=== PATIENT | male | born 1965 | race Caucasian/White ===

== ENCOUNTER 2021-06-07 11:54 | Outpatient (REF) | payer OTHER, SELFPAY ==
[2021-06-07 12:17] LABS: MANUAL DIFF FLAG NO
[2021-06-07 13:22] LABS: Basophils Percent Auto 0.4 % (0-2); Eosinophils Percent Auto 0.3 % (0-4); Hematocrit 38.3 % (42.0-52.0); Hemoglobin 12.3 g/dl (14.0-18.0); Imm Gran Abs Auto 0.03 X10*3/uL (0.00-0.03); Imm Gran Pct Auto 0.4 % (0.0-0.4); Lymphocytes Percent Auto 13.6 % (20-40); Mean Corpuscular HGB Conc 32.1 g/dl (31.0-36.0); Mean Corpuscular Hemoglobin 26.6 pg (27.0-33.0); Mean Corpuscular Volume 82.9 fL (80.0-98.0); Mean Platelet Volume 10.5 fL (9.4-12.4); Monocytes Absolute Auto 0.6 X10*3/uL (0.1-1.2); Monocytes Percent Auto 8.2 % (2-11); Neutrophils Absolute Auto 5.8 x10*3/uL (2.0-8.3); Neutrophils Percent Auto 77.1 % (45-73); Platelet Count 364 X10*3/uL (160-400); Red Blood Count 4.62 X10*6/uL (4.60-5.80); Red Cell Distribution Width 15.2 % (11.0-16.0); White Blood Count 7.6 X10*3/uL (4.8-10.8)
[2021-06-07 13:50] LABS: Alanine Aminotransferase 19 U/L (0-40); Albumin Level 3.9 g/dL (3.5-5.0); Alkaline Phosphatase 133 U/L (39-117); Anion Gap 14 (12-20); Aspartate Amino Transferase 23 U/L (5-37); Bilirubin Total 0.6 mg/dL (0.0-1.0); Blood Urea Nitrogen 13 mg/dL (9-16); C Reactive Protein 9.76 mg/dL (< or = 0.50); Calcium 10.3 mg/dL (8.4-10.2); Carbon Dioxide 29 mmol/L (22-29); Chloride 95 mmol/L (96-108); Estimated Glomerular Filt Rate > 60; Glucose Random 103 mg/dL (60-115); Potassium 4.4 mmol/L (3.3-5.1); Sodium 134 mmol/L (135-145); Total Protein 7.2 g/dL (6.5-8.0)
[2021-06-07 14:09] LABS: Estimated Average Glucose 111 mg/dL; Hemoglobin A1c % 5.5 %
[2021-06-07 14:13] LABS: Thyroid Stimulating Hormone 1.65 uIU/mL (0.32-4.0)
[2021-06-07 14:40] LABS: Erythrocyte Sedimentation Rate 70 MM/HR (0-15)
== END 2021-06-07 11:55 | disposition home or self-care (01) ==
LOC: HO.LAB 11:54
PROVIDERS: PCP Registered Nurse; Visit Provider Physician Assistant
DX: K59.09 Other constipation (principal); R63.4 Abnormal weight loss; R19.7 Diarrhea, unspecified; K52.9 Noninfective gastroenteritis and colitis, unspecified
CPT/HCPCS: 36415; 80053; 83036; 84443; 85025; 85652; 86140

== ENCOUNTER → 2021-06-08 08:10 | Outpatient (BNVA) | payer OTHER, SELFPAY | PROVIDERS: PCP Registered Nurse; Visit Provider Physician Assistant | DX: Z13.89 Encounter for screening for other disorder (principal) ==

== ENCOUNTER 2021-06-08 09:39 | Emergency (ER) | payer OTHER, SELFPAY ==
--- NOTE | ~2021-06-08 | CT_ITS ---
EXAMINATION: CT CHEST WITH and without CONTRAST CLINICAL INFORMATION: Large mass seen on chest radiograph COMPARISON: Chest radiograph earlier today TECHNIQUE: Multidetector volumetric CT imaging of the chest was obtained both before as well as after the administration of 65 mL of Omnipaque 300 intravenous contrast without immediate adverse reactions. Axial MIP volume rendering provided. Sagittal and coronal reformatted images were obtained. This CT examination was performed using dose optimization techniques as appropriate, variously including the following: *Automated exposure control *Adjustment of mA and/or kV according to patient size (this includes techniques or standardized protocols for targeted exams where dose is matched to indication/reason for exam; i.e. extremities or head) *Use of iterative reconstruction technique DLP: 405 mGy-cm FINDINGS: LUNGS AND MEDIASTINUM: There is a large lobular mass present in the right upper lobe which invades the mediastinum displacing the trachea slightly to the left. The feeding gallstones the superior vena cava which is quite narrowed but still remains patent. The luminal diameter is as small as 3 x 5 mm.. The mass also extends around the right main pulmonary artery. Because of its shape and configuration, overall size is a bit difficult to measure but is approximately 14 x 5 x 11.9 x 9.0 cm. This would be easily amenable to either CT or ultrasound-guided biopsy. There are areas of high attenuation within the mass which show no enhancement and are not aneurysms or pseudoaneurysms. Heart size normal. Mild coronary calcifications are seen. PLEURA: There is no pleural effusion. No pleural mass or thickening although the above-mentioned mass extends to the pleural surface.. AXILLA: No lymphadenopathy. UPPER ABDOMEN: There is an ovoid mass anterior to the upper pole of the right kidney which measures about 40 Hounsfield units and shows no significant enhancement. This may be related to the adrenal gland but could be a fluid-filled gastric diverticulum. This should be monitored on future studies. No evidence of liver metastases. A benign Bosniak class I cyst is noted at the upper pole of the left kidney. OSSEOUS STRUCTURES: Unremarkable. CT/CT chest wo con IMPRESSION: Large right upper lobe mass invading the mediastinum causing severe narrowing of the SVC. The mass is amenable to image guided percutaneous biopsy. Fleischner guidelines were followed.
--- NOTE | ~2021-06-08 | XR_ITS ---
EXAMINATION: XR CHEST CLINICAL INFORMATION: Irregular heartbeat COMPARISON: None TECHNIQUE: 2 views of the chest were obtained. FINDINGS: Radiopaque lobulated mass extending from the right suprahilar region into the right upper lobe measuring approximately 15 cm in greatest dimension. Correlation prior imaging if available. No pneumothorax. Trachea is midline. Cardiomediastinal silhouette is not enlarged. No large pleural effusion. Osseous structures are intact. Soft tissues are unremarkable. XR/XR chest 2V IMPRESSION: Radiopaque lobulated mass extending from the right suprahilar region into the right upper lobe measuring approximately 15 cm in greatest dimension. Correlation prior imaging if available. Consider further evaluation with cross-sectional imaging.
--- NOTE | 2021-06-08 09:41 | ECG_ITS ---
Test Reason : irregular heart rate Blood Pressure : / mmHG Vent. Rate : 125 BPM Atrial Rate : 125 BPM P-R Int : 126 ms QRS Dur : 076 ms QT Int : 290 ms P-R-T Axes : 081 094 075 degrees QTc Int : 418 ms Artifact in tracing Sinus tachycardia Biatrial enlargement Rightward axis Abnormal ECG No previous ECGs available Referred By: Sofi Gandhi Electronically Signed By:YARED YA
[2021-06-08 09:58] VITALS: BP 111/67; PULSE 118; RESP 20; TEMP 37; O2SAT 100; BMI 18.2
[2021-06-08 10:10] LABS: MANUAL DIFF FLAG NO
[2021-06-08 10:12] LABS: Basophils Percent Auto 0.2 % (0-2); Eosinophils Percent Auto 0.4 % (0-4); Hematocrit 40.4 % (42.0-52.0); Hemoglobin 12.8 g/dl (14.0-18.0); Imm Gran Abs Auto 0.04 X10*3/uL (0.00-0.03); Imm Gran Pct Auto 0.5 % (0.0-0.4); Lymphocytes Percent Auto 11.8 % (20-40); Mean Corpuscular HGB Conc 31.7 g/dl (31.0-36.0); Mean Corpuscular Hemoglobin 25.9 pg (27.0-33.0); Mean Corpuscular Volume 81.6 fL (80.0-98.0); Mean Platelet Volume 9.9 fL (9.4-12.4); Monocytes Absolute Auto 0.7 X10*3/uL (0.1-1.2); Monocytes Percent Auto 8.7 % (2-11); Neutrophils Absolute Auto 6.5 x10*3/uL (2.0-8.3); Neutrophils Percent Auto 78.4 % (45-73); Platelet Count 381 X10*3/uL (160-400); Red Blood Count 4.95 X10*6/uL (4.60-5.80); Red Cell Distribution Width 15.2 % (11.0-16.0); White Blood Count 8.3 X10*3/uL (4.8-10.8)
[2021-06-08 10:31] LABS: Troponin-I High Sensitivity < 3.5 ng/L (<3.5-35.0)
[2021-06-08 10:35] LABS: Alanine Aminotransferase 19 U/L (0-40); Alkaline Phosphatase 141 U/L (39-117); Anion Gap 14 (12-20); Aspartate Amino Transferase 23 U/L (5-37); Bilirubin Total 0.6 mg/dL (0.0-1.0); Blood Urea Nitrogen 14 mg/dL (9-16); Calcium 10.4 mg/dL (8.4-10.2); Carbon Dioxide 29 mmol/L (22-29); Chloride 96 mmol/L (96-108); Creatinine Clr Calc Pharmacy 88.6; Estimated Glomerular Filt Rate > 60; Glucose Random 103 mg/dL (60-115); Magnesium 1.9 mg/dL (1.6-2.6); Potassium 4.3 mmol/L (3.3-5.1); Sodium 135 mmol/L (135-145); Total Protein 7.5 g/dL (6.5-8.0)
--- NOTE | 2021-06-08 12:56 | ED_ITS ---
HPI - General Adult General Chief complaint: General Medical Stated complaint: dizzyness irr heart beat Time Seen by Provider: 06/08/21 09:41 Source: patient Mode of arrival: ambulatory Limitations: no limitations History of Present Illness HPI narrative: Patient is a 55 year old male presenting to the emergency department today with a rapid heart rate, cough, and intermittent dizziness. Patient states that he was upstairs, being evaluated to have a colonoscopy due to some unintentional weight loss over the last few months, when they noticed he was tachycardic and recommend he come to the ER to be evaluated. Patient states that he was a long time smoker and just quit a few weeks ago. Patient states that he has a chronic cough but over the last few weeks has been intermittently dizzy. Patient denies any abdominal pain, nausea, vomiting, fever, chills, blurry vision, double vision, loss of vision, chest pain, difficulty breathing, shortness of breath, back pain, night sweats, pain with urination, increased urinary frequency, increased urinary urgency, blood in his urine or stool, syncope or a near syncopal episode, recent trauma or falls, bowel incontinence, bladder incontinence, bowel retention, bladder retention, or any other complaints at this time. Patient states that he has a young son who is special needs and that he is a . Onset (ago): week(s) Relieving factors: none Exacerbating factors: none Associated symptoms: cough Treatments prior to arrival: none Related Data Home Medications Medication Instructions Recorded Confirmed No Known Home Meds 06/08/21 06/08/21 Allergies Allergy/AdvReac Type Severity Reaction Status Date / Time iodine Allergy Severe Anaphylaxis Verified 06/08/21 08:45 shellfish derived Allergy Mild Unknown Verified 06/08/21 08:45 Review of Systems Constitutional: Constitutional: Reports no additional constitutional com plaints, Denies chills, Denies fever(s) and Reports night sweats Eyes: Eyes: Reports no additional eye complaints, Denies blurry vision, Denies change in vision, Denies diplopia, Denies eye discharge, Denies loss of vision and Denies eye pain ENT: Reports dizziness (intermittent) Cardiovascular: Cardiovascular: Reports no additional cardiovascular complaints, Denies chest pain, Reports rapid heart rate, Denies lightheadedness, Denies Loss of Consciousness and Denies dyspnea Respiratory: Respiratory: Reports no additional respiratory complaints, Reports cough and Denies dyspnea Gastrointestinal: Gastrointestinal: Reports no additional gastrointestinal complaints, Denies abdominal pain, Denies melena, Denies hematochezia, Denies change in bowel habits and Denies change in stool character Genitourinary: Genitourinary: Reports no additional male genitourinary complaints, Denies hematuria, Denies oliguria, Denies difficulty urinating, Denies dysuria, Denies urinary frequency, Denies urinary hesitancy, Denies urinary incontinence and Denies urinary urgency Musculoskeletal: Musculoskeletal: Reports no additional musculoskeletal complaints, Denies numbness and Denies tingling Neurologic: Reports dizziness (intermittent), Denies loss of vision, Denies numbness and Denies tingling Psychiatric: Psychiatric: Reports no additional psychiatric complaints Endocrine: Endocrine: Reports no additional endocrine complaints Hematologic/Lymphatic: Hematologic/Lymphatic: Reports no additional hematologic/lymphatic complaints Allergic/Immunologic: Allergic/Immunologic: Reports no additional aller gic/immunologic complaints PMFSH Past Medical History Attestation statement: The following information was validated with the patient. Source: old records reviewed Family History Family History Mother Diverticulitis Maternal Uncle Diverticulitis Maternal Grandmother Diverticulitis Social History Social History Household Members: Children Household Members Other:: - 10 y/o autistic son Alcohol intake: never Patient Tobacco Use Status: Former Tobacco user Quit Date: 06/11/21 Use of substances other than those prescribed or required for medical reasons: No Substance Use Type: Marijuana Advance Directives: No Advance Directives Information Provided: Yes Current occupational status: employed Current occupation: Fulltime Physical Exam ED Vital Signs: Vital Signs - 24 hr 06/08/21 09:58 06/08/21 13:32 06/08/21 14:00 Temperature 98.6 F 99.0 F 98.6 F Pulse Rate 118 H 125 H 120 H Respiratory Rate 20 18 18 Blood Pressure 111/67 127/89 126/85 Pulse Oximetry 100 98 96 06/08/21 16:45 Temperature 98.6 F Pulse Rate 119 H Respiratory Rate 16 Blood Pressure 133/88 Pulse Oximetry 96 BMI result Body Mass Index 18.2 Const General: cooperative, no acute distress, alert and awake Nutritional Appearance: well nourished Orientation/consciousness: patient oriented x3 Limitations: no limitations HENMT Head: Yes normal to inspection and Yes atraumatic Ears: hearing grossly normal bilaterally and external ears normal General nose exam: Normal external nose present, no nasal discharge noted and no epistaxis Face and sinus: Yes normal facial exam, No abrasion and No laceration Mouth: Normal oral and palatal mucosa present, no drooling and no muffled voice Eyes General: appearance normal, both eyes and all related structures Periorbital: periorbital findings normal Eyelids: Yes eyelids normal Conjunctivae: conjunctivae normal Pupils: Equal, round and reactive pupils present EOM: EOMs intact bilaterally Neck Neck: Yes normal visual inspection, Yes full ROM and Yes no lymphadenopathy Chest Chest palpation & inspection: normal inspection of the chest Resp Effort & Inspection: normal respiratory effort and able to speak in complete sentences Auscultation: clear to auscultation bilaterally Cardio Rate: tachycardic Rhythm: regular rhythm GI Inspection: Yes normal to inspection Neuro General: patient oriented x3 and moves all extremities Cranial nerves: Yes Equal, round and reactive pupils present Cognition (Neuro): normal cognition Motor exam (neuro): 5/5 motor strength present throughout Sensory Exam: Normal double simultaneous stimulation for sensation Coordination: [id number] test normal Extrem General: Yes normal to inspection, Yes full ROM and Yes capillary refill normal Psych Appearance: grossly normal Mental Status: mental status grossly normal Affect: normal affect Attitude: cooperative Thought process: Normal thought process present Thought content: Normal thought content present Insight: Good insight present (Psych) Course Reevaluation(s) Reevaluation #1: Spoke to [facility] who stated that they are not accepting any patients that aren't a STEMI, Stroke, Trauma, or Pediatric. Time: 16:00 Reevaluation #2: Spoke to Dr. Merino who recommended the patient be admitted and that Dr. Schultz of thoracic is consulted. Time: 16:05 Reevaluation #3: Spoke to Dr. Schultz's [place] Tony, who stated that he would speak to Dr. Schultz to review the case. Time: 16:10 Medical Decision Making MDM Narrative Medical decision making narrative: Patient is a 55 year old male presenting to the emergency department today with a rapid heart weight, cough, and unintentional weight loss. Patient's physical exam was unremarkable. Patient's blood work was unremarkable. Patient's urine showed no acute process. Patient's EKG was unremarkable. Patient's chest x-ray showed a 15cm chest mass. Patient's chest CT showed a large right upper chest mass that is invading into the mediastinum. I spoke to [facility] who declined to accept the patient secondary to being full. I spoke to Dr. Merino who recommended the patient be admitted for further evaluation. I spoke to Dr. Schultz's PA who states that they recommend the patient be transferred somewhere else with pallative radiation capabilities. I explained my physical exam findings as well as all test results to the patient. I answered all questions asked by the patient. Patient stated that he would rather go home tonight and get ahold of Dr. Merino to discuss outpatient options as he needs to be with his special needs son this evening. I stressed the importance of the patient taking his medication as prescribed. I stressed the importance of the patient following up with his primary care provider and oncologist. I stressed the importance of the patient returning to the emergency department immediately if his symptoms were to worsen or if he were to develop any dizziness, shortness of breath, difficulty breathing, chest pain, blurry vision, loss of vision, nausea, vomiting, abdominal pain, fever, chills, back pain, or any other complaints. Patient verbalized agreement and understanding with this treatment plan and discharge. Differential Diagnosis Differential Diagnosis: lung cancer, chest mass Medical Records Medical records reviewed: Yes I reviewed the patient's medical records. Lab Data Lab results reviewed: Yes I reviewed the patient's lab results. Result diagrams: 06/08/21 10:06 06/08/21 10:06 Labs: Lab Results 06/08/21 06/08/21 06/08/21 Range/Units 10:06 10:06 10:06 WBC 8.3 (4.8-10.8) X10*3/uL RBC 4.95 (4.60-5.80) X10*6/uL Hgb 12.8 L (14.0-18.0) g/dl Hct 40.4 L (42.0-52.0) % MCV 81.6 (80.0-98.0) fL MCH 25.9 L (27.0-33.0) pg MCHC 31.7 (31.0-36.0) g/dl RDW 15.2 (11.0-16.0) % Plt Count 381 (160-400) X10*3/uL MPV 9.9 (9.4-12.4) fL Immature Gran % (Auto) 0.5 H (0.0-0.4) % Neut % (Auto) 78.4 H (45-73) % Lymph % (Auto) 11.8 L (20-40) % [place] % (Auto) 8.7 (2-11) % Eos % (Auto) 0.4 (0-4) % Baso % (Auto) 0.2 (0-2) % Lymph # (Auto) 1.0 L (1.2-4.9) X10*3/uL [place] # (Auto) 0.7 (0.1-1.2) X10*3/uL Eos # (Auto) 0.0 (0.0-0.4) X10*3/uL Baso # (Auto) 0.0 (0.0-0.2) X10*3/uL Abs Immat Gran (auto) 0.04 H (0.00-0.03) X10*3/uL Absolute Neuts (auto) 6.5 (2.0-8.3) x10*3/uL Absolute Nucleated RBC 0.000 (0.0-0.012) X10*3/uL Nucleated RBC % (auto) 0.0 (0.0-0.2) /100WBC Sodium 135 (135-145) mmol/L Potassium 4.3 (3.3-5.1) mmol/L Chloride 96 (96-108) mmol/L Carbon Dioxide 29 (22-29) mmol/L Anion Gap 14 (12-20) BUN 14 (9-16) mg/dL Creatinine 0.72 (0.5-1.4) mg/dL Estim Creat Clear Calc 88.6 Estimated GFR > 60 Random Glucose 103 (60-115) mg/dL Calcium 10.4 H (8.4-10.2) mg/dL Magnesium 1.9 (1.6-2.6) mg/dL Total Bilirubin 0.6 (0.0-1.0) mg/dL AST 23 (5-37) U/L ALT 19 (0-40) U/L Alkaline Phosphatase 141 H (39-117) U/L Lactate Dehydrogenase 369 H (118-273) U/L Troponin I High Sens < 3.5 (<3.5-35.0) ng/L Total Protein 7.5 (6.5-8.0) g/dL Albumin 4.0 (3.5-5.0) g/dL Carcinoembryonic Ag 7.80 ng/mL Imaging Data Chest x-ray: Attestation: I personally reviewed and interpreted this imaging study as follows: Radiologist's impression: EXAMINATION: XR CHEST CLINICAL INFORMATION: Irregular heartbeat COMPARISON: None TECHNIQUE: 2 views of the chest were obtained. FINDINGS: Radiopaque lobulated mass extending from the right suprahilar region into the right upper lobe measuring approximately 15 cm in greatest dimension. Correlation prior imaging if available. No pneumothorax. Trachea is midline. Cardiomediastinal silhouette is not enlarged. No large pleural effusion. Osseous structures are intact. Soft tissues are unremarkable. XR/XR chest 2V IMPRESSION: Radiopaque lobulated mass extending from the right suprahilar region into the right upper lobe measuring approximately 15 cm in greatest dimension. Correlation prior imaging if available. Consider further evaluation with cross-sectional imaging. Dictated By: Daphney Quiñones MD Signed By: Electronically signed by Daphney Quiñones MD 06/08/[address] scan - chest: Attestation: I personally reviewed and interpreted this imaging study as follows: Radiologist's impression: EXAMINATION: CT CHEST WITH and without CONTRAST CLINICAL INFORMATION: Large mass seen on chest radiograph? COMPARISON: Chest radiograph earlier today? TECHNIQUE: Multidetector volumetric CT imaging of the chest was obtained both before as well as after the administration of 65 mL of Omnipaque 300 intravenous contrast without immediate adverse reactions. Axial MIP volume rendering provided. Sagittal and coronal reformatted images were obtained. This CT examination was performed using dose optimization techniques as appropriate, variously including the following: *Automated exposure control *Adjustment of mA and/or kV according to patient size (this includes techniques or standardized protocols for targeted exams where dose is matched to indication/reason for exam; i.e. extremities or head) *Use of iterative reconstruction technique DLP: 405 mGy-cm FINDINGS: LUNGS AND MEDIASTINUM: There is a large lobular mass present in the right upper lobe which invades the mediastinum displacing the trachea slightly to the left. The feeding gallstones the superior vena cava which is quite narrowed but still remains patent. The luminal diameter is as small as 3 x 5 mm.. The mass also extends around the right main pulmonary artery. Because of its shape and configuration, overall size is a bit difficult to measure but is approximately 14 x 5 x 11.9 x 9.0 cm. This would be easily amenable to either CT or ultrasound-guided biopsy. There are areas of high attenuation within the mass which show no enhancement and are not aneurysms or pseudoaneurysms. Heart size normal. Mild coronary calcifications are seen. PLEURA: There is no pleural effusion. No pleural mass or thickening although the above-mentioned mass extends to the pleural surface..? AXILLA: No lymphadenopathy.? UPPER ABDOMEN: There is an ovoid mass anterior to the upper pole of the right kidney which measures about 40 Hounsfield units and shows no significant enhancement. This may be related to the adrenal gland but could be a fluid-filled gastric diverticulum. This should be monitored on future studies. No evidence of liver metastases. A benign Bosniak class I cyst is noted at the upper pole of the left kidney. OSSEOUS STRUCTURES: Unremarkable.? CT/CT chest wo con IMPRESSION: Large right upper lobe mass invading the mediastinum causing severe narrowing of the SVC. The mass is amenable to image guided percutaneous biopsy.? ? Fleischner guidelines were followed. Dictated By: Delbert Swift MD Signed By: Electronically signed by Delbert Swift MD 06/08/21 2343 ECG Data Attestation: I personally reviewed and interpreted this ECG as follows: Prior ECG tracings: not available for review Interpretation: Vent. Rate: 125 BPM ? ? Atrial Rate: 125 BPM P-R Int: 126 ms? QRS Dur: 076 ms QT Int: 290 ms ? ? ? P-R-T Axes: 081 094 075 degrees QTc Int: 418 ms ? Sinus tachycardia with occasional Premature ventricular complexes Biatrial enlargement Rightward axis Pulmonary disease pattern Abnormal ECG No previous ECGs available DD/ [id number] Discharge Plan Discharge Clinical Impression: Chest mass Patient Disposition: Home, Self-Care Additional Instructions: Follow up with your primary care provider and an oncologist. Return to the emergency department immediately if your symptoms worsen or if you develop any dizziness, shortness of breath, difficulty breathing, chest pain, blurry vision, loss of vision, nausea, vomiting, abdominal pain, fever, chills, back pain, or any other complaints. Prescriptions: No Action No Known Home Meds 0RF Referrals: Ann James, RANDA, MEDICAL INTERPRETER, [employer]DBO[employer] PANEL [employer]INTER-[employer] [Primary Care Provider] - Maikol Merino MD [Physician] - (Call tomorrow morning for follow up with the oncologist. ) Stand Alone Forms: Work/School Release Print Language: [place] Citizen
[2021-06-08 13:32] VITALS: BP 127/89; PULSE 125; RESP 18; TEMP 37.2; O2SAT 98
--- NOTE | 2021-06-08 13:34 | PC.NURSE ---
Pt axox3, tachycardic. LS CTA> reports clear phlem. plans of being discharged home to take care of son.
[2021-06-08 14:00] VITALS: BP 126/85; PULSE 120; RESP 18; TEMP 37; O2SAT 96
[2021-06-08] MEDS: methylPREDNISolone Sod Succ 125 MG/2 ML VIAL IVPUSH (14:16)
[2021-06-08] MEDS: LORazepam 0.5 MG TABLET 0.25 MG PO (14:17)
--- NOTE | 2021-06-08 14:18 | PC.NURSE ---
iv inserted, pt medicated per order
[2021-06-08] MEDS: LORazepam 2 MG/ML VIAL 0.25 MG IVPUSH (14:26)
[2021-06-08] MEDS: ondansetron HCL 4 MG/2 ML VIAL IVPUSH (14:26)
--- NOTE | 2021-06-08 14:32 | PC.NURSE ---
pt began to vomit, provider notified, pt medicated with iv zofran as well as iv ativan, pt now to ct scan
[2021-06-08] MEDS: iohexoL 350 MG/ML 75 ML INFUS..BTL 65 ML IV (14:48)
[2021-06-08 16:25] LABS: Lactate Dehydrogenase 369 U/L (118-273)
[2021-06-08 16:45] VITALS: BP 133/88; PULSE 119; RESP 16; TEMP 37; O2SAT 96
[2021-06-08 17:53] VITALS: BP 131/80; PULSE 124; RESP 18; O2SAT 96
== END 2021-06-08 18:14 | disposition home or self-care (01) ==
PROVIDERS: Internal Medicine Medical Oncology; Physician Assistant Medical; Emergency Provider Internal Medicine; PCP Registered Nurse
DX: R91.8 Other nonspecific abnormal finding of lung field (principal); R42 Dizziness and giddiness; R94.31 Abnormal electrocardiogram [ECG] [EKG]; R63.4 Abnormal weight loss; Z68.1 Body mass index [BMI] 19.9 or less, adult; Z87.891 Personal history of nicotine dependence
CPT/HCPCS: 36415; 71046; 71250; 71260; 80053; 82378; 83615; 83735; 84484; 85025; 93005; 96374; 96375; 99284; J2060; J2405; J2930; Q9967

== ENCOUNTER 2021-06-09 11:25 | Day surgery (SDC) | payer OTHER, SELFPAY ==
[2021-06-09] VITALS (7 sets, daily range): BP systolic 111–121; BP diastolic 73–84; PULSE 100–118; RESP 18–20; O2SAT 96–98; BMI 18.0
--- NOTE | ~2021-06-09 | CT_ITS ---
PROCEDURE: CT GUIDED BIOPSY, LUNG CLINICAL INFORMATION: Huge mass right lung. COMPARISON: None TECHNIQUE: Following explaining CT-guided right lung mass biopsy procedure, benefits and risks, a written consent was obtained from the patient. Patient was placed supine on CT table and preliminary CT imaging was obtained through the upper chest. An optimal site was selected along the right anterior chest wall and marked. The marked site was cleaned and draped in usual sterile manner. 1% lidocaine was injected at puncture site. Through a small skin incision a 20-gauge guide needle was advanced from the anterior chest wall into the right anterior pleural-based mass and a 4 pass core biopsy was performed coaxially. Postprocedure the guide needle was removed and complete hemostasis was achieved. Patient tolerated procedure extremely well. Sterile Band-Aid applied postprocedure. Conscious sedation was administered during the exam and patient monitored by the IR nurse and the radiologist. This CT examination was performed using dose optimization techniques as appropriate, variously including the following: *Automated exposure control *Adjustment of mA and/or kV according to patient size (this includes techniques or standardized protocols for targeted exams where dose is matched to indication/reason for exam; i.e. extremities or head) *Use of iterative reconstruction technique DLP: 190 mGy-cm FINDINGS: On preliminary CT imaging there is a large anterior mediastinal mass extending along the right anterior upper pleural surface. Approximately 4 pass core biopsies were obtained with a 20-gauge needle. Preliminary results from pathology revealed adequate tissue sample. Definite results are pending. CT/CT biopsy lung RT IMPRESSION: Successful CT fluoroscopy-guided biopsy of right pleural chest wall mass.
[2021-06-09] MEDS: Lidocaine HCl 1 % MPF 5 ML VIAL SUBCUT (14:19)
== END 2021-06-09 16:05 | disposition home or self-care (01) ==
PROVIDERS: Radiology Diagnostic Radiology; Visit Provider Internal Medicine Medical Oncology
DX: R91.8 Other nonspecific abnormal finding of lung field (principal); Z87.891 Personal history of nicotine dependence; Z91.041 Radiographic dye allergy status
CPT/HCPCS: 32408; 81210; 81235; 88305; 88333; 88341; 88342; 88360; 88374; 88377; 99152; J2250; J3010

== ENCOUNTER 2021-07-11 14:26 | Emergency (ER) | payer OTHER, SELFPAY ==
--- NOTE | ~2021-07-11 | XR_ITS ---
EXAMINATION: XR CHEST CLINICAL INFORMATION: Syncope. Recent diagnosis lung cancer. COMPARISON: Chest radiographs 06/08/2021, CT chest 06/08/2021, CT-guided biopsy lung 06/09/2021. TECHNIQUE: Portable upright AP view of the chest was obtained. FINDINGS: There is right mediastinal and right perihilar and upper lobe mass similar to recent imaging. There is no pneumothorax, vascular congestion, or effusion. Heart size normal. No interval airspace consolidation. Costophrenic sulci are clear. No acute bony abnormality. XR/XR chest 1V IMPRESSION: -Right mediastinal and right lung mass similar to recent imaging. -No pneumothorax, interval infiltrate, or effusion.
--- NOTE | ~2021-07-11 | CT_ITS ---
EXAMINATION: CT ANGIOGRAM OF THE CHEST WITH AND WITHOUT CONTRAST (CT PULMONARY ANGIOGRAM FOR PE) CLINICAL INFORMATION: Reason for Exam elevated ddimer, near syncope COMPARISON: CT chest 06/08/2021, CT biopsy 06/09/2021 TECHNIQUE: Prior to contrast administration, noncontrast localization images were obtained. Subsequently, multidetector volumetric imaging was performed from the thoracic inlet to below the diaphragms following the administration of 65 mL Omnipaque 350 intravenous contrast. No contrast reaction reported Sagittal, coronal, and MIP oblique sagittal reformatted images were obtained on the CT workstation, uploaded to PACS, and reviewed. This CT examination was performed using dose optimization techniques as appropriate, variously including the following: *Automated exposure control *Adjustment of mA and/or kV according to patient size (this includes techniques or standardized protocols for targeted exams where dose is matched to indication/reason for exam; i.e. extremities or head) *Use of iterative reconstruction technique Total exam dose-length product 212 mGy-cm FINDINGS: QUALITY OF STUDY/CONTRAST BOLUS: Satisfactory. PULMONARY ARTERIES: No central or segmental pulmonary emboli. The right pulmonary artery is encased by the large lung/mediastinal mass previously biopsied and well characterized. THORACIC AORTA: No aneurysm or dissection. LUNG: Again seen is a large lobular right upper lobe mass invading the mediastinum with unchanged appearances when compared to the prior study of 06/08/2021. This has been biopsied (06/09/2021) and was shown to represent poorly differentiated carcinoma. PLEURA: No pleural effusion or pneumothorax. MEDIASTINUM: Normal heart size. No pericardial effusion. As stated above, the right upper lobe lung mass invades the mediastinum encasing the trachea and mainstem bronchi as well as the right pulmonary artery, aorta and SVC. The SVC narrows to 2- 3 mm in size, unchanged from prior. No evidence of septal bowing or right heart strain. CHEST WALL/AXILLA: No axillary or internal mammary lymphadenopathy. OSSEOUS STRUCTURES: No acute or suspicious osseous abnormality. UPPER ABDOMEN: Previously seen left adrenal mass now measures 3.0 x 2.0 cm in maximal transverse dimension whereas previously this measured 2.4 x 1.4 cm. Findings consistent with adrenal metastatic disease, increasing in size. No reflux of contrast into the hepatic veins to suggest elevated right heart pressures. CT/CT angio chest PE protocol IMPRESSION: 1. No evidence of pulmonary emboli. 2. No significant interval change in the large right upper lobe carcinoma invading the mediastinum, encasing the right pulmonary artery and severely narrowing the SVC. 3. Left adrenal mass has increased in size, presumably metastatic disease. VTE: negative
--- NOTE | 2021-07-11 14:22 | ECG_ITS ---
Test Reason : CHEST PAIN Blood Pressure : / mmHG Vent. Rate : 145 BPM Atrial Rate : 000 BPM P-R Int : 000 ms QRS Dur : 068 ms QT Int : 276 ms P-R-T Axes : 000 087 077 degrees QTc Int : 428 ms Supraventricular tachycardia ,short R-P Nonspecific ST abnormality Abnormal ECG When compared with ECG of 08-JUN-2021 09:51, Nonspecific T wave abnormality now evident in Inferior leads Supraventricular tachycardia has replaced Normal sinus rhythm Referred By: Aaron Barrera Electronically Signed By:MIR STAFFORD MD
[2021-07-11 14:29] VITALS: BP 83/60; PULSE 142; RESP 20; TEMP 36.6; O2SAT 99; BMI 17.2
[2021-07-11] MEDS: 0.9 % Sodium Chloride 1,000 ML 999 ML IVCONT ×2 (14:40→15:51)
[2021-07-11] MEDS: Hydrocortisone Sod Succ/PF 100 MG VIAL IVPUSH (14:41)
[2021-07-11] MEDS: diphenhydrAMINE HCL 50 MG/ML VIAL 25 MG IVPUSH (14:41)
[2021-07-11] MEDS: ondansetron HCL 4 MG/2 ML VIAL IVPUSH (14:41)
[2021-07-11] MEDS: Famotidine/PF 20 MG/2 ML VIAL IVPUSH (14:43)
--- NOTE | 2021-07-11 14:51 | ED_ITS ---
HPI - Allergic Reaction General Chief complaint: General Medical Stated complaint: Cardiac Issues Time Seen by Provider: 07/11/21 14:33 Source: patient Mode of arrival: other (code blue from oncology - wheelchair) Limitations: no limitations History of Present Illness HPI narrative: 55 yo male with hx of lung adenocarcinoma with bony mets undergoing radiation 5 days a week at [facility] as well as chemotherapy here was receiving infusion today 3rd dose of Taxol today no prior reactions and prior to the Taxol had received his first dose of Zometa - he noted he started to feel sweaty, dizzy, nauseated and like he might pass out a few minutes into the taxol. He denies CP/SOB and felt fine prior to his visit today. No prior reactions in the past. Was a code blue did not lose pulses, brought to ED from oncology MD complaint: allergic reaction (hypotension, vomiting, weakness) Onset (ago): minute(s) (just prior to arrival ) Exposure: medication (zometa and taxol) Symptoms: difficulty breathing, dizziness, nausea and vomiting Severity: severe Treatment prior to arrival: none Previous Allergic Reaction History: none Related Data Home Medications Medication Instructions Recorded Confirmed lorazepam 0.5 mg tablet (Ativan) 0.5 mg PO TID PRN 06/09/21 06/09/21 Previous Rx's Medication Instructions Recorded ondansetron 8 mg disintegrating 8 mg PO Q8H #50 tab 06/20/21 tablet Allergies Allergy/AdvReac Type Severity Reaction Status Date / Time iodine Allergy Severe Anaphylaxis Verified 06/09/21 09:47 shellfish derived Allergy Severe Anaphylaxis Verified 06/09/21 11:28 Review of Systems Review of Systems: Constitutional : No Fever, No Chills ENT/Mouth : no oral swelling, No Hoarseness, No Swallowing Difficulty Eyes: No Eye Pain, No Swelling, No Redness Cardiovascular : No Chest Pain, No SOB Respiratory : No Cough, No Sputum, No Wheezing, No Smoke Exposure, pos Dyspnea Gastrointestinal : pos Nausea, pos Vomiting, No Diarrhea, No abdominal Pain Genitourinary : No Dysuria, No Urinary Frequency, No Hematuria Musculoskeletal : No joint pain, No Myalgias, No Joint Swelling Skin : No Skin Lesions, positive rash Neuro : pos Weakness, No Numbness, No Headache, pos dizziness Psych : No Anxiety/Panic, No Depression Heme/Lymph: No Bruising, No Lymphadenopathy Endocrine : No Polyuria, No Polydipsia All other systems reviewed and are negative [facility] Past Medical History Attestation statement: The following information was validated with the patient. Medical History Adenocarcinoma of lung Bone metastases Mass of right lung Family History Family History (Updated 06/09/21 @ 09:45 by Nicolette Molina CMA) Mother Diverticulitis Breast cancer Maternal Uncle Diverticulitis Prostate cancer Maternal Grandmother Diverticulitis Social History Social History Household Members: Children Household Members Other:: - 10 y/o autistic son Housing: House Are you a primary wild animal caretaker to a significant other at home: No Do you presently have visiting nurse or other home services: No Alcohol intake: current Alcohol intake frequency: holidays/special occasions only Patient Tobacco Use Status: Former Tobacco user Quit Date: 06/11/21 Smoked in Last 30 Days: No Second Hand Smoke Exposure: Yes Use of substances other than those prescribed or required for medical reasons: Yes Substance Use Type: Marijuana Substance Use Frequency: Daily Substance Use Frequency Other:: pt uses marijuana edibles at home to sleep Advance Directives: Yes Advance Directives Information Provided: No Advance Directives on File: Yes Advance Directives Date on File: 06/09/21 service: No Current occupational status: employed Current occupation: Fulltime Current occupational exposures/hazards: No Physical Exam ED Vital Signs: Vital Signs - 24 hr 07/11/21 14:29 07/11/21 14:56 07/11/21 15:44 Temperature 98 F Pulse Rate 142 H 120 H 127 H Respiratory Rate 20 16 22 H Blood Pressure 83/60 L 97/61 100/70 Pulse Oximetry 99 97 100 BMI result Body Mass Index 17.2 Appearance: Alert. Oriented X3. Moderate acute distress. Initial code blue - presentation eyes rolled back pale, diaphoretic, not responding, making gurgling noises for approx 1 min when I was present Eyes: Pupils equal, round and reactive to light. ENT: Pharynx dry but no swelling noted Neck: Normal inspection. Neck supple. CVS: tachyardic heart rate and rhythm. Pulses normal. Respiratory: No respiratory distress. Breath sounds diminished R side Abdomen: Soft and nontender. Skin: Skin warm and dry. pale skin color. Normal skin turgor. Extremities: No lower extremity edema. No calf ttp Neuro: Oriented X 3. No motor deficit. No sensory deficit. Course Course Course Narrative: signed out to Dr. Barrera pending repeat evaluation - repeat troponin and ddimer pending, IVF infusing, he does feel a lot better at this time MDM - Allergic Reaction MDM Narrative Medical decision making narrative: 55 yo male with hx of lung adenocarcinoma with bony mets undergoing radiation 5 days a week at [facility] presents with nausea vomiting dizziness and near syncope following infusion - suspect possible reaction to medication. He was given steroid bolus, benadryl, IVF x 2L, pepcid and is improving on arrival to the ED. Will need observation in the ED. No oral swelling. NO GIB symptoms. NO CP/SOB to suggest PE. He did not have a seizure no shaking he is not postictal. Will observe in ED. Lab Data Result diagrams: 07/11/21 14:42 07/11/21 14:42 Labs: Lab Results 07/11/21 07/11/21 07/11/21 Range/Units 14:42 14:42 14:42 WBC 5.5 (4.8-10.8) X10*3/uL RBC 3.76 L (4.60-5.80) X10*6/uL Hgb 10.0 L (14.0-18.0) g/dl Hct 31.8 L (42.0-52.0) % MCV 84.6 (80.0-98.0) fL MCH 26.6 L (27.0-33.0) pg MCHC 31.4 (31.0-36.0) g/dl RDW 15.8 (11.0-16.0) % Plt Count 131 L D (160-400) X10*3/uL MPV 9.5 (9.4-12.4) fL Immature Gran % (Auto) 0.5 H (0.0-0.4) % Neut % (Auto) 90.4 H (45-73) % Lymph % (Auto) 7.1 L (20-40) % Tyler % (Auto) 0.9 L (2-11) % Eos % (Auto) 0.7 (0-4) % Baso % (Auto) 0.4 (0-2) % Lymph # (Auto) 0.4 L (1.2-4.9) X10*3/uL Tyler # (Auto) 0.1 (0.1-1.2) X10*3/uL Eos # (Auto) 0.0 (0.0-0.4) X10*3/uL Baso # (Auto) 0.0 (0.0-0.2) X10*3/uL Abs Immat Gran (auto) 0.03 (0.00-0.03) X10*3/uL Absolute Neuts (auto) 5.0 (2.0-8.3) x10*3/uL Absolute Nucleated RBC 0.000 (0.0-0.012) X10*3/uL Nucleated RBC % (auto) 0.0 (0.0-0.2) /100WBC Smear Tech's Comments VERIFIED PT (9.9-13.0) SEC INR (0.9-1.1) Sodium 134 L (135-145) mmol/L Potassium 4.2 (3.3-5.1) mmol/L Chloride 100 (96-108) mmol/L Carbon Dioxide 23 (22-29) mmol/L Anion Gap 15 (12-20) BUN 18 H (9-16) mg/dL Creatinine 0.81 (0.5-1.4) mg/dL Estim Creat Clear Calc 74.5 Estimated GFR > 60 Random Glucose 156 H D (60-115) mg/dL Calcium 9.0 D (8.4-10.2) mg/dL Magnesium 2.0 (1.6-2.6) mg/dL Total Bilirubin 0.6 (0.0-1.0) mg/dL Direct Bilirubin 0.2 (0.0-0.5) mg/dL AST 25 D (5-37) U/L ALT 18 (0-40) U/L Alkaline Phosphatase 103 (39-117) U/L Troponin I High Sens (<3.5-35.0) ng/L Total Protein 5.9 L (6.5-8.0) g/dL Albumin 3.1 L (3.5-5.0) g/dL COVID-19 (AMIRAH) Negative (Negative) COVID-19 Clin Com See Note 07/11/21 07/11/21 Range/Units 14:42 15:10 WBC (4.8-10.8) X10*3/uL RBC (4.60-5.80) X10*6/uL Hgb (14.0-18.0) g/dl Hct (42.0-52.0) % MCV (80.0-98.0) fL MCH (27.0-33.0) pg MCHC (31.0-36.0) g/dl RDW (11.0-16.0) % Plt Count (160-400) X10*3/uL MPV (9.4-12.4) fL Immature Gran % (Auto) (0.0-0.4) % Neut % (Auto) (45-73) % Lymph % (Auto) (20-40) % Tyler % (Auto) (2-11) % Eos % (Auto) (0-4) % Baso % (Auto) (0-2) % Lymph # (Auto) (1.2-4.9) X10*3/uL Tyler # (Auto) (0.1-1.2) X10*3/uL Eos # (Auto) (0.0-0.4) X10*3/uL Baso # (Auto) (0.0-0.2) X10*3/uL Abs Immat Gran (auto) (0.00-0.03) X10*3/uL Absolute Neuts (auto) (2.0-8.3) x10*3/uL Absolute Nucleated RBC (0.0-0.012) X10*3/uL Nucleated RBC % (auto) (0.0-0.2) /100WBC Smear Tech's Comments PT 14.9 H (9.9-13.0) SEC INR 1.3 H (0.9-1.1) Sodium (135-145) mmol/L Potassium (3.3-5.1) mmol/L Chloride (96-108) mmol/L Carbon Dioxide (22-29) mmol/L Anion Gap (12-20) BUN (9-16) mg/dL Creatinine (0.5-1.4) mg/dL Estim Creat Clear Calc Estimated GFR Random Glucose (60-115) mg/dL Calcium (8.4-10.2) mg/dL Magnesium (1.6-2.6) mg/dL Total Bilirubin (0.0-1.0) mg/dL Direct Bilirubin (0.0-0.5) mg/dL AST (5-37) U/L ALT (0-40) U/L Alkaline Phosphatase (39-117) U/L Troponin I High Sens < 3.5 (<3.5-35.0) ng/L Total Protein (6.5-8.0) g/dL Albumin (3.5-5.0) g/dL COVID-19 (AMIRAH) (Negative) COVID-19 Clin Com ECG Data Attestation: I personally reviewed and interpreted this ECG as follows: ECG interpretation date: 07/11/21 ECG interpretation time: 14:22 Interpretation: Rate: 145 Rhythm: sinus tachycardia Allons: normal Normal P waves. Normal VANNESSA. Normal QRS complex. ST T wave : nonspecific inf changes qTC: normal prior studies: changed from prior The study has been interpreted contemporaneously by me. . Critical Care Time Critical Care Time Critical Care Time: Yes Total Critical Care Time: 45 Attestation: 2L of IVF, allergy medications, review of records, repeat assessments, response to code blue. I attest to this time spent taking care of the patient Discharge Plan Discharge Clinical Impression: Near syncope Patient Disposition: Still a Patient Prescriptions: No Action lorazepam [Ativan] 0.5 mg Tablet 0.5 mg PO TID PRN (Reason: Anxiety) 0RF ondansetron 8 mg Tablet,Disintegrating 8 mg PO Q8H Qty: 50 4RF
--- NOTE | 2021-07-11 14:53 | PC.NURSE ---
Pt from Oncology after having ?reaction to new medication given. Pt arrives pale/diaphoretic and vomiting. Second IV established 18g to left ac, fluids given in addition to meds reflected in EMAR. Sinus tach on tele rate 150s initially however has trended down to 120s at this time. Hypotensive SBP 80-90s. Color has improved. Pt reports SOB at this time but baseline for pt, on 5lpm via nc, sat 98%. Reports dizziness.
[2021-07-11 14:56] VITALS: BP 97/61; PULSE 120; RESP 16; O2SAT 97
[2021-07-11 15:02] LABS: Basophils Percent Auto 0.4 % (0-2); Eosinophils Percent Auto 0.7 % (0-4); Hematocrit 31.8 % (42.0-52.0); Imm Gran Abs Auto 0.03 X10*3/uL (0.00-0.03); Imm Gran Pct Auto 0.5 % (0.0-0.4); Lymphocytes Absolute Auto 0.4 X10*3/uL (1.2-4.9); Lymphocytes Percent Auto 7.1 % (20-40); MANUAL DIFF FLAG SCAN; Mean Corpuscular HGB Conc 31.4 g/dl (31.0-36.0); Mean Corpuscular Hemoglobin 26.6 pg (27.0-33.0); Mean Corpuscular Volume 84.6 fL (80.0-98.0); Mean Platelet Volume 9.5 fL (9.4-12.4); Monocytes Absolute Auto 0.1 X10*3/uL (0.1-1.2); Monocytes Percent Auto 0.9 % (2-11); Neutrophils Percent Auto 90.4 % (45-73); Platelet Count 131 X10*3/uL (160-400); Red Blood Count 3.76 X10*6/uL (4.60-5.80); Red Cell Distribution Width 15.8 % (11.0-16.0); SCAN SMEAR FLAG 1; White Blood Count 5.5 X10*3/uL (4.8-10.8)
[2021-07-11 15:06] LABS: COVID-19 Test Negative (Negative); IDNOW Serial# 9DB6401D
[2021-07-11 15:11] LABS: Alanine Aminotransferase 18 U/L (0-40); Albumin Level 3.1 g/dL (3.5-5.0); Alkaline Phosphatase 103 U/L (39-117); Anion Gap 15 (12-20); Aspartate Amino Transferase 25 U/L (5-37); Bilirubin Direct 0.2 mg/dL (0.0-0.5); Bilirubin Total 0.6 mg/dL (0.0-1.0); Blood Urea Nitrogen 18 mg/dL (9-16); Carbon Dioxide 23 mmol/L (22-29); Chloride 100 mmol/L (96-108); Creatinine Clr Calc Pharmacy 74.5; Estimated Glomerular Filt Rate > 60; Glucose Random 156 mg/dL (60-115); Potassium 4.2 mmol/L (3.3-5.1); Sodium 134 mmol/L (135-145); Total Protein 5.9 g/dL (6.5-8.0)
[2021-07-11 15:20] LABS: Troponin-I High Sensitivity < 3.5 ng/L (<3.5-35.0)
[2021-07-11 15:26] LABS: INTERNATIONAL NORM RATIO 1.3 (0.9-1.1); Prothrombin Time 14.9 SEC (9.9-13.0)
[2021-07-11 15:35] LABS: SLIDE REVIEW VERIFIED
[2021-07-11 15:44] VITALS: BP 100/70; PULSE 127; RESP 22; O2SAT 100
--- NOTE | 2021-07-11 15:47 | PC.NURSE ---
pt a&ox3, pt remains sinus tach on monitor, hypotensive @ 100/70, 1005 O2 on 5L. pt reports that he is feeling much better. 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 2nd bag flds started. no new orders at this time.
[2021-07-11 16:58] LABS: D Dimer High Sensitivity 1245 NG/ML
--- NOTE | 2021-07-11 17:21 | PC.NURSE ---
pt to CT. hx rxn to CT contrast per pt, provider notified by business services tech.
[2021-07-11] MEDS: iohexoL 350 MG/ML 100 ML INFUS..BTL IV (17:31)
[2021-07-11 17:46] LABS: Troponin-I High Sensitivity 32.6 ng/L (<3.5-35.0)
[2021-07-11 18:00] VITALS: BP 113/72; PULSE 127; RESP 16; O2SAT 100
--- NOTE | 2021-07-26 10:44 | MHC.HEMONCSW ---
FAXED DISABILITY CLAIM TO [facility].
== END 2021-07-11 19:48 | disposition still patient (30) ==
PROVIDERS: Emergency Medicine; Emergency Provider Emergency Medicine
DX: R55 Syncope and collapse (principal); R11.2 Nausea with vomiting, unspecified; R53.1 Weakness; T45.1X5A Adverse effect of antineoplastic and immunosuppressive drugs, initial encounter; Y92.238 Other place in hospital as the place of occurrence of the external cause; C34.91 Malignant neoplasm of unspecified part of right bronchus or lung; R00.0 Tachycardia, unspecified; Z20.822 Contact with and (suspected) exposure to COVID-19; Z87.891 Personal history of nicotine dependence; Z92.21 Personal history of antineoplastic chemotherapy; Z92.3 Personal history of irradiation
CPT/HCPCS: 36415; 71045; 71275; 80048; 80076; 83735; 84484; 85025; 85379; 85610; 87635; 93005; 96361; 96374; 96375; 99283; 99291; J1200; J2405; Q9967

== ENCOUNTER 2021-09-06 11:05 | Outpatient (REF) | payer OTHER, SELFPAY ==
--- NOTE | ~2021-09-06 | MR_ITS ---
MR BRAIN WITHOUT AND WITH CONTRAST CLINICAL INFORMATION: Severe headaches. Metastatic adenocarcinoma of the lung. COMPARISON: None available. TECHNIQUE: Multiplanar, multisequence MRI of the brain was obtained before and after the intravenous administration of 5 mL of Gadavist. FINDINGS: There is a small 3 mm faintly enhancing lesion within the right peritrigonal white matter on image 16 of series 10 that could reflect a small metastatic focus. No additional enhancing lesions intracranially. There is no significant parenchymal edema and there is no significant mass effect intracranially. There is no hydrocephalus, extra-axial surface collection, or herniation. The major flow voids at the skull base are preserved. Mild scattered chronic microangiopathy. There is no acute infarct on diffusion-weighted imaging. There is no intracranial hemorrhage on the gradient recalled echo acquisition. The midline structures are normal. The cerebellar tonsils are normally positioned. The cerebellum and brainstem are normal. There is abnormal bone marrow replacement within the basisphenoid of the clivus contiguous with enhancing mass filling the right sphenoid sinus measuring up to 3 cm x 2.6 cm. No contiguity with the pituitary gland is appreciated. This could reflect a metastatic lesion or sphenoid sinus mass growing into the clivus. MR/MR head/brain wo/w con IMPRESSION: - There is a small 3 mm faintly enhancing lesion within the right peritrigonal white matter on image 16 of series 10 that could reflect a small metastatic focus. No additional enhancing lesions intracranially. There is no significant parenchymal edema and there is no significant mass effect intracranially. - There is abnormal bone marrow replacement within the basisphenoid of the clivus contiguous with enhancing mass filling the right sphenoid sinus measuring up to 3 cm x 2.6 cm. No contiguity with the pituitary gland is appreciated. This could reflect a metastatic lesion or sphenoid sinus mass growing into the clivus with an invasive macroadenoma felt to be less likely given the lack of definite pituitary gland attachment. A PET/CT could be obtained for further assessment.
== END 2021-09-06 11:06 | disposition home or self-care (01) ==
LOC: HO.MRI 11:05
PROVIDERS: Visit Provider Internal Medicine Medical Oncology
DX: R51.9 Headache, unspecified (principal); C78.00 Secondary malignant neoplasm of unspecified lung
CPT/HCPCS: 70553; A9585

== ENCOUNTER → 2021-09-12 14:54 | Outpatient (REF) | payer OTHER, SELFPAY ==
--- NOTE | 2021-09-12 15:02 | CA_ITS ---
Transthoracic Echocardiogram Patient (Last, First, Middle): Orlando Correa, Gender: Male Date of : 1965 Age: 55 Procedure Date: 09/12/2021 Procedure Type: Transthoracic Echocardiogram Location: OP Height: 170.18 cm Weight: 48.99 kg BSA: 1.56 m2 Heart Rate: 125 bpm BP: 92 / 63 mmHg Life Skills Educator: LEIDA Referring MD: Maikol Merino MD Strategic Buyer: Shawn Palomo MD Symptoms: Tachycardia, check for effusion, lung cancer Study Quality: Adequate ECG Rhythm: Sinus tachycardia Conclusions: - 1. Mildly reduced LV systolic function with LVEF of 45-50% with grade 1 diastolic dysfunction 2. Normal cardiac valvular Doppler 3. Low right atrial pressures 4. No gross pericardial effusion Findings Left Ventricle Normal left ventricular cavity size. There is normal left ventricular wall thickness. The left ventricular systolic function is mildly decreased. The visually estimated ejection fraction is between 45-50%. Spectral Doppler is indicative of an impaired relaxation filling pattern. E/E prime ratio is <8, consistent with normal filling pressures. Evidence suggests grade I (mild) diastolic dysfunction. Peak GLS is -12.1% which is reduced. Right Ventricle Normal right ventricular cavity size. There is low normal right ventricular systolic function. Atria Both atria are normal in size. There is no evidence of interatrial shunt. Aortic Valve Normal aortic valve structure and function. There is no aortic valve stenosis. There is no aortic valve regurgitation. Mitral Valve Normal mitral valve structure and function. There is trace mitral valve regurgitation. There is no mitral valve stenosis. Pulmonic Valve The pulmonic valve was not well visualized. Tricuspid Valve Tricuspid regurgitation envelope is inadequate for calculation of right ventricular systolic pressure. Low right atrial pressure. Great Vessels All visible segments of the aorta are normal in size. The pulmonary artery was not well visualized. Venous The inferior vena cava is collapsed, consistent with reduced intravascular volume. Pericardium/Pleural There is no evidence of pericardial effusion. Prior Study Comparison No prior study available for comparison. Measurements 2D Linear Measurements IVSd: 0.67 0.6-0.9/0.6-1.0 cm LVIDd: 4.18 3.9-5.3/4.2-5.9 cm LVIDd Index: 2.68 2.4-3.2/2.2-3.1 cm/m2 LVIDs: 3.24 2.0-3.6 cm LVPWd: 0.76 0.7-1.1 cm LA Diam: 2.50 2.7-3.8/3.0-4.0 cm LAIDs Index: 1.60 1.5-2.3 cm/m2 LV Mass: 106.98 67-162/88-224 g LV Mass Index: 68.58 43-95/49-115 g/m2 LVOT Diam: 2.10 3.0+(-)1.3 cm 2D Systolic Function EF 4C: 50.20 >55% EF 2C: 36.00 >55% Mitral Valve MV Pk E: 0.91 MV PK A: 1.19 MV Decel Time: 66.00 E/A: 0.80 E'Lateral: 12.10 E/E' Lat: 7.50 PHT: 19.00 MVA PHT: 11.58 Decel Harlan: 13.81 Aortic Valve AoV Pk Merlin: 1.09 AoV Mn Merlin: 0.75 AoV VTI: 0.16 AoV Pk Grad: 5.00 Aov Mn Grad: 3.00 HINA Cont.VTI: 3.06 LVOT LVOT Pk Merlin: 1.02 LVOT Mn Merlin: 0.67 LVOT VTI: 0.14 LVOT Pk Grad: 4.00 LVOT Mn Grad: 2.00 LVOT Diam: 2.10 LVOT Area: 3.46 Diastolic Function MV Pk E: 0.91 MV Pk A: 1.19 E/A: 0.80 E' Laterial: 12.10 E/E' Lat: 7.50 Right Ventricle TAPSE (mm): 14.60 TVS' Merlin: 8.95 Great Vessels Aorta Sinus of Valsalva: 2.90 2.0-3.5 cm Ao Asc: 2.70 2.1-3.4 cm Pulmonary Valve PV Pk Merlin: 1.18 Peak PV Grad: 6.00 Updated in Other Vendor System with Status of Final Shawn Palomo MD electronically signed on 09/13/2021 11:57:46 AM with status of Final
== END ==
LOC: HO.CARD 14:54
PROVIDERS: Visit Provider Internal Medicine Medical Oncology
DX: R00.0 Tachycardia, unspecified (principal)
CPT/HCPCS: 93306; 93356

== ENCOUNTER 2021-09-14 10:01 | Outpatient (REF) | payer OTHER, SELFPAY ==
--- NOTE | ~2021-09-14 | CT_ITS ---
EXAMINATION: CT CHEST WITH CONTRAST CLINICAL INFORMATION: Lung cancer. COMPARISON: None TECHNIQUE: Multidetector volumetric CT imaging of the chest was obtained after the administration of 50 mL of Omnipaque 350 intravenous contrast without immediate adverse reactions. Axial MIP volume rendering provided. Sagittal and coronal reformatted images were obtained. This CT examination was performed using dose optimization techniques as appropriate, variously including the following: *Automated exposure control *Adjustment of mA and/or kV according to patient size (this includes techniques or standardized protocols for targeted exams where dose is matched to indication/reason for exam; i.e. extremities or head) *Use of iterative reconstruction technique DLP: 206 mGy-cm. FINDINGS: RADIOLOGIC TECHNICIAN: Well-inflated lungs with slightly elevated right hemidiaphragm. LUNGS: Again visualized is a lobulated right upper lobe mass measuring 8.21 x 3.81 cm, much smaller compared to previous study previously measuring 9.2 x 5.4 cm. The mass directly invades into the right anterior and middle mediastinum and again is much smaller than the previous exam. There is mild right apical parenchymal scarring and apical bullous changes with pleural thickening. Previously visualized for minimal right upper lobe pulmonary nodule is not visualized at this time. A 1 cm nodule seen in the right upper lobe posteriorly appears stable on axial image 156/3. There are several additional small pulmonary nodules seen in the right upper lobe suprahilar region on axial image 211/8 in the range of 3 mm. These were not previously seen, as there was significant compression of the right upper lobe, mediastinal-based mass. There is a 6 mm nodule in the anterior lingula on axial image 363/8 which appears stable. No additional nodules seen. MEDIASTINUM: The thyroid lobes are symmetric and normal. The central trachea and the bronchi are widely patent. Large right anterior middle mediastinal mass seen previously has significantly improved along the right paramediastinal. Nevertheless, the mass within the middle mediastinum extending to the left paramidline region is noted but improved. Previously compromised right pulmonary artery and SVC shows no change. The thoracic aorta is of normal caliber. There is mild coronary artery calcification. No pericardial effusion seen. PLEURA: There is no pleural effusion. No pleural mass or thickening. AXILLA: No lymphadenopathy. UPPER ABDOMEN: Visualized liver, spleen and pancreas appears unremarkable. Heterogeneous left adrenal mass measuring 3.2 x 2.4 cm is stable. Similarly, the right adrenal mass measuring 1.8 x 1.2 cm is stable. There is a left renal upper pole cyst which is stable. OSSEOUS STRUCTURES: No lytic or sclerotic process seen. CT/CT chest w con IMPRESSION: Significant improvement in right upper lobe anterior pleural-based mass. The right mediastinal component, especially paramediastinum, has improved. The right upper lobe apical pleural nodule has resolved. There is diffuse 3 mm pulmonary nodules in the right upper lobe in the parahilar region which are normal or evident. These could be new or better visualized due to reduction the right paramediastinal component of mediastinal tumor. Lingular nodule is stable. No new nodules seen in the lower lobes. Moderate compression of the SVC and mild compression of right pulmonary artery is unchanged. Left adrenal tumor is stable. There is a small right adrenal metastatic lesion, better visualized on the present exam. Fleischner guidelines were followed.
[2021-09-14] MEDS: iohexoL 350 MG/ML 100 ML INFUS..BTL IV (10:48)
== END 2021-09-14 10:02 | disposition home or self-care (01) ==
LOC: HO.CT 10:01
PROVIDERS: Visit Provider Internal Medicine Medical Oncology
DX: C79.51 Secondary malignant neoplasm of bone (principal)
CPT/HCPCS: 71260; Q9967

== ENCOUNTER 2021-09-23 13:01 | Inpatient (IN) | payer OTHER, SELFPAY ==
--- NOTE | ~2021-09-23 | CT_ITS ---
EXAMINATION: CT ANGIOGRAM HEAD AND NECK CLINICAL INFORMATION: Right eye blurry vision. Right facial tingling COMPARISON: MRI brain dated 09/06/2021. CT chest dated 07/11/2021 TECHNIQUE: Unenhanced CT examination of the brain was performed. Test bolus sequences followed by intravenous administration 70 mL of Omnipaque 350 intravenous contrast. Helical imaging was performed in the axial plane from the mediastinum to the skull vertex. Delayed postcontrast imaging of the head was also performed. The data was processed at the medical technologist chemistry's workstation for generation of MIP sequences. Three-dimensional volume rendered reformatted images were also generated at an offline 3-D workstation. This CT examination was performed using dose optimization techniques as appropriate, variously including the following: *Automated exposure control *Adjustment of mA and/or kV according to patient size (this includes techniques or standardized protocols for targeted exams where dose is matched to indication/reason for exam; i.e. extremities or head) *Use of iterative reconstruction technique The degree of stenosis determined by NASCET criteria. DLP: 2220 mGy-cm FINDINGS: SOFT TISSUES AND LUNG APICES: Intravenous and large mass in the right upper lobe anteriorly invading the right chest wall which has decreased in size from the prior examination. Bulky confluent mediastinal lymphadenopathy appears similar. Severe emphysema. CTA NECK: The aortic arch has a classic configuration and the major arch vessel origins are non-stenotic. The vertebral arteries are co-dominant and both vertebral origins are widely patent. Both common carotid arteries are normal in course and caliber. Both internal carotid arteries demonstrate minimal atherosclerotic plaque without significant stenosis. CTA HEAD: The infiltrative mass in the right mesial sphenoid appears to have soft tissue component extending into the bilateral carotid canals resulting in a degree of extrinsic compression upon the right petroclival/lateral segment with mild to moderate narrowing. Remaining bilateral internal carotid arteries widely patent. There is normal opacification of the major intracranial vessels. No acute proximal large vessel occlusion, focal flow-limiting stenosis, or saccular intracranial aneurysm is identified. No abnormal parenchymal enhancement or regional oligemia is visualized. HEAD (noncontrast and delayed): Subcentimeter enhancing lesion redemonstrated within the right subependymal periventricular white matter No intracranial edema, hemorrhage, or midline shift is evident. The ventricles and sulci are stable in size and configuration. No extra-axial collections are appreciated. Dural sinuses are patent. Again seen is a infiltrative lytic process in the right base the sphenoid, with soft tissue filling expanding the right sphenoid chamber. Remaining be secondary involvement of the right trigeminal ganglion is well, as the infiltrative process in the basisphenoid likely closely approximates the trigeminal ganglion. Also the traversing right oculomotor nerve could be impacted as well. No additional suspicious osseous abnormalities are identified within the head or neck. CT/CT angio head neck IMPRESSION: * No large vessel occlusion within the intracranial or extracranial arterial vasculature. * There is mild extrinsic narrowing/compression of the right petroclival/lateral segment of the internal carotid artery related to mass effect by the soft tissue component of the neoplastic process within the basisphenoid of the clivus, as seen on the prior MRI brain. Again seen is a soft tissue component within the sphenoid chamber. * This same neoplastic process may also involve the right trigeminal ganglion and/or traversing right oculomotor nerve, both of which course through this region, and could be resulting in the patient's symptomatology.. * No hemodynamically significant stenosis within the extracranial arterial vasculature. * Stable size of the subcentimeter enhancing lesion within the right subependymal periventricular white matter. No new intracranial metastases are evident. * Decreased size of the large mass in the anterior right upper lobe invading the chest wall. * Similar-appearing bulky confluent mediastinal lymphadenopathy.
[2021-09-23 13:34] VITALS: BP 168/94; PULSE 128; RESP 20; TEMP 37.2; O2SAT 99; BMI 16.9
--- NOTE | 2021-09-23 19:05 | PC.NURSE ---
pt reports increased frequency of migraines since starting most recent round of chemo ~ 9 w ago, blurred vision, r-sided facial numbness. provider in room w pt.
--- NOTE | 2021-09-23 19:30 | ECG_ITS ---
Test Reason : DIZZINESS Blood Pressure : / mmHG Vent. Rate : 119 BPM Atrial Rate : 119 BPM P-R Int : 138 ms QRS Dur : 082 ms QT Int : 334 ms P-R-T Axes : 077 082 074 degrees QTc Int : 469 ms Sinus tachycardia Biatrial enlargement Abnormal ECG When compared with ECG of 11-JUL-2021 14:22, Nonspecific T wave abnormality no longer evident in Inferior leads Nonspecific T wave abnormality no longer evident in Lateral leads Referred By: Sharon Xiao Electronically Signed By:YARED YA
[2021-09-23 20:01] LABS: Hematocrit 24.4 % (42.0-52.0); Imm Gran Abs Auto 0.04 X10*3/uL (0.00-0.03); Imm Gran Pct Auto 0.6 % (0.0-0.4); Lymphocytes Absolute Auto 0.2 X10*3/uL (1.2-4.9); Lymphocytes Percent Auto 3.2 % (20-40); Mean Corpuscular HGB Conc 36.9 g/dl (31.0-36.0); Mean Corpuscular Hemoglobin 31.9 pg (27.0-33.0); Mean Corpuscular Volume 86.5 fL (80.0-98.0); Mean Platelet Volume 9.4 fL (9.4-12.4); Monocytes Absolute Auto 1.1 X10*3/uL (0.1-1.2); Monocytes Percent Auto 15.7 % (2-11); Neutrophils Absolute Auto 5.5 x10*3/uL (2.0-8.3); Neutrophils Percent Auto 80.5 % (45-73); Platelet Count 236 X10*3/uL (160-400); Red Blood Count 2.82 X10*6/uL (4.60-5.80); Red Cell Distribution Width 19.4 % (11.0-16.0); White Blood Count 6.8 X10*3/uL (4.8-10.8)
[2021-09-23 20:02] LABS: MANUAL DIFF FLAG NO
[2021-09-23 20:14] LABS: INTERNATIONAL NORM RATIO 1.3 (0.9-1.1); Prothrombin Time 14.6 SEC (10.0-13.1)
--- NOTE | 2021-09-23 20:27 | ED.GENADULT ---
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 Admits to acute on chronic migraines/headaches times weeks. Denies nausea, vomiting, chest pain, shortness of breath, abdominal pain, pedal edema Onset (ago): hour(s) Related Data Home Medications Medication Instructions Recorded Confirmed lorazepam 0.5 mg tablet (Ativan) 0.5 mg PO TID PRN Anxiety 06/09/21 09/12/21 Previous Rx's Medication Instructions Recorded ondansetron 8 mg disintegrating 8 mg PO Q8H #50 tabs 06/20/21 tablet dexamethasone 4 mg tablet 4 mg PO BID #50 tabs 07/18/21 (Decadron) folic acid 1 mg tablet 1 mg PO DAILY #90 tabs 07/18/21 oxycodone 5 mg tablet 5 mg PO Q6H PRN Breakthrough Pain, 09/04/21 Moderate #50 tabs Allergies Allergy/AdvReac Type Severity Reaction Status Date / Time iodine Allergy Severe Anaphylaxis Verified 07/31/21 15:51 shellfish derived Allergy Severe Anaphylaxis Verified 07/31/21 15:51 Review of Systems Review of Systems: Constitutional: No Fever, No Chills, No Fatigue, No Malaise ENT/Mouth: No Ear Pain, No Nasal Congestion, No sore throat, No Rhinorrhea, No Swallowing Difficulty Eyes: No Eye Pain, No Swelling, No Redness, +Vision Changes Cardiovascular: No Chest Pain, No SOB, No Edema, No Palpitations Respiratory: No Cough, No Sputum, No Dyspnea Gastrointestinal: No Nausea, No Vomiting, No Diarrhea, No Constipation, No Abdominal pain Genitourinary: No Dysuria, No Flank Pain, No Urinary Flow Changes Musculoskeletal: No joint pain, No Myalgias, No Joint Swelling Skin: No Skin Lesions, No rash Neuro: No Weakness, + Numbness, + Paresthesias, No Loss of Consciousness, No Dizziness, + Headache Yes all other systems are reviewed and are negative Constitutional: Constitutional: Reports as per [facility] Past Medical History Attestation statement: The following information was validated with the patient. Medical History (Updated 09/23/21 @ 20:55 by ROOSEVELT Aguilar) Adenocarcinoma of lung Bone metastases Mass of right lung Family History Family History Mother Diverticulitis Breast cancer Maternal Uncle Diverticulitis Prostate cancer Maternal Grandmother Diverticulitis Social History Social History (Updated 09/12/21 @ 15:44 by TIN Shaver) Household Members: Children Household Members Other:: - 10 y/o autistic son Housing: House Are you a primary daycare teacher to a significant other at home: No Do you presently have visiting nurse or other home services: No Alcohol intake: never Patient Tobacco Use Status: Former Tobacco user Quit Date: 06/11/21 Second Hand Smoke Exposure: Yes Use of substances other than those prescribed or required for medical reasons: No Substance Use Type: Marijuana Advance Directives: No Advance Directives Information Provided: No Advance Directives Date on File: 06/09/21 service: No Current occupational status: employed Current occupation: Fulltime Current occupational exposures/hazards: No Physical Exam ED Vital Signs: Vital Signs - 24 hr 09/23/21 13:34 09/23/21 20:34 09/23/21 22:23 Temperature 98.9 F 98.1 F 98.8 F Pulse Rate 128 H 120 H 117 H Respiratory Rate 20 16 20 Blood Pressure 168/94 H 149/94 H 141/91 H Pulse Oximetry 99 98 99 Oxygen Delivery Method Room Air Room Air Room Air BMI result Body Mass Index 16.9 Const General: cooperative and no acute distress Orientation/consciousness: patient oriented x3 Limitations: no limitations HENMT Head: Yes normal to inspection and Yes atraumatic Ears: hearing grossly normal bilaterally General nose exam: Normal external nose present Face and sinus: Yes normal facial exam Mouth: Normal oral and palatal mucosa present Throat: Yes posterior oropharynx normal, Yes tonsils normal and Yes uvula midline Eyes General: appearance normal, both eyes and all related structures Pupils: Equal, round and reactive pupils present EOM: EOMs intact bilaterally Direct Ophthalmoscopy: no photophobia Neck Neck: Yes normal visual inspection, Yes no meningeal signs and Yes supple Resp Effort & Inspection: normal respiratory effort and no respiratory distress Auscultation: clear to auscultation bilaterally, no rales and no wheezes Cardio Rate: regular rate Heart sounds: S1 normal heart sound present and S2 normal heart sound present GI Inspection: Yes normal to inspection Palpation (GI): Soft to palpation, nontender, no guarding and not rigid General: Yes no CVA tenderness Back/Spine/Pelvis Back: no CVA tenderness Skin Rashes: no rashes Wounds: no wounds Neuro Other: + decreased sensation to right side of face General: patient oriented x3, tone normal, moves all extremities, no meningeal signs, no focal motor deficits and CN's II-XI intact bilaterally Cranial nerves: Yes CN's II-XII intact bilaterally, Yes Equal, round and reactive pupils present and Yes Bilaterally intact EOM present Gait exam (Neuro): Normal gait present Motor exam (neuro): 5/5 motor strength present throughout, Pronator motor function not present and no tremor noted Coordination: [id number] test normal Romberg Test: Negative Extrem General: Yes normal to inspection, Yes no pedal edema and Yes no calf tenderness Course Course Course Narrative: -spoke with Oncology Dr. Nevarez recommended brain MRI today or tomorrow due to risk of intracranial hemorrhage or herniation. -2039--no leukocytosis. Chronic anemia. Notably hyponatremic to 119 >> serum osmolalities/urine studies added. Will give 50 cc/hour of IVF and plan to admit for further management. -Magnesium mildly low to 1.5 > IV repletion ordered. -case discussed with hospitalist Dr. 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 On exam tachycardic chronically from SVC syndrome, NAD, no focal neuro deficits, right-sided face subjectively feels different to light touch. Concern for enhancing brain Mets/edema vs ?possible ICH vs CVA. Lower suspicion for herniation at this time. Rule out metabolic abnormalities. Low suspicion for PE or sepsis with chronic tachycardia Plan: EKG, labs, UA,consult oncology Medical Records Medical records reviewed: Yes I reviewed the patient's medical records. Lab Data Lab results reviewed: Yes I reviewed the patient's lab results. Result diagrams: 09/23/21 19:51 09/23/21 19:51 Labs: Lab Results 09/23/21 09/23/21 09/23/21 Range/Units 19:51 19:51 19:51 WBC 6.8 (4.8-10.8) X10*3/uL RBC 2.82 L D (4.60-5.80) X10*6/uL Hgb 9.0 L (14.0-18.0) g/dl Hct 24.4 L D (42.0-52.0) % MCV 86.5 (80.0-98.0) fL MCH 31.9 (27.0-33.0) pg MCHC 36.9 H (31.0-36.0) g/dl RDW 19.4 H (11.0-16.0) % Plt Count 236 D (160-400) X10*3/uL MPV 9.4 (9.4-12.4) fL Immature Gran % (Auto) 0.6 H (0.0-0.4) % Neut % (Auto) 80.5 H (45-73) % Lymph % (Auto) 3.2 L (20-40) % [place] % (Auto) 15.7 H (2-11) % Eos % (Auto) 0.0 (0-4) % Baso % (Auto) 0.0 (0-2) % Lymph # (Auto) 0.2 L (1.2-4.9) X10*3/uL [place] # (Auto) 1.1 (0.1-1.2) X10*3/uL Eos # (Auto) 0.0 (0.0-0.4) X10*3/uL Baso # (Auto) 0.0 (0.0-0.2) X10*3/uL Abs Immat Gran (auto) 0.04 H (0.00-0.03) X10*3/uL Absolute Neuts (auto) 5.5 (2.0-8.3) x10*3/uL Absolute Nucleated RBC 0.000 (0.0-0.012) X10*3/uL Nucleated RBC % (auto) 0.0 (0.0-0.2) /100WBC PT 14.6 H (10.0-13.1) SEC INR 1.3 H (0.9-1.1) Sodium 119 L* (135-145) mmol/L Potassium 3.4 (3.3-5.1) mmol/L Chloride 80 L (96-108) mmol/L Carbon Dioxide 25 (22-29) mmol/L Anion Gap 17 (12-20) BUN 6 L (9-16) mg/dL Creatinine 0.55 (0.5-1.4) mg/dL Estim Creat Clear Calc 107.6 Estimated GFR > 60 Random Glucose 107 (60-115) mg/dL Osmolality (281-305) mosm/kg Calcium 8.9 D (8.4-10.2) mg/dL Magnesium 1.5 L (1.6-2.6) mg/dL Total Bilirubin 1.4 H (0.0-1.0) mg/dL Direct Bilirubin 0.5 (0.0-0.5) mg/dL AST 14 (5-37) U/L ALT 11 (0-40) U/L Alkaline Phosphatase 139 H (39-117) U/L Total Protein 6.5 (6.5-8.0) g/dL Albumin 3.8 (3.5-5.0) g/dL 09/23/21 Range/Units 19:51 WBC (4.8-10.8) X10*3/uL RBC (4.60-5.80) X10*6/uL Hgb (14.0-18.0) g/dl Hct (42.0-52.0) % MCV (80.0-98.0) fL MCH (27.0-33.0) pg MCHC (31.0-36.0) g/dl RDW (11.0-16.0) % Plt Count (160-400) X10*3/uL MPV (9.4-12.4) fL Immature Gran % (Auto) (0.0-0.4) % Neut % (Auto) (45-73) % Lymph % (Auto) (20-40) % [place] % (Auto) (2-11) % Eos % (Auto) (0-4) % Baso % (Auto) (0-2) % Lymph # (Auto) (1.2-4.9) X10*3/uL Randolph # (Auto) (0.1-1.2) X10*3/uL Eos # (Auto) (0.0-0.4) X10*3/uL Baso # (Auto) (0.0-0.2) X10*3/uL Abs Immat Gran (auto) (0.00-0.03) X10*3/uL Absolute Neuts (auto) (2.0-8.3) x10*3/uL Absolute Nucleated RBC (0.0-0.012) X10*3/uL Nucleated RBC % (auto) (0.0-0.2) /100WBC PT (10.0-13.1) SEC INR (0.9-1.1) Sodium (135-145) mmol/L Potassium (3.3-5.1) mmol/L Chloride (96-108) mmol/L Carbon Dioxide (22-29) mmol/L Anion Gap (12-20) BUN (9-16) mg/dL Creatinine (0.5-1.4) mg/dL Estim Creat Clear Calc Estimated GFR Random Glucose (60-115) mg/dL Osmolality 246 L (281-305) mosm/kg Calcium (8.4-10.2) mg/dL Magnesium (1.6-2.6) mg/dL Total Bilirubin (0.0-1.0) mg/dL Direct Bilirubin (0.0-0.5) mg/dL AST (5-37) U/L ALT (0-40) U/L Alkaline Phosphatase (39-117) U/L Total Protein (6.5-8.0) g/dL Albumin (3.5-5.0) g/dL Critical Care Time Critical Care Time Critical Care Time: Yes Total Critical Care Time: 40 Attestation: I have personally provided critical care time exclusive of time spent on separately billable procedures. Time includes review of lab data, radiology results, discussion with consultants, and monitoring for potential decompensation. Intervention performed as documented. Discharge Plan Discharge Clinical Impression: Acute hyponatremia, Brain metastasis, Facial tingling Patient Disposition: Admitted As Inpatient
[2021-09-23 20:33] LABS: Alanine Aminotransferase 11 U/L (0-40); Albumin Level 3.8 g/dL (3.5-5.0); Alkaline Phosphatase 139 U/L (39-117); Anion Gap 17 (12-20); Aspartate Amino Transferase 14 U/L (5-37); Bilirubin Direct 0.5 mg/dL (0.0-0.5); Bilirubin Total 1.4 mg/dL (0.0-1.0); Blood Urea Nitrogen 6 mg/dL (9-16); Calcium 8.9 mg/dL (8.4-10.2); Carbon Dioxide 25 mmol/L (22-29); Chloride 80 mmol/L (96-108); Creatinine Clr Calc Pharmacy 107.6; Estimated Glomerular Filt Rate > 60; Glucose Random 107 mg/dL (60-115); Magnesium 1.5 mg/dL (1.6-2.6); Potassium 3.4 mmol/L (3.3-5.1); Sodium 119 mmol/L (135-145); Total Protein 6.5 g/dL (6.5-8.0)
[2021-09-23 20:34] VITALS: BP 149/94; PULSE 120; RESP 16; TEMP 36.7; O2SAT 98
[2021-09-23] MEDS: Magnesium Sulfate/H2O 2 GM/50 ML PIGGYBACK IV (20:58)
[2021-09-23] MEDS: dexAMETHasone sod phosphate 10 MG/ML VIAL IVPUSH (20:58)
[2021-09-23 21:17] LABS: Osmolality, Serum 246 mosm/kg (281-305)
[2021-09-23] MEDS: iohexoL 350 MG/ML 100 ML INFUS..BTL IV (21:58)
[2021-09-23 22:23] VITALS: BP 141/91; PULSE 117; RESP 20; TEMP 37.1; O2SAT 99
[2021-09-23] MEDS: 0.9 % Sodium Chloride 1,000 ML 75 ML IVCONT (22:41)
[2021-09-23 22:44] LABS: Appearance Urine CLEAR; Color Urine STRAW; Glucose Urine UA NEG (NEG); Leukocyte Esterase Urine NEG (NEG); Nitrite Urine NEG (NEG); PH 7.5 (5.0-8.0); Specific Gravity - Urine <= 1.005 (1.005-1.025); UACC Culture Trigger NO; Urine Blood TRACE (NEG); Urine Ketones NEG (NEG); Urine Protein NEG (NEG-TRACE)
[2021-09-23] MEDS: Urea 15 GM POWDER PO (22:55)
[2021-09-23 22:56] LABS: COVID-19 Test Negative (Negative)
[2021-09-23 22:56] LABS: Potassium Urine Random 12.5 mmol/L
--- NOTE | 2021-09-23 22:56 | PC.NURSE ---
medicated per provider order, NaCl running @ 75ml/hr.
[2021-09-23 23:01] LABS: Creatinine Urine 9.41 mg/dL
[2021-09-23 23:03] LABS: RBC Urine 0-2 /HPF (0); Squamous Epithelial Cell Urine TRACE /LPF; WBC Urine 0 /HPF (0-4)
[2021-09-23 23:11] LABS: Osmolality Urine 186 mosm/kg (373-1093)
--- NOTE | 2021-09-23 23:20 | PM.IMHP ---
History of Present Illness Date of Service: 09/23/21 Chief Complaint: diplopia, fcial weakness This is a 55-year-old male with past medical history of adenocarcinoma of the lung with Mets to multiple places including the brain, who presents to the hospital with complaints of diplopia and left facial weakness. Patient reports that his symptoms started in the a.m., he was recently told that he has brain meds and therefore he was concerned and decided to come to the hospital. Patient reports continues diplopia and weakness in his left face, reports no slurred speech, no difficulty finding words, no weakness numbness or tingling in his upper and lower extremities. Reports no previous similar episode. Reports a headache that is all over his head from the [address] way to the occipital region, reports no nausea vomiting, no dizziness, no abdominal pain, no constipation or diarrhea. no lower extremity edema and no urinary symptoms. On arrival to the ED patient found to have a heart rate in the 120s other otherwise hemodynamically stable Labs are significant for WBC count of 4.0, hemoglobin of 9.7, hematocrit of 26.3 sodium of 119 chloride of 80, osmolality of 246, magnesium of 1.5, UA negative, urine osmolality of 186, urine sodium 48, urine potassium of 12.5, and random chloride of 54 CTA of the head and neck showed mild distress sick neuro in/compression of the right petroclival/lateral segment of the internal carotid early related to mass effect by the soft tissue component of the neoplastic process within thebasisphenoid of the clivus this same use blastic process may also involve the right trigeminal ganglion and or transversing right oculomotor nerve both of which course through this region which could be resulting in the patient's symptomatology Patient started on IV steroids and case was discussed with Hematology and Nephrology and patient will be admitted for further management Review of Systems Review of Systems: Yes all other systems are reviewed and are negative [facility] Medical History Adenocarcinoma of lung Bone metastases Mass of right lung Family History Mother Diverticulitis Breast cancer Maternal Uncle Diverticulitis Prostate cancer Maternal Grandmother Diverticulitis Social History Household Members: Children Household Members Other:: - 10 y/o autistic son Housing: House Are you a primary family day care provider to a significant other at home: No Do you presently have visiting nurse or other home services: No Alcohol intake: never Patient Tobacco Use Status: Former Tobacco user Quit Date: 06/11/21 Second Hand Smoke Exposure: Yes Use of substances other than those prescribed or required for medical reasons: No Substance Use Type: Marijuana Advance Directives: No Advance Directives Information Provided: No Advance Directives Date on File: 06/09/21 service: No Current occupational status: employed Current occupation: Fulltime Current occupational exposures/hazards: No Meds Allergies Allergy/AdvReac Type Severity Reaction Status Date / Time iodine Allergy Severe Anaphylaxis Verified 07/31/21 15:51 shellfish derived Allergy Severe Anaphylaxis Verified 07/31/21 15:51 Active Medications: Current Medications Sodium Chloride (Ns) 1,000 mls @ 75 mls/hr IVCONT .[id number] [facility] Last Admin: 09/23/21 22:41 Dose: 75 mls/hr Pharmacy Consult (Consult Rx Perform Med Rec) 1 each MISCELLANE ONCE PRN PRN Reason: Consult order Urea (Urea 15 Gm Powder) 15 gm PO BID [facility] Last Admin: 09/23/21 22:55 Dose: 15 gm Home Medications Medication Instructions Recorded Confirmed Last Taken Type lorazepam 0.5 mg tablet (Ativan) 0.5 mg PO TID PRN Anxiety 06/09/21 09/24/21 Unknown History Physical Exam Vital Signs and Narrative: Vital Signs: Last Vital Signs Temp 98.8 F 09/23/21 22:23 Pulse 117 H 09/23/21 22:23 Resp 20 09/23/21 22:23 BP 141/91 H 09/23/21 22:23 Pulse Ox 99 09/23/21 22:23 O2 Del Method 09/23/21 22:23 BMI result Body Mass Index 16.9 Const: General: cooperative and no acute distress Orientation/consciousness: patient oriented x3 Eyes: General: appearance normal, both eyes and all related structures Resp: Effort & Inspection: normal respiratory effort Auscultation: clear to auscultation bilaterally Cardio: Rate: regular rate Rhythm: regular rhythm GI: Palpation (GI): Soft to palpation Auscultation: normal bowel sounds Skin: General skin exam: no rashes or lesions noted Neuro: Other: reports diplopia strength is 5/5 in all extremities sensation is intact General: patient oriented x3 Cognition (Neuro): normal cognition Extrem: General: Yes normal to inspection and Yes no pedal edema Results Labs CBC and Chem 7: 09/24/21 05:00 09/24/21 05:00 Labs: Laboratory Results - last 24 hr 09/23/21 09/23/21 09/23/21 19:51 19:51 19:51 MCV 86.5 MCH 31.9 MCHC 36.9 H RDW 19.4 H Plt Count 236 D MPV 9.4 Immature Gran % (Auto) 0.6 H Neut % (Auto) 80.5 H Lymph % (Auto) 3.2 L [place] % (Auto) 15.7 H Eos % (Auto) 0.0 Baso % (Auto) 0.0 Lymph # (Auto) 0.2 L [place] # (Auto) 1.1 Eos # (Auto) 0.0 Baso # (Auto) 0.0 Abs Immat Gran (auto) 0.04 H Absolute Neuts (auto) 5.5 Absolute Nucleated RBC 0.000 Nucleated RBC % (auto) 0.0 PT 14.6 H INR 1.3 H Anion Gap 17 Estim Creat Clear Calc 107.6 Estimated GFR > 60 Random Glucose 107 Osmolality Calcium 8.9 D Magnesium 1.5 L Total Bilirubin 1.4 H Direct Bilirubin 0.5 AST 14 ALT 11 Alkaline Phosphatase 139 H Total Protein 6.5 Albumin 3.8 Urine Color Urine Appearance Urine pH Ur Specific [place] Urine Protein Urine Glucose (UA) Urine Ketones Urine Blood Urine Nitrite Ur Leukocyte Esterase Urine RBC Urine WBC Ur Squamous Epith Cells Urine Bacteria Urine Osmolality Ur Random Sodium Ur Random Potassium Ur Random Chloride Urine Creatinine COVID-19 (AMIRAH) COVID-19 Clin Com 09/23/21 09/23/21 09/23/21 19:51 22:27 22:27 MCV MCH MCHC RDW Plt Count MPV Immature Gran % (Auto) Neut % (Auto) Lymph % (Auto) [place] % (Auto) Eos % (Auto) Baso % (Auto) Lymph # (Auto) [place] # (Auto) Eos # (Auto) Baso # (Auto) Abs Immat Gran (auto) Absolute Neuts (auto) Absolute Nucleated RBC Nucleated RBC % (auto) PT INR Anion Gap Estim Creat Clear Calc Estimated GFR Random Glucose Osmolality 246 L Calcium Magnesium Total Bilirubin Direct Bilirubin AST ALT Alkaline Phosphatase Total Protein Albumin Urine Color Urine Appearance Urine pH Ur Specific [place] Urine Protein Urine Glucose (UA) Urine Ketones Urine Blood Urine Nitrite Ur Leukocyte Esterase Urine RBC Urine WBC Ur Squamous Epith Cells Urine Bacteria Urine Osmolality Ur Random Sodium Ur Random Potassium Ur Random Chloride Urine Creatinine 9.41 COVID-19 (AMIRAH) Negative COVID-19 Clin Com See Note 09/23/21 09/23/21 09/23/21 22:28 22:28 22:28 MCV MCH MCHC RDW Plt Count MPV Immature Gran % (Auto) Neut % (Auto) Lymph % (Auto) [place] % (Auto) Eos % (Auto) Baso % (Auto) Lymph # (Auto) [place] # (Auto) Eos # (Auto) Baso # (Auto) Abs Immat Gran (auto) Absolute Neuts (auto) Absolute Nucleated RBC Nucleated RBC % (auto) PT INR Anion Gap Estim Creat Clear Calc Estimated GFR Random Glucose Osmolality Calcium Magnesium Total Bilirubin Direct Bilirubin AST ALT Alkaline Phosphatase Total Protein Albumin Urine Color STRAW Urine Appearance CLEAR Urine pH 7.5 Ur Specific [place]cock <= 1.005 Urine Protein NEG Urine Glucose (UA) NEG Urine Ketones NEG Urine Blood TRACE Urine Nitrite NEG Ur Leukocyte Esterase NEG Urine RBC 0-2 Urine WBC 0 Ur Squamous Epith Cells TRACE Urine Bacteria NONE Urine Osmolality 186 L Ur Random Sodium 48.0 Ur Random Potassium 12.5 Ur Random Chloride 54.0 Urine Creatinine COVID-19 (AMIRAH) COVID-19 Clin Com Imaging Radiologist's Impressions: Impressions Head/Neck CTA 09/23/21 22:03 IMPRESSION: * No large vessel occlusion within the intracranial or extracranial arterial vasculature. * There is mild extrinsic narrowing/compression of the right petroclival/lateral segment of the internal carotid artery related to mass effect by the soft tissue component of the neoplastic process within the basisphenoid of the clivus, as seen on the prior MRI brain. Again seen is a soft tissue component within the sphenoid chamber. * This same neoplastic process may also involve the right trigeminal ganglion and/or traversing right oculomotor nerve, both of which course through this region, and could be resulting in the patient's symptomatology.. * No hemodynamically significant stenosis within the extracranial arterial vasculature. * Stable size of the subcentimeter enhancing lesion within the right subependymal periventricular white matter. No new intracranial metastases are evident. * Decreased size of the large mass in the anterior right upper lobe invading the chest wall. * Similar-appearing bulky confluent mediastinal lymphadenopathy. Assessment and Plan (1) Acute hyponatremia: Status: Acute (2) Diplopia: Status: Acute (3) Brain metastasis: Status: Acute Plan 55-year-old male with past medical history of lung adenocarcinoma with Mets to the brain presents to the hospital with complaints of diplopia found to have acute hyponatremia # diplopia/facial tingling/weakness - likely secondary to brain Mets affecting trigeminal nerve and oculomotor nerve as seen on CTA of the head - patient given dexamethasone, will continue - hematology consult a, neurology is also consulted - monitor for worsening symptoms # acute hyponatremia - likely secondary to brain metastasis - last sodium from 09/04 was 134, presented with sodium of 119 - has low serum osmolality of 245, and urine osmolality of 185 - nephrology was consulted, recommended NS of 75 cc an hour, 15 g of urea b.i.d. - BMP q.6 hours # brain metastasis - lung primary - recently found to have metastasis to the brain on MRI done on 09/04 - Hematology-Oncology aware, they have been consulted DVT prophylaxis: Heparin subQ Given patient's acute hyponatremia patient will require a minimum 2 night hospital stay for further management and evaluation Quality Stroke Does the patient have a stroke diagnosis?: No VTE Prior VTE?: No VTE Risk Level:: Medical - moderate - high VTE Device Contraindication: Treatment Not Indicated VTE Drug Contraindication: N/A - Med Ordered
[2021-09-24] VITALS (7 sets, daily range): BP systolic 99–139; BP diastolic 70–85; PULSE 113–129; RESP 14–21; TEMP 36.4–37; O2SAT 98–100
[2021-09-24] MEDS: dexAMETHasone sod phosphate 4 MG/ML VIAL 8 MG IVPUSH ×4 (00:33→23:20)
[2021-09-24] MEDS: Heparin Sodium,Porcine 5,000 UNIT/ML VIAL 5000 UNIT SUBCUT ×3 (00:35→23:20)
--- NOTE | 2021-09-24 00:54 | PC.NURSE ---
med rec complete.
[2021-09-24 03:33] LABS: Anion Gap 19 (12-20); Blood Urea Nitrogen 16 mg/dL (9-16); Calcium 9.4 mg/dL (8.4-10.2); Carbon Dioxide 25 mmol/L (22-29); Chloride 84 mmol/L (96-108); Creatinine Clr Calc Pharmacy 105.7; Estimated Glomerular Filt Rate > 60; Glucose Random 128 mg/dL (60-115); Potassium 3.4 mmol/L (3.3-5.1); Sodium 125 mmol/L (135-145)
--- NOTE | 2021-09-24 03:55 | PC.NURSE ---
This RN contacting disc jockey per Sofi Stephens request with repeat sodium results. Per disc jockey, to hold NS infusion @ this time as pt is rapidly correcting. Primary RN Wallace aware.
--- NOTE | 2021-09-24 04:14 | PC.NURSE ---
Employee Relations Consultant requested that labs be redrawn at 0250 and for charge nurse to call with results. Results were relayed to internet marketing executive and they requested that NS infusion be paused at this time because sodium shift was too rapid.
[2021-09-24 05:11] LABS: Hematocrit 26.3 % (42.0-52.0); Hemoglobin 9.7 g/dl (14.0-18.0); Imm Gran Abs Auto 0.02 X10*3/uL (0.00-0.03); Imm Gran Pct Auto 0.5 % (0.0-0.4); Lymphocytes Absolute Auto 0.1 X10*3/uL (1.2-4.9); Lymphocytes Percent Auto 1.8 % (20-40); MANUAL DIFF FLAG SCAN; Mean Corpuscular HGB Conc 36.9 g/dl (31.0-36.0); Mean Corpuscular Hemoglobin 31.9 pg (27.0-33.0); Mean Corpuscular Volume 86.5 fL (80.0-98.0); Mean Platelet Volume 9.1 fL (9.4-12.4); Monocytes Absolute Auto 0.1 X10*3/uL (0.1-1.2); Monocytes Percent Auto 2.5 % (2-11); Neutrophils Absolute Auto 3.8 x10*3/uL (2.0-8.3); Neutrophils Percent Auto 95.2 % (45-73); Platelet Count 282 X10*3/uL (160-400); Red Blood Count 3.04 X10*6/uL (4.60-5.80); Red Cell Distribution Width 19.9 % (11.0-16.0); SCAN SMEAR FLAG 1
[2021-09-24 05:35] LABS: SLIDE REVIEW VERIFIED
[2021-09-24 05:38] LABS: Anion Gap 18 (12-20); Blood Urea Nitrogen 14 mg/dL (9-16); Calcium 9.3 mg/dL (8.4-10.2); Carbon Dioxide 26 mmol/L (22-29); Chloride 86 mmol/L (96-108); Creatinine Clr Calc Pharmacy 105.7; Estimated Glomerular Filt Rate > 60; Glucose Random 129 mg/dL (60-115); Potassium 3.6 mmol/L (3.3-5.1); Sodium 126 mmol/L (135-145)
--- NOTE | 2021-09-24 07:14 | PHA.MEDREC ---
Pharmacy Consult ? Medication Reconciliation Pharmacy has completed the medication reconciliation.
--- NOTE | 2021-09-24 07:17 | PM.EVENT ---
Event Note Date of Service: 09/24/21 Event Note: Patient's sodium corrected from 119-126. Spoke to Nephrology, recommended to stop NS fluids, obtain stat BMP, if continues to increase start D5 water
[2021-09-24 08:43] LABS: Anion Gap 18 (12-20); Blood Urea Nitrogen 13 mg/dL (9-16); Calcium 9.6 mg/dL (8.4-10.2); Carbon Dioxide 28 mmol/L (22-29); Chloride 85 mmol/L (96-108); Estimated Glomerular Filt Rate > 60; Glucose Random 126 mg/dL (60-115); Magnesium 2.2 mg/dL (1.6-2.6); Potassium 4.3 mmol/L (3.3-5.1); Sodium 127 mmol/L (135-145)
--- NOTE | 2021-09-24 09:15 | MHC.CM.PN ---
PT REPORTS HE LIVES WITH HIS 12 YEAR OLD, HIGH FUNCTIONING AUTISTIC SON WHO HAS ADHD HE REPORTS A FAMILY MEMBER IS CARING FOR HIS SON WHILE HE IS INPATIENT PT REPORTS HE HAS NO SERVICES AT HOME AND NO DME AND HAS BEEN FEELING WELL UNTIL TWO WEEKS AGO PT REPORTS HE IS ACTIVE WITH DR BET[place]OURT [place] [facility] [facility] [place] WAS GOING [place] [place] HE REPORTS HE JUST COMPLETED ONE ROUND OF RADIATION BUT RECENTLY LEARNED HE WILL HAVE TO RETURN FOR ANOTHER PT REPORTS HE IS COVID-19 VACCINATED HE HAS A HCP ON FILE PCP: MILLER TANG CURRENT DC PLAN IS HOME WITH RESUMPTION OF OUTPATIENT TREATMENT PT WILL ARRANGE TRANSPORT WITH FAMILY
[2021-09-24] MEDS: polyethylene glycoL 3350 17 GM POWD.PACK PO (10:09)
[2021-09-24] MEDS: Folic Acid 1 MG TABLET PO (10:10)
--- NOTE | 2021-09-24 10:16 | PM.NEUROCN ---
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 He also complained of tingly sensation right side of face. There was no difficulty speaking or loss of vision. There was no speech or swallowing difficulty. Review of Systems Review of Systems: No recent cold or flu-like illness PMFSH Past Medical History Medical History Adenocarcinoma of lung Bone metastases Mass of right lung Family History Family History Mother Diverticulitis Breast cancer Maternal Uncle Diverticulitis Prostate cancer Maternal Grandmother Diverticulitis Social History Social History Household Members: Children Household Members Other:: - 10 y/o autistic son Housing: House Are you a primary child care center administrator to a significant other at home: No Do you presently have visiting nurse or other home services: No Alcohol intake: never Patient Tobacco Use Status: Former Tobacco user Quit Date: 06/11/21 Second Hand Smoke Exposure: Yes Use of substances other than those prescribed or required for medical reasons: No Substance Use Type: Marijuana Advance Directives: No Advance Directives Information Provided: No Advance Directives Date on File: 06/09/21 service: No Current occupational status: employed Current occupation: Fulltime Current occupational exposures/hazards: No Meds Allergies Allergy/AdvReac Type Severity Reaction Status Date / Time iodine Allergy Severe Anaphylaxis Verified 07/31/21 15:51 shellfish derived Allergy Severe Anaphylaxis Verified 07/31/21 15:51 Active Medications: Current Medications Acetaminophen (Acetaminophen 325 Mg Tablet) 650 mg PO Q6H PRN PRN Reason: Pain, Mild (Pain Scale 1-3) Dexamethasone Sodium Phosphate (Dexamethasone Sod Phosphate 4 Mg/Ml Vial) 8 mg IVPUSH Q6H [facility] Last Admin: 09/24/21 06:18 Dose: 8 mg Folic Acid (Folic Acid 1 Mg Tablet) 1 mg PO DAILY [facility] Last Admin: 09/24/21 10:10 Dose: 1 mg Heparin Sodium (Porcine) (Heparin Sodium,Porcine 5,000 Unit/Ml Vial) 5,000 unit SUBCUT Q12H [facility] Last Admin: 09/24/21 00:35 Dose: 5,000 unit Dextrose (D5w) 1,000 mls @ 50 mls/hr IVCONT .Q20H [facility] Stop: 09/24/21 20:14 Lorazepam (Lorazepam 0.5 Mg Tablet) 0.5 mg PO TID PRN PRN Reason: Anxiety Morphine Sulfate (Morphine Sulfate 4 Mg/Ml Cartridge) 4 mg IVPUSH Q4H PRN; Protocol PRN Reason: severe pain Ondansetron HCl (Ondansetron Hcl 4 Mg/2 Ml Vial) 4 mg IVPUSH Q8H PRN PRN Reason: Nausea and Vomiting Oxycodone HCl (Oxycodone Hcl Immed Release 5 Mg Tablet) 5 mg PO Q6H PRN PRN Reason: Breakthrough Pain, Moderate Pharmacy Consult (Consult Rx Perform Med Rec) 1 each MISCELLANE ONCE PRN PRN Reason: Consult order Polyethylene Glycol (Polyethylene Glycol 3350 17 Gm Powd.Pack) 17 gm PO DAILY [facility] Last Admin: 09/24/21 10:09 Dose: 17 gm Sodium Chloride (0.9 % Sodium Chloride Flush 3 Ml Syringe) 3 ml IVFLUSH QSHIFT [facility] Last Admin: 09/24/21 10:10 Dose: Not Given Urea (Urea 15 Gm Powder) 15 gm PO BID [facility] Last Admin: 09/23/21 22:55 Dose: 15 gm Home Medications Medication Instructions Recorded Confirmed Last Taken Type lorazepam 0.5 mg tablet (Ativan) 0.5 mg PO TID PRN Anxiety 06/09/21 09/24/21 Unknown History dexamethasone 4 mg tablet See Rx Instructions .Route .COMPLEX 09/24/21 09/24/21 Unknown History (Decadron) Physical Exam Vital Signs: Vital Signs: Last Vital Signs Temp 98.6 F 09/24/21 04:00 Pulse 120 H 09/24/21 08:17 Resp 21 H 09/24/21 08:17 BP 122/85 09/24/21 08:17 Pulse Ox 98 09/24/21 08:17 O2 Del Method 09/24/21 08:17 BMI result Body Mass Index 16.9 Neuro: Other: Alert and awake with normal spontaneity of speech fluency comprehension and affect. Pupils were about 3 mm round reactive to light. Extraocular muscle examination revealed that he could not move his right eye laterally from midline. There was no ptosis. He was keeping his right eye closed stating that with both eyes open he was uncomfortable with double vision. Upon request he was able to open both eyes completely with no obvious weakness. Facial sensations were okay though he felt tingly on right side of face. Shoulder shrugging was normal. Visual mueller were full. There was no pronator drift. [id number] testing was normal. Deep tendon reflexes were trace with equivocal plantars. Results Labs CBC & Chem 7: 09/24/21 05:00 09/24/21 08:07 Labs: Short CBC 09/23/21 09/24/21 Range/Units 19:51 05:00 WBC 6.8 4.0 L (4.8-10.8) X10*3/uL Hgb 9.0 L 9.7 L (14.0-18.0) g/dl Hct 24.4 L D 26.3 L (42.0-52.0) % Plt Count 236 D 282 (160-400) X10*3/uL BMP 09/23/21 09/24/21 09/24/21 19:51 02:57 05:00 Sodium 119 L* 125 L 126 L Potassium 3.4 3.4 3.6 Chloride 80 L 84 L 86 L Carbon Dioxide 25 25 26 BUN 6 L 16 D 14 Creatinine 0.55 0.56 0.56 Calcium 8.9 D 9.4 9.3 09/24/21 08:07 Sodium 127 L Potassium 4.3 Chloride 85 L Carbon Dioxide 28 BUN 13 Creatinine 0.65 Calcium 9.6 Liver Function 09/23/21 Range/Units 19:51 Total Bilirubin 1.4 H (0.0-1.0) mg/dL Direct Bilirubin 0.5 (0.0-0.5) mg/dL AST 14 (5-37) U/L ALT 11 (0-40) U/L Alkaline Phosphatase 139 H (39-117) U/L Albumin 3.8 (3.5-5.0) g/dL Urine 09/23/21 Range/Units 22:28 Urine Color STRAW Urine Appearance CLEAR Urine pH 7.5 (5.0-8.0) Ur Specific [place] <= 1.005 (1.005-1.025) Urine Protein NEG (NEG-TRACE) MG/DL Urine Glucose (UA) NEG (NEG) MG/DL Recent MRI of brain revealed a small metastatic lesion and sphenoid I would area lesion. CTA of brain revealed right sphenoid sinus area lesion. Assessment and Plan (1) Diplopia: Status: Acute 55 years old man with metastatic lung adenocarcinoma presented with double vision that is caused by right 6 cranial nerve palsy. There is also some element of right trigeminal dysfunction. Pertaining to these 2 nerves, there is sphenoid sinus area lesion causing the problem. Appropriate oncological intervention including chemotherapy and radiation are recommended. He should be given an eye patch to cover 1 eye, alternating each eye every day Procedures Date of Service Date of Service: 09/24/21
--- NOTE | 2021-09-24 10:19 | PM.HEMONCCN ---
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 He came to the ER yesterday because of symptomatic hyponatremia with sodium bseing 119. He felt dizzy with right facial numbness. He has tumor in the right sphenoid sinus. He has been admitted for IV steroids and fluids. Review of Systems - Constitutional Reports malaise, Reports weakness - Eyes Reports change in vision - ENT Reports system reviewed and no additional complaints, except as documented - Cardiovascular Reports fast heart rate - Respiratory Reports cough - Gastrointestinal Reports feeling full early - Genitourinary Genitourinary: Reports decreased urination - Neurologic Reports loss of vision, Reports numbness, Reports paresthesias [facility] Medical History: Medical History (Last Reviewed 09/24/21 @ 07:00 by Migdalia Horan MD) Adenocarcinoma of lung Bone metastases Mass of right lung Family History: Family History (Last Reviewed 09/24/21 @ 07:00 by Migdalia Horan MD) Mother Diverticulitis Breast cancer Maternal Uncle Diverticulitis Prostate cancer Maternal Grandmother Diverticulitis Social History: Social History (Last Reviewed 09/24/21 @ 07:00 by Migdalia Horan MD) Living Situation History: Household Members: Children Household Members Other:: - 10 y/o autistic son Housing: House Are you a primary ambulatory care to a significant other at home: No Do you presently have visiting nurse or other home services: No Tobacco History: Patient Tobacco Use Status: Former Tobacco user Smoke Quit Date: 06/11/21 Second Hand Smoke Exposure: Yes Substance Use History: Use of substances other than those prescribed or required for medical reasons: No Substance Use Type: Marijuana Advance Directives: Advance Directives: No Advance Directives Information Provided: No Advance Directives Date on File: 06/09/21 Occupation Assessmet: service: No Current occupational status: employed Current occupation: Fulltime Current occupational exposures/hazards: No Home Medications and Allergies Current Medications: Current Medications Acetaminophen (Acetaminophen 325 Mg Tablet) 650 mg PO Q6H PRN PRN Reason: Pain, Mild (Pain Scale 1-3) Dexamethasone Sodium Phosphate (Dexamethasone Sod Phosphate 4 Mg/Ml Vial) 8 mg IVPUSH Q6H [facility] Last Admin: 09/24/21 06:18 Dose: 8 mg Folic Acid (Folic Acid 1 Mg Tablet) 1 mg PO DAILY [facility] Last Admin: 09/24/21 10:10 Dose: 1 mg Heparin Sodium (Porcine) (Heparin Sodium,Porcine 5,000 Unit/Ml Vial) 5,000 unit SUBCUT Q12H [facility] Last Admin: 09/24/21 00:35 Dose: 5,000 unit Dextrose (D5w) 1,000 mls @ 50 mls/hr IVCONT .Q20H [facility] Stop: 09/24/21 20:14 Lorazepam (Lorazepam 0.5 Mg Tablet) 0.5 mg PO TID PRN PRN Reason: Anxiety Morphine Sulfate (Morphine Sulfate 4 Mg/Ml Cartridge) 4 mg IVPUSH Q4H PRN; Protocol PRN Reason: severe pain Ondansetron HCl (Ondansetron Hcl 4 Mg/2 Ml Vial) 4 mg IVPUSH Q8H PRN PRN Reason: Nausea and Vomiting Oxycodone HCl (Oxycodone Hcl Immed Release 5 Mg Tablet) 5 mg PO Q6H PRN PRN Reason: Breakthrough Pain, Moderate Pharmacy Consult (Consult Rx Perform Med Rec) 1 each MISCELLANE ONCE PRN PRN Reason: Consult order Polyethylene Glycol (Polyethylene Glycol 3350 17 Gm Powd.Pack) 17 gm PO DAILY [facility] Last Admin: 09/24/21 10:09 Dose: 17 gm Sodium Chloride (0.9 % Sodium Chloride Flush 3 Ml Syringe) 3 ml IVFLUSH QSHIFT [facility] Last Admin: 09/24/21 10:10 Dose: Not Given Urea (Urea 15 Gm Powder) 15 gm PO BID [facility] Last Admin: 09/23/21 22:55 Dose: 15 gm Home Medications Medication Instructions Recorded Confirmed Type lorazepam 0.5 mg tablet (Ativan) 0.5 mg PO TID PRN Anxiety 06/09/21 09/24/21 History dexamethasone 4 mg tablet See Rx Instructions .Route .COMPLEX 09/24/21 09/24/21 History (Decadron) Allergies Allergy/AdvReac Type Severity Reaction Status Date / Time iodine Allergy Severe Anaphylaxis Verified 07/31/21 15:51 shellfish derived Allergy Severe Anaphylaxis Verified 07/31/21 15:51 Physical Exam Vital signs: Vital Signs Temp 98.6 F 09/24/21 04:00 Pulse 123 H 09/24/21 10:14 Resp 14 09/24/21 10:14 BP 104/78 09/24/21 10:14 Pulse Ox 99 09/24/21 10:14 O2 Del Method 09/24/21 10:14 Intake & Output 09/23/21 09/24/21 09/24/21 18:59 06:59 18:59 Intake Total 585 / 585 Output Total 400 / 400 Balance 185 / 185 Urine Output (Average ml/kg/hr) 0.68 Intake: Intake, Oral Amount 120 / 120 Intake, IV Amount 465 / 465 Magnesium Sulfate/H2O 2 gm In 50 / 50 50 ml @ 25 mls/hr IV ONCE ONE Rx#:[id number] 0.9 % Sodium Chloride 1,000 ml 415 / 415 @ 75 mls/hr IVCONT .[id number] Rx#:[id number] Output: Output, Urine Amount 400 / 400 Other: Urine Urinal Urine Color Yellow Weight 48.988 kg Weight 48.988 kg - Constitutional Present: no acute distress - Routine HEENT Exam Head: Present: atraumatic - Routine Neck Exam Present: supple, full ROM - Routine Cardiovascular Exam Cardiovascular: Present: RRR - Routine Extremities Exam Present: nontender - Routine Neurological Exam Present: alert, oriented X3 right sixth nerve palsy Hem/Onc Consult Result - Labs CBC & Chem 7: 09/24/21 05:00 09/24/21 08:07 Labs: Short CBC 09/23/21 09/24/21 Range/Units 19:51 05:00 WBC 6.8 4.0 L (4.8-10.8) X10*3/uL Hgb 9.0 L 9.7 L (14.0-18.0) g/dl Hct 24.4 L D 26.3 L (42.0-52.0) % Plt Count 236 D 282 (160-400) X10*3/uL BMP 09/23/21 09/24/21 09/24/21 19:51 02:57 05:00 Sodium 119 L* 125 L 126 L Potassium 3.4 3.4 3.6 Chloride 80 L 84 L 86 L Carbon Dioxide 25 25 26 BUN 6 L 16 D 14 Creatinine 0.55 0.56 0.56 Calcium 8.9 D 9.4 9.3 09/24/21 08:07 Sodium 127 L Potassium 4.3 Chloride 85 L Carbon Dioxide 28 BUN 13 Creatinine 0.65 Calcium 9.6 Liver Function 09/23/21 Range/Units 19:51 Total Bilirubin 1.4 H (0.0-1.0) mg/dL Direct Bilirubin 0.5 (0.0-0.5) mg/dL AST 14 (5-37) U/L ALT 11 (0-40) U/L Alkaline Phosphatase 139 H (39-117) U/L Albumin 3.8 (3.5-5.0) g/dL Urine 09/23/21 Range/Units 22:28 Urine Color STRAW Urine Appearance CLEAR Urine pH 7.5 (5.0-8.0) Ur Specific [place] <= 1.005 (1.005-1.025) Urine Protein NEG (NEG-TRACE) MG/DL Urine Glucose (UA) NEG (NEG) MG/DL Assessment and Plan Patient Active problem list reviewed?: Yes (1) Acute hyponatremia Start date: 09/24/21 Status: Acute Assessment and plan: It may be paraneoplastic siadh. Reommend slowly repleting sodium as Dr. Martin is doing, check osmolalities. (2) Adenocarcinoma of lung Start date: 09/24/21 Status: Chronic Assessment and plan: He should continue with the current regimen. The systemic response has been good. - Time Spent With Patient Time Spent with Patient (in minutes): 20
[2021-09-24] MEDS: Dextrose 5 % 1,000 ML 50 ML IVCONT ×2 (11:43→21:22)
[2021-09-24 12:10] LABS: Sodium 127 mmol/L (135-145)
--- NOTE | 2021-09-24 12:35 | HO.PM.IMPN ---
Subjective Subjective Date of Service: 09/24/21 Interval History: c/o binocular diplopia + R-sided facial numbness migraine resolved Review of Systems Review of Systems: Yes all other systems are reviewed and are negative Physical Exam Vital Signs: Vital Signs: Last Vital Signs Temp 98.6 F 09/24/21 04:00 Pulse 123 H 09/24/21 10:14 Resp 14 09/24/21 10:14 BP 104/78 09/24/21 10:14 Pulse Ox 99 09/24/21 10:14 O2 Del Method 09/24/21 10:14 BMI result Body Mass Index 16.9 Gen: in no acute distress HEENT: sclera anicteric, moist mucus membranes Neck: supple Lungs: clear to auscultation bilaterally Heart: regular rate and rhythm, no murmurs Abd: soft, non-tender, non-distended Ext: no edema Skin: warm/well-perfused Neuro: alert and oriented x3, R CN palsy, R face decreased sensation Psych: appropriate affect Objective Data Active Medications Acetaminophen (Acetaminophen 325 Mg Tablet) 650 mg PO Q6H PRN PRN Reason: Pain, Mild (Pain Scale 1-3) Dexamethasone Sodium Phosphate (Dexamethasone Sod Phosphate 4 Mg/Ml Vial) 8 mg IVPUSH Q6H [facility] Last Admin: 09/24/21 11:30 Dose: 8 mg Documented By: ARNIE Folic Acid (Folic Acid 1 Mg Tablet) 1 mg PO DAILY [facility] Last Admin: 09/24/21 10:10 Dose: 1 mg Documented By: ARNIE Heparin Sodium (Porcine) (Heparin Sodium,Porcine 5,000 Unit/Ml Vial) 5,000 unit SUBCUT Q12H [facility] Last Admin: 09/24/21 11:31 Dose: 5,000 unit Documented By: ARNIE Dextrose (D5w) 500 mls @ 50 mls/hr IVCONT .Q10H [facility] Last Admin: 09/24/21 11:43 Dose: 50 mls/hr Documented By: ARNIE Lorazepam (Lorazepam 0.5 Mg Tablet) 0.5 mg PO TID PRN PRN Reason: Anxiety Morphine Sulfate (Morphine Sulfate 4 Mg/Ml Cartridge) 4 mg IVPUSH Q4H PRN; Protocol PRN Reason: severe pain Ondansetron HCl (Ondansetron Hcl 4 Mg/2 Ml Vial) 4 mg IVPUSH Q8H PRN PRN Reason: Nausea and Vomiting Oxycodone HCl (Oxycodone Hcl Immed Release 5 Mg Tablet) 5 mg PO Q6H PRN PRN Reason: Breakthrough Pain, Moderate Pharmacy Consult (Consult Rx Perform Med Rec) 1 each MISCELLANE ONCE PRN PRN Reason: Consult order Polyethylene Glycol (Polyethylene Glycol 3350 17 Gm Powd.Pack) 17 gm PO DAILY [facility] Last Admin: 09/24/21 10:09 Dose: 17 gm Documented By: ARNIE Sodium Chloride (0.9 % Sodium Chloride Flush 3 Ml Syringe) 3 ml IVFLUSH QSHIFT [facility] Last Admin: 09/24/21 11:43 Dose: Not Given Documented By: ARNIE Non-Admin Reason: Med Not Available Urea (Urea 15 Gm Powder) 15 gm PO BID [facility] Last Admin: 09/24/21 10:25 Dose: Not Given Documented By: ARNIE Non-Admin Reason: Patient Refused Labs CBC & Chem 7: 09/24/21 05:00 09/24/21 11:51 Labs: Laboratory Results - last 24 hr 09/23/21 09/23/21 09/23/21 19:51 19:51 19:51 MCV 86.5 MCH 31.9 MCHC 36.9 H RDW 19.4 H Plt Count 236 D MPV 9.4 Immature Gran % (Auto) 0.6 H Neut % (Auto) 80.5 H Lymph % (Auto) 3.2 L [place] % (Auto) 15.7 H Eos % (Auto) 0.0 Baso % (Auto) 0.0 Lymph # (Auto) 0.2 L [place] # (Auto) 1.1 Eos # (Auto) 0.0 Baso # (Auto) 0.0 Abs Immat Gran (auto) 0.04 H Absolute Neuts (auto) 5.5 Absolute Nucleated RBC 0.000 Nucleated RBC % (auto) 0.0 Smear Tech's Comments PT 14.6 H INR 1.3 H Anion Gap 17 Estim Creat Clear Calc 107.6 Estimated GFR > 60 Random Glucose 107 Osmolality Calcium 8.9 D Magnesium 1.5 L Total Bilirubin 1.4 H Direct Bilirubin 0.5 AST 14 ALT 11 Alkaline Phosphatase 139 H Total Protein 6.5 Albumin 3.8 Urine Color Urine Appearance Urine pH Ur Specific [place] Urine Protein Urine Glucose (UA) Urine Ketones Urine Blood Urine Nitrite Ur Leukocyte Esterase Urine RBC Urine WBC Ur Squamous Epith Cells Urine Bacteria Urine Osmolality Ur Random Sodium Ur Random Potassium Ur Random Chloride Urine Creatinine COVID-19 (AMIRAH) COVID-19 Inbox 09/23/21 09/23/21 09/23/21 19:51 22:27 22:27 MCV MCH MCHC RDW Plt Count MPV Immature Gran % (Auto) Neut % (Auto) Lymph % (Auto) [place] % (Auto) Eos % (Auto) Baso % (Auto) Lymph # (Auto) [place] # (Auto) Eos # (Auto) Baso # (Auto) Abs Immat Gran (auto) Absolute Neuts (auto) Absolute Nucleated RBC Nucleated RBC % (auto) Smear Tech's Comments PT INR Anion Gap Estim Creat Clear Calc Estimated GFR Random Glucose Osmolality 246 L Calcium Magnesium Total Bilirubin Direct Bilirubin AST ALT Alkaline Phosphatase Total Protein Albumin Urine Color Urine Appearance Urine pH Ur Specific [place] Urine Protein Urine Glucose (UA) Urine Ketones Urine Blood Urine Nitrite Ur Leukocyte Esterase Urine RBC Urine WBC Ur Squamous Epith Cells Urine Bacteria Urine Osmolality Ur Random Sodium Ur Random Potassium Ur Random Chloride Urine Creatinine 9.41 COVID-19 (AMIRAH) Negative COVID-19 Inbox See Note 09/23/21 09/23/21 09/23/21 22:28 22:28 22:28 MCV MCH MCHC RDW Plt Count MPV Immature Gran % (Auto) Neut % (Auto) Lymph % (Auto) [place] % (Auto) Eos % (Auto) Baso % (Auto) Lymph # (Auto) [place] # (Auto) Eos # (Auto) Baso # (Auto) Abs Immat Gran (auto) Absolute Neuts (auto) Absolute Nucleated RBC Nucleated RBC % (auto) Smear Tech's Comments PT INR Anion Gap Estim Creat Clear Calc Estimated GFR Random Glucose Osmolality Calcium Magnesium Total Bilirubin Direct Bilirubin AST ALT Alkaline Phosphatase Total Protein Albumin Urine Color STRAW Urine Appearance CLEAR Urine pH 7.5 Ur Specific [place] <= 1.005 Urine Protein NEG Urine Glucose (UA) NEG Urine Ketones NEG Urine Blood TRACE Urine Nitrite NEG Ur Leukocyte Esterase NEG Urine RBC 0-2 Urine WBC 0 Ur Squamous Epith Cells TRACE Urine Bacteria NONE Urine Osmolality 186 L Ur Random Sodium 48.0 Ur Random Potassium 12.5 Ur Random Chloride 54.0 Urine Creatinine COVID-19 (AMIRAH) COVID-19 Inbox 09/24/21 09/24/21 09/24/21 02:57 05:00 05:00 MCV 86.5 MCH 31.9 MCHC 36.9 H RDW 19.9 H Plt Count 282 MPV 9.1 L Immature Gran % (Auto) 0.5 H Neut % (Auto) 95.2 H Lymph % (Auto) 1.8 L [place] % (Auto) 2.5 Eos % (Auto) 0.0 Baso % (Auto) 0.0 Lymph # (Auto) 0.1 L [place] # (Auto) 0.1 Eos # (Auto) 0.0 Baso # (Auto) 0.0 Abs Immat Gran (auto) 0.02 Absolute Neuts (auto) 3.8 Absolute Nucleated RBC 0.000 Nucleated RBC % (auto) 0.0 Smear Tech's Comments VERIFIED PT INR Anion Gap 19 18 Estim Creat Clear Calc 105.7 105.7 Estimated GFR > 60 > 60 Random Glucose 128 H 129 H Osmolality Calcium 9.4 9.3 Magnesium Total Bilirubin Direct Bilirubin AST ALT Alkaline Phosphatase Total Protein Albumin Urine Color Urine Appearance Urine pH Ur Specific [place] Urine Protein Urine Glucose (UA) Urine Ketones Urine Blood Urine Nitrite Ur Leukocyte Esterase Urine RBC Urine WBC Ur Squamous Epith Cells Urine Bacteria Urine Osmolality Ur Random Sodium Ur Random Potassium Ur Random Chloride Urine Creatinine COVID-19 (AMIRAH) COVID-19 Clin Com 09/24/21 08:07 MCV MCH MCHC RDW Plt Count MPV Immature Gran % (Auto) Neut % (Auto) Lymph % (Auto) [place] % (Auto) Eos % (Auto) Baso % (Auto) Lymph # (Auto) [place] # (Auto) Eos # (Auto) Baso # (Auto) Abs Immat Gran (auto) Absolute Neuts (auto) Absolute Nucleated RBC Nucleated RBC % (auto) Smear Tech's Comments PT INR Anion Gap 18 Estim Creat Clear Calc 91.0 Estimated GFR > 60 Random Glucose 126 H Osmolality Calcium 9.6 Magnesium 2.2 Total Bilirubin Direct Bilirubin AST ALT Alkaline Phosphatase Total Protein Albumin Urine Color Urine Appearance Urine pH Ur Specific [place] Urine Protein Urine Glucose (UA) Urine Ketones Urine Blood Urine Nitrite Ur Leukocyte Esterase Urine RBC Urine WBC Ur Squamous Epith Cells Urine Bacteria Urine Osmolality Ur Random Sodium Ur Random Potassium Ur Random Chloride Urine Creatinine COVID-19 (AMIRAH) COVID-19 Clin Com Assessment and Plan (1) Adenocarcinoma of lung: Status: Chronic Plan 55yo M with 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 presenting with binocular dipolpia + R-sided facial numbness, admitted with hypoNa # hypoNa - Na corrected 119->126 over 9 hr, so D5W was started to slow correction; Na currently 127 x2; monitor Na q6h; Nephrology consult pending # 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
--- NOTE | 2021-09-24 12:50 | P.PNNP_ITS ---
Subjective Subjective Date of Service: 09/25/21 Interval history: c/o binocular diplopia + R-sided facial numbness Physical Exam Vital Signs: Vital Signs: Last Vital Signs Temp 98.6 F 09/24/21 04:00 Pulse 123 H 09/24/21 10:14 Resp 14 09/24/21 10:14 BP 104/78 09/24/21 10:14 Pulse Ox 99 09/24/21 10:14 O2 Del Method 09/24/21 10:14 BMI result Body Mass Index 16.9 Objective Data Labs CBC & Chem 7: 09/24/21 05:00 09/25/21 05:09 Labs: Laboratory Results - last 24 hr 09/23/21 09/23/21 09/23/21 19:51 19:51 19:51 WBC 6.8 RBC 2.82 L D Hgb 9.0 L Hct 24.4 L D MCV 86.5 MCH 31.9 MCHC 36.9 H RDW 19.4 H Plt Count 236 D MPV 9.4 Immature Gran % (Auto) 0.6 H Neut % (Auto) 80.5 H Lymph % (Auto) 3.2 L [place] % (Auto) 15.7 H Eos % (Auto) 0.0 Baso % (Auto) 0.0 Lymph # (Auto) 0.2 L [place] # (Auto) 1.1 Eos # (Auto) 0.0 Baso # (Auto) 0.0 Abs Immat Gran (auto) 0.04 H Absolute Neuts (auto) 5.5 Absolute Nucleated RBC 0.000 Nucleated RBC % (auto) 0.0 Smear Tech's Comments PT 14.6 H INR 1.3 H Sodium 119 L* Potassium 3.4 Chloride 80 L Carbon Dioxide 25 Anion Gap 17 BUN 6 L Creatinine 0.55 Estim Creat Clear Calc 107.6 Estimated GFR > 60 Random Glucose 107 Osmolality Calcium 8.9 D Magnesium 1.5 L Total Bilirubin 1.4 H Direct Bilirubin 0.5 AST 14 ALT 11 Alkaline Phosphatase 139 H Total Protein 6.5 Albumin 3.8 Urine Color Urine Appearance Urine pH Ur Specific [place] Urine Protein Urine Glucose (UA) Urine Ketones Urine Blood Urine Nitrite Ur Leukocyte Esterase Urine RBC Urine WBC Ur Squamous Epith Cells Urine Bacteria Urine Osmolality Ur Random Sodium Ur Random Potassium Ur Random Chloride Urine Creatinine COVID-19 (AMIRAH) COVID-19 Clin Com 09/23/21 09/23/21 09/23/21 19:51 22:27 22:27 WBC RBC Hgb Hct MCV MCH MCHC RDW Plt Count MPV Immature Gran % (Auto) Neut % (Auto) Lymph % (Auto) [place] % (Auto) Eos % (Auto) Baso % (Auto) Lymph # (Auto) [place] # (Auto) Eos # (Auto) Baso # (Auto) Abs Immat Gran (auto) Absolute Neuts (auto) Absolute Nucleated RBC Nucleated RBC % (auto) Smear Tech's Comments PT INR Sodium Potassium Chloride Carbon Dioxide Anion Gap BUN Creatinine Estim Creat Clear Calc Estimated GFR Random Glucose Osmolality 246 L Calcium Magnesium Total Bilirubin Direct Bilirubin AST ALT Alkaline Phosphatase Total Protein Albumin Urine Color Urine Appearance Urine pH Ur Specific [place] Urine Protein Urine Glucose (UA) Urine Ketones Urine Blood Urine Nitrite Ur Leukocyte Esterase Urine RBC Urine WBC Ur Squamous Epith Cells Urine Bacteria Urine Osmolality Ur Random Sodium Ur Random Potassium Ur Random Chloride Urine Creatinine 9.41 COVID-19 (AMIRAH) Negative COVID-19 Clin Com See Note 09/23/21 09/23/21 09/23/21 22:28 22:28 22:28 WBC RBC Hgb Hct MCV MCH MCHC RDW Plt Count MPV Immature Gran % (Auto) Neut % (Auto) Lymph % (Auto) [place] % (Auto) Eos % (Auto) Baso % (Auto) Lymph # (Auto) [place] # (Auto) Eos # (Auto) Baso # (Auto) Abs Immat Gran (auto) Absolute Neuts (auto) Absolute Nucleated RBC Nucleated RBC % (auto) Smear Tech's Comments PT INR Sodium Potassium Chloride Carbon Dioxide Anion Gap BUN Creatinine Estim Creat Clear Calc Estimated GFR Random Glucose Osmolality Calcium Magnesium Total Bilirubin Direct Bilirubin AST ALT Alkaline Phosphatase Total Protein Albumin Urine Color STRAW Urine Appearance CLEAR Urine pH 7.5 Ur Specific [place] <= 1.005 Urine Protein NEG Urine Glucose (UA) NEG Urine Ketones NEG Urine Blood TRACE Urine Nitrite NEG Ur Leukocyte Esterase NEG Urine RBC 0-2 Urine WBC 0 Ur Squamous Epith Cells TRACE Urine Bacteria NONE Urine Osmolality 186 L Ur Random Sodium 48.0 Ur Random Potassium 12.5 Ur Random Chloride 54.0 Urine Creatinine COVID-19 (AMIRAH) COVID-19 Clin Com 09/24/21 09/24/21 09/24/21 02:57 05:00 05:00 WBC 4.0 L RBC 3.04 L Hgb 9.7 L Hct 26.3 L MCV 86.5 MCH 31.9 MCHC 36.9 H RDW 19.9 H Plt Count 282 MPV 9.1 L Immature Gran % (Auto) 0.5 H Neut % (Auto) 95.2 H Lymph % (Auto) 1.8 L [place] % (Auto) 2.5 Eos % (Auto) 0.0 Baso % (Auto) 0.0 Lymph # (Auto) 0.1 L [place] # (Auto) 0.1 Eos # (Auto) 0.0 Baso # (Auto) 0.0 Abs Immat Gran (auto) 0.02 Absolute Neuts (auto) 3.8 Absolute Nucleated RBC 0.000 Nucleated RBC % (auto) 0.0 Smear Tech's Comments VERIFIED PT INR Sodium 125 L 126 L Potassium 3.4 3.6 Chloride 84 L 86 L Carbon Dioxide 25 26 Anion Gap 19 18 BUN 16 D 14 Creatinine 0.56 0.56 Estim Creat Clear Calc 105.7 105.7 Estimated GFR > 60 > 60 Random Glucose 128 H 129 H Osmolality Calcium 9.4 9.3 Magnesium Total Bilirubin Direct Bilirubin AST ALT Alkaline Phosphatase Total Protein Albumin Urine Color Urine Appearance Urine pH Ur Specific [place] Urine Protein Urine Glucose (UA) Urine Ketones Urine Blood Urine Nitrite Ur Leukocyte Esterase Urine RBC Urine WBC Ur Squamous Epith Cells Urine Bacteria Urine Osmolality Ur Random Sodium Ur Random Potassium Ur Random Chloride Urine Creatinine COVID-19 (AMIRAH) COVID-19 Clin Com 09/24/21 09/24/21 08:07 11:51 WBC RBC Hgb Hct MCV MCH MCHC RDW Plt Count MPV Immature Gran % (Auto) Neut % (Auto) Lymph % (Auto) [place] % (Auto) Eos % (Auto) Baso % (Auto) Lymph # (Auto) [place] # (Auto) Eos # (Auto) Baso # (Auto) Abs Immat Gran (auto) Absolute Neuts (auto) Absolute Nucleated RBC Nucleated RBC % (auto) Smear Tech's Comments PT INR Sodium 127 L 127 L Potassium 4.3 Chloride 85 L Carbon Dioxide 28 Anion Gap 18 BUN 13 Creatinine 0.65 Estim Creat Clear Calc 91.0 Estimated GFR > 60 Random Glucose 126 H Osmolality Calcium 9.6 Magnesium 2.2 Total Bilirubin Direct Bilirubin AST ALT Alkaline Phosphatase Total Protein Albumin Urine Color Urine Appearance Urine pH Ur Specific [place] Urine Protein Urine Glucose (UA) Urine Ketones Urine Blood Urine Nitrite Ur Leukocyte Esterase Urine RBC Urine WBC Ur Squamous Epith Cells Urine Bacteria Urine Osmolality Ur Random Sodium Ur Random Potassium Ur Random Chloride Urine Creatinine COVID-19 (AMIRAH) COVID-19 Clin Com Procedures Date of Service Date of Service: 09/24/21 Assessment & Plan Assessment and plan (1) Acute hyponatremia: Status: Acute Plan Severe hyponatremia Now with rapid correction DC NS DC Urea Start D5W at 100 cc/hr Check pNa q 2 hrs If PNa> 127, would recommend a dose of DDAVP Consult dictated Time Spent With Patient Time: Total time spent is greater than 50% in coordination of care (as documented) at patient's floor/unit and/or counseling patient: Progress Note: Quality Stroke Does the patient have a stroke diagnosis?: No
--- NOTE | 2021-09-24 16:14 | PC.NURSE ---
no distress. states he has no change to vision, not worse or improved. denies dizziness and is able to ambulate unassisted to BR. awaits room on floor.
[2021-09-24 19:32] LABS: Sodium 128 mmol/L (135-145)
[2021-09-24] MEDS: Urea 15 GM POWDER PO (21:15)
[2021-09-25 00:38] LABS: Sodium 128 mmol/L (135-145)
[2021-09-25 03:45] VITALS: BP 121/79; PULSE 99; RESP 18; TEMP 36.5; O2SAT 98
[2021-09-25] MEDS: dexAMETHasone sod phosphate 4 MG/ML VIAL 8 MG IVPUSH ×3 (06:00→19:20)
[2021-09-25 06:11] LABS: Anion Gap 18 (12-20); Blood Urea Nitrogen 26 mg/dL (9-16); Calcium 9.1 mg/dL (8.4-10.2); Carbon Dioxide 29 mmol/L (22-29); Chloride 87 mmol/L (96-108); Creatinine Clr Calc Pharmacy 92.4; Estimated Glomerular Filt Rate > 60; Glucose Random 129 mg/dL (60-115); Potassium 4.3 mmol/L (3.3-5.1); Sodium 130 mmol/L (135-145)
[2021-09-25 06:51] VITALS: BP 122/68; PULSE 119; RESP 18; TEMP 36.3; O2SAT 99
[2021-09-25] MEDS: Folic Acid 1 MG TABLET PO (07:37)
[2021-09-25] MEDS: Urea 15 GM POWDER PO ×2 (07:37→20:40)
[2021-09-25] MEDS: polyethylene glycoL 3350 17 GM POWD.PACK PO (07:37)
--- NOTE | 2021-09-25 11:04 | PM.PNNEP ---
Subjective Subjective Date of Service: 09/26/21 Interval history: Events notd Feels better Physical Exam Vital Signs: Vital Signs: Last Vital Signs Temp 97.3 F 09/25/21 06:51 Pulse 119 H 09/25/21 06:51 Resp 18 09/25/21 06:51 BP 122/68 09/25/21 06:51 Pulse Ox 99 09/25/21 06:51 O2 Del Method 09/25/21 06:51 BMI result Body Mass Index 16.9 Const: General: cooperative Neck: Neck: Yes full ROM and Yes supple Resp: Effort & Inspection: normal respiratory effort Auscultation: clear to auscultation bilaterally Cardio: Jugular venous distension: no JVD Palpation: no palpable S3 and no thrill GI: Inspection: Yes normal to inspection Palpation (GI): Soft to palpation Auscultation: normal bowel sounds Skin: General skin exam: no rashes or lesions noted Extrem: Right upper extremity: no edema Objective Data Labs CBC & Chem 7: 09/26/21 05:25 09/26/21 05:25 Labs: Laboratory Results - last 24 hr 09/24/21 09/24/21 09/25/21 11:51 19:14 00:13 Sodium 127 L 128 L 128 L Potassium Chloride Carbon Dioxide Anion Gap BUN Creatinine Estim Creat Clear Calc Estimated GFR Random Glucose Calcium 09/25/21 05:09 Sodium 130 L Potassium 4.3 Chloride 87 L Carbon Dioxide 29 Anion Gap 18 BUN 26 H D Creatinine 0.64 Estim Creat Clear Calc 92.4 Estimated GFR > 60 Random Glucose 129 H Calcium 9.1 Procedures Date of Service Date of Service: 09/25/21 Assessment & Plan Assessment and plan (1) Acute hyponatremia: Status: Acute Plan Hyponatremia With dilute urine suggestive of polydipsia Cannot r/o Non osmotic ADH release from lung CA Rate of correction acceptable CAD DC D5W Restrtict PO water intake Goal P NA > 133 in 12- 24 hrs No need for UREA Time Spent With Patient Time: Total time spent is greater than 50% in coordination of care (as documented) at patient's floor/unit and/or counseling patient: Progress Note: Quality Stroke Does the patient have a stroke diagnosis?: No
[2021-09-25 11:10] VITALS: BP 110/81; PULSE 110; RESP 16; TEMP 36.3; O2SAT 99
--- NOTE | 2021-09-25 12:15 | CONS_ITS ---
DATE OF SERVICE: 09/24/2021 REASON FOR CONSULTATION: I was called to see this patient to assist in the management of patient's hyponatremia. HISTORY OF PRESENT ILLNESS: To summarize, Orlando is a 55-year-old man with a history of adenocarcinoma of the lung with mets including brain, history of mild hypernatremia in the past, comes in because of diplopia or facial weakness. At the time of admission, he was found to have severe hyponatremia at 119. Urine osmolality is very low. He was given IV normal saline bolus and in the last 12 hours serum creatinine, sodium was increased to 127. This consultation requested for management of hyponatremia. 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 FAMILY HISTORY: Not done on this admission. SOCIAL HISTORY: He is with an autistic son. No history of any alcohol abuse. He uses marijuana. ALLERGIES: HE IS ALLERGIC TO IODINE AND SHELLFISH. HOME MEDICATION: Lorazepam. REVIEW OF SYSTEMS: Positive for polydipsia. No headache, nausea, vomiting. No abdominal pain, diarrhea, or constipation. No fever, no rash. PHYSICAL EXAMINATION: GENERAL: Patient is a 55-year-old male, cachectic. He is comfortable, not in distress. NECK: Supple. No JVD. HEENT: Mucosa is dry. LUNGS: Air entry equal. No rales. Scattered rhonchi. HEART: S1, S2 heard. No gallop. ABDOMEN: Soft, nontender. EXTREMITIES: No edema. VITAL SIGNS: Blood pressure 104/78, pulse 123, afebrile. LABORATORY DATA: Sodium 127, potassium 4.3, BUN 13, creatinine 0.65. Serum osmolality was 246. Urine studies as of yesterday, specific gravity less than 1.005, urine osmolality 186. X-ray of the chest done on 09/14 showed left adrenal tumor, which was stable, right upper lobe mass. IMPRESSION: A 55-year-old man with adenocarcinoma of lung with metastasis, presents with severe hyponatremia. He was noted to have severe hyponatremia with a low urine osmolality and specific gravity . Differential diagnosis would include psychogenic polydipsia. Nonosmotic ADH release could be playing a role as well. My recommendation is to gradually cut the serum sodium rate of 0.5-1 mmol/L per hour and not exceed more than 8-10 mmol in 24 hours. At present, serum sodium has increased from 119 up to 127 over the span of 12 hours. Therefore, I will discontinue supplementation. IV normal saline. I would hydrate him with D5W to slow the rate of correction of hyponatremia. Repeat sodium levels again and if the sodium is more than 127, I would recommend to administer dose of DDAVP. Serum sodium needs to be checked every 2 to 4 hours to avoid rapid correction. Thank you for allowing me to participate in the medical management of this patient. Duc Antonio MD BPA/MODL / [id number]
[2021-09-25] MEDS: Heparin Sodium,Porcine 5,000 UNIT/ML VIAL 5000 UNIT SUBCUT (12:38)
--- NOTE | 2021-09-25 13:41 | PM.HEMONCPN ---
Medical Summary - Medical Summary Date of Service: 09/25/21 Chief complaint: Diplopia Medical Summary: DIAGNOSIS: 1. SVC SYNDROME. 2. LARGE LUNG MASS. Pathology: Poorly differentiated adenocarcinoma. Compatible with a lung primary. CURRENT THERAPY: Combined modality therapy with radiation plus carbo Taxol weekly. He had a reaction to Taxol when is of the 3rd treatment. He was given 1 dose of carboplatin. Then switched over to carbo and Alimta. Interval History Interval history: Patient reports persistent diplopia and right-sided facial numbness and weakness. He denies difficulty swallowing. He is not able to drive. His son now is being taken care of by his niece. He has some discomfort on the right side of his he phase but no severe headache. No nausea or emesis. Review of Systems - Neurologic Reports loss of vision, Reports numbness, Reports paresthesias, Reports weakness PMFSH Medical History: Medical History (Last Reviewed 09/24/21 @ 21:08 by Christiane Delcid RN) Adenocarcinoma of lung Bone metastases Mass of right lung Family History: Family History (Last Reviewed 09/24/21 @ 07:00 by Migdalia Horan MD) Mother Diverticulitis Breast cancer Maternal Uncle Diverticulitis Prostate cancer Maternal Grandmother Diverticulitis Social History: Social History (Last Reviewed 09/24/21 @ 07:00 by Migdalia Horan MD) Living Situation History: Household Members: Children Household Members Other:: - 10 y/o autistic son Housing: House Are you a primary childcare attendant to a significant other at home: No Do you presently have visiting nurse or other home services: No Tobacco History: Patient Tobacco Use Status: Former Tobacco user Smoke Quit Date: 06/11/21 Second Hand Smoke Exposure: Yes Substance Use History: Substance Use Type: Marijuana Advance Directives: Advance Directives Date on File: 06/09/21 Occupation Assessmet: service: No Current occupational status: employed Current occupation: Fulltime Current occupational exposures/hazards: No Home Medications and Allergies Current Medications: Current Medications Acetaminophen (Acetaminophen 325 Mg Tablet) 650 mg PO Q6H PRN PRN Reason: Pain, Mild (Pain Scale 1-3) Dexamethasone Sodium Phosphate (Dexamethasone Sod Phosphate 4 Mg/Ml Vial) 8 mg IVPUSH Q6H [facility] Last Admin: 09/25/21 12:38 Dose: 8 mg Folic Acid (Folic Acid 1 Mg Tablet) 1 mg PO DAILY [facility] Last Admin: 09/25/21 07:37 Dose: 1 mg Heparin Sodium (Porcine) (Heparin Sodium,Porcine 5,000 Unit/Ml Vial) 5,000 unit SUBCUT Q12H [facility] Last Admin: 09/25/21 12:38 Dose: 5,000 unit Lorazepam (Lorazepam 0.5 Mg Tablet) 0.5 mg PO TID PRN PRN Reason: Anxiety Morphine Sulfate (Morphine Sulfate 4 Mg/Ml Cartridge) 4 mg IVPUSH Q4H PRN; Protocol PRN Reason: severe pain Ondansetron HCl (Ondansetron Hcl 4 Mg/2 Ml Vial) 4 mg IVPUSH Q8H PRN PRN Reason: Nausea and Vomiting Oxycodone HCl (Oxycodone Hcl Immed Release 5 Mg Tablet) 5 mg PO Q6H PRN PRN Reason: Breakthrough Pain, Moderate Pharmacy Consult (Consult Rx Perform Med Rec) 1 each MISCELLANE ONCE PRN PRN Reason: Consult order Polyethylene Glycol (Polyethylene Glycol 3350 17 Gm Powd.Pack) 17 gm PO DAILY [facility] Last Admin: 09/25/21 07:37 Dose: 17 gm Sodium Chloride (0.9 % Sodium Chloride Flush 3 Ml Syringe) 3 ml IVFLUSH QSHIFT [facility] Last Admin: 09/25/21 07:39 Dose: Not Given Urea (Urea 15 Gm Powder) 15 gm PO BID [facility] Last Admin: 09/25/21 07:37 Dose: 15 gm Home Medications Medication Instructions Recorded Confirmed Type lorazepam 0.5 mg tablet (Ativan) 0.5 mg PO TID PRN Anxiety 06/09/21 09/24/21 History dexamethasone 4 mg tablet See Rx Instructions .Route .COMPLEX 09/24/21 09/24/21 History (Decadron) Allergies Allergy/AdvReac Type Severity Reaction Status Date / Time iodine Allergy Severe Anaphylaxis Verified 07/31/21 15:51 shellfish derived Allergy Severe Anaphylaxis Verified 07/31/21 15:51 Exam Vital signs: Vital Signs Temp 97.3 F 09/25/21 11:10 Pulse 110 H 09/25/21 11:10 Resp 16 09/25/21 11:10 BP 110/81 09/25/21 11:10 Pulse Ox 99 09/25/21 11:10 O2 Del Method 09/25/21 11:10 Intake & Output 09/24/21 09/25/21 09/25/21 18:59 06:59 18:59 Intake Total 220 / 702.5 482.5 / 702.5 500 / 500 Balance 220 / 702.5 482.5 / 702.5 500 / 500 Intake: Intake, Oral Amount 220 / 220 Intake, IV Amount 482.5 / 482.5 500 / 500 0.9 % Sodium Chloride 1,000 ml 0 / 0 @ 75 mls/hr IVCONT .[id number] [facility] Rx#:[id number] Dextrose 5 % 1,000 ml @ 50 mls/ 482.5 / 482.5 500 / 500 hr IVCONT .Q10H [facility] Rx#: [id number] Other: Number of Unmeasured Voids 1 Urine Bathroom Last Bowel Movement 09/24/21 Weight 48.988 kg BMI result Body Mass Index 16.9 - Constitutional Present: no acute distress - Routine HEENT Exam Head: Present: atraumatic - Routine Cardiovascular Exam Cardiovascular: Present: RRR - Routine Extremities Exam Present: nontender - Routine Neurological Exam Present: alert, oriented X3 Data - Labs CBC & Chem 7: 09/24/21 05:00 09/25/21 05:09 Labs: 09/23/21 19:30 ECG 12 lead EKG Stat EKG Documentation DIRECTED 09/23/21 19:37 dexAMETHasone sod phosphate [Decadron] 10 mg IVPUSH ONCE ONE 09/23/21 19:51 Basic Metabolic Panel Stat Complete Blood Count Auto Diff Stat Liver Panel Stat Magnesium Stat Osmolality, Serum Stat Prothrombin Time INR Stat 09/23/21 20:41 Magnesium Sulfate/H2O 2 gm in 50 ml IV ONCE 09/23/21 20:45 0.9 % Sodium Chloride [Ns] 1,000 ml IVCONT 75 mls/hr 09/23/21 20:52 CT angio head neck Stat 09/23/21 20:57 Add Laboratory Test Stat 09/23/21 21:57 iohexoL 350 MG/ML [Omnipaque 350 MG/ML] 100 ml IV ONCE ONE 09/23/21 22:27 COVID-19 ID NOW (Marie) Stat Creatinine Urine Stat 09/23/21 22:28 Electrolytes Urine Stat Osmolality Urine Stat 09/24/21 02:57 BMP [Basic Metabolic Panel] Q6HR 09/24/21 05:00 Basic Metabolic Panel DAILY@0600 Complete Blood Count Auto Diff DAILY@0600 SLIDE REVIEW Routine 09/24/21 08:07 BMP [Basic Metabolic Panel] Stat Magnesium Stat 09/24/21 08:13 Add Laboratory Test Routine 09/24/21 10:15 Dextrose 5 % [D5w] 1,000 ml IVCONT 50 mls/hr 09/24/21 11:45 Dextrose 5 % [D5w] 1,000 ml IVCONT 50 mls/hr 09/24/21 11:51 Sodium Q6H 09/24/21 19:14 Sodium Q6H 09/25/21 00:13 Sodium Q6H 09/25/21 05:09 Basic Metabolic Panel Routine Laboratory Last Values WBC 4.0 X10*3/uL (4.8-10.8) L 09/24/21 05:00 RBC 3.04 X10*6/uL (4.60-5.80) L 09/24/21 05:00 Hgb 9.7 g/dl (14.0-18.0) L 09/24/21 05:00 Hct 26.3 % (42.0-52.0) L 09/24/21 05:00 MCV 86.5 fL (80.0-98.0) 09/24/21 05:00 MCH 31.9 pg (27.0-33.0) 09/24/21 05:00 MCHC 36.9 g/dl (31.0-36.0) H 09/24/21 05:00 RDW 19.9 % (11.0-16.0) H 09/24/21 05:00 Plt Count 282 X10*3/uL (160-400) 09/24/21 05:00 MPV 9.1 fL (9.4-12.4) L 09/24/21 05:00 Immature Gran % (Auto) 0.5 % (0.0-0.4) H 09/24/21 05:00 Neut % (Auto) 95.2 % (45-73) H 09/24/21 05:00 Lymph % (Auto) 1.8 % (20-40) L 09/24/21 05:00 [place] % (Auto) 2.5 % (2-11) 09/24/21 05:00 Eos % (Auto) 0.0 % (0-4) 09/24/21 05:00 Baso % (Auto) 0.0 % (0-2) 09/24/21 05:00 Lymph # (Auto) 0.1 X10*3/uL (1.2-4.9) L 09/24/21 05:00 [place] # (Auto) 0.1 X10*3/uL (0.1-1.2) 09/24/21 05:00 Eos # (Auto) 0.0 X10*3/uL (0.0-0.4) 09/24/21 05:00 Baso # (Auto) 0.0 X10*3/uL (0.0-0.2) 09/24/21 05:00 Abs Immat Gran (auto) 0.02 X10*3/uL (0.00-0.03) 09/24/21 05:00 Absolute Neuts (auto) 3.8 x10*3/uL (2.0-8.3) 09/24/21 05:00 Absolute Nucleated RBC 0.000 X10*3/uL (0.0-0.012) 09/24/21 05:00 Nucleated RBC % (auto) 0.0 /100WBC (0.0-0.2) 09/24/21 05:00 Smear Tech's Comments VERIFIED 09/24/21 05:00 PT 14.6 SEC (10.0-13.1) H 09/23/21 19:51 INR 1.3 (0.9-1.1) H 09/23/21 19:51 Sodium 130 mmol/L (135-145) L 09/25/21 05:09 Potassium 4.3 mmol/L (3.3-5.1) 09/25/21 05:09 Chloride 87 mmol/L (96-108) L 09/25/21 05:09 Carbon Dioxide 29 mmol/L (22-29) 09/25/21 05:09 Anion Gap 18 (12-20) 09/25/21 05:09 BUN 26 mg/dL (9-16) H D 09/25/21 05:09 Creatinine 0.64 mg/dL (0.5-1.4) 09/25/21 05:09 Estim Creat Clear Calc 92.4 08/15/22 05:09 Estimated GFR > 60 09/25/21 05:09 Random Glucose 129 mg/dL (60-115) H 09/25/21 05:09 Osmolality 246 mosm/kg (281-305) L 09/23/21 19:51 Calcium 9.1 mg/dL (8.4-10.2) 09/25/21 05:09 Magnesium 2.2 mg/dL (1.6-2.6) 09/24/21 08:07 Total Bilirubin 1.4 mg/dL (0.0-1.0) H 09/23/21 19:51 Direct Bilirubin 0.5 mg/dL (0.0-0.5) 09/23/21 19:51 AST 14 U/L (5-37) 09/23/21 19:51 ALT 11 U/L (0-40) 09/23/21 19:51 Alkaline Phosphatase 139 U/L (39-117) H 09/23/21 19:51 Total Protein 6.5 g/dL (6.5-8.0) 09/23/21 19:51 Albumin 3.8 g/dL (3.5-5.0) 09/23/21 19:51 Urine Color STRAW 09/23/21 22:28 Urine Appearance CLEAR 09/23/21 22:28 Urine pH 7.5 (5.0-8.0) 09/23/21 22:28 Ur Specific [place] <= 1.005 (1.005-1.025) 09/23/21 22:28 Urine Protein NEG MG/DL (NEG-TRACE) 09/23/21 22:28 Urine Glucose (UA) NEG MG/DL (NEG) 09/23/21 22:28 Urine Ketones NEG MG/DL (NEG) 09/23/21 22:28 Urine Blood TRACE (NEG) 09/23/21 22:28 Urine Nitrite NEG (NEG) 09/23/21 22:28 Ur Leukocyte Esterase NEG (NEG) 09/23/21 22:28 Urine RBC 0-2 /HPF (0) 09/23/21 22:28 Urine WBC 0 /HPF (0-4) 09/23/21 22:28 Ur Squamous Epith Cells TRACE /LPF 09/23/21 22:28 Urine Bacteria NONE /LPF 09/23/21 22:28 Urine Osmolality 186 mosm/kg (373-1093) L 09/23/21 22: Ur Random Sodium 48.0 mmol/L 09/23/21 22: Ur Random Potassium 12.5 mmol/L 09/23/21 22: Ur Random Chloride 54.0 mmol/L 09/23/21 22: Urine Creatinine 9.41 mg/dL 09/23/21: COVID-19 (AMIRAH) Negative (Negative) 09/23/21 COVID-19 Clin Com See Note 09/23/21: - Imaging Radiologist's impression: ITS Impressions Head/Neck CTA 09/23/21 22:03 IMPRESSION: * No large vessel occlusion within the intracranial or extracranial arterial vasculature. * There is mild extrinsic narrowing/compression of the right petroclival/lateral segment of the internal carotid artery related to mass effect by the soft tissue component of the neoplastic process within the basisphenoid of the clivus, as seen on the prior MRI brain. Again seen is a soft tissue component within the sphenoid chamber. * This same neoplastic process may also involve the right trigeminal ganglion and/or traversing right oculomotor nerve, both of which course through this region, and could be resulting in the patient's symptomatology.. * No hemodynamically significant stenosis within the extracranial arterial vasculature. * Stable size of the subcentimeter enhancing lesion within the right subependymal periventricular white matter. No new intracranial metastases are evident. * Decreased size of the large mass in the anterior right upper lobe invading the chest wall. * Similar-appearing bulky confluent mediastinal lymphadenopathy. Assessment and Plan Patient Active problem list reviewed?: Yes (1) Brain metastasis Status: Acute Assessment and plan: This is a pleasant 55-year-old male with metastatic lung adenocarcinoma diagnosed in May 2021. Biopsy of right pleural mass revealed Pathology-poorly differentiated carcinoma. EGFR, alk, BRAF, ROS1 and PD L1 negative. He had brain MRI done on 09/06/2021 which revealed enhancing mass filling the right sphenoid sinus measuring 3 cm x 2.6 cm and a small 3 mm enhancing lesion in the right peritrigonal white matter. Probable metastasis for both these lesions. I spoke to Dr. Bowie his radiation oncologist at [facility] and had an seen urgently for brain radiation therapy. He was seen and was offered radiation therapy to brain lesions. However, patient has a special needs son at home and he wanted to start radiation therapy when his son started school end of September. He now presents with symptoms of diplopia and right facial neurological symptoms. CTA head reveals infiltrative mass in the right sphenoid with soft tissue component extending into bilateral carotid canals causing extrinsic compression upon right petroclival/lateral segment with moderate narrowing. Infiltrative lytic process in the right base of sphenoid with soft tissue filling expanding right sphenoid chamber. Dr. Bowie was again contacted today. He agreed that patient needs to be transferred to [facility] so he can be started on radiation therapy as soon as possible. I have recommended starting IV dexamethasone at this time. Thank you. - Time Spent With Patient Time Spent with Patient (in minutes): 10
--- NOTE | 2021-09-25 14:10 | HO.PM.IMPN ---
Subjective Subjective Date of Service: 09/25/21 Interval History: no acute issues overnight. Still with double vision Review of Systems denies chest pain Denies shortness of breath Denies nausea vomiting diarrhea Denies fever chills Physical Exam Vital Signs: Vital Signs: Last Vital Signs Temp 97.3 F 09/25/21 11:10 Pulse 110 H 09/25/21 11:10 Resp 16 09/25/21 11:10 BP 110/81 09/25/21 11:10 Pulse Ox 99 09/25/21 11:10 O2 Del Method 09/25/21 11:10 BMI result Body Mass Index 16.9 Const: Other: no acute issues Resp: Other: clear to auscultation bilaterally no rales rhonchi or wheezes Cardio: Other: no S4; positive S1-S2; no S3 murmurs or gallops Extrem: Other: no edema bilaterally Objective Data Active Medications Acetaminophen (Acetaminophen 325 Mg Tablet) 650 mg PO Q6H PRN PRN Reason: Pain, Mild (Pain Scale 1-3) Dexamethasone Sodium Phosphate (Dexamethasone Sod Phosphate 4 Mg/Ml Vial) 8 mg IVPUSH Q6H [facility] Last Admin: 09/25/21 12:38 Dose: 8 mg Documented By: ELA Folic Acid (Folic Acid 1 Mg Tablet) 1 mg PO DAILY [facility] Last Admin: 09/25/21 07:37 Dose: 1 mg Documented By: ELA Heparin Sodium (Porcine) (Heparin Sodium,Porcine 5,000 Unit/Ml Vial) 5,000 unit SUBCUT Q12H [facility] Last Admin: 09/25/21 12:38 Dose: 5,000 unit Documented By: ELA Lorazepam (Lorazepam 0.5 Mg Tablet) 0.5 mg PO TID PRN PRN Reason: Anxiety Morphine Sulfate (Morphine Sulfate 4 Mg/Ml Cartridge) 4 mg IVPUSH Q4H PRN; Protocol PRN Reason: severe pain Ondansetron HCl (Ondansetron Hcl 4 Mg/2 Ml Vial) 4 mg IVPUSH Q8H PRN PRN Reason: Nausea and Vomiting Oxycodone HCl (Oxycodone Hcl Immed Release 5 Mg Tablet) 5 mg PO Q6H PRN PRN Reason: Breakthrough Pain, Moderate Pharmacy Consult (Consult Rx Perform Med Rec) 1 each MISCELLANE ONCE PRN PRN Reason: Consult order Polyethylene Glycol (Polyethylene Glycol 3350 17 Gm Powd.Pack) 17 gm PO DAILY [facility] Last Admin: 09/25/21 07:37 Dose: 17 gm Documented By: ELA Sodium Chloride (0.9 % Sodium Chloride Flush 3 Ml Syringe) 3 ml IVFLUSH QSHIFT [facility] Last Admin: 09/25/21 07:39 Dose: Not Given Documented By: ELA Non-Admin Reason: IV Running Urea (Urea 15 Gm Powder) 15 gm PO BID [facility] Last Admin: 09/25/21 07:37 Dose: 15 gm Documented By: ELA Labs CBC & Chem 7: 09/24/21 05:00 09/25/21 05:09 Labs: Laboratory Results - last 24 hr 09/25/21 05:09 Anion Gap 18 Estim Creat Clear Calc 92.4 Estimated GFR > 60 Random Glucose 129 H Calcium 9.1 Assessment and Plan (1) Acute hyponatremia: Status: Acute (2) Adenocarcinoma of lung: Status: Chronic Plan 55yo M with 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 presenting with binocular dipolpia + R-sided facial numbness, admitted with hypoNa 1.Hyponatremia - normalizing; will DC D5W as per Renal recommendations -follow renals/divalents 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 metastatic adenoCA of lung - dexamethasone 4 mg t.i.d. VTE ppx: UFH requires ongoing hospitalization for stabilization of sodium Quality Stroke Does the patient have a stroke diagnosis?: No VTE Prior VTE?: No VTE Risk Level:: Medical - moderate - high VTE Device Contraindication: Treatment Not Indicated VTE Drug Contraindication: N/A - Med Ordered
--- NOTE | 2021-09-25 14:26 | MHC.CM.PN ---
PLAN IS FOR DC SATURDAY CASE MANAGEMENT FOLLOWING FOR DC NEEDS.
[2021-09-25 15:29] VITALS: BMI 16.9
[2021-09-25 15:37] VITALS: BP 103/72; PULSE 129; RESP 16; TEMP 36.1; O2SAT 99
--- NOTE | 2021-09-25 15:49 | MHC.CLN ---
NUTRITION QUALIFIES MODERATELY MALNOURISHED IN THE CONTEXT OF CHRONIC ILLNESS. ADDING ENSURE BID (700 KCLS, 40 G PROTEIN) PER PATIENT PREFERENCE.
[2021-09-25] MEDS: 0.9 % Sodium Chloride Flush 3 ML SYRINGE IVFLUSH ×2 (19:20→20:42)
[2021-09-25 20:00] VITALS: BP 98/66; PULSE 129; RESP 16; TEMP 35.9; O2SAT 96
[2021-09-25] MEDS: Acetaminophen 325 MG TABLET 650 MG PO (23:38)
[2021-09-26] VITALS (7 sets, daily range): BP systolic 102–122; BP diastolic 59–82; PULSE 90–132; RESP 17–18; TEMP 36.1–36.6; O2SAT 97–99
[2021-09-26] MEDS: Heparin Sodium,Porcine 5,000 UNIT/ML VIAL 5000 UNIT SUBCUT ×2 (00:05→13:09)
[2021-09-26] MEDS: dexAMETHasone sod phosphate 4 MG/ML VIAL 8 MG IVPUSH ×4 (00:06→17:59)
[2021-09-26] MEDS: LORazepam 0.5 MG TABLET PO (01:14)
[2021-09-26 05:42] LABS: Basophils Percent Auto 0.1 % (0-2); Hematocrit 27.9 % (42.0-52.0); Hemoglobin 9.4 g/dl (14.0-18.0); Imm Gran Abs Auto 0.13 X10*3/uL (0.00-0.03); Lymphocytes Absolute Auto 0.1 X10*3/uL (1.2-4.9); Lymphocytes Percent Auto 0.9 % (20-40); MANUAL DIFF FLAG SCAN; Mean Corpuscular HGB Conc 33.7 g/dl (31.0-36.0); Mean Corpuscular Hemoglobin 30.7 pg (27.0-33.0); Mean Corpuscular Volume 91.2 fL (80.0-98.0); Mean Platelet Volume 9.1 fL (9.4-12.4); Monocytes Absolute Auto 0.7 X10*3/uL (0.1-1.2); Monocytes Percent Auto 5.6 % (2-11); Neutrophils Absolute Auto 11.5 x10*3/uL (2.0-8.3); Neutrophils Percent Auto 92.4 % (45-73); Platelet Count 430 X10*3/uL (160-400); Red Blood Count 3.06 X10*6/uL (4.60-5.80); Red Cell Distribution Width 20.2 % (11.0-16.0); SCAN SMEAR FLAG 1; White Blood Count 12.4 X10*3/uL (4.8-10.8)
[2021-09-26 05:44] LABS: SLIDE REVIEW VERIFIED
[2021-09-26 05:58] LABS: Alanine Aminotransferase 22 U/L (0-40); Albumin Level 3.7 g/dL (3.5-5.0); Alkaline Phosphatase 138 U/L (39-117); Anion Gap 15 (12-20); Aspartate Amino Transferase 18 U/L (5-37); Bilirubin Total 0.5 mg/dL (0.0-1.0); Blood Urea Nitrogen 30 mg/dL (9-16); Calcium 8.9 mg/dL (8.4-10.2); Carbon Dioxide 29 mmol/L (22-29); Chloride 91 mmol/L (96-108); Estimated Glomerular Filt Rate > 60; Glucose Fasting 128 mg/dL (60-99); Potassium 4.3 mmol/L (3.3-5.1); Sodium 131 mmol/L (135-145); Total Protein 6.4 g/dL (6.5-8.0)
--- NOTE | 2021-09-26 08:12 | P.CDIC_ITS ---
CDI Concurrent Query Documentation Clarification: PHYSICIAN'S DOCUMENTATION REQUEST Date of Query: 09/26/21812 Patient Name: Orlando Correa Admit Date: 09/23/21 Dear Doctor, A review of the medical record indicates additional documentation may be needed. Please review below and update the documentation accordingly. Clinical Indicators: Documentation in the medical record includes: Risk Factors/Clinical Indicators/Treatments Clinical nutrition notes 09/25 -Significant unplanned weight loss BMI 16.9 Bone mets. Moderate malnutrition, mild depletion of body fat and muscle mass in context of chronic illness. Ensure. ASPEN Criteria* Acute Illness Chronic Illness Clinical Characteristic Non-Severe (2 or more criteria present) Severe (2 or more criteria present) Non-Severe (2 or more criteria present) Severe (2 or more criteria present) Energy Intake <75% for >7 days <=50% for >=5 days <75% for >=1 month <=75% for >=1 month Weight Loss 1 week 1 ? 2% >2% N/A N/A 1 month 5% >5% 5% >5% 3 months 7.5 % >7.5% 7.5% >7.5% 6 months N/A N/A 10% >10% 1 year N/A N/A 20% >20% Body Fat Mild Moderate Mild Severe Muscle Mass Mild Moderate Mild Severe Fluid Accumulation Mild Moderate to Severe Mild Severe Reduced Processing Mgr Strength N/A Measurably Reduced N/A Measurably Reduced *[facility] Hospitalist, 2017 Based on the above, which of the following most accurately represents the patient's nutritional status? * Malnutrition (specify if mild, moderate, or severe) * Protein calorie malnutrition (specify if mild, moderate, or severe) * Cachexia without malnutrition * No nutritional deficiency * Other (please specify): * Unable to determine Use of terms such as suspected, likely, concern for, or probable (associated with a specific diagnosis that is being evaluated, monitored, or treated as if it exists) are acceptable and can be coded in the inpatient setting, when documented at the time of discharge. Thank you, Nataliia Baron [facility], CDIS Extension: [phone] Please use your independent medical judgment in providing your response. 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
[2021-09-26] MEDS: polyethylene glycoL 3350 17 GM POWD.PACK PO (08:37)
[2021-09-26] MEDS: Urea 15 GM POWDER PO ×2 (08:37→20:44)
[2021-09-26] MEDS: 0.9 % Sodium Chloride Flush 3 ML SYRINGE IVFLUSH ×3 (08:37→20:48)
[2021-09-26] MEDS: Folic Acid 1 MG TABLET PO (08:37)
--- NOTE | 2021-09-26 09:17 | PM.PNNEP ---
Subjective Subjective Date of Service: 09/28/21 Interval history: no acute issues overnight. Still with double vision Events noted Physical Exam Vital Signs: Vital Signs: Last Vital Signs Temp 97.6 F 09/26/21 07:19 Pulse 100 09/26/21 07:19 Resp 18 09/26/21 07:19 BP 106/69 09/26/21 07:19 Pulse Ox 99 09/26/21 07:19 O2 Del Method 09/26/21 07:19 BMI result Body Mass Index 16.9 Const: General: cooperative Neck: Neck: Yes full ROM and Yes supple Resp: Effort & Inspection: normal respiratory effort Auscultation: clear to auscultation bilaterally Cardio: Jugular venous distension: no JVD Palpation: no palpable S3 and no thrill GI: Inspection: Yes normal to inspection Palpation (GI): Soft to palpation Auscultation: normal bowel sounds Skin: General skin exam: no rashes or lesions noted Extrem: Right upper extremity: no edema Objective Data Labs CBC & Chem 7: 09/27/21 06:17 09/27/21 06:17 Labs: Laboratory Results - last 24 hr 09/26/21 09/26/21 05:25 05:25 WBC 12.4 H RBC 3.06 L Hgb 9.4 L Hct 27.9 L MCV 91.2 MCH 30.7 MCHC 33.7 RDW 20.2 H Plt Count 430 H D MPV 9.1 L Immature Gran % (Auto) 1.0 H Neut % (Auto) 92.4 H Lymph % (Auto) 0.9 L Becker % (Auto) 5.6 Eos % (Auto) 0.0 Baso % (Auto) 0.1 Lymph # (Auto) 0.1 L Becker # (Auto) 0.7 Eos # (Auto) 0.0 Baso # (Auto) 0.0 Abs Immat Gran (auto) 0.13 H Absolute Neuts (auto) 11.5 H Absolute Nucleated RBC 0.000 Nucleated RBC % (auto) 0.0 Smear Tech's Comments VERIFIED Sodium 131 L Potassium 4.3 Chloride 91 L Carbon Dioxide 29 Anion Gap 15 BUN 30 H Creatinine 0.65 Estim Creat Clear Calc 91.0 Estimated GFR > 60 Fasting Glucose 128 H Calcium 8.9 Total Bilirubin 0.5 AST 18 ALT 22 Alkaline Phosphatase 138 H Total Protein 6.4 L Albumin 3.7 Procedures Date of Service Date of Service: 09/26/21 Assessment & Plan Assessment and plan (1) Acute hyponatremia: Status: Acute Plan Hyponatremia dilute urine suggestive of polydipsia Cannot r/o Non osmotic ADH release from lung CA Rate of correction acceptable Restrtict PO water intake Goal P NA > 133 No need for UREA Concur with other management Time Spent With Patient Time: Total time spent is greater than 50% in coordination of care (as documented) at patient's floor/unit and/or counseling patient: Progress Note: Quality Stroke Does the patient have a stroke diagnosis?: No
--- NOTE | 2021-09-26 14:47 | HO.PM.IMPN ---
Subjective Subjective Date of Service: 09/26/21 Interval History: notes minimal improvement in facial paresthesias; no changes in diplopia Review of Systems denies chest pain Denies shortness of breath Denies nausea vomiting diarrhea Denies fever chills Physical Exam Vital Signs: Vital Signs: Last Vital Signs Temp 97.8 F 09/26/21 11:37 Pulse 100 09/26/21 11:37 Resp 18 09/26/21 11:37 BP 111/67 09/26/21 11:37 Pulse Ox 99 09/26/21 11:37 O2 Del Method 09/26/21 11:37 BMI result Body Mass Index 16.9 Const: Other: no acute issues Resp: Other: clear to auscultation bilaterally no rales rhonchi or wheezes Cardio: Other: no S4; positive S1-S2; no S3 murmurs or gallops Extrem: Other: no edema bilaterally Objective Data Active Medications Acetaminophen (Acetaminophen 325 Mg Tablet) 650 mg PO Q6H PRN PRN Reason: Pain, Mild (Pain Scale 1-3) Last Admin: 09/25/21 23:38 Dose: 650 mg Documented By: JORGE Dexamethasone Sodium Phosphate (Dexamethasone Sod Phosphate 4 Mg/Ml Vial) 8 mg IVPUSH Q6H [facility] Last Admin: 09/26/21 13:09 Dose: 8 mg Documented By: MANOJ Folic Acid (Folic Acid 1 Mg Tablet) 1 mg PO DAILY [facility] Last Admin: 09/26/21 08:37 Dose: 1 mg Documented By: MANOJ Heparin Sodium (Porcine) (Heparin Sodium,Porcine 5,000 Unit/Ml Vial) 5,000 unit SUBCUT Q12H [facility] Last Admin: 09/26/21 13:09 Dose: 5,000 unit Documented By: MANOJ Lorazepam (Lorazepam 0.5 Mg Tablet) 0.5 mg PO TID PRN PRN Reason: Anxiety Last Admin: 09/26/21 01:14 Dose: 0.5 mg Documented By: JORGE Morphine Sulfate (Morphine Sulfate 4 Mg/Ml Cartridge) 4 mg IVPUSH Q4H PRN; Protocol PRN Reason: severe pain Ondansetron HCl (Ondansetron Hcl 4 Mg/2 Ml Vial) 4 mg IVPUSH Q8H PRN PRN Reason: Nausea and Vomiting Oxycodone HCl (Oxycodone Hcl Immed Release 5 Mg Tablet) 5 mg PO Q6H PRN PRN Reason: Breakthrough Pain, Moderate Pharmacy Consult (Consult Rx Perform Med Rec) 1 each MISCELLANE ONCE PRN PRN Reason: Consult order Polyethylene Glycol (Polyethylene Glycol 3350 17 Gm Powd.Pack) 17 gm PO DAILY [facility] Last Admin: 09/26/21 08:37 Dose: 17 gm Documented By: MANOJ Sodium Chloride (0.9 % Sodium Chloride Flush 3 Ml Syringe) 3 ml IVFLUSH QSHIFT [facility] Last Admin: 09/26/21 08:37 Dose: 3 ml Documented By: MANOJ Urea (Urea 15 Gm Powder) 15 gm PO BID [facility] Last Admin: 09/26/21 08:37 Dose: 15 gm Documented By: MANOJ Labs CBC & Chem 7: 09/26/21 05:25 09/26/21 05:25 Labs: Laboratory Results - last 24 hr 09/26/21 09/26/21 05:25 05:25 MCV 91.2 MCH 30.7 MCHC 33.7 RDW 20.2 H Plt Count 430 H D MPV 9.1 L Immature Gran % (Auto) 1.0 H Neut % (Auto) 92.4 H Lymph % (Auto) 0.9 L [place] % (Auto) 5.6 Eos % (Auto) 0.0 Baso % (Auto) 0.1 Lymph # (Auto) 0.1 L [place] # (Auto) 0.7 Eos # (Auto) 0.0 Baso # (Auto) 0.0 Abs Immat Gran (auto) 0.13 H Absolute Neuts (auto) 11.5 H Absolute Nucleated RBC 0.000 Nucleated RBC % (auto) 0.0 Smear Tech's Comments VERIFIED Anion Gap 15 Estim Creat Clear Calc 91.0 Estimated GFR > 60 Fasting Glucose 128 H Calcium 8.9 Total Bilirubin 0.5 AST 18 ALT 22 Alkaline Phosphatase 138 H Total Protein 6.4 L Albumin 3.7 Assessment and Plan (1) Acute hyponatremia: Status: Acute (2) Adenocarcinoma of lung: Status: Chronic (3) Diplopia: Status: Acute Plan 55yo M with 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 attempting transfer pending bed availability - medically acceptable if bed available 3. Metastatic adenoCA of lung - dexamethasone 4 mg IV q6H VTE ppx: UFH requires ongoing hospitalization for stabilization of sodium and IV dexamethasone Quality Stroke Does the patient have a stroke diagnosis?: No VTE Prior VTE?: No VTE Risk Level:: Medical - moderate - high VTE Device Contraindication: Treatment Not Indicated VTE Drug Contraindication: N/A - Med Ordered
[2021-09-26] MEDS: Acetaminophen 325 MG TABLET 650 MG PO (17:59)
[2021-09-27] MEDS: LORazepam 0.5 MG TABLET PO
[2021-09-27] MEDS: Heparin Sodium,Porcine 5,000 UNIT/ML VIAL 5000 UNIT SUBCUT
[2021-09-27] MEDS: 0.9 % Sodium Chloride Flush 3 ML SYRINGE IVFLUSH (00:01)
[2021-09-27 04:00] VITALS: BP 136/79; PULSE 76; RESP 18; TEMP 36.7; O2SAT 97
[2021-09-27] MEDS: dexAMETHasone sod phosphate 4 MG/ML VIAL 8 MG IVPUSH ×3 (05:37→12:23)
[2021-09-27 07:04] LABS: Hemoglobin 9.2 g/dl (14.0-18.0); Mean Corpuscular HGB Conc 34.1 g/dl (31.0-36.0); Mean Corpuscular Hemoglobin 31.9 pg (27.0-33.0); Mean Corpuscular Volume 93.8 fL (80.0-98.0); Mean Platelet Volume 9.6 fL (9.4-12.4); Platelet Count 497 X10*3/uL (160-400); Red Blood Count 2.88 X10*6/uL (4.60-5.80); Red Cell Distribution Width 20.5 % (11.0-16.0); White Blood Count 13.5 X10*3/uL (4.8-10.8)
[2021-09-27 07:18] LABS: Alanine Aminotransferase 23 U/L (0-40); Albumin Level 3.6 g/dL (3.5-5.0); Alkaline Phosphatase 136 U/L (39-117); Anion Gap 14 (12-20); Aspartate Amino Transferase 16 U/L (5-37); Bilirubin Total 0.3 mg/dL (0.0-1.0); Blood Urea Nitrogen 28 mg/dL (9-16); Calcium 8.9 mg/dL (8.4-10.2); Carbon Dioxide 29 mmol/L (22-29); Chloride 94 mmol/L (96-108); Creatinine Clr Calc Pharmacy 95.4; Estimated Glomerular Filt Rate > 60; Glucose Fasting 109 mg/dL (60-99); Potassium 4.7 mmol/L (3.3-5.1); Sodium 132 mmol/L (135-145); Total Protein 6.3 g/dL (6.5-8.0)
[2021-09-27 07:45] VITALS: BP 140/92; PULSE 100; RESP 17; TEMP 37.6; O2SAT 97
[2021-09-27 08:00] LABS: Band Neutrophils Percent 2 % (3-5); Lymphocytes Absolute Manual 0.1 X10*3/uL (1.2-4.9); Lymphocytes Percent Manual 1 % (20-40); Metamyelocytes Absolute 0.1 X10*3/uL; Metamyelocytes Percent 1 %; Monocytes Absolute Manual 1.1 X10*3/uL (0.1-1.2); Monocytes Percent Manual 8 % (2-11); Myelocytes Absolute 0.1 X10*/uL; Myelocytes Percent 1 %; Neutrophils Percent Manual 87 % (45-73)
[2021-09-27 08:02] LABS: Platelet Estimate SLIGHTLY INCREASED (NORMAL); Platelet Morphology Comment NORMAL
[2021-09-27 08:03] LABS: Macrocytosis 1+ (5-14) /OIF; RBC Morphology NOTED
[2021-09-27] MEDS: polyethylene glycoL 3350 17 GM POWD.PACK PO (09:52)
[2021-09-27] MEDS: Folic Acid 1 MG TABLET PO (09:52)
--- NOTE | 2021-09-27 11:24 | PM.PNNEP ---
Subjective Subjective Date of Service: 09/28/21 Interval history: Events noted Physical Exam Vital Signs: Vital Signs: Last Vital Signs Temp 99.7 F 09/27/21 07:45 Pulse 100 09/27/21 07:45 Resp 17 09/27/21 07:45 BP 140/92 H 09/27/21 07:45 Pulse Ox 97 09/27/21 07:45 O2 Del Method 09/27/21 07:45 BMI result Body Mass Index 16.9 Const: General: cooperative Neck: Neck: Yes full ROM and Yes supple Resp: Effort & Inspection: normal respiratory effort Auscultation: clear to auscultation bilaterally Cardio: Jugular venous distension: no JVD Palpation: no palpable S3 and no thrill GI: Inspection: Yes normal to inspection Palpation (GI): Soft to palpation Auscultation: normal bowel sounds Skin: General skin exam: no rashes or lesions noted Extrem: Right upper extremity: no edema Objective Data Labs CBC & Chem 7: 09/27/21 06:17 09/27/21 06:17 Labs: Laboratory Results - last 24 hr 09/27/21 09/27/21 06:17 06:17 WBC 13.5 H RBC 2.88 L Hgb 9.2 L Hct 27.0 L MCV 93.8 MCH 31.9 MCHC 34.1 RDW 20.5 H Plt Count 497 H MPV 9.6 Immature Gran % (Auto) Cancelled Neut % (Auto) Cancelled Lymph % (Auto) Cancelled [place] % (Auto) Cancelled Eos % (Auto) Cancelled Baso % (Auto) Cancelled Lymph # (Auto) Cancelled [place] # (Auto) Cancelled Eos # (Auto) Cancelled Baso # (Auto) Cancelled Abs Immat Gran (auto) Cancelled Absolute Neuts (auto) Cancelled Absolute Nucleated RBC 0.000 Nucleated RBC % (auto) 0.0 Neutrophils % (Manual) 87 H Band Neutrophils % 2 L Lymphocytes % (Manual) 1 L Monocytes % (Manual) 8 Metamyelocytes % 1 Myelocytes % 1 Abs Neuts (Manual) 12.0 H Lymphocytes # (Manual) 0.1 L Monocytes # (Manual) 1.1 Metamyelocytes # 0.1 Myelocytes # 0.1 Platelet Estimate SLIGHTLY INCREASED Plt Morphology Comment NORMAL RBC Morphology NOTED Macrocytosis 1+ (5-14) Sodium 132 L Potassium 4.7 Chloride 94 L Carbon Dioxide 29 Anion Gap 14 BUN 28 H Creatinine 0.62 Estim Creat Clear Calc 95.4 Estimated GFR > 60 Fasting Glucose 109 H Calcium 8.9 Total Bilirubin 0.3 AST 16 ALT 23 Alkaline Phosphatase 136 H Total Protein 6.3 L Albumin 3.6 Procedures Date of Service Date of Service: 09/27/21 Assessment & Plan Assessment and plan (1) Acute hyponatremia: Status: Acute Plan Hyponatremia dilute urine suggestive of polydipsia Cannot r/o Non osmotic ADH release from lung CA Rate of correction acceptable Restrtict PO water intake Goal P NA > 133 No need for UREA Concur with other management Time Spent With Patient Time: Total time spent is greater than 50% in coordination of care (as documented) at patient's floor/unit and/or counseling patient: Progress Note: Quality Stroke Does the patient have a stroke diagnosis?: No
[2021-09-27 11:58] VITALS: BP 121/78; PULSE 100; RESP 18; TEMP 36.3; O2SAT 98
--- NOTE | 2021-09-27 12:02 | PM.DS ---
DS: Providers Provider Date of Service: 09/27/21 Date of admission: 09/23/21 23:17 Date of discharge: 09/27/21 Primary care physician: Ann James DNP Consults: 09/23/21 23:09 Consult to Hematology / Oncology Routine Consulting Provider: Antonio Nguyễn Reason for consultation: Mass effect Consult to Neurology Routine Consulting Provider: [facility] Reason for consultation: mass effect with blurry vision,facial weakness Has provider been notified: No DS: Diagnosis Discharge Diagnosis (1) Acute hyponatremia: Status: Acute (2) Diplopia: Status: Acute (3) Adenocarcinoma of lung: Status: Chronic DS: Summary Hospital Course Hospital Course: 55-year-old male with past medical history of adenocarcinoma of the lung with Mets to multiple places including the brain, who presents to the hospital with complaints of diplopia and left facial weakness.? Patient reports that his symptoms started in the a.m., he was recently told that he has brain meds and therefore he was concerned and decided to come to the hospital.? Patient reports continues diplopia and weakness in his left face, reports no slurred speech, no difficulty finding words, no weakness numbness or tingling in his upper and lower extremities.? Reports no previous similar episode.? Reports a headache that is all over his head from the [address] way to the occipital region, reports no nausea vomiting, no dizziness, no abdominal pain, no constipation or diarrhea.? no lower extremity edema and no urinary symptoms.? On arrival to the ED patient found to have a heart rate in the 120s other otherwise hemodynamically stable Labs are significant for WBC count of 4.0, hemoglobin of 9.7, hematocrit of 26.3 sodium of 119 chloride of 80, osmolality of 246, magnesium of 1.5, UA negative, urine osmolality of 186, urine sodium 48, urine potassium of 12.5, and random chloride of 54 Hospital Course Admitted to medical floor and started on IV Decadron. 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 Recommendation was for chemotherapy and XRT. attempts were made to transfer to [facility] where patient received previous XRT. Also noted he was severely hyponatremic on arrival. Seen by Renal; free water repletion begun with normalization over the next several days. On time of discharge his sodium is acceptable per Nephrology and he has follow-up with [facility]. He will be discharged home on a Decadron taper Time Spent with Patient Time attestation: Total time spent providing and/or coordinating discharge services: Discharge coordination time: Greater than 30 minutes Quality: Safe Use of Opioids Does Pt have an Active Cancer Diagnosis on the Problem List?: Yes Opioid Measure Date for [facility] Report: 08/28/21 Opioid Measure Time for [facility] Report: 12:08 Quality: Stroke Does the patient have a stroke diagnosis?: No Physical Exam Vital Signs: Vital Signs: Last Vital Signs Temp 97.3 F 09/27/21 11:58 Pulse 100 09/27/21 11:58 Resp 18 09/27/21 11:58 BP 121/78 09/27/21 11:58 Pulse Ox 98 09/27/21 11:58 O2 Del Method 09/27/21 11:58 BMI result Body Mass Index 16.9 Const: Other: no acute issues Resp: Other: clear to auscultation bilaterally no rales rhonchi or wheezes Cardio: Other: no S4; positive S1-S2; no S3 murmurs or gallops Extrem: Other: no edema bilaterally DS: Data Data Completed and Pending Labs on day of discharge: Laboratory Results - last 24 hr 09/27/21 09/27/21 06:17 06:17 WBC 13.5 H RBC 2.88 L Hgb 9.2 L Hct 27.0 L MCV 93.8 MCH 31.9 MCHC 34.1 RDW 20.5 H Plt Count 497 H MPV 9.6 Immature Gran % (Auto) Cancelled Neut % (Auto) Cancelled Lymph % (Auto) Cancelled [place] % (Auto) Cancelled Eos % (Auto) Cancelled Baso % (Auto) Cancelled Lymph # (Auto) Cancelled [place] # (Auto) Cancelled Eos # (Auto) Cancelled Baso # (Auto) Cancelled Abs Immat Gran (auto) Cancelled Absolute Neuts (auto) Cancelled Absolute Nucleated RBC 0.000 Nucleated RBC % (auto) 0.0 Neutrophils % (Manual) 87 H Band Neutrophils % 2 L Lymphocytes % (Manual) 1 L Monocytes % (Manual) 8 Metamyelocytes % 1 Myelocytes % 1 Abs Neuts (Manual) 12.0 H Lymphocytes # (Manual) 0.1 L Monocytes # (Manual) 1.1 Metamyelocytes # 0.1 Myelocytes # 0.1 Platelet Estimate SLIGHTLY INCREASED Plt Morphology Comment NORMAL RBC Morphology NOTED Macrocytosis 1+ (5-14) Sodium 132 L Potassium 4.7 Chloride 94 L Carbon Dioxide 29 Anion Gap 14 BUN 28 H Creatinine 0.62 Estim Creat Clear Calc 95.4 Estimated GFR > 60 Fasting Glucose 109 H Calcium 8.9 Total Bilirubin 0.3 AST 16 ALT 23 Alkaline Phosphatase 136 H Total Protein 6.3 L Albumin 3.6 Discharge Plan Discharge Patient Disposition: Home, Self-Care Discharge Diagnosis: metastatic adenocarcinoma of lung Referrals: Ann James, [facility], [facility] [Primary Care Provider] - 1 Week Discharge Medications: New dexamethasone [Decadron] 4 mg tablet See Rx Instructions .Route .COMPLEX Qty: 18 0RF Rx Instructions: 4 mg orally; 1 p.o. t.i.d. x3 days, 1 p.o. b.i.d. x3 days, 1 p.o. daily x3 days Continued lorazepam [Ativan] 0.5 mg Tablet 0.5 mg PO TID PRN (Reason: Anxiety) ondansetron 8 mg Tablet,Disintegrating 8 mg PO Q8H Qty: 50 4RF folic acid 1 mg Tablet 1 mg PO DAILY Qty: 90 3RF oxycodone 5 mg Tablet 5 mg PO Q6H PRN (Reason: Breakthrough Pain, Moderate) Qty: 50 0RF Rx Instructions: Partial Fill upon patient request. Discontinued dexamethasone [Decadron] 4 mg tablet See Rx Instructions .ROUTE .COMPLEX Rx Instructions: START THE DECADRON 4 mg PO BID THE DAY BEFORE CHEMOTHERAPY FOR 3 DAYS. Discharge Orders: Discharge Order (Routine); Ordered 09/27/21 Ordered By: Leander Pineda Diet: Advance to usual diet Activity on Discharge: As tolerated Stand Alone Forms: Patient Portal Discharge page Care Plan Goals: complete Decadron taper as ordered Health Concerns: [facility] radiation oncology will call you for an appointment to start XRT. Plan of Treatment: follow-up with PCP in 1-2 weeks; oncology as scheduled Assessment: see discharge summary
--- NOTE | 2021-09-27 12:13 | MHC.CM.PN ---
PATIENT IS DC HOME - SELF CARE HE WILL FOLLOW UP AT [facility] FOR RADIATION TREATMENT RN AWARE OF PLAN
== END 2021-09-27 15:56 | disposition home or self-care (01) | DRG 641 ==
LOC: HO.ED 20:44 → HO.EDOVER 23:44 → HO.S3 09-24 17:00
PROVIDERS: Family Medicine; Physician Assistant; Physician Assistant Medical; Admitting Provider Internal Medicine; Emergency Provider Emergency Medicine Emergency Medical Services; PCP Registered Nurse; Visit Provider Hospitalist
DX: E87.1 Hypo-osmolality and hyponatremia (principal); C34.91 Malignant neoplasm of unspecified part of right bronchus or lung; C78.39 Secondary malignant neoplasm of other respiratory organs; C79.51 Secondary malignant neoplasm of bone; C79.31 Secondary malignant neoplasm of brain; E46 Unspecified protein-calorie malnutrition; G62.9 Polyneuropathy, unspecified; Z20.822 Contact with and (suspected) exposure to COVID-19; Z87.891 Personal history of nicotine dependence; Z91.013 Allergy to seafood; Z79.899 Other long term (current) drug therapy
CPT/HCPCS: 36415; 70496; 70498; 80048; 80053; 80076; 81001; 82436; 83735; 83930; 83935; 84133; 84295; 84300; 85007; 85025; 85027; 85610; 87635; 93005; 99285; J1100; J3475; Q9967

== ENCOUNTER 2021-10-24 08:27 | Outpatient (REF) | payer OTHER, SELFPAY ==
--- NOTE | ~2021-10-24 | PE_ITS ---
EXAMINATION: Fluorine-18 FDG PET/CT Scan CLINICAL INDICATION: Subsequent treatment management. Adenocarcinoma of lung with bone marrow involvement. PROCEDURE: 58 minutes following the intravenous administration of 14.3 mCi of fluorine 18 FDG, images from the base of the skull to the mid thighs were obtained using a combined PET/CT scanner with CT scan based attenuation correction. No oral contrast was administered. No intravenous contrast was administered. Transverse, coronal, sagittal, and volume reconstruction projections were obtained. The patient's blood glucose as determined by a finger stick, was 98 mg/dl immediately prior to injection. Total CT exam dose-length product 223.29 mGy-cm * These CT images were obtained using dose optimization techniques as appropriate, variously including the following: Automated exposure control * Adjustment of mA and/or kV according to patient size (this includes techniques or standardized protocols for targeted exams where dose is matched to indication/reason for exam; i.e. extremities or head) * Use of iterative reconstruction technique COMPARISON: No previous PET/CT scan is available for comparison. CT scan of the chest dated 09/14/2021 is available for comparison. FINDINGS: NECK AND VISUALIZED HEAD: There is weak abnormal FDG activity in a large region involving the middle fossa predominantly to the right associated with erosions of the clivus clivus and adjacent right sphenoid bone and sinus. There is opacification of the right sphenoid sinus. This abnormality erodes the right anterior aspect of the clivus and adjacent sphenoid bone. This corresponds well to the infiltrative mass seen on the CT angiogram of the head and neck dated 09/23/2021 and the head MRI dated 09/06/2021. There is a region of mildly increased FDG activity in the anterior aspect of the right maxilla or the adjacent soft tissues with no corresponding CT abnormality. This shows SUVmax 4.1, slice 23/267. There is also mildly increased activity in the anterior aspect of the mandible with no corresponding CT abnormality. There are no additional foci of abnormal FDG activity in the neck or visualized head. There is no cervical lymphadenopathy. THORAX: An extensive FDG avid mediastinal mass is present. This is contiguous with an FDG avid anterior pleural-based right upper lobe mass and involves the right side of the mediastinum extensively, abutting the ascending aorta and surrounding the superior vena cava and extending into the right hilar and proximal right peribronchial regions along the bronchus intermedius and more medially in the subcarinal region, crossing the midline and abutting the anterior aspect of the left mainstem bronchus. This shows SUVmax 9.7, slice 74/267. It does not appear significantly changed in size compared with the 09/14/[address] scan. No additional foci of abnormal FDG activity other than this large mass are present in the chest. There is no pleural or pericardial fluid or pneumothorax. There is no axillary or supraclavicular lymphadenopathy. ABDOMEN AND PELVIS: An FDG avid left adrenal mass shows SUVmax 7.4 and measures 4.1 x 2.7 cm in largest transverse dimensions on the CT images. There is an FDG avid soft tissue density lesion in the lower pole of the left kidney showing SUVmax 7.4, slice 162/267. This is difficult to delineate from adjacent renal parenchyma on the CT images, but on the FDG PET images measures approximately 3.7 x 2.7 cm in largest transverse dimensions and approximately 3.7 cm cephalocaudad. A hypodense cyst in the upper pole of the left kidney is markedly FDG photopenic. No additional abnormalities are present in either kidney. A 2.2 x 1.3 cm right adrenal nodule is mildly FDG avid, showing SUVmax 4.1, slice 139/267. No additional foci of abnormal FDG activity are present in the abdomen or pelvis. There is mild FDG activity in the gastrointestinal tract diffusely without a suspicious focal component. There is diverticulosis without evidence of diverticulitis. The hollow viscera are otherwise unremarkable. The liver, gallbladder, spleen, and pancreas are unremarkable. There is no retroperitoneal, mesenteric, pelvic or inguinal lymphadenopathy. MUSCULOSKELETAL: Multiple FDG avid osseous lesions are present. The largest of these is in the right iliac bone showing SUVmax 6.6 and corresponding to an irregular mixed sclerotic and lytic lesion on the CT images and extending into the adjacent musculature laterally. There is an expansile lytic lesion in the lateral aspect of the left 10th rib showing SUVmax 6.1, slice 156/267. There is an additional predominantly lytic lesion in the left femoral head showing SUVmax 8.1, slice 228/267 and there is a subcentimeter lytic lesion in the anterior aspect of the L2 vertebral body an another FDG avid lytic lesion is present in the right transverse process of T9 and in another focus of abnormal FDG activity is present in the lateral aspect of the left seventh rib. There is weakly FDG avid lateral to the right acetabulum in the subcutaneous tissues, slice 211/267.. VASCULAR: Diffuse vascular calcifications including coronary are noted. As noted previously, the mediastinal mass surrounds the superior vena cava PET/PET CT fusion skull to thigh IMPRESSION: 1. A large right upper lobe mass extends into the mediastinum and adjacent structures as described above, and this is markedly FDG avid consistent with malignancy. 2. Multiple FDG avid predominantly lytic osseous metastasis are present as described above. 3. Bilateral FDG avid adrenal lesions are present, larger on the left, and these also likely represent metastases. 4. An erosive weakly FDG avid skull base lesion is noted corresponding to the lesion at this site visualized on the 09/06/2021 MRI of the head and the 09/23/2021 CT angiogram of the head. This is also likely malignant. This is significantly less FDG avid than the mediastinal mass and other osseous metastasis and may represent different histology. 5. Mildly increased activity in the region of the anterior aspect of the right maxilla is nonspecific. No corresponding CT abnormalities are present. Clinical correlation is recommended. 6. Mildly increased activity in the anterior midline mandible is nonspecific, but may be related to dental disease. 7. Vascular calcifications including coronary.
== END 2021-10-24 08:28 | disposition home or self-care (01) ==
LOC: HO.PET 08:27
PROVIDERS: Visit Provider Internal Medicine
DX: Z13.89 Encounter for screening for other disorder (principal)

== ENCOUNTER 2021-11-15 12:19 | Inpatient (IN) | payer OTHER, SELFPAY ==
--- NOTE | ~2021-11-15 | XR_ITS ---
EXAMINATION: XR ELBOW, RIGHT CLINICAL INFORMATION: Elbow redness COMPARISON: None TECHNIQUE: AP, lateral, and oblique views of the right elbow. FINDINGS: There is minimal density adjacent to the olecranon on the oblique image. This could be degenerative in nature. Small avulsion cannot be completely excluded Otherwise no acute finding XR/XR elbow RT min 3V IMPRESSION: Minimal bony density on the oblique imaging adjacent to the olecranon. If there has been history of trauma then a small avulsion cannot be excluded. Small sequela of bony erosion cannot be completely excluded. Correlation recommended clinically. If further evaluation is warranted recommend MR.
[2021-11-15 12:38] VITALS: BP 98/70; PULSE 128; RESP 16; TEMP 36.8; O2SAT 98; BMI 19.0
--- NOTE | 2021-11-15 12:46 | ECG_ITS ---
Test Reason : low sodium Blood Pressure : / mmHG Vent. Rate : 131 BPM Atrial Rate : 131 BPM P-R Int : 140 ms QRS Dur : 074 ms QT Int : 286 ms P-R-T Axes : 075 082 077 degrees QTc Int : 422 ms Sinus tachycardia Biatrial enlargement Abnormal ECG When compared with ECG of 23-SEP-2021 20:27, No significant change was found Referred By: Hayden Shafer Electronically Signed By:JUANCARLOS NORWOOD
--- NOTE | 2021-11-15 13:03 | ED_ITS ---
HPI - Extremity Problem General Chief complaint: Extremity Injury, Upper Stated complaint: low sodium Time Seen by Provider: 11/15/21 12:38 Source: patient Mode of arrival: ambulatory Limitations: no limitations History of Present Illness HPI Narrative: 54-year-old male with pmh of lung CA with mets to the brain presents to the ED for low sodium. Patient states he has been receiving immunotherapy for his cancer. Patient states today he started feeling tired and lethargic and while at his oncologist's office they did some labs and shows he was hyponatremic. Patient has been admitted before for hyponatremia with possibility of SIADH due to his cancer. Patient denies any seizure, tremors, or altered mental status. Patient also states right elbow slight erythema and pain after hitting it on the top 4 days ago Related Data Home Medications Medication Instructions Recorded Confirmed ondansetron 8 mg disintegrating 8 mg PO Q8H PRN NAUSEA 11/15/21 11/15/21 tablet Previous Rx's Medication Instructions Recorded folic acid 1 mg tablet 1 mg PO DAILY #90 tabs 07/18/21 oxycodone 5 mg tablet 5 mg PO Q6H PRN Breakthrough Pain, 09/04/21 Moderate #50 tabs lorazepam 0.5 mg tablet (Ativan) 0.5 mg PO TID PRN Anxiety #60 tabs 10/05/21 dexamethasone 0.75 mg tablet 0.75 mg PO BID #100 tabs 10/23/21 (Decadron) Allergies Allergy/AdvReac Type Severity Reaction Status Date / Time iodine Allergy Severe Anaphylaxis Verified 10/23/21 12:01 shellfish derived Allergy Severe Anaphylaxis Verified 10/23/21 12:01 Review of Systems Review of Systems: Tired. Yes all other systems are reviewed and are negative PMFSH Past Medical History Medical History (Updated 11/15/21 @ 17:07 by ROOSEVELT Santos) Adenocarcinoma of lung Bone metastases Cellulitis Hyponatremia Mass of right lung Surgical History (Updated 10/23/21 @ 15:26 by Maikol Merino MD) No pertinent past surgical history Family History Family History Mother Diverticulitis Breast cancer Maternal Uncle Diverticulitis Prostate cancer Maternal Grandmother Diverticulitis Social History Social History (Reviewed 10/23/21 @ 12:01 by ALYSSA Ruiz Household Members: Children Household Members Other:: - 10 y/o autistic son Housing: House Are you a primary health care consultant to a significant other at home: No Do you presently have visiting nurse or other home services: No Alcohol intake: never Patient Tobacco Use Status: Former Tobacco user Quit Date: 06/11/21 Second Hand Smoke Exposure: Yes Substance Use Type: Marijuana Advance Directives: Yes Advance Directives on File: Yes Advance Directives Date on File: 06/09/21 service: No Current occupational status: employed Current occupation: Fulltime Current occupational exposures/hazards: No Physical Exam Vital Signs: Vital Signs: Last Vital Signs Temp 100.3 F 11/15/21 16:37 Pulse 136 H 11/15/21 16:37 Resp 18 11/15/21 16:37 BP 123/81 11/15/21 16:37 Pulse Ox 98 11/15/21 16:37 O2 Del Method 11/15/21 16:37 BMI result Body Mass Index 19.0 Const: General: cooperative, healthy appearing, comfortable, no acute dis tress, well developed, alert, awake and Physically active Orientation/consciousness: patient oriented x3 HEENT: Head: Yes normal to inspection, Yes No palpable skull fracture present, Yes normocephalic, Yes atraumatic and No abrasion Eyes: General: appearance normal, both eyes and all related structures Neck: Neck: Yes normal visual inspection, Yes full ROM, Yes no lymphadenopathy, Yes no meningeal signs, Yes trachea midline, Yes supple, No anterior neck swelling and No tender Chest: Chest palpation & inspection: normal inspection of the chest and normal palpation of entire chest wall Resp: Effort & Inspection: normal respiratory effort and able to speak in complete sentences Auscultation: clear to auscultation bilaterally Cardio: Jugular venous distension: no JVD Heart sounds: S1 normal heart sound present and S2 normal heart sound present GI: Inspection: Yes normal to inspection and No abdominal wall ecchymosis Palpation (GI): Soft to palpation, not firm, nontender, no guarding and not rigid : General: No CVA tenderness and Yes no CVA tenderness Back/Spine/Pelvis: Back: no CVA tenderness, No CVA tenderness and No back tenderness Skin: General skin exam: no rashes or lesions noted, elasticity normal and erythema (right posterior elbow) Neuro: General: patient oriented x3, gait normal, tone normal, no meningeal signs and CN's II-XI intact bilaterally Cranial nerves: Yes CN's II-XII intact bilaterally Extrem: General: Yes normal to inspection and Yes full ROM Elbow/forearm/wrist images: 1. Erythematous, warm, and blanching. Negative for fluctuance. Patient has complete range of motion of elbow. Psych: Appearance: grossly normal, well kempt and not disheveled Course Course Course Narrative: Patient chemistry this morning was 119. Patient presently asymptomatic. For add serum and urine osmolality and urine electrolytes. Patient at baseline tachycardic. Patient states due to his cancer heart rate usually in the 120 and 130s. Once your upper laterally, sort of laterally and electrolytes are back will call industrial engineering director. Reevaluation(s) Reevaluation #1: Urine osmolality 118. Random sodium less than 20. Random potassium 7.9. Urine creatinine 20.8. urine osmolality 262. Urine chloride pending. Will call Nephrology Time: 13:08 Reevaluation #2: Hospitalist made aware of right elbow cellulitis. X-ray shows possible avulsion fracture. Patient to be admitted for further evaluation. Sodium improved to 127 but will be observed by hospitalist during admission. Time: 17:03 MDM - Extremity (Nontraumatic) MDM Narrative Medical decision making narrative: Hyponatremia CEllulittis Lab Data Result diagrams: 11/15/21 13:40 Labs: Lab Results 11/15/21 11/15/21 11/15/21 Range/Units 13:07 13:08 13:08 Sodium (135-145) mmol/L Potassium (3.3-5.1) mmol/L Chloride (96-108) mmol/L Carbon Dioxide (22-29) mmol/L Anion Gap (12-20) BUN (9-16) mg/dL Creatinine (0.5-1.4) mg/dL Estim Creat Clear Calc Estimated GFR Random Glucose (60-115) mg/dL Osmolality (281-305) mosm/kg Calcium (8.4-10.2) mg/dL Total Bilirubin (0.0-1.0) mg/dL AST (5-37) U/L ALT (0-40) U/L Alkaline Phosphatase (39-117) U/L Total Protein (6.5-8.0) g/dL Albumin (3.5-5.0) g/dL Urine Osmolality 118 L (373-1093) mosm/kg Ur Random Sodium < 20.0 mmol/L Ur Random Potassium 7.9 mmol/L Ur Random Chloride < 20.0 mmol/L Urine Creatinine 20.88 mg/dL 11/15/21 11/15/21 Range/Units 13:40 13:40 Sodium 127 L (135-145) mmol/L Potassium 4.0 (3.3-5.1) mmol/L Chloride 90 L (96-108) mmol/L Carbon Dioxide 26 (22-29) mmol/L Anion Gap 15 (12-20) BUN 13 (9-16) mg/dL Creatinine 0.68 (0.5-1.4) mg/dL Estim Creat Clear Calc 97.7 Estimated GFR > 60 Random Glucose 110 (60-115) mg/dL Osmolality 262 L (281-305) mosm/kg Calcium 8.2 L (8.4-10.2) mg/dL Total Bilirubin 1.1 H (0.0-1.0) mg/dL AST 18 (5-37) U/L ALT 13 (0-40) U/L Alkaline Phosphatase 117 (39-117) U/L Total Protein 6.2 L (6.5-8.0) g/dL Albumin 3.5 (3.5-5.0) g/dL Urine Osmolality (373-1093) mosm/kg Ur Random Sodium mmol/L Ur Random Potassium mmol/L Ur Random Chloride mmol/L Urine Creatinine mg/dL ECG Data Interpretation: Sinus tachycardia. Ventricular rate 131. Pr interval 140. QRS 74. QTC 422. Negative STEMI Discharge Plan Discharge Clinical Impression: Acute hyponatremia, Cellulitis Patient Disposition: Admitted As Inpatient
[2021-11-15 13:47] LABS: Osmolality Urine 118 mosm/kg (373-1093)
[2021-11-15 13:49] LABS: Creatinine Urine 20.88 mg/dL
[2021-11-15 13:57] LABS: Potassium Urine Random 7.9 mmol/L; Sodium Urine Random < 20.0 mmol/L
[2021-11-15 14:00] LABS: Osmolality, Serum 262 mosm/kg (281-305)
[2021-11-15 14:06] LABS: Alanine Aminotransferase 13 U/L (0-40); Albumin Level 3.5 g/dL (3.5-5.0); Alkaline Phosphatase 117 U/L (39-117); Anion Gap 15 (12-20); Aspartate Amino Transferase 18 U/L (5-37); Bilirubin Total 1.1 mg/dL (0.0-1.0); Blood Urea Nitrogen 13 mg/dL (9-16); Calcium 8.2 mg/dL (8.4-10.2); Carbon Dioxide 26 mmol/L (22-29); Chloride 90 mmol/L (96-108); Creatinine Clr Calc Pharmacy 97.7; Estimated Glomerular Filt Rate > 60; Glucose Random 110 mg/dL (60-115); Sodium 127 mmol/L (135-145); Total Protein 6.2 g/dL (6.5-8.0)
--- NOTE | 2021-11-15 16:00 | PM.EVENT ---
Event Note Date of Service: 11/15/21 Event Note: Patient has history of metastatic lung cancer was in oncology clinic for chemo this morning with generalized weakness and tiredness-found to have hyponatremia sodium of 119 and subsequently was given normal saline and sodium came to 127 Serum and urine osmolality both her low side-? Volume depletion Physical exam: Appearance: Alert.? Oriented X3.?? Eyes: right eye patch.? ENT: Pharynx normal.? Moist mucous membranes somewhat dry. cvs: rrr, [id number] , no murmur res: clear to auscultation ,no rhonchii or wheezing abd: no rebound or guarding ,nt, bs present. ext pulses present , no cyanosis, right elbow erythema/swelling pain neuro: axo3 , nonfocal. assessment and plan coordinated in APCs note. hyponatremia? component of hypovolemia given hydration. sodium in 127 range, will add d51/2ns -moniter sodium q4hr, neurochecks, sodium correction goal 6-8 meq/24hrs elbow bursitis/cellulitis: added iv antibiotics id edward Above management discussed the patient detail length he understand and in agreement with the plan.
[2021-11-15 16:01] LABS: Chloride Urine Random < 20.0 mmol/L
--- NOTE | 2021-11-15 16:06 | PM.IMHP ---
History of Present Illness Date of Service: 11/15/21 Attending physician on admission: Daphne Tellez Chief Complaint: weakness,fatigue 55 year old male with history of adenocarcinoma of the 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 He presented to oncology this am with weakness and fatigue and sodium found to be low at 119. He also endorsed nausea and vomiting this weekend but denies any since. Has been tolerating po. He was given 1L NS in oncology and advised to present to ED for fluids and nephrology consult. Repeat sodium was around baseline at 127. Chlorine improved from 84 to 90. Other lytes normal. Renal fx normal. Urine osmolality 118, serum osmolality 262. TSH and random cortisol normal. Noted to be tachycardic to 128, consistent with baseline. Also reports noticing redness right elbow this morning. no pain or purulent drainage. No fevers. Reports some tightness in the thighs but denies any extremity weakness. Review of Systems Review of Systems: General: +generalized weakness, +fatigue. No fevers, malaise, unintentional weight loss Cardiovascular: No chest pain, palpitations, or leg edema Respiratory: No shortness of breath, wheezing, cough GI: No abdominal pain, nausea, vomiting, diarrhea, constipation, melena, hematochezia Neuro: No headaches, weakness, paresthesias Skin: No rashes or lesions [facility] Medical History (Updated 11/15/21 @ 17:07 by ROOSEVELT Santos) Adenocarcinoma of lung Bone metastases Cellulitis Hyponatremia Mass of right lung Family History Mother Diverticulitis Breast cancer Maternal Uncle Diverticulitis Prostate cancer Maternal Grandmother Diverticulitis Surgical History (Updated 10/23/21 @ 15:26 by Maikol Merino MD) No pertinent past surgical history Social History Household Members: Children Household Members Other:: - 10 y/o autistic son Housing: House Are you a primary nurse care manager to a significant other at home: No Do you presently have visiting nurse or other home services: No Alcohol intake: never Patient Tobacco Use Status: Former Tobacco user Quit Date: 06/11/21 Second Hand Smoke Exposure: Yes Substance Use Type: Marijuana Advance Directives: Yes Advance Directives on File: Yes Advance Directives Date on File: 06/09/21 service: No Current occupational status: employed Current occupation: Fulltime Current occupational exposures/hazards: No Meds Allergies Allergy/AdvReac Type Severity Reaction Status Date / Time iodine Allergy Severe Anaphylaxis Verified 10/23/21 12:01 shellfish derived Allergy Severe Anaphylaxis Verified 10/23/21 12:01 Active Medications: Current Medications Acetaminophen (Acetaminophen 325 Mg Tablet) 650 mg PO Q6H PRN PRN Reason: Pain, Mild (Pain Scale 1-3) Docusate Sodium (Docusate Sodium 100 Mg Capsule) 100 mg PO BID PRN PRN Reason: Constipation Enoxaparin Sodium (Enoxaparin Sodium 40 Mg/0.4 Ml Syringe) 40 mg SUBCUT Q24H [facility] Dextrose/Sodium Chloride (D51/2ns) 1,000 mls @ 50 mls/hr IVCONT .Q20H [facility] Ondansetron HCl (Ondansetron Hcl 4 Mg/2 Ml Vial) 4 mg IVPUSH Q8H PRN PRN Reason: Nausea and Vomiting Sodium Chloride (0.9 % Sodium Chloride Flush 3 Ml Syringe) 3 ml IVFLUSH QSHIFT [facility] Home Medications Medication Instructions Recorded Confirmed Last Taken Type ondansetron 8 mg disintegrating 8 mg PO Q8H PRN NAUSEA 11/15/21 11/15/21 Unknown History tablet Physical Exam Vital Signs and Narrative: Vital Signs: Last Vital Signs Temp 98.3 F 11/15/21 12:38 Pulse 128 H 11/15/21 12:38 Resp 16 11/15/21 12:38 BP 98/70 11/15/21 12:38 Pulse Ox 98 11/15/21 12:38 BMI result Body Mass Index 19.0 Constitutional - Awake and Alert, No apparent distress Eyes - PERRLA, EOMI Mouth- lips and tongue dry appearing Cardiovascular - S1S2, RRR, No edema Respiratory - Normal lung expansion, Normal respiratory effort, No respiratory distress, CTA bilaterally Gastrointestinal - NT / ND; +BS; No rebound or guarding Extremities - no calf tenderness bilaterally, no swelling Skin - Warm/Dry. Erythema and warmth of the elbow without effusion. Small abrasion noted Neurological - Alert & oriented x3, no focal decicit Psychological - Appropriate affect Results Labs CBC and Chem 7: 10/06/22 13:15 Labs: Laboratory Results - last 24 hr 11/15/21 11/15/21 11/15/21 13:07 13:08 13:08 Anion Gap Estim Creat Clear Calc Estimated GFR Random Glucose Osmolality Calcium Total Bilirubin AST ALT Alkaline Phosphatase Total Protein Albumin Urine Osmolality 118 L Ur Random Sodium < 20.0 Ur Random Potassium 7.9 Ur Random Chloride < 20.0 Urine Creatinine 20.88 11/15/21 11/15/21 13:40 13:40 Anion Gap 15 Estim Creat Clear Calc 97.7 Estimated GFR > 60 Random Glucose 110 Osmolality 262 L Calcium 8.2 L Total Bilirubin 1.1 H AST 18 ALT 13 Alkaline Phosphatase 117 Total Protein 6.2 L Albumin 3.5 Urine Osmolality Ur Random Sodium Ur Random Potassium Ur Random Chloride Urine Creatinine Assessment and Plan (1) Hyponatremia: Status: Acute (2) Adenocarcinoma of lung: Status: Chronic (3) Cellulitis: Status: Acute Plan 55 year old male with history of 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 1- Severe Hyponatremia- likely component of SIADH plus hypovolemia from n/v over the weekend -Na improved from 119 to 127 following 1L NS -Sent for admission from oncology -Serum osmolality 262, urine osmolality 118, urine K 7.9, urine creat 20.88. TSH and random cortisol normal -Nephrology consult placed -D5 1/2NS ordered @50ml/hr -Repeat BMP @7pm then q4h 2-Adenocarcinoma right lung -Metastatic to bone and brain -Recently started on nivolumab. Completed radiation 10/13 -Follow outpt with oncology 3-Cellulitis right elbow -cefazolin q8h -Afebrile, no leukocytosis DVt prophylaxis- lovenox Full code Pt requires inpt stay at least 2 midnights due to recurrent hyponetremia requiring IV fluids and frequent monitoring of levels as well as further investigation into etiology. Quality Stroke Does the patient have a stroke diagnosis?: No VTE Prior VTE?: No VTE Risk Level:: Medical - moderate - high VTE Device Contraindication: Treatment Not Indicated VTE Drug Contraindication: N/A - Med Ordered
[2021-11-15 16:37] VITALS: BP 123/81; PULSE 136; RESP 18; TEMP 37.9; O2SAT 98
--- NOTE | 2021-11-15 16:37 | PHA.MEDREC ---
Pharmacy Consult ? Medication Reconciliation Pharmacy has completed the medication reconciliation. Patient states he has already weaned off dexamethasone and had a discussion with Dr Merino about that. Other than the folic acid, all his other meds are PRN Jc
[2021-11-15] MEDS: 0.9 % Sodium Chloride Flush 3 ML SYRINGE IVFLUSH (17:19)
[2021-11-15] MEDS: Acetaminophen 325 MG TABLET 650 MG PO (17:20)
[2021-11-15] MEDS: Dextrose 5 % and 0.45 % NaCl 1,000 ML 50 ML IVCONT (17:25)
[2021-11-15] MEDS: Enoxaparin Sodium 40 MG/0.4 ML SYRINGE SUBCUT (17:31)
[2021-11-15] MEDS: ceFAZolin Sodium/Dextrose,Iso 2 GM/50 ML PIGGYBACK IV (17:33)
[2021-11-15 19:51] LABS: Anion Gap 16 (12-20); Blood Urea Nitrogen 11 mg/dL (9-16); Carbon Dioxide 23 mmol/L (22-29); Chloride 91 mmol/L (96-108); Creatinine Clr Calc Pharmacy 100.6; Estimated Glomerular Filt Rate > 60; Glucose Random 119 mg/dL (60-115); Potassium 3.9 mmol/L (3.3-5.1); Sodium 126 mmol/L (135-145)
--- NOTE | 2021-11-15 20:41 | P.CONNP_ITS ---
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 Will cont to monitor Sna closely and may more aggressive IV hypotonic fluids and even possibly DDAVP if rate of icnr in SNa become too rapid. 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 and avail to assit hospitalist at any time PMFSH Past Medical History Medical History (Updated 11/15/21 @ 17:07 by ROOSEVELT Santos) Adenocarcinoma of lung Bone metastases Cellulitis Hyponatremia Mass of right lung Family History Family History Mother Diverticulitis Breast cancer Maternal Uncle Diverticulitis Prostate cancer Maternal Grandmother Diverticulitis Surgical History Surgical History (Updated 10/23/21 @ 15:26 by Maikol Merino MD) No pertinent past surgical history Social History Social History Household Members: Children Household Members Other:: - 10 y/o autistic son Housing: House Are you a primary long term care phlebotomist to a significant other at home: No Do you presently have visiting nurse or other home services: No Alcohol intake: never Patient Tobacco Use Status: Former Tobacco user Quit Date: 06/11/21 Second Hand Smoke Exposure: Yes Substance Use Type: Marijuana Advance Directives: Yes Advance Directives on File: Yes Advance Directives Date on File: 06/09/21 service: No Current occupational status: employed Current occupation: Fulltime Current occupational exposures/hazards: No Meds Allergies Allergy/AdvReac Type Severity Reaction Status Date / Time iodine Allergy Severe Anaphylaxis Verified 10/23/21 12:01 shellfish derived Allergy Severe Anaphylaxis Verified 10/23/21 12:01 Active Medications: Current Medications Acetaminophen (Acetaminophen 325 Mg Tablet) 650 mg PO Q6H PRN PRN Reason: Pain, Mild (Pain Scale 1-3) Last Admin: 11/15/21 17:20 Dose: 650 mg Docusate Sodium (Docusate Sodium 100 Mg Capsule) 100 mg PO BID PRN PRN Reason: Constipation Enoxaparin Sodium (Enoxaparin Sodium 40 Mg/0.4 Ml Syringe) 40 mg SUBCUT Q24H [facility] Last Admin: 11/15/21 17:31 Dose: 40 mg Folic Acid (Folic Acid 1 Mg Tablet) 1 mg PO DAILY [facility] Dextrose/Sodium Chloride (D51/2ns) 1,000 mls @ 50 mls/hr IVCONT .Q20H [facility] Last Admin: 11/15/21 17:25 Dose: 50 mls/hr Cefazolin Sodium/Dextrose (Ancef) 2 gm in 50 mls @ 100 mls/hr IV Q24H [facility] Last Infusion: 11/15/21 18:51 Dose: Infused Lorazepam (Lorazepam 0.5 Mg Tablet) 0.5 mg PO TID PRN PRN Reason: Anxiety Ondansetron HCl (Ondansetron Odt 8 Mg Tab.Rapdis) 8 mg TRANSLINGU Q8H PRN PRN Reason: Nausea Oxycodone HCl (Oxycodone Hcl Immed Release 5 Mg Tablet) 5 mg PO Q6H PRN PRN Reason: Breakthrough Pain, Moderate Sodium Chloride (0.9 % Sodium Chloride Flush 3 Ml Syringe) 3 ml IVFLUSH QSHIFT [facility] Last Admin: 11/15/21 17:19 Dose: 3 ml Home Medications Medication Instructions Recorded Confirmed Last Taken Type ondansetron 8 mg disintegrating 8 mg PO Q8H PRN NAUSEA 11/15/21 11/15/21 Unknown History tablet Physical Exam Vital Signs: Last Vital Signs Temp 100.3 F 11/15/21 16:37 Pulse 136 H 11/15/21 16:37 Resp 18 11/15/21 16:37 BP 123/81 11/15/21 16:37 Pulse Ox 98 11/15/21 16:37 O2 Del Method 11/15/21 16:37 BMI result Body Mass Index 19.0 Results Lab Results Result Diagrams: 11/15/21 19:17 Lab results: Chemistry 11/15/21 11/15/21 13:40 19:17 Sodium 127 L 126 L Potassium 4.0 3.9 Carbon Dioxide 26 23 BUN 13 11 Creatinine 0.68 0.66 Calcium 8.2 L 8.0 L Urine Studies 11/15/21 11/15/21 13:08 13:08 Urine Osmolality 118 L Urine Creatinine 20.88 Procedures Date of Service Date of Service: 11/15/21
[2021-11-15 21:18] VITALS: BP 107/71; PULSE 121; O2SAT 97
[2021-11-15 22:19] LABS: PTT Heparin Drip 36.3 SEC (53-77.9)
[2021-11-16 00:02] LABS: COVID-19 Test Negative (Negative); IDNOW Serial# 55D5AD1C
[2021-11-16] MEDS: oxyCODONE HCl Immed Release 5 MG TABLET PO ×2 (00:52→07:35)
--- NOTE | 2021-11-16 01:11 | PC.NURSE ---
Pt arrived in ED overflow around 0030 from ED. Pt A&OX3, pleasant and cooperative. Very talkative. Speech is clear and appropriate. Has an eye patch for right eye for double vision (pt not wearing at this time-at bedside). Pt c/o 5/10 right elbow pain and right leg pain/cramping-5mg Oxycodone given. Pt also given hot pack to back for c/o discomfort. LS-dim throughout. No cough/sob. 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 On IV antibiotics. IV fluids infusing as ordered. Urinal and crutch at bedside. Will continue to monitor.
[2021-11-16 01:15] VITALS: BP 131/78; PULSE 121; RESP 17; TEMP 36.6; O2SAT 98
[2021-11-16 08:11] VITALS: BP 119/76; PULSE 123; RESP 17; TEMP 36.6; O2SAT 96
[2021-11-16 08:31] LABS: Anion Gap 13 (12-20); Carbon Dioxide 26 mmol/L (22-29); Chloride 91 mmol/L (96-108); Potassium 3.6 mmol/L (3.3-5.1); Sodium 126 mmol/L (135-145)
[2021-11-16 08:43] LABS: Anion Gap 14 (12-20); Blood Urea Nitrogen 9 mg/dL (9-16); Calcium 7.9 mg/dL (8.4-10.2); Carbon Dioxide 25 mmol/L (22-29); Chloride 90 mmol/L (96-108); Creatinine Clr Calc Pharmacy 114.5; Estimated Glomerular Filt Rate > 60; Glucose Random 124 mg/dL (60-115); Potassium 3.7 mmol/L (3.3-5.1); Sodium 125 mmol/L (135-145)
[2021-11-16] MEDS: Folic Acid 1 MG TABLET PO (09:12)
--- NOTE | 2021-11-16 10:17 | PC.NURSE ---
potssium level reported to Geoff MICHAELS
[2021-11-16 12:12] VITALS: BP 120/85; PULSE 110; RESP 18; TEMP 36.7; O2SAT 98
[2021-11-16 13:49] LABS: Anion Gap 14 (12-20); Blood Urea Nitrogen 9 mg/dL (9-16); Carbon Dioxide 24 mmol/L (22-29); Chloride 92 mmol/L (96-108); Creatinine Clr Calc Pharmacy 116.5; Estimated Glomerular Filt Rate > 60; Glucose Random 90 mg/dL (60-115); Potassium 3.9 mmol/L (3.3-5.1); Sodium 126 mmol/L (135-145)
--- NOTE | 2021-11-16 14:17 | HO.PM.IMPN ---
Subjective Subjective Date of Service: 11/16/21 Interval History: Elbow cellulitis, hyponatremia Review of Systems Elbow pain and erythema seems to slowly improving Denies any shortness of breath or abdominal pain or fever chills Physical Exam Vital Signs: Vital Signs: Last Vital Signs Temp 98.0 F 11/16/21 12:12 Pulse 110 H 11/16/21 12:12 Resp 18 11/16/21 12:12 BP 120/85 11/16/21 12:12 Pulse Ox 98 11/16/21 12:12 O2 Del Method 11/16/21 12:12 BMI result Body Mass Index 19.0 Appearance: Alert.? Oriented X3.?? cvs: rrr, [id number] , no murmur res: clear to auscultation ,no rhonchii or wheezing abd: no rebound or guarding ,nt, bs present. ext pulses present , no cyanosis,? right elbow erythema/swelling pain improving neuro: axo3 , nonfocal. Objective Data Active Medications Acetaminophen (Acetaminophen 325 Mg Tablet) 650 mg PO Q6H PRN PRN Reason: Pain, Mild (Pain Scale 1-3) Last Admin: 11/15/21 17:20 Dose: 650 mg Documented By: EDDIE Docusate Sodium (Docusate Sodium 100 Mg Capsule) 100 mg PO BID PRN PRN Reason: Constipation Enoxaparin Sodium (Enoxaparin Sodium 40 Mg/0.4 Ml Syringe) 40 mg SUBCUT Q24H [facility] 234 BEDS AT THE [facility] Last Admin: 11/15/21 17:31 Dose: 40 mg Documented By: EDDIE Folic Acid (Folic Acid 1 Mg Tablet) 1 mg PO DAILY COUNTS INCLUDE 234 BEDS AT THE [facility] Last Admin: 11/16/21 09:12 Dose: 1 mg Documented By: LORRIE Cefazolin Sodium/Dextrose (Ancef) 2 gm in 50 mls @ 100 mls/hr IV Q24H COUNTS INCLUDE 234 BEDS AT THE [facility] Last Infusion: 11/15/21 18:51 Dose: 0 mls/hr Documented By: EDDIE Lorazepam (Lorazepam 0.5 Mg Tablet) 0.5 mg PO TID PRN PRN Reason: Anxiety Ondansetron HCl (Ondansetron Odt 8 Mg Tab.Rapdis) 8 mg TRANSLINGU Q8H PRN PRN Reason: Nausea Oxycodone HCl (Oxycodone Hcl Immed Release 5 Mg Tablet) 5 mg PO Q6H PRN PRN Reason: Breakthrough Pain, Moderate Last Admin: 11/16/21 07:35 Dose: 5 mg Documented By: BRODIE Sodium Chloride (0.9 % Sodium Chloride Flush 3 Ml Syringe) 3 ml IVFLUSH QSHIFT COUNTS INCLUDE 234 BEDS AT THE [facility] Last Admin: 11/16/21 09:10 Dose: Not Given Documented By: LORRIE Non-Admin Reason: IV Running Labs CBC & Chem 7: 11/16/21 13:15 Labs: Laboratory Results - last 24 hr 11/15/21 11/15/21 11/15/21 13:07 19:17 22:06 aPTT Heparin Protocol 36.3 L Anion Gap 16 Estim Creat Clear Calc 100.6 Estimated GFR > 60 Random Glucose 119 H Calcium 8.0 L Ur Random Chloride < 20.0 COVID-19 (AMIRAH) COVID-19 Clin Com 11/15/21 11/16/21 11/16/21 23:33 08:04 08:04 aPTT Heparin Protocol Anion Gap 14 13 Estim Creat Clear Calc 114.5 Estimated GFR > 60 Random Glucose 124 H Calcium 7.9 L Ur Random Chloride COVID-19 (AMIRAH) Negative COVID-19 Clin Com See Note 11/16/21 13:15 aPTT Heparin Protocol Anion Gap 14 Estim Creat Clear Calc 116.5 Estimated GFR > 60 Random Glucose 90 Calcium 8.0 L Ur Random Chloride COVID-19 (AMIRAH) COVID-19 Clin Com Assessment and Plan (1) Acute hyponatremia: Status: Acute (2) Cellulitis: Status: Acute Plan 55 year old male with history of 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 1- Severe Hyponatremia- likely component of SIADH plus hypovolemia from n/v over the weekend -Na improved from 119 to 127 following 1L NS -Sent for admission from oncology -Serum osmolality 262, urine osmolality 118, urine K 7.9, urine creat 20.88. TSH and random cortisol normal sodium this afternoon around 126 -stop fluids and moniter bmp nephro eval -noted ,sodium correction goal 6-8 meq/24hrs. 2-Adenocarcinoma right lung -Metastatic to bone and brain -Recently started on nivolumab. Completed radiation 10/13 -Follow outpt with oncology 3-Cellulitis right elbow -cefazolin q8h -Afebrile, no leukocytosis id eval DVt prophylaxis- lovenox Full code inpatient need: hyponatremia -requires close moniter of renal function/electrolytes, cellulitis need iv antibiotics. Quality Stroke Does the patient have a stroke diagnosis?: No VTE Prior VTE?: No VTE Risk Level:: Medical - moderate - high VTE Device Contraindication: Treatment Not Indicated VTE Drug Contraindication: N/A - Med Ordered
--- NOTE | 2021-11-16 14:34 | MHC.CM.PN ---
CM MET WITH PATIENT IN ED OVERFLOW. LIVES WITH 12 YEAR OLD SON IN A SINGLE FAMILY HOME. USES 1 [employer]UTCH FOR MOBILITY AT TIMES.HAS HCP HERE ON FILE. COVID VAX X 3. PT STATES NO PCP AT THIS TIME PROVIDER LEFT PRACTICE.PT STATES INSURANCE IS HELPING HIM SECURE A NEW ONE. PT DROVE SELF HERE BUT CAN MAKE ARRANGEMENTS FOR A RIDE SHOULD HE NEED TO.
[2021-11-16 15:54] VITALS: BP 109/76; PULSE 127; RESP 20; TEMP 36.7; O2SAT 96
[2021-11-16 16:12] LABS: Sodium 127 mmol/L (135-145)
[2021-11-16] MEDS: Urea 15 GM POWDER PO (16:43)
[2021-11-16] MEDS: ceFAZolin Sodium/Dextrose,Iso 2 GM/50 ML PIGGYBACK IV (16:44)
[2021-11-16] MEDS: Enoxaparin Sodium 40 MG/0.4 ML SYRINGE SUBCUT (17:46)
[2021-11-16] MEDS: Lactulose 20 GM/30 ML SOLUTION PO (17:46)
[2021-11-16] MEDS: Acetaminophen 325 MG TABLET 650 MG PO (22:25)
[2021-11-16 22:35] LABS: Anion Gap 16 (12-20); Blood Urea Nitrogen 19 mg/dL (9-16); Calcium 8.5 mg/dL (8.4-10.2); Carbon Dioxide 25 mmol/L (22-29); Chloride 92 mmol/L (96-108); Estimated Glomerular Filt Rate > 60; Glucose Random 103 mg/dL (60-115); Sodium 129 mmol/L (135-145)
[2021-11-16 23:39] VITALS: BP 126/75; PULSE 90; RESP 16; TEMP 36.4; O2SAT 97
[2021-11-16] MEDS: 0.9 % Sodium Chloride Flush 3 ML SYRINGE IVFLUSH (23:44)
[2021-11-17 08:03] VITALS: BP 133/77; PULSE 100; RESP 19; TEMP 36.7; O2SAT 97
[2021-11-17] MEDS: Folic Acid 1 MG TABLET PO (08:36)
[2021-11-17] MEDS: 0.9 % Sodium Chloride Flush 3 ML SYRINGE IVFLUSH ×2 (08:36→14:24)
--- NOTE | 2021-11-17 09:45 | CONS_ITS ---
DATE OF SERVICE: 11/16/2021 REASON FOR CONSULTATION: I was asked to see patient to assist in evaluation and management of patient's hyponatremia with a serum sodium 119, associated with nausea, vomiting, and feeling unwell. In the emergency room, he was given some normal saline. Repeat serum sodium increased from 119 at 9 a.m. to 127 at 1340 that is 1:40 p.m. This morning, serum sodium is 126. His other labs revealed a urine osmolality of 118 and urine sodium of less than 20. In reviewing his records on the [facility] EHR, he had an episode of hyponatremia back in September 2021 with a serum sodium as low as 119, so he has had repeated episodes of hyponatremia. His serum sodium on October 30 was 135. 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 He has been getting immunotherapy with Oncology. Last dose apparently was 2 weeks ago. He presents to the Oncology Outpatient [facility] with general fatigue and weakness and again noted low serum sodium and therefore was admitted to the hospital. He had some nausea and vomiting. Tells me he drinks a lot of fluids routinely both water and Gatorade as routine. Past workup revealed a normal TSH and random cortisol level. Overall, he is feeling better this morning. PAST MEDICAL HISTORY: As mentioned above. MEDICATIONS: Medications on admission are noted in the admitting notes. Current medications on the APR. SOCIAL HISTORY: He is an ex-smoker, quit in June. Denies NSAID use. FAMILY HISTORY: Noncontributory. REVIEW OF SYSTEMS: As noted above. PHYSICAL EXAMINATION: VITAL SIGNS: Blood pressure of 120/70 with a heart rate of 100. HEAD: Atraumatic and normocephalic. NECK: Supple. Mucous membranes are moist. LUNGS: Breath sounds bilaterally. CARDIAC: Regular rate and rhythm. ABDOMEN: Soft. EXTREMITIES: Show no edema. LABORATORY DATA: From 8 a.m. this morning, sodium 126, potassium 3.6, chloride 91, bicarb 26, BUN 9, creatinine 0.58, calcium 7.9. As mentioned, serum sodium was 119 on admission. His urine studies showed urine osmo 118 and a urine sodium less than 20. Back in September when he an episode of the hyponatremia, his urine osmolality was 186. IMPRESSION: 55-YEAR-OLD WITH METASTATIC LUNG CANCER, ADMITTED TO THE HOSPITAL WITH SYMPTOMATIC HYPONATREMIA AND THE BACKDROP OF EXCESSIVE P.O. FLUID INTAKE. 1. Euvolemic hyponatremia. 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 Urine osmolality is on the low side and makes him in the adan zone as to whether there is a component of increased inappropriate antidiuretic hormone. He gives a great history of excessive p.o. fluid intake. He also appears to have malnutrition and may have a low osmotic intake and have a component of low solute associated hyponatremia. 2. The good news is that just simply with fluid restriction, serum sodium is coming up. We will monitor serum sodium as our goal is to not let it go up by more than 8 mg for 24 hours. He may need some added solute load in the form of urea to help increasing his free water excretion and increasing his serum sodium. At this juncture, we will simply monitor serum sodium and then add urea if needed. 3. I did discuss with him the importance of avoiding excessive fluid intake and to try and use Gatorade as opposed to water when he does drink fluids. 4. I suspect he is at risk for recurrent episodes of hyponatremia from his underlying cancer and intermittent episodes of increased inappropriate antidiuretic hormone. 5. We will follow the patient with the team. MD GORDY Joiner/LEANN / [id number]
[2021-11-17] MEDS: oxyCODONE HCl Immed Release 5 MG TABLET PO (11:47)
--- NOTE | 2021-11-17 14:03 | P.PNNP_ITS ---
Subjective Subjective Date of Service: 11/17/21 Interval history: Hyponatremia improving well with good rate Physical Exam Vital Signs: Vital Signs: Last Vital Signs Temp 98.0 F 11/17/21 08:03 Pulse 100 11/17/21 08:03 Resp 19 11/17/21 08:03 BP 133/77 11/17/21 08:03 Pulse Ox 97 11/17/21 08:03 O2 Del Method 11/17/21 08:03 BMI result Body Mass Index 19.0 Const: General: comfortable, alert and awake Orientation/consciousness: patient oriented x3 Resp: Effort & Inspection: normal respiratory effort and able to speak in complete sentences Auscultation: clear to auscultation bilaterally Cardio: Jugular venous distension: no JVD Heart sounds: S1 normal heart sound present and S2 normal heart sound present GI: Inspection: Yes normal to inspection and No abdominal wall ecchymosis Palpation (GI): Soft to palpation, not firm, nontender, no guarding and not ri gid Neuro: General: patient oriented x3 Objective Data Labs CBC & Chem 7: 11/16/21 21:58 Labs: Laboratory Results - last 24 hr 11/16/21 11/16/21 15:04 21:58 Sodium 127 L 129 L Potassium 4.0 Chloride 92 L Carbon Dioxide 25 Anion Gap 16 BUN 19 H D Creatinine 0.54 Estim Creat Clear Calc 123.0 Estimated GFR > 60 Random Glucose 103 Calcium 8.5 D Procedures Date of Service Date of Service: 11/17/21 Assessment & Plan Assessment and plan (1) Acute hyponatremia: Status: Acute (2) Cellulitis: Status: Acute Plan Mr. 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 1Severe Hyponatremia Uosm <250 Euvolemic Patient has a tea-toast like syndrome a.k.a hypotonic intake hyponatremia He is improving with simply 1L of 0.9% and one dose urea. patients with hypotonic uop hyponatremia tend to correct dramatically with small solute loads. plan: - avoid further IVF for now - no furhter urea either - 1 ensure daily for solute load - encourge diet while fluid restricting Time Spent With Patient Time: Total time spent is greater than 50% in coordination of care (as documented) at patient's floor/unit and/or counseling patient: Progress Note: Quality Stroke Does the patient have a stroke diagnosis?: No
[2021-11-17] MEDS: Amoxicillin/Potassium Clav 875 MG TABLET PO (14:23)
--- NOTE | 2021-11-17 14:59 | P.DS_ITS ---
DS: Providers Provider Date of Service: 11/17/21 Date of admission: 11/15/21 15:58 Primary care physician: None Physician Consults: 11/15/21 16:02 Consult to Nephrology Routine Consulting Provider: Duc Antonio Reason for consultation: hyponatremia Has provider been notified: No 11/16/21 14:13 Consult to Infectious Diseases Routine Consulting Provider: Luma Albarado Reason for consultation: right elbow cellulitis Has provider been notified: No DS: Diagnosis Discharge Diagnosis (1) Acute hyponatremia: Status: Acute (2) Cellulitis: Status: Acute DS: Summary Hospital Course Hospital Course: 55 year old male with history of adenocarcinoma of the 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 He presented to oncology this am with weakness and fatigue and sodium found to be low at 119. He also endorsed nausea and vomiting this weekend but denies any since. Has been tolerating po. He was given 1L NS in oncology and advised to present to ED for fluids and nephrology consult. Repeat sodium was around baseline at 127. Chlorine improved from 84 to 90. Other lytes normal. Renal fx normal. Urine osmolality 118, serum osmolality 262. TSH and random cortisol normal.? Noted to be tachycardic to 128, consistent with baseline. Also reports noticing redness right elbow this morning. no pain or purulent drainage. No fevers. Reports some tightness in the thighs but denies any extremity weakness. Hospital course: Patient admitted because of severe hyponatremia possibly related toPatient has a tea-toast like syndrome a.k.a hypotonic intake hyponatremia: Patient was started on fluid restriction as well as given fluids initially, in addition he received 1 dose of urea and his sodium is improved to 129 range. Patient seems fine, encouraged for diet intake while fluid restriction as well as take Ensure a day at least. Advised to restrict fluid for 1.5 L for a day for few days. Check BMP out patiently. In addition patient had a right elbow mild cellulitis which responded well to cefazolin: Discussed with ID-patient will be going home with p.o. Augmentin. Further management out patiently. plan: Complete course of antibiotics for cellulitis. Hyponatremia:encouraged for diet intake while fluid restriction as well as take Ensure a day at least. Advised to restrict fluid for 1.5 L for a day for few days. follow up cbc ,bmp,lft's in 1 week outpatient due to hyponatremia,also on antibiotics and consider elbow MRI outpatient. Above management discussed with the patient in detail length he understand and in agreement with the above plan, time spent 50 minutes and 50% time spent on counseling. Significant findings: As above. Procedures performed: None. Treatment and response: As above. Complications: None. Time Spent with Patient Time attestation: Total time spent providing and/or coordinating discharge services: Discharge coordination time: Greater than 30 minutes Quality: Safe Use of Opioids Does Pt have an Active Cancer Diagnosis on the Problem List?: No Quality: Stroke Does the patient have a stroke diagnosis?: No Physical Exam Vital Signs: Vital Signs: Last Vital Signs Temp 98.0 F 11/17/21 08:03 Pulse 100 11/17/21 08:03 Resp 19 11/17/21 08:03 BP 133/77 11/17/21 08:03 Pulse Ox 97 11/17/21 08:03 O2 Del Method 11/17/21 08:03 BMI result Body Mass Index 19.0 Appearance: Alert.? Oriented X3.?? cvs: rrr, [id number] , no murmur res: clear to auscultation ,no rhonchii or wheezing abd: no rebound or guarding ,nt, bs present. ext pulses present , no cyanosis,? right elbow erythema/swelling pain improved significantly neuro: axo3 , nonfocal. DS: Data Data Completed and Pending Labs on day of discharge: Laboratory Results - last 24 hr 11/16/21 11/16/21 15:04 21:58 Sodium 127 L 129 L Potassium 4.0 Chloride 92 L Carbon Dioxide 25 Anion Gap 16 BUN 19 H D Creatinine 0.54 Estim Creat Clear Calc 123.0 Estimated GFR > 60 Random Glucose 103 Calcium 8.5 D Discharge Plan Discharge Anticipated Discharge Date/Time: 11/17/21 14:51 Patient Disposition: Home, Self-Care Discharge Diagnosis: Hyponatremia due to poor oral intake and less solute load, elbow cellulitis. Referrals: Physician,None [Primary Care Provider] - 1 Week Discharge Medications: New amoxicillin-pot clavulanate 875-125 mg tablet 1 tab PO BID Qty: 14 0RF Continued folic acid 1 mg Tablet 1 mg PO DAILY Qty: 90 3RF oxycodone 5 mg Tablet 5 mg PO Q6H PRN (Reason: Breakthrough Pain, Moderate) Qty: 50 0RF Rx Instructions: Partial Fill upon patient request. lorazepam [Ativan] 0.5 mg Tablet 0.5 mg PO TID PRN (Reason: Anxiety) Qty: 60 2RF dexamethasone [Decadron] 0.75 mg Tablet 0.75 mg PO BID Qty: 100 4RF Rx Instructions: Take 2 tablets p.o. b.i.d. for 1 week. Then 1 tablet p.o. b.i.d. for 1 week. Continue taper as directed. ondansetron 8 mg tablet,disintegrating 8 mg PO Q8H PRN (Reason: NAUSEA) Discharge Orders: Discharge Order (Routine); Ordered 11/17/21 Ordered By: Daphne Tellez Diet: Advance to usual diet Activity on Discharge: As tolerated Stand Alone Forms: Patient Portal Discharge page Care Plan Goals: Patient admitted because of severe hyponatremia possibly related toPatient has a tea-toast like syndrome a.k.a hypotonic intake hyponatremia: Patient was started on fluid restriction as well as given fluids initially, in addition he received 1 dose of urea and his sodium is improved to 129 range. Patient seems fine, encouraged for diet intake while fluid restriction as well as take Ensure a day at least. Advised to restrict fluid for 1.5 L for a day for few days. Check BMP out patiently. In addition patient had a right elbow mild cellulitis which responded well to cefazolin: Discussed with ID-patient will be going home with p.o. Augmentin. Further management out patiently. Health Concerns: As above. Plan of Treatment: Complete course of antibiotics for cellulitis. follow up with elbow MRi outp atient. Hyponatremia:encouraged for diet intake while fluid restriction as well as take Ensure a day at least. Advised to restrict fluid for 1.5 L for a day for few days. Monitor BMP outpatient with PCP. Assessment: As above.
--- NOTE | 2021-11-17 15:10 | MHC.CM.PN ---
PATIENT IS DC HOME TODAY - SELF CARE RN AWARE OF PLAN
--- NOTE | 2021-11-17 15:51 | MHC.CM.PN ---
PT MEDICALLY CLEARED FOR D/C HOME, CM UNABLE TO SET UP [facility] SERVICES PT IS NOT ACTIVE W/PCP AND [facility] DOES NOT TAKE [facility] [[email or web address]], PT EILL DRIVE SELF OR ARRANGE TRANSPORT.
[2021-11-17 16:00] VITALS: BP 103/68; PULSE 122; RESP 19; TEMP 36.6; O2SAT 96
== END 2021-11-17 16:17 | disposition home or self-care (01) | DRG 383 ==
LOC: HO.ED 14:07 → HO.EDOVER 16:13 → HO.S3 11-17 14:53 → HO.EDOVER 11-17 15:28
PROVIDERS: Internal Medicine Nephrology; Physician Assistant; Student in an Organized Health Care Education/Training Program; Admitting Provider Physician Assistant; Emergency Provider Student in an Organized Health Care Education/Training Program; PCP Registered Nurse; Visit Provider Internal Medicine
DX: L03.113 Cellulitis of right upper limb (principal); C79.51 Secondary malignant neoplasm of bone; D84.821 Immunodeficiency due to drugs; E22.2 Syndrome of inappropriate secretion of antidiuretic hormone; C34.91 Malignant neoplasm of unspecified part of right bronchus or lung; C79.31 Secondary malignant neoplasm of brain; E86.1 Hypovolemia; Z91.013 Allergy to seafood; Z20.822 Contact with and (suspected) exposure to COVID-19; Z92.3 Personal history of irradiation; Z79.899 Other long term (current) drug therapy
CPT/HCPCS: 36415; 73080; 80048; 80051; 80053; 82436; 83930; 83935; 84133; 84295; 84300; 85730; 87635; 93005; 99285; J0690; J1650

== ENCOUNTER 2021-12-05 09:50 | Day surgery (SDC) | payer OTHER, SELFPAY ==
[2021-12-05] VITALS (7 sets, daily range): BP systolic 129–148; BP diastolic 80–97; PULSE 114–121; RESP 16–18; TEMP 36.6–36.7; O2SAT 96–99; BMI 19.1
--- NOTE | ~2021-12-05 | CT_ITS ---
PROCEDURE: CT GUIDED BIOPSY, LUNG CLINICAL INFORMATION: Lung cancer. Additional tissue requested for tumor markers. COMPARISON: Previous chest CT, most recent 09/14/2021 and PET/CT 10/2021. TECHNIQUE: Procedure and risks and benefits including bleeding, infection and pneumothorax were discussed with the patient and informed consent was obtained. The patient was positioned in the supine position. Limited images through the upper chest were obtained. The right upper anterior chest was prepped and draped in the usual sterile fashion. The skin and soft tissues were anesthetized with 1% lidocaine plain. Using ultrasound guidance and a coaxial system, access to the mass in the right upper lobe was obtained. 3 20-gauge core biopsies were obtained. There was no complication. Conscious sedation was provided by a registered nurse under my direct supervision. The patient received Versed 1.5 mg and fentanyl 75 mcg intravenously during the procedure. Total sedation time was [address] examination was performed using dose optimization techniques as appropriate, variously including the following: *Automated exposure control *Adjustment of mA and/or kV according to patient size (this includes techniques or standardized protocols for targeted exams where dose is matched to indication/reason for exam; i.e. extremities or head) *Use of iterative reconstruction technique DLP: 183 mGy-cm FINDINGS: There is a mass in the right upper lobe that was targeted for biopsy. Postprocedure imaging demonstrates no pneumothorax. CT/CT biopsy lung RT IMPRESSION: CT-guided right upper lobe lung biopsy.
--- NOTE | ~2021-12-05 | XR_ITS ---
EXAMINATION: XR CHEST CLINICAL INFORMATION: Post lung biopsy COMPARISON: Previous CT scans most recent from earlier the same day TECHNIQUE: Frontal view of the chest was obtained. FINDINGS: There is no pneumothorax post right upper lobe lung biopsy. There is elevation of the right hemidiaphragm. There is a right upper lobe mass and right hilar and mediastinal lymphadenopathy. Appears unchanged. The heart size is normal. The lungs are otherwise clear. There is no pleural effusion. XR/XR chest 1V IMPRESSION: No pneumothorax post right upper lobe lung biopsy.
[2021-12-05 10:22] LABS: MANUAL DIFF FLAG NO
[2021-12-05 10:28] LABS: Basophils Absolute Auto 0.1 X10*3/uL (0.0-0.2); Basophils Percent Auto 0.6 % (0-2); Eosinophils Percent Auto 0.1 % (0-4); Hematocrit 31.2 % (42.0-52.0); Hemoglobin 10.2 g/dl (14.0-18.0); Imm Gran Abs Auto 0.27 X10*3/uL (0.00-0.03); Imm Gran Pct Auto 2.5 % (0.0-0.4); Lymphocytes Absolute Auto 0.4 X10*3/uL (1.2-4.9); Lymphocytes Percent Auto 3.7 % (20-40); Mean Corpuscular HGB Conc 32.7 g/dl (31.0-36.0); Mean Corpuscular Volume 94.8 fL (80.0-98.0); Mean Platelet Volume 8.7 fL (9.4-12.4); Neutrophils Absolute Auto 9.1 x10*3/uL (2.0-8.3); Neutrophils Percent Auto 84.1 % (45-73); Platelet Count 402 X10*3/uL (160-400); Red Blood Count 3.29 X10*6/uL (4.60-5.80); Red Cell Distribution Width 15.7 % (11.0-16.0); White Blood Count 10.8 X10*3/uL (4.8-10.8)
[2021-12-05 10:45] LABS: INTERNATIONAL NORM RATIO 1.2 (0.9-1.1); Prothrombin Time 13.6 SEC (10.0-13.1)
[2021-12-05 10:47] LABS: Partial Thromboplastin Time 32.5 SEC (26.0-36.4)
--- NOTE | 2021-12-05 12:55 | HO.RADPN ---
RADIOLOGY Narrative Narrative: RUL lung biopsy using coaxial system. 3 20g core biopsies obtained. No complication.
== END 2021-12-05 15:57 | disposition home or self-care (01) ==
PROVIDERS: Radiology Diagnostic Radiology; PCP Registered Nurse; Visit Provider Internal Medicine Medical Oncology
DX: C34.11 Malignant neoplasm of upper lobe, right bronchus or lung (principal); C79.51 Secondary malignant neoplasm of bone; C79.31 Secondary malignant neoplasm of brain; Z87.891 Personal history of nicotine dependence; Z92.3 Personal history of irradiation; Z79.899 Other long term (current) drug therapy
CPT/HCPCS: 32408; 36415; 71045; 81445; 85025; 85610; 85730; 88305; 88342; 88360; 88374; 88377; 99152; J2250; J2405; J3010

== ENCOUNTER 2021-12-18 09:00 | Outpatient (RCR) | payer OTHER, SELFPAY ==
--- NOTE | 2021-06-09 09:11 | P.CNHO_ITS ---
Subjective - Subjective Chief complaint: Consult for: 1. Right upper lung mass. 2. SVC syndrome. Patient: new to practice Consult date: 06/09/21 Requesting Physician: Yoana Gandhi. Primary Care Provider: Ann James DNP Medical Summary: DIAGNOSIS: 1. SVC SYNDROME. 2. LARGE LUNG MASS. HPI - Consult Narrative Reason for consult: consult for: Right lung mass. SVC syndrome. Narrative: Orlando Correa is a pleasant 55 year old gentleman, seen as an urgent consult on account of concern for SVC syndrome. Patient was initially seen in the ER yesterday. He was advised to be admitted however he declined. Notes from the ER doc: Patient is a 55 year old male presenting to the emergency department,, with a rapid heart rate, cough, and intermittent dizziness. Patient states that he was upstairs, being evaluated to have a colonoscopy due to some unintentional weight loss over the last few months, when they noticed he was tachycardic and recommend he come to the ER to be evaluated. He was a long time smoker and just quit a few weeks ago. He has a chronic cough but over the last few weeks has been intermittently dizzy. He denies any abdominal pain, nausea, vomiting, fever, chills, blurry vision, double vision, loss of vision, chest pain, difficulty breathing, shortness of breath, back pain, night sweats, pain with urination, increased urinary frequency, increased urinary urgency, blood in his urine or stool, syncope or a near syncopal episode, recent trauma or falls, bowel incontinence, bladder incontinence, bowel retention, bladder retention, or any other complaints at this time. Patient states that he has a young son who is special needs and that he is a . FAMILY HISTORY: A maternal uncle had prostate cancer at the age of 75. Dad had alcohol-related liver disease and of GI bleeding. SOCIAL HISTORY: He works for [employer]. 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 He is . of complications related to type 1 diabetes 6 years ago. 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 He used to smoke 1-2 packs a day quit 5 weeks ago. He drinks socially. ROS: Lately he has felt a little tired. He attributed that to long working hours he works 8 hours days. Denies fever chills or night sweats. His appetite is okay however he has been losing weight. He was 143 now down to 115 in a time period of 3 months. He denies headaches. He feels dizzy on bending or exerting himself. He has noticed no chest pain but chest tightness and shortness of breath on exertion. Especially bending and stooping at work. He has had a cough with production of clear foamy sputum. It has improved since he quit smoking. He denies abdominal pain however he gets gas and flatulence. No nausea vomiting nor heartburn. He has had about with constipation but that has resolved now. He has not had a colonoscopy. He denies any dysuria or hematuria. Recently he has had some spasms in his muscles. He has neck problems. He has been slowing down in terms of his pace of walking. He has mild depression. Denies skin rashes nor pruritus. Review of Systems - Constitutional Reports system reviewed and no additional complaints, except as documented, Reports lack of energy, Reports weight loss - Eyes Reports system reviewed and no additional complaints, except as documented - ENT Reports system reviewed and no additional complaints, except as documented, Reports dizziness - Cardiovascular Reports system reviewed and no additional complaints, except as documented - Respiratory Reports no additional respiratory complaints, Reports cough, Reports dyspnea on exertion, Denies hemoptysis Comments: Chest pressure - Gastrointestinal Reports system reviewed and no additional complaints, except as documented, Reports constipation - Genitourinary Genitourinary: Reports no additional male genitourinary complaints - Musculoskeletal Reports system reviewed and no additional complaints, except as documented - Integumentary/Breasts Skin/Breast: Reports no additional skin complaints - Neurologic Reports system reviewed and no additional complaints, except as documented - Psychiatric Reports system reviewed and no additional complaints, except as documented, Reports depression - Endocrine Reports no additional endocrine complaints - Hematologic/Lymphatic Reports system reviewed and no additional complaints, except as documented - Allergic/Immunologic Reports system reviewed and no additional complaints, except as documented PMFSH Family History: Family History (Last Updated 06/09/21 @ 09:45 by Nicolette Molina CMA) Mother Diverticulitis Breast cancer Maternal Uncle Diverticulitis Prostate cancer Maternal Grandmother Diverticulitis Social History: Social History (Last Updated 06/09/21 @ 09:46 by Nicolette Molina CMA) Living Situation History: Household Members: Children Household Members Other:: - 10 y/o autistic son Housing: House Are you a primary home care and home health aides teacher to a significant other at home: No Do you presently have visiting nurse or other home services: No Tobacco History: Patient Tobacco Use Status: Former Tobacco user Smoke Quit Date: 06/11/21 Substance Use History: Substance Use Type: Marijuana Advance Directives: Advance Directives: No Advance Directives Information Provided: Yes Occupation Assessmet: service: No Current occupational status: employed Current occupation: Fulltime Current occupational exposures/hazards: No Current occupational exposures/hazards: No Home Medications and Allergies Home Medications Medication Instructions Recorded Confirmed Type lorazepam 0.5 mg tablet (Ativan) 0.5 mg PO TID PRN 06/09/21 06/09/21 History Allergies Allergy/AdvReac Type Severity Reaction Status Date / Time iodine Allergy Severe Anaphylaxis Verified 06/09/21 09:47 shellfish derived Allergy Severe Anaphylaxis Verified 06/09/21 11:28 Physical Exam - Constitutional Present: no acute distress - Routine HEENT Exam Head: Present: normal inspection ENT: Present: mucous membranes moist - Routine Neck Exam Present: supple - Routine Respiratory Exam Present: decreased breath sounds - Routine Cardiovascular Exam Cardiovascular: Present: RRR, S1, S2 - Routine Abdominal Exam Present: soft, nontender - Routine Extremities Exam Present: nontender - Routine Skin Exam Present: intact, normal turgor - Routine Neurological Exam Present: alert, oriented X3 - Detailed Neurological Exam: Coma Scale Eye Opening: Spontaneous (4) Verbal Response: Oriented (5) Motor Response: Obeys commands (6) Hallock Coma Scale Total: 15 Assessment and Plan Patient Active problem list reviewed?: Yes (1) Mass of right lung Status: Acute Assessment and plan: DATA BASE: 06/08: CBC: WBC 8.3, HGB 12.8, HCT 40.4, MCV 81.6, PLT 381. ESR 70. CMP: GLUCOSE 103, BUN 14, LABORATORY DEVELOPMENT TECHNICIAN 0.72. ANKIT 10.4, ALB 4. LFTS: 0.6/141/23/19. CEA: 7.80. LDH: 369. This is a pleasant 55-year-old gentleman who presented to the ER yesterday after he was noted to be tachycardic when he presented for a colonoscopy. He has had recent weight loss. CT scan of the chest revealed: Large right upper lobe mass invading the mediastinum causing severe narrowing of the SVC. The mass is amenable to image guided percutaneous biopsy. Differential diagnosis include: 1. LUNG CANCER: Small cell is more likely. He does have a history of smoking. 2. LYMPHOMA: Primary mediastinal lymphoma, Diffuse large cell or mantle cell. 3. GERM-CELL TUMOR: Non seminoma versus seminoma verses teratoma. PLAN: Will proceed with IR guided core biopsy of the mass. Will check his coags: PT 13.2/INR 1.2. Will make further plans based upon the above results. An appointment has been made with radiation for 06/14, pre-emptively. Thank you, Cc: Preliminary look at pathology: Looks like a carcinoma. A bit too much cytoplasm for small cell but will have to wait, for the final report to be out. - Time Spent With Patient Time Spent with Patient (in minutes): 35
[2021-06-09 09:39] VITALS: BP 115/72; PULSE 130; RESP 16; TEMP 36.8; O2SAT 94; BMI 18.1
--- NOTE | 2021-06-09 10:04 | HO.HEMONCPA ---
NO PA REQUIRED FOR CT BIOPSY OF THE RIGHT LUNG (CPT CODE-85697). REF I.D. FOR THE CALL Ozzy 06/09/21 AT 10:02am
[2021-06-09 10:47] LABS: INTERNATIONAL NORM RATIO 1.2 (0.9-1.1); Prothrombin Time 13.2 SEC (9.9-13.0)
--- NOTE | 2021-06-09 11:35 | MHC.HEMONCMA ---
Pt was in for consult. Clinical summary reviewed and updated, VSS. Labs were drawn. Pt to return in 1 week. Pt was sent up to [facility] for procedure.
--- NOTE | 2021-06-09 12:21 | MHC.HEMONC ---
I met with pt following urgent Consult with Dr Merino for new lung mass found yesterday in ER. He was here by himself but his brother is on his way from [facility]. He is scheduled for bx of lung this afternoon. I faxed notes to [facility] for urgent consultation for his maSS WITH svc INVOLVEMENT.
--- NOTE | 2021-06-09 13:51 | MHC.HEMONCSW ---
PATIENT IS A SINGLE, 55 Y.O. MALE, INDEPENDENT, ABLE TO MAKE NEEDS KNOWN. INFORMED YESTERDAY OF A LUNG MASS AND HAVING BIOPSY TODAY. SPEECH WAS RAPID WITH FLIGHT OF SUBJECTS, MOST IMPORTANT IS THAT HE IS A AND IS CARING FOR THEIR 12 Y.O. SON WHO HAS A DIAGNOSIS OF AUTISM. SON IS IN MIDDLE SCHOOL, HE DIDN'T INFORM SON OR SCHOOL COUNSELOR OF DIAGNOSIS YET. HEALTH CARE PROXY COMPLETED, NAMED BROTHER PIERCE. PIERCE IS COMING HERE TODAY TO ASSIST FROM [facility]. 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 PLAN; BIOPSY TODAY AND FOLLOW UP WITH DR. BETTENCOURT.
--- NOTE | 2021-06-09 14:36 | MHC.HEMONC ---
[facility] 12 [facility]. They are calling pt.
--- NOTE | 2021-06-19 11:10 | MHC.HEMONC ---
Per RT [facility]. Pt was seen by Dr Bowie. He will be having PET at [facility] this there and starting lung RT next week.
--- NOTE | 2021-06-20 15:02 | MHC.HEMONC ---
Pt to start concurrent chemo/RT with [facility]. We will see him after 1st RT on Saturday. Frank doing labs and faxing them to us. Pt is aware. Education to be done same day as 1st treatment.
--- NOTE | 2021-06-20 16:04 | HO.HEMONCPA ---
PA FOR TAXOL, & CARBOPLATIN REQUESTED. AWAITING DECISION
--- NOTE | 2021-06-21 10:40 | HO.HEMONCPA ---
NO PA REQUIRED FOR CARBOPLATIN & PACLITAXEL PER [facility] FAX. DOCUMENT SCANNED IN THE CHART.
[2021-06-26 11:52] VITALS: BMI 17.8
[2021-06-26 11:58] LABS: MANUAL DIFF FLAG NO
[2021-06-26 12:01] LABS: Basophils Absolute Auto 0.1 X10*3/uL (0.0-0.2); Basophils Percent Auto 0.8 % (0-2); Eosinophils Percent Auto 0.5 % (0-4); Hematocrit 35.3 % (42.0-52.0); Hemoglobin 11.5 g/dl (14.0-18.0); Imm Gran Abs Auto 0.03 X10*3/uL (0.00-0.03); Imm Gran Pct Auto 0.4 % (0.0-0.4); Lymphocytes Absolute Auto 0.9 X10*3/uL (1.2-4.9); Lymphocytes Percent Auto 10.9 % (20-40); Mean Corpuscular HGB Conc 32.6 g/dl (31.0-36.0); Mean Corpuscular Hemoglobin 27.3 pg (27.0-33.0); Mean Corpuscular Volume 83.6 fL (80.0-98.0); Mean Platelet Volume 9.3 fL (9.4-12.4); Monocytes Absolute Auto 0.7 X10*3/uL (0.1-1.2); Monocytes Percent Auto 8.2 % (2-11); Neutrophils Absolute Auto 6.3 x10*3/uL (2.0-8.3); Neutrophils Percent Auto 79.2 % (45-73); Platelet Count 433 X10*3/uL (160-400); Red Blood Count 4.22 X10*6/uL (4.60-5.80)
[2021-06-26 12:07] VITALS: BP 99/65; PULSE 124; RESP 28; TEMP 37.5; O2SAT 96
[2021-06-26 12:27] LABS: Alanine Aminotransferase 17 U/L (0-40); Albumin Level 3.6 g/dL (3.5-5.0); Alkaline Phosphatase 126 U/L (39-117); Anion Gap 13 (12-20); Aspartate Amino Transferase 14 U/L (5-37); Bilirubin Total 0.6 mg/dL (0.0-1.0); Blood Urea Nitrogen 10 mg/dL (9-16); Calcium 9.9 mg/dL (8.4-10.2); Carbon Dioxide 29 mmol/L (22-29); Chloride 97 mmol/L (96-108); Creatinine Clr Calc Pharmacy 91.6; Estimated Glomerular Filt Rate > 60; Glucose Random 105 mg/dL (60-115); Potassium 4.4 mmol/L (3.3-5.1); Sodium 135 mmol/L (135-145); Total Protein 7.3 g/dL (6.5-8.0)
[2021-06-26 12:45] VITALS: BP 103/70; PULSE 122; RESP 24; TEMP 37.1; O2SAT 96
[2021-06-26 12:46] LABS: HBS Num1 5.05 mIU/mL (0-7.99); HBc Num1 0.24 S/CO (0.00-0.79); HBsAGNum1 0.45 S/CO (0.00-0.99); Hepatitis B Core Antibody Nonreactive (Nonreactive); Hepatitis B Surface Antigen Negative (Negative); ~Hepatitis B Surface Antibody NONREACTIVE (Nonreactive)
[2021-06-26] MEDS: Famotidine/PF 20 MG/2 ML VIAL IVPUSH (13:14)
[2021-06-26] MEDS: dexAMETHasone sod phosphate/NS 12 MG/50 ML PIGGYBACK 200 MG IV (13:16)
[2021-06-26] MEDS: Acetaminophen 325 MG TABLET 650 MG PO (13:17)
[2021-06-26] MEDS: diphenhydrAMINE HCL 50 MG/ML VIAL 25 MG IVPUSH (13:38)
[2021-06-26 16:30] VITALS: BP 130/81; PULSE 119; RESP 22; TEMP 37.1; O2SAT 98
--- NOTE | 2021-06-26 16:36 | MHC.HEMONC ---
Pt here for C1 D1 Carbo/Paclitaxel. Started with RT Thurs 06/22. IV started right forearm with good blood return. VS 99.5, 124, 28, 99/65. Reported to Dr Merino. Pt denies any SOB at this time. Will give some IV fluid and recheck vitals. NS infusing at 500cc/hr. Teaching done with pt regarding treatment plan, side effects, when to call office. Pt's questions answered, states understanding. VS rechecked, 98.8, 122, 22, 103/70. Reported to Dr Merino. Premedicated with tylenol po, dexamethasone, benadryl, pepcid IV as ordered. Treatment done and tolerated well. VS after treatment 98.7, 119, 24, 130/81. IV dc'd and pt departed unit. Scheduled to return in 1 week for next treatment.
--- NOTE | 2021-07-03 12:13 | P.PNHO_ITS ---
Medical Summary - Medical Summary Date of Service: 07/03/21 Chief complaint: follow-up for: Non-small cell lung carcinoma. Medical Summary: DIAGNOSIS: 1. SVC SYNDROME. 2. LARGE LUNG MASS. Pathology: Poorly differentiated adenocarcinoma. Compatible with a lung primary. CURRENT THERAPY: Combined modality therapy with radiation plus carbo Taxol weekly. Here for week 2. Interval History Interval history: Orlando Correa is a pleasant 55 year old gentleman, here for a follow-up visit and for chemotherapy. His lung biopsy from 06/09 revealed poorly differentiated adenocarcinoma, consistent with lung primary. PET scan from 06/22: Very large hypermetabolic right upper lobe lesion consistent with lung carcinoma. Involvement of the mediastinum with airway compression. Hypermetabolic left adrenal mass measuring 2.9 cm with SUV max of 10.7 consistent with metastatic disease. 3 cm hypermetabolic focus involving right adrenal gland, likely representing metastatic disease. Hypermetabolic lytic lesion involving the right clivus measuring 1.5 cm with SUV max of 7.9 consistent with metastatic disease. Hypermetabolic lytic lesion involving the right eye ache bone with SUV max of 6.1 measuring 1.25 cm. He was then started on radiation therapy emergently on 06/24. Chemotherapy was started on 06/26. He is here for day 8. He tells me, something must be working. He has no more hemoptysis for the last couple days. His cough has improved and is not as forceful when previously he used to be coughing up a lot. His energy level is fluctuating. Denies fever chills or night sweats. His appetite is good. He does have a good breakfast. He has started gaining weight. He denies headaches. He feels dizzy on bending or exerting himself. He has had palpitations. He has noticed no chest pain but chest tightness. His breathing has improved. He has had a cough with production of clear foamy sputum. It has improved since he quit smoking. He denies abdominal pain however he gets gas and flatulence. No nausea vomiting nor heartburn. He has had about with constipation but that has resolved now. He has not had a colonoscopy. He denies any dysuria or hematuria. Recently he has had some spasms in his muscles. He has neck problems. He has been slowing down in terms of his pace of walking. He has mild depression. Denies skin rashes nor pruritus. PRESENTING HISTORY: He was initially seen as an urgent consult on account of concern for SVC syndrome. Patient was initially seen in the ER on 06/08. He was advised to be admitted however he declined. Notes from the ER doc: Patient is a 55 year old male presenting to the emergency department,, with a rapid heart rate, cough, and intermittent dizziness. Patient states that he was upstairs, being evaluated to have a colonoscopy due to some unintentional weight loss over the last few months, when they noticed he was tachycardic and recommend he come to the ER to be evaluated. He was a long time smoker and just quit a few weeks ago. He has a chronic cough but over the last few weeks has been intermittently dizzy. He denies any abdominal pain, nausea, vomiting, fever, chills, blurry vision, double vision, loss of vision, chest pain, difficulty breathing, shortness of breath, back pain, night sweats, pain with urination, increased urinary frequency, increased urinary urgency, blood in his urine or stool, syncope or a near syncopal episode, recent trauma or falls, bowel incontinence, bladder incontinence, bowel retention, bladder retention, or any other complaints at this time. Patient states that he has a young son who is special needs and that he is a . FAMILY HISTORY: A maternal uncle had prostate cancer at the age of 75. Dad had alcohol-related liver disease and of GI bleeding. SOCIAL HISTORY: He works for [employer]. 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 He is . of complications related to type 1 diabetes 6 years ago. 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 He used to smoke 1-2 packs a day quit 5 weeks ago. He drinks socially. Review of Systems - Constitutional Reports system reviewed and no additional complaints, except as documented, Reports weakness, Reports weight gain, Denies anorexia, Denies lack of energy - Eyes Reports system reviewed and no additional complaints, except as documented - ENT Reports system reviewed and no additional complaints, except as documented - Cardiovascular Reports system reviewed and no additional complaints, except as documented - Respiratory Reports no additional respiratory complaints - Gastrointestinal Reports system reviewed and no additional complaints, except as documented - Genitourinary Genitourinary: Reports no additional male genitourinary complaints - Musculoskeletal Reports system reviewed and no additional complaints, except as documented - Integumentary/Breasts Skin/Breast: Reports no additional skin complaints - Neurologic Reports system reviewed and no additional complaints, except as documented, Reports dizziness - Psychiatric Reports system reviewed and no additional complaints, except as documented - Endocrine Reports no additional endocrine complaints - Hematologic/Lymphatic Reports system reviewed and no additional complaints, except as documented - Allergic/Immunologic Reports system reviewed and no additional complaints, except as documented PMFSH Medical History: Medical History (Last Reviewed 07/11/21 @ 15:45 by Sayra Oshea) Adenocarcinoma of lung Bone metastases Mass of right lung Family History: Family History (Last Updated 06/09/21 @ 09:45 by Nicolette Molina CMA) Mother Diverticulitis Breast cancer Maternal Uncle Diverticulitis Prostate cancer Maternal Grandmother Diverticulitis Social History: Social History (Last Reviewed 07/11/21 @ 15:31 by Apryl Ross DO) Living Situation History: Household Members: Children Household Members Other:: - 10 y/o autistic son Housing: House Are you a primary healthcare network consultant to a significant other at home: No Do you presently have visiting nurse or other home services: No Tobacco History: Patient Tobacco Use Status: Former Tobacco user Smoked in Last 30 Days: No Smoke Quit Date: 06/11/21 Second Hand Smoke Exposure: Yes Substance Use History: Use of substances other than those prescribed or required for medical reasons : Yes Substance Use Type: Marijuana Substance Use Frequency: Daily Substance Use Frequency Other:: pt uses marijuana edibles at home to sleep Advance Directives: Advance Directives: Yes Advance Directives Information Provided: No Advance Directives on File: Yes Advance Directives Date on File: 06/09/21 Occupation Assessmet: service: No Current occupational status: employed Current occupation: Fulltime Current occupational exposures/hazards: No Second hand tobacco smoke exposure: Yes Oncology Screenings - ECOG Performance Status ECOG Performance Status: 0 Home Medications and Allergies Current Medications: Current Medications Acetaminophen (Acetaminophen 325 Mg Tablet) 650 mg PO ONCE SYDNI Stop: 07/03/21 23:59 Diphenhydramine HCl (Diphenhydramine Hcl 50 Mg/Ml Vial) 25 mg IVPUSH ONCE SYDNI Stop: 07/03/21 23:59 Heparin Sodium (Porcine) (Heparin Sodium,Porcine Flush 500 Unit/5 Ml Syringe) 500 unit IVFLUSH ONCE SYDNI Stop: 07/03/21 23:59 Dexamethasone Sodium Phosphate (Decadron) 12 mg in 50 mls @ 200 mls/hr IV ONCE SYDNI Stop: 07/03/21 23:59 Ondansetron HCl (Zofran) 16 mg in 50 mls @ 200 mls/hr IV ONCE SYDNI Stop: 07/03/21 23:59 Home Medications Medication Instructions Recorded Confirmed Type lorazepam 0.5 mg tablet (Ativan) 0.5 mg PO TID PRN 06/09/21 06/09/21 History Allergies Allergy/AdvReac Type Severity Reaction Status Date / Time iodine Allergy Severe Anaphylaxis Verified 06/09/21 09:47 shellfish derived Allergy Severe Anaphylaxis Verified 06/09/21 11:28 Exam Vital signs: Vital Signs Temp 98.7 F 06/26/21 16:30 Pulse 119 H 06/26/21 16:30 Resp 22 H 06/26/21 16:30 BP 130/81 06/26/21 16:30 Pulse Ox 98 06/26/21 16:30 Weight 51.6 kg BMI result Body Mass Index 17.8 - Constitutional Present: no acute distress - Routine HEENT Exam Head: Present: normal inspection Eye: Present: normal appearance ENT: Present: mucous membranes moist - Routine Neck Exam Present: full ROM - Routine Respiratory Exam Present: decreased breath sounds - Routine Cardiovascular Exam Cardiovascular: Present: RRR, S1, S2 - Routine Abdominal Exam Present: soft, nontender - Routine Extremities Exam Present: nontender - Routine Back/Spine/Pelvis Exam Back/Spine: Present: full ROM - Routine Skin Exam Present: intact, normal turgor - Routine Neurological Exam Present: alert, oriented X3 - Detailed Neurological Exam: Coma Scale Eye Opening: Spontaneous (4) - Routine Psychiatric Exam Present: normal affect Data - Labs CBC & Chem 7: 07/11/21 11:44 07/11/21 11:44 Labs: 06/09/21 10:01 PT with INR [Prothrombin Time INR] Stat 06/26/21 00:00 Acetaminophen [Tylenol] 650 mg PO ONCE CARBOplatin [Paraplatin] 230 mg 0.9 % Sodium Chloride 250 ml IV ONCE Famotidine/PF [Pepcid/PF] 20 mg IVPUSH ONCE Heparin Sodium,Porcine Flush 500 unit IVFLUSH ONCE PACLitaxeL [Taxol] 78 mg 0.9 % Sodium Chloride 250 ml IV ONCE dexAMETHasone sod phosphate/NS [Decadron] 12 mg in 50 ml IV ONCE diphenhydrAMINE HCL [Benadryl] 25 mg IVPUSH ONCE 06/26/21 11:56 Complete Blood Count Auto Diff Stat Comprehensive Met. Panel Stat Hepatitis B Profile Stat 07/03/21 09:06 Famotidine/PF [Pepcid/PF] 20 mg IVPUSH ONCE ONE Ondansetron ODT [Zofran ODT] 8 mg TRANSLINGU ONCE ONE Laboratory Last Values WBC 8.0 X10*3/uL (4.8-10.8) 06/26/21 11:56 RBC 4.22 X10*6/uL (4.60-5.80) L 06/26/21 11:56 Hgb 11.5 g/dl (14.0-18.0) L 06/26/21 11:56 Hct 35.3 % (42.0-52.0) L 06/26/21 11:56 MCV 83.6 fL (80.0-98.0) 06/26/21 11:56 MCH 27.3 pg (27.0-33.0) 06/26/21 11:56 MCHC 32.6 g/dl (31.0-36.0) 06/26/21 11:56 RDW 15.0 % (11.0-16.0) 06/26/21 11:56 Plt Count 433 X10*3/uL (160-400) H 06/26/21 11:56 MPV 9.3 fL (9.4-12.4) L 06/26/21 11:56 Immature Gran % (Auto) 0.4 % (0.0-0.4) 06/26/21 11:56 Neut % (Auto) 79.2 % (45-73) H 06/26/21 11:56 Lymph % (Auto) 10.9 % (20-40) L 06/26/21 11:56 [place] % (Auto) 8.2 % (2-11) 06/26/21 11:56 Eos % (Auto) 0.5 % (0-4) 06/26/21 11:56 Baso % (Auto) 0.8 % (0-2) 06/26/21 11:56 Lymph # (Auto) 0.9 X10*3/uL (1.2-4.9) L 06/26/21 11:56 [place] # (Auto) 0.7 X10*3/uL (0.1-1.2) 06/26/21 11:56 Eos # (Auto) 0.0 X10*3/uL (0.0-0.4) 06/26/21 11:56 Baso # (Auto) 0.1 X10*3/uL (0.0-0.2) 06/26/21 11:56 Abs Immat Gran (auto) 0.03 X10*3/uL (0.00-0.03) 06/26/21 11:56 Absolute Neuts (auto) 6.3 x10*3/uL (2.0-8.3) 06/26/21 11:56 Absolute Nucleated RBC 0.000 X10*3/uL (0.0-0.012) 06/26/21 11:56 Nucleated RBC % (auto) 0.0 /100WBC (0.0-0.2) 06/26/21 11:56 PT 13.2 SEC (9.9-13.0) H 06/09/21 10:01 INR 1.2 (0.9-1.1) H 06/09/21 10:01 Sodium 135 mmol/L (135-145) 06/26/21 11:56 Potassium 4.4 mmol/L (3.3-5.1) 06/26/21 11:56 Chloride 97 mmol/L (96-108) 06/26/21 11:56 Carbon Dioxide 29 mmol/L (22-29) 06/26/21 11:56 Anion Gap 13 (12-20) 06/26/21 11:56 BUN 10 mg/dL (9-16) 06/26/21 11:56 Creatinine 0.68 mg/dL (0.5-1.4) 06/26/21 11:56 Estim Creat Clear Calc 91.6 06/26/21 11:56 Estimated GFR > 60 06/26/21 11:56 Random Glucose 105 mg/dL (60-115) 06/26/21 11:56 Calcium 9.9 mg/dL (8.4-10.2) 06/26/21 11:56 Total Bilirubin 0.6 mg/dL (0.0-1.0) 06/26/21 11:56 AST 14 U/L (5-37) 06/26/21 11:56 ALT 17 U/L (0-40) 06/26/21 11:56 Alkaline Phosphatase 126 U/L (39-117) H 06/26/21 11:56 Total Protein 7.3 g/dL (6.5-8.0) 06/26/21 11:56 Albumin 3.6 g/dL (3.5-5.0) 06/26/21 11:56 Hep Bs Antigen Negative (Negative) 06/26/21 11:56 Hep Bs Antibody NONREACTIVE (Nonreactive) 06/26/21 11:56 Hep B Core Total Ab Nonreactive (Nonreactive) 06/26/21 11:56 Assessment and Plan Patient Active problem list reviewed?: Yes (1) Mass of right lung Status: Inactive Assessment and plan: DATA BASE: 06/08: CBC: WBC 8.3, HGB 12.8, HCT 40.4, MCV 81.6, PLT 381. ESR 70. CMP: GLUCOSE 103, BUN 14, ACCOUNT FINANCIAL MANAGER 0.72. ANKIT 10.4, ALB 4. LFTS: 0.6/141/23/19. CEA: 7.80. LDH: 369. 5/23: CBC: WBC 5.8, HGB 11.4, HCT 35 minutes 9, PLT 379. CMP: Glucose 86, BUN 11, ACCOUNT FINANCIAL MANAGER 0.60, Ankit 10.3, LFTs: 0.5/123/18/14. This is a pleasant 55-year-old gentleman who initially presented to the ER 06/08, after he was noted to be tachycardic when he presented for a colonoscopy. He had recent weight loss. CT scan of the chest revealed: Large right upper lobe mass invading the mediastinum causing severe narrowing of the SVC. The mass is amenable to image guided percutaneous biopsy. Differential diagnosis include: 1. LUNG CANCER: Small cell is more likely. He does have a history of smoking. 2. LYMPHOMA: Primary mediastinal lymphoma, Diffuse large cell or mantle cell. 3. GERM-CELL TUMOR: Non seminoma versus seminoma verses teratoma. He underwent IR guided core biopsy of the mass, on 06/09: Poorly differentiated adenocarcinoma, favor lung primary. PET scan from 06/22: Very large hypermetabolic right upper lobe lesion consistent with lung carcinoma. Involvement of the mediastinum with airway compression. Hypermetabolic left adrenal mass measuring 2.9 cm with SUV max of 10.7 consistent with metastatic disease. 3 cm hypermetabolic focus involving right adrenal gland, likely representing metastatic disease. Hypermetabolic lytic lesion involving the right clivus measuring 1.5 cm with SUV max of 7.9 consistent with metastatic disease. Hypermetabolic lytic lesion involving the right eye ache bone with SUV max of 6.1 measuring 1.25 cm. He was then started on radiation therapy emergently on 06/24. Chemotherapy was started on 06/26. He is here for day 8. Overall he has noticed improvement in his status. PET scan did reveal bony metastases. PLAN: Patient was referred for urgent radiation therapy consultation. He started radiation therapy on , June 29 at [facility]. He was started on carbo Taxol June 26. He is here for week 2. He will be started on denosumab once we get prior authorization. This will be continued every 3 months. He will be re-staged with a CT scan after completion of his treatment in a couple of months time. Will check next gen sequencing, to decide about future treatments. Hopefully he will have a complete response. Thank you, Cc: Dr. Bowie. - Time Spent With Patient Time Spent with Patient (in minutes): 30
[2021-07-03 12:46] VITALS: BP 104/72; PULSE 120; RESP 20; TEMP 36.9; O2SAT 96; BMI 17.6
[2021-07-03] MEDS: Famotidine/PF 20 MG/2 ML VIAL IVPUSH (13:13)
[2021-07-03] MEDS: diphenhydrAMINE HCL 50 MG/ML VIAL 25 MG IVPUSH (13:18)
[2021-07-03] MEDS: Acetaminophen 325 MG TABLET 650 MG PO (13:19)
[2021-07-03] MEDS: Ondansetron ODT 8 MG TAB.RAPDIS TRANSLINGU (13:19)
[2021-07-03] MEDS: dexAMETHasone sod phosphate/NS 12 MG/50 ML PIGGYBACK 200 MG IV (13:37)
--- NOTE | 2021-07-03 14:49 | HO.HEMONCPA ---
PA FOR XGEVA REQUESTED. AWAITING DECISION.
[2021-07-03] MEDS: CARBOPLATIN IV (15:12)
[2021-07-03] MEDS: SODIUM CHLORIDE 0.9% IV (15:12)
--- NOTE | 2021-07-03 16:09 | MHC.HEMONC ---
Here for C2 D1 Paclitaxel/Carbo. Tolerated last treatment well. Offers no c/o. Labs faxed from [facility] and sent to pharmacy. IV started right forearm with good blood return noted. Premeds given as ordered. Treatment done and tolerated well. IV dc'd. Pt states RT going well. Scheduled for next treatment on 07/11
--- NOTE | 2021-07-05 14:43 | HO.HEMONCPA ---
PA FOR PROLIA DENIED. DR BETTENCOURT NOTIFIED.
--- NOTE | 2021-07-06 10:11 | HO.HEMONCPA ---
PA FOR PROLIA DENIED. ZOMETA IS PREFERRED. NO PA REQUIRED FOR ZOMETA
[2021-07-11 11:45] LABS: MANUAL DIFF FLAG NO
[2021-07-11 11:57] LABS: Basophils Percent Auto 0.4 % (0-2); Eosinophils Percent Auto 0.6 % (0-4); Hematocrit 34.8 % (42.0-52.0); Hemoglobin 11.1 g/dl (14.0-18.0); Imm Gran Abs Auto 0.03 X10*3/uL (0.00-0.03); Imm Gran Pct Auto 0.6 % (0.0-0.4); Lymphocytes Absolute Auto 0.4 X10*3/uL (1.2-4.9); Lymphocytes Percent Auto 8.7 % (20-40); Mean Corpuscular HGB Conc 31.9 g/dl (31.0-36.0); Mean Corpuscular Hemoglobin 26.7 pg (27.0-33.0); Mean Corpuscular Volume 83.9 fL (80.0-98.0); Mean Platelet Volume 9.4 fL (9.4-12.4); Monocytes Absolute Auto 0.6 X10*3/uL (0.1-1.2); Monocytes Percent Auto 12.4 % (2-11); Neutrophils Absolute Auto 3.8 x10*3/uL (2.0-8.3); Neutrophils Percent Auto 77.3 % (45-73); Platelet Count 285 X10*3/uL (160-400); Red Blood Count 4.15 X10*6/uL (4.60-5.80); Red Cell Distribution Width 15.9 % (11.0-16.0); White Blood Count 4.9 X10*3/uL (4.8-10.8)
[2021-07-11 12:05] VITALS: BP 92/66; PULSE 115; RESP 20; TEMP 36.6; O2SAT 98; BMI 17.4
[2021-07-11 12:09] LABS: Alanine Aminotransferase 15 U/L (0-40); Albumin Level 3.7 g/dL (3.5-5.0); Alkaline Phosphatase 117 U/L (39-117); Anion Gap 13 (12-20); Aspartate Amino Transferase 15 U/L (5-37); Bilirubin Total 0.6 mg/dL (0.0-1.0); Blood Urea Nitrogen 17 mg/dL (9-16); Calcium 9.9 mg/dL (8.4-10.2); Carbon Dioxide 29 mmol/L (22-29); Chloride 96 mmol/L (96-108); Creatinine Clr Calc Pharmacy 84.7; Estimated Glomerular Filt Rate > 60; Glucose Random 105 mg/dL (60-115); Lactate Dehydrogenase 236 U/L (118-273); Potassium 4.7 mmol/L (3.3-5.1); Sodium 133 mmol/L (135-145); Total Protein 6.9 g/dL (6.5-8.0)
[2021-07-11] MEDS: Famotidine/PF 20 MG/2 ML VIAL IVPUSH (12:55)
[2021-07-11] MEDS: dexAMETHasone sod phosphate/NS 12 MG/50 ML PIGGYBACK 200 MG IV (12:58)
[2021-07-11] MEDS: Acetaminophen 325 MG TABLET 650 MG PO (12:58)
[2021-07-11] MEDS: Ondansetron ODT 8 MG TAB.RAPDIS TRANSLINGU (12:58)
[2021-07-11] MEDS: diphenhydrAMINE HCL 50 MG/ML VIAL 25 MG IVPUSH (13:25)
[2021-07-11 14:27] LABS: Glucose, Whole Blood 130 mg/dL (60-115)
--- NOTE | 2021-07-11 14:48 | MHC.HEMONC ---
pt rang lópez to report nausea bag and tissues given, dr escalante was not in office went back into room to report waiting for dr escalante to come out of follow up with another pt to ask for anti nausea med. pt was wake and sitting up 56 minutes left noted of taxol running. 5 minutes passed and noah walked by pt's room and noticed him leanning over in his chair. upon entering pt was noted to to aguilar and diaphoretic and not breathing. code called and o2 applied. er staff took over
--- NOTE | 2021-07-11 18:43 | P.PNHO_ITS ---
Medical Summary - Medical Summary Date of Service: 07/11/21 Chief complaint: Follow-up for non-small cell lung carcinoma. Medical Summary: DIAGNOSIS: 1. SVC SYNDROME. 2. LARGE LUNG MASS. Pathology: Poorly differentiated adenocarcinoma. Compatible with a lung primary. CURRENT THERAPY: Combined modality therapy with radiation plus carbo Taxol weekly. Here for week 3. Interval History Interval history: Orlando Correa is a pleasant 55 year old gentleman, here for a follow-up visit and for chemotherapy. He completed the zometa Infusion. Four minutes into the Taxol infusion, he started feeling sweaty, dizzy and n auseated. He felt like he would pass out. He felt short of breath. His BP dropped. He did not loose pulse. A Cirt call was called. He was taken to ED.He was given steroid bolus, benadryl. IVF 2 liters and IV Pepcid. He started improving. No oral swelling. NoCP/SOB, to suggest P.E. Impression was, drug reaction from Taxol or Zometa. He was observed in the ER. His HR was 120, however he felt well. BP was normal. Troponin was up, attributed to nausea, vomiting and near syncope. He elected to go home, to take care of his son. Previous History: His lung biopsy from 06/09 revealed poorly differentiated adenocarcinoma, consistent with lung primary. PET scan from 06/22: Very large hypermetabolic right upper lobe lesion consistent with lung carcinoma. Involvement of the mediastinum with airway compression. Hypermetabolic left adrenal mass measuring 2.9 cm with SUV max of 10.7 c onsistent with metastatic disease. 3 cm hypermetabolic focus involving right adrenal gland, likely representing metastatic disease. Hypermetabolic lytic lesion involving the right clivus measuring 1.5 cm with SUV max of 7.9 consistent with metastatic disease. Hypermetabolic lytic lesion involving the right eye ache bone with SUV max of 6.1 measuring 1.25 cm. He was then started on radiation therapy emergently on 06/24. Chemotherapy was started on 06/26. He is here for day 8. He tells me, something must be working. He has no more hemoptysis for the last couple days. His cough has improved and is not as forceful when previously he used to be coughing up a lot. His energy level is fluctuating. Denies fever chills or night sweats. His appetite is good. He does have a good breakfast. He has started gaining weight. He denies headaches. He feels dizzy on bending or exerting himself. He has had palpitations. He has noticed no chest pain but chest tightness. His breathing has improved. He has had a cough with production of clear foamy sputum. It has improved since he quit smoking. He denies abdominal pain however he gets gas and flatulence. No nausea vomiting nor heartburn. He has had about with constipation but that has resolved now. He has not had a colonoscopy. He denies any dysuria or hematuria. Recently he has had some spasms in his muscles. He has neck problems. He has been slowing down in terms of his pace of walking. He has mild depression. Denies skin rashes nor pruritus. PRESENTING HISTORY: He was initially seen as an urgent consult on account of concern for SVC syndrome. Patient was initially seen in the ER on 06/08. He was advised to be admitted however he declined. Notes from the ER doc: Patient is a 55 year old male presenting to the emergency department,, with a rapid heart rate, cough, and intermittent dizziness. Patient states that he was upstairs, being evaluated to have a colonoscopy due to some unintentional weight loss over the last few months, when they noticed he was tachycardic and recommend he come to the ER to be evaluated. He was a long time smoker and just quit a few weeks ago. He has a chronic cough but over the last few weeks has been intermittently dizzy. He denies any abdominal pain, nausea, vomiting, fever, chills, blurry vision, double vision, loss of vision, chest pain, difficulty breathing, shortness of breath, back pain, night sweats, pain with urination, increased urinary freq uency, increased urinary urgency, blood in his urine or stool, syncope or a near syncopal episode, recent trauma or falls, bowel incontinence, bladder incontinence, bowel retention, bladder retention, or any other complaints at this time. Patient states that he has a young son who is special needs and that he is a . FAMILY HISTORY: A maternal uncle had prostate cancer at the age of 75. Dad had alcohol-related liver disease and of GI bleeding. SOCIAL HISTORY: He works for [employer]. 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 He is . of complications related to type 1 diabetes 6 years ago. 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 He used to smoke 1-2 packs a day quit 5 weeks ago. He drinks socially. Review of Systems - Neurologic Reports system reviewed and no additional complaints, except as documented, Reports dizziness, Reports weakness PMFSH Medical History: Medical History (Last Reviewed 07/11/21 @ 15:45 by Sayra Oshea) Adenocarcinoma of lung Bone metastases Mass of right lung Functional capacity: independent ambulation Patient : No Family History: Family History (Last Updated 06/09/21 @ 09:45 by Nicolette Molina CMA) Mother Diverticulitis Breast cancer Maternal Uncle Diverticulitis Prostate cancer Maternal Grandmother Diverticulitis Social History: Social History (Last Reviewed 07/11/21 @ 15:31 by Apryl Ross DO) Living Situation History: Household Members: Children Household Members Other:: - 10 y/o autistic son Housing: House Are you a primary resident care coordinator to a significant other at home: No Do you presently have visiting nurse or other home services: No Tobacco History: Patient Tobacco Use Status: Former Tobacco user Smoked in Last 30 Days: No Smoke Quit Date: 06/11/21 Second Hand Smoke Exposure: Yes Substance Use History: Use of substances other than those prescribed or required for medical reasons : Yes Substance Use Type: Marijuana Substance Use Frequency: Daily Substance Use Frequency Other:: pt uses marijuana edibles at home to sleep Advance Directives: Advance Directives: Yes Advance Directives Information Provided: No Advance Directives on File: Yes Advance Directives Date on File: 06/09/21 Occupation Assessmet: service: No Current occupational status: employed Current occupation: Fulltime Current occupational exposures/hazards: No Oncology Screenings - ECOG Performance Status ECOG Performance Status: 0 Home Medications and Allergies Current Medications: Current Medications Acetaminophen (Acetaminophen 325 Mg Tablet) 650 mg PO ONCE SYDNI Stop: 07/11/21 23:59 Last Admin: 07/11/21 12:58 Dose: 650 mg Documented by: Diphenhydramine HCl (Diphenhydramine Hcl 50 Mg/Ml Vial) 25 mg IVPUSH ONCE SYDNI Stop: 07/11/21 23:59 Last Admin: 07/11/21 13:25 Dose: 25 mg Documented by: Famotidine (Famotidine/Pf 20 Mg/2 Ml Vial) 20 mg IVPUSH ONCE SYDNI Stop: 07/11/21 23:59 Last Admin: 07/11/21 12:55 Dose: 20 mg Documented by: Heparin Sodium (Porcine) (Heparin Sodium,Porcine Flush 500 Unit/5 Ml Syringe) 500 unit IVFLUSH ONCE SYDNI Stop: 07/11/21 23:59 Dexamethasone Sodium Phosphate (Decadron) 12 mg in 50 mls @ 200 mls/hr IV ONCE SYDNI Stop: 07/11/21 23:59 Last Infusion: 07/11/21 13:13 Dose: Infused Documented by: Carboplatin 210 mg/ Sodium (Chloride) 271 mls @ 542 mls/hr IV ONCE SYDNI Stop: 07/11/21 23:59 Paclitaxel 78 mg/ Sodium (Chloride) 263 mls @ 263 mls/hr IV ONCE SYDNI Stop: 07/11/21 23:59 Last Infusion: 07/11/21 14:11 Dose: 0 mls/hr Documented by: Ondansetron HCl (Ondansetron Odt 8 Mg Tab.Rapdis) 8 mg TRANSLINGU ONCE SYDNI Stop: 07/11/21 23:59 Last Admin: 07/11/21 12:58 Dose: 8 mg Documented by: Home Medications Medication Instructions Recorded Confirmed Type lorazepam 0.5 mg tablet (Ativan) 0.5 mg PO TID PRN 06/09/21 06/09/21 History Allergies Allergy/AdvReac Type Severity Reaction Status Date / Time iodine Allergy Severe Anaphylaxis Verified 06/09/21 09:47 shellfish derived Allergy Severe Anaphylaxis Verified 06/09/21 11:28 Exam Vital signs: Vital Signs Temp 97.9 F 07/11/21 12:05 Pulse 115 H 07/11/21 12:05 Resp 20 07/11/21 12:05 BP 92/66 07/11/21 12:05 Pulse Ox 98 07/11/21 12:05 Intake & Output 07/10/21 07/11/21 07/11/21 18:59 06:59 18:59 Intake Total 67.533 / 67.533 Balance 67.533 / 67.533 Intake: Intake, IV Amount 67.533 / 67.533 PACLitaxeL 78 mg In 0.9 % 17.533 / 17.533 Sodium Chloride 250 ml @ 263 mls/hr IV ONCE SYDNI Rx#: [id number] dexAMETHasone sod phosphate/NS 50 / 50 12 mg In 50 ml @ 200 mls/hr IV ONCE SYDNI Rx#:[id number] Other: Weight 50.5 kg Weight in Grams 18468 Weight 50.5 kg BMI result Body Mass Index 17.4 - Constitutional Present: no acute distress - Routine HEENT Exam Head: Present: normal inspection Eye: Present: normal appearance ENT: Present: mucous membranes moist - Routine Neck Exam Present: full ROM - Routine Respiratory Exam Present: decreased breath sounds - Routine Cardiovascular Exam Cardiovascular: Present: RRR, S1, S2 - Routine Abdominal Exam Present: soft, nontender - Routine Extremities Exam Present: nontender - Routine Back/Spine/Pelvis Exam Back/Spine: Present: full ROM - Routine Skin Exam Present: intact, normal turgor - Routine Neurological Exam Present: alert, oriented X3 - Detailed Neurological Exam: Coma Scale Eye Opening: Spontaneous (4) - Routine Psychiatric Exam Present: normal affect Data - Labs CBC & Chem 7: 07/11/21 11:44 07/11/21 11:44 Assessment and Plan Patient Active problem list reviewed?: Yes (1) Mass of right lung Status: Inactive Assessment and plan: DATA BASE: 06/08: CBC: WBC 8.3, HGB 12.8, HCT 40.4, MCV 81.6, PLT 381. ESR 70. CMP: GLUCOSE 103, BUN 14, WEATHERIZATION INSTALLER 0.72. ANKIT 10.4, ALB 4. LFTS: 0.6/141/23/19. CEA: 7.80. LDH: 369. 5/: CBC: WBC 5.8, HGB 11.4, HCT 35 minutes 9, PLT 379. CMP: Glucose 86, BUN 11, WEATHERIZATION INSTALLER 0.60, Ankit 10.3, LFTs: 0.5/123/18/14. This is a pleasant 55-year-old gentleman who initially presented to the ER 06/08, after he was noted to be tachycardic when he presented for a colonoscopy. He had recent weight loss. CT scan of the chest revealed: Large right upper lobe mass invading the mediastinum causing severe narrowing of the SVC. The mass is amenable to image guided percutaneous biopsy. Differential diagnosis include: 1. LUNG CANCER: Small cell is more likely. He does have a history of smoking. 2. LYMPHOMA: Primary mediastinal lymphoma, Diffuse large cell or mantle cell. 3. GERM-CELL TUMOR: Non seminoma versus seminoma verses teratoma. He underwent IR guided core biopsy of the mass, on 06/09: Poorly differentiated adenocarcinoma, favor lung primary. PET scan from 06/22: Very large hypermetabolic right upper lobe lesion consistent with lung carcinoma. Involvement of the mediastinum with airway compression. Hypermetabolic left adrenal mass measuring 2.9 cm with SUV max of 10.7 consistent with metastatic disease. 3 cm hypermetabolic focus involving right adrenal gland, likely representing metastatic disease. Hypermetabolic lytic lesion involving the right clivus measuring 1.5 cm with SUV max of 7.9 consistent with metastatic disease. Hypermetabolic lytic lesion involving the right eye ache bone with SUV max of 6.1 measuring 1.25 cm. He was then started on radiation therapy emergently on 06/24. Chemotherapy was started on 06/26. He is here for week 3. He recieved the Zometa infusion. After 4 minutes into the Taxol Infusion, he started feeling SOB, nauseous, and dizzy. Richie marquez was called. He was hypotensive but did not lose his pulse. Concern was a reaction to either the zometa or Taxol. He was treated with Steroids, Benadryl, Pepcid and IV Fluids. He recovered well, and was able to go home. PLAN: He started radiation therapy on , June 29 at [facility]. He was started on Carbo/Taxol June 26. He came for week 3. However had a reaction. Will switch him to Denosumab, to be on the safe side. This will be continued every 3 months. Will use weekly Carboplatin, as a radiation ambulatory care nurse. This will be continued every 3 months. He will be re-staged with a CT scan after completion of his treatment, in a couple of months time. Can then switch him to full dose Carboplatin/Alimta. Hopefully he will have a complete response. Thank you, Cc: Dr. Bowie. - Time Spent With Patient Time Spent with Patient (in minutes): 30
[2021-07-17 12:06] LABS: MANUAL DIFF FLAG NO
[2021-07-17 12:28] VITALS: BP 120/63; PULSE 130; RESP 19; TEMP 36.8; O2SAT 99; BMI 17.6
[2021-07-17 12:29] LABS: Basophils Percent Auto 0.2 % (0-2); Hematocrit 32.6 % (42.0-52.0); Hemoglobin 10.7 g/dl (14.0-18.0); Imm Gran Abs Auto 0.04 X10*3/uL (0.00-0.03); Imm Gran Pct Auto 0.4 % (0.0-0.4); Lymphocytes Absolute Auto 0.2 X10*3/uL (1.2-4.9); Mean Corpuscular HGB Conc 32.8 g/dl (31.0-36.0); Mean Corpuscular Hemoglobin 27.3 pg (27.0-33.0); Mean Corpuscular Volume 83.2 fL (80.0-98.0); Mean Platelet Volume 9.4 fL (9.4-12.4); Monocytes Absolute Auto 0.9 X10*3/uL (0.1-1.2); Monocytes Percent Auto 9.6 % (2-11); Neutrophils Absolute Auto 8.4 x10*3/uL (2.0-8.3); Neutrophils Percent Auto 87.8 % (45-73); Platelet Count 273 X10*3/uL (160-400); Red Blood Count 3.92 X10*6/uL (4.60-5.80); Red Cell Distribution Width 16.7 % (11.0-16.0); White Blood Count 9.5 X10*3/uL (4.8-10.8)
[2021-07-17 12:49] LABS: Alanine Aminotransferase 25 U/L (0-40); Albumin Level 3.7 g/dL (3.5-5.0); Alkaline Phosphatase 125 U/L (39-117); Anion Gap 14 (12-20); Aspartate Amino Transferase 19 U/L (5-37); Bilirubin Total 0.9 mg/dL (0.0-1.0); Blood Urea Nitrogen 13 mg/dL (9-16); Carbon Dioxide 25 mmol/L (22-29); Chloride 95 mmol/L (96-108); Creatinine Clr Calc Pharmacy 89.3; Estimated Glomerular Filt Rate > 60; Glucose Random 127 mg/dL (60-115); Potassium 4.4 mmol/L (3.3-5.1); Sodium 130 mmol/L (135-145); Total Protein 6.9 g/dL (6.5-8.0)
[2021-07-17 13:05] LABS: Calcium 8.6 mg/dL (8.4-10.2)
[2021-07-17] MEDS: Acetaminophen 325 MG TABLET 650 MG PO (13:33)
--- NOTE | 2021-07-17 13:55 | HO.HEMONCPA ---
PA FOR XGEVA MONTHLY REQUESTED. AWAITING DECISION.
[2021-07-17] MEDS: dexAMETHasone sod phosphate/NS 12 MG/50 ML PIGGYBACK 200 MG IV (13:58)
[2021-07-17] MEDS: CARBOplatin 220 MG in 0.9 % Sodium Chloride 250 ML 544 MG IV (14:57)
--- NOTE | 2021-07-17 17:59 | MHC.HEMONC ---
Pt was in for C4D1 Carbo (holding Paclitaxel this week r/t previous week's allertgic reaction), reports feeling well, in very good spirits, no symptoms to report, VSS, weight stable, labs were drawn/reviewed, pt said he felt totally fine a day after his reaction last week. Nurse and pt discussed w/ Dr. Merino about how it was unclear whether pt had reaction on 07/11 to IV paclitaxel, or to IV Zometa, as it was his first dose. Pt said he'd be happy to receive IV paclitaxel again to help find out, so long as emergency meds were on standby. Nurse explained to pt that he is being switched from Zometa to Denosumab 120 mg SC [id number], booked for 1st injection on 10/03, pending Prior Auth. Nurse Jcarlos Elliott put in PA request for Denosumab. Pt had 22g PIV placed in L FA after 3 attempts, pre-meds PO tylenol, and IV Dex, and IV Zofran were admin, IV Pepcid and IV Benadryl were held as pt did not receive paclitaxel. Pt's Carbo dose was reviewed. Nurse admin Carbo IV a/o over 30 minutes, which pt tolerated very well. Nurse gave pt his d/c packet w/ C5D1 Carbo/Paclitaxel booked on 07/24/21. Dr. Merino will re-address next week whether pt will receive Carbo alone or include Paclitaxel as well.
--- NOTE | 2021-07-18 09:48 | HO.HEMONCPA ---
PA FOR DENOSUMAB INJ APPROVED. REF#:[id number]. DOS -07/20/21 to 07/20/22. DOCUMENT SCANNED IN THE CHART.
--- NOTE | 2021-07-18 16:19 | MHC.HEMONC ---
Pt has folic acid rx called in and pt is aware. We also scheduled b12 for tomorrow at Dr Merino's request as pt to start Carbo/Pemetrexed next week. Pt is advised of all of this.
[2021-07-19] MEDS: Cyanocobalamin (Vitamin B-12) 1,000 MCG/ML VIAL 1000 MCG IM (11:07)
[2021-07-19 11:09] VITALS: BP 107/73; PULSE 126; RESP 20
--- NOTE | 2021-07-19 11:35 | HO.HEMONCPA ---
Addendum entered by Roxana Saez 07/21/21 17:02: PA FOR PEMETREXED & EMEND APPROVED. AUTH/REF#[id number]. DOS 07/19/21 to 07/19/2022. DOCUMENT SCANNED IN THE CHART. Original Note: [place] FOR PEMETREXED & EMEND REQUESTED. AWAITING DECSION
--- NOTE | 2021-07-19 12:51 | MHC.HEMONC ---
Pt arrived for b12 injection and then came in and spoke to Althea and then I did short chemo teach on new medication, Pemetrexd to be given with Carboplatin with RT. He required change in plan due to allergic reaction during weekly Taxol. We reviewed need for folic acid and vitamin b12 as well as Dexamethasone to start day before treatment and a couple of days after Pemetrexed. He will come in for weekly labs while on q21 day regimen. Pt was given written information re: Pemetrexed and reminded when he must call Clinic. He signed consent and will start treatment on Saturday.
--- NOTE | 2021-07-20 14:26 | MHC.HEMONCSW ---
DISTRESS TOOL.... SHANELLE IS UNDER EXTREME STRESS. HE WILL BEGIN CHEMOTHERAPY SOON. 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 HAS YET TO APPLY FOR SSDI, JUST APPLIED DFML[employer] AND IS WAITING HIS FIRST CHECK. 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 WE NEED TO APPLY TO FINANCIAL GRANTS, ASSIST HIM WITH SON DEVELOPMEMT COUNSELOR AND SUCH AGAIN, WILL ENCOURAGE A COUNSELING REFERRAL. A/OX3, HYPER, TALKATIVE, BUT THIS IS HIS BASELINE. SUPPORTIVE COUNSELING PROVIDED.
[2021-07-24 12:21] LABS: MANUAL DIFF FLAG NO
[2021-07-24 12:28] VITALS: BP 131/71; PULSE 129; RESP 20; TEMP 36.8; BMI 17.3
[2021-07-24 12:30] LABS: Basophils Percent Auto 0.2 % (0-2); Hematocrit 35.1 % (42.0-52.0); Hemoglobin 11.3 g/dl (14.0-18.0); Imm Gran Abs Auto 0.13 X10*3/uL (0.00-0.03); Lymphocytes Absolute Auto 0.3 X10*3/uL (1.2-4.9); Lymphocytes Percent Auto 2.3 % (20-40); Mean Corpuscular HGB Conc 32.2 g/dl (31.0-36.0); Mean Corpuscular Hemoglobin 27.5 pg (27.0-33.0); Mean Corpuscular Volume 85.4 fL (80.0-98.0); Mean Platelet Volume 9.3 fL (9.4-12.4); Monocytes Percent Auto 7.7 % (2-11); Neutrophils Absolute Auto 11.2 x10*3/uL (2.0-8.3); Neutrophils Percent Auto 88.8 % (45-73); Platelet Count 386 X10*3/uL (160-400); Red Blood Count 4.11 X10*6/uL (4.60-5.80); Red Cell Distribution Width 17.6 % (11.0-16.0); White Blood Count 12.7 X10*3/uL (4.8-10.8)
[2021-07-24 12:51] LABS: Alanine Aminotransferase 41 U/L (0-40); Albumin Level 3.8 g/dL (3.5-5.0); Alkaline Phosphatase 126 U/L (39-117); Anion Gap 14 (12-20); Aspartate Amino Transferase 23 U/L (5-37); Bilirubin Total 0.4 mg/dL (0.0-1.0); Blood Urea Nitrogen 33 mg/dL (9-16); Calcium 9.8 mg/dL (8.4-10.2); Carbon Dioxide 29 mmol/L (22-29); Chloride 98 mmol/L (96-108); Creatinine Clr Calc Pharmacy 104.3; Estimated Glomerular Filt Rate > 60; Glucose Random 82 mg/dL (60-115); Sodium 136 mmol/L (135-145); Total Protein 7.1 g/dL (6.5-8.0)
[2021-07-24] MEDS: dexAMETHasone sod phosphate/NS 12 MG/50 ML PIGGYBACK 200 MG IV (13:06)
[2021-07-24] MEDS: Cyanocobalamin (Vitamin B-12) 1,000 MCG/ML VIAL 1000 MCG IM (13:06)
--- NOTE | 2021-07-24 13:06 | HE.PHANOTE ---
CARBOPLATIN DOSE CALCULATED AT 625MG; WOULD LIKE TO KEEP AT 570MG TODAY DUE TO PATIENT'S REACTION TO PACLITAXEL A FEW WEEKS AGO
--- NOTE | 2021-07-25 11:27 | MHC.HEMONCSW ---
LATELY, MALIA MAIN CAUSE OF HIS STRESS IS CAUSED BY WAITING FOR HIS SHORT TERM DISABILITY CHECK. ALLOWED HIM TO DISCUSS MANY TOPICS, BASELINE TALKATIVE, RAPID SPEECH. THIS APPEARS TO MAKE HIM FEEL BETTER AFTERWARDS. DISCUSSED RESOURCES AND AUTISTIC RESOURCES BUT HE WILL UTILIZE HIS SONS CASWORKER. REASSURANCE, EDUCATION AND SUPPORT IS PROVIDED.
[2021-07-31 15:46] VITALS: BP 109/78; PULSE 140; RESP 16; TEMP 36.9; O2SAT 98; BMI 17.4
--- NOTE | 2021-07-31 15:53 | P.PNHO_ITS ---
Medical Summary - Medical Summary Date of Service: 07/31/21 Chief complaint: Follow-up for: Lung cancer. Medical Summary: DIAGNOSIS: 1. SVC SYNDROME. 2. LARGE LUNG MASS. Pathology: Poorly differentiated adenocarcinoma. Compatible with a lung primary. CURRENT THERAPY: Combined modality therapy with radiation plus carbo Taxol weekly. He had a reaction to Taxol when is of the 3rd treatment. He was given 1 dose of carboplatin. Then switched over to carbo and Alimta, he received that last week. Interval History Interval history: Orlando Correa is a pleasant 55 year old gentleman, here for a follow-up visit. After he had a reaction to the Taxol, he received single agent carboplatin on 07/17. His regimen was then changed to carboplatin and Alimta. He received a dose on 07/24. He completed radiation therapy last Saturday, 07/25. He tells me that overall he is feeling quite well. His energy level has improved. Sometimes he has to nap over the weekend. Denies fever chills or night sweats. His appetite is good. He does have a good breakfast. He has been gaining weight. He denies headaches, nor dizziness. He has had palpitations. His heart rate is in the 100s. He has noticed no chest pain but chest tightness. His breathing has improved. He has had a cough with production of clear foamy sputum. No hemoptysis. It has improved since he quit smoking. He denies abdominal pain however he gets gas and flatulence. No nausea vomiting nor heartburn. His gag reflex has resolved couple weeks ago. He has had about with constipation but that has resolved now. He has not had a colonoscopy. He denies any dysuria or hematuria. Recently he has had some spasms in his muscles. He has neck problems. He has been slowing down in terms of his pace of walking. He has mild depression. He has a skin rashes on his neck related radiation. He is using hydrocortisone cream. INTERIM HISTORY: His lung biopsy from 06/09 revealed poorly differentiated adenocarcinoma, consistent with lung primary. PET scan from 06/22: Very large hypermetabolic right upper lobe lesion consistent with lung carci noma. Involvement of the mediastinum with airway compression. Hypermetabolic left adrenal mass measuring 2.9 cm with SUV max of 10.7 consistent with metastatic disease. 3 cm hypermetabolic focus involving right adrenal gland, likely representing metastatic disease. Hypermetabolic lytic lesion involving the right clivus measuring 1.5 cm with SUV max of 7.9 consistent with metastatic disease. Hypermetabolic lytic lesion involving the right eye ache bone with SUV max of 6.1 measuring 1.25 cm. He was then started on radiation therapy emergently on 06/24. Chemotherapy was started on 06/26. He tells me, something must be working. He has no more hemoptysis for the last couple days. His cough has improved and is not as forceful when previously he used to be coughing up a lot. PRESENTING HISTORY: He was initially seen as an urgent consult on account of concern for SVC syndrome. Patient was initially seen in the ER on 06/08. He was advised to be admitted however he declined. Notes from the ER doc: Patient is a 55 year old male presenting to the emergency department,, with a rapid heart rate, cough, and intermittent dizziness. Patient states that he was upstairs, being evaluated to have a colonoscopy due to some unintentional weight loss over the last few months, when they noticed he was tachycardic and recommend he come to the ER to be evaluated. He was a long time smoker and just quit a few weeks ago. He has a chronic cough but over the last few weeks has been intermittently dizzy. He denies any abdominal pain, nausea, vomiting, fever, chills, blurry vision, double vision, loss of vision, chest pain, difficulty breathing, shortness of breath, back pain, night sweats, pain with urination, increased urinary frequency, increased urinary urgency, blood in his urine or stool, syncope or a near syncopal episode, recent trauma or falls, bowel incontinence, bladder incontinence, bowel retention, bladder retention, or any other complaints at this time. Patient states that he has a young son who is special needs and that he is a . FAMILY HISTORY: A maternal uncle had prostate cancer at the age of 75. Dad had alcohol-related liver disease and of GI bleeding. SOCIAL HISTORY: He works for [employer]. 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 He is . of complications related to type 1 diabetes 6 years ago. 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 He used to smoke 1-2 packs a day quit 5 weeks ago. He drinks socially. Review of Systems - Constitutional Reports system reviewed and no additional complaints, except as documented, Reports weight gain, Denies lack of energy - Eyes Reports system reviewed and no additional complaints, except as documented - ENT Reports system reviewed and no additional complaints, except as documented - Cardiovascular Reports system reviewed and no additional complaints, except as documented - Respiratory Reports no additional respiratory complaints - Gastrointestinal Reports system reviewed and no additional complaints, except as documented - Genitourinary Genitourinary: Reports no additional male genitourinary complaints - Musculoskeletal Reports system reviewed and no additional complaints, except as documented - Integumentary/Breasts Skin/Breast: Reports no additional skin complaints - Neurologic Reports system reviewed and no additional complaints, except as documented, Reports dizziness, Reports weakness - Psychiatric Reports system reviewed and no additional complaints, except as documented - Endocrine Reports no additional endocrine complaints - Hematologic/Lymphatic Reports system reviewed and no additional complaints, except as documented - Allergic/Immunologic Reports system reviewed and no additional complaints, except as documented PMF Medical History: Medical History (Last Reviewed 07/31/21 @ 15:49 by Nicolette Molina CMA) Bone metastases Mass of right lung Functional capacity: independent ambulation Patient : No Family History: Family History (Last Reviewed 07/31/21 @ 15:49 by Nicolette Molina CMA) Mother Diverticulitis Breast cancer Maternal Uncle Diverticulitis Prostate cancer Maternal Grandmother Diverticulitis Social History: Social History (Last Updated 07/31/21 @ 15:50 by Nicolette Molina CMA) Living Situation History: Household Members: Children Household Members Other:: - 10 y/o autistic son Housing: House Are you a primary urgent care nurse practitioner to a significant other at home: No Do you presently have visiting nurse or other home services: No Alcohol History Details: 1. How often do you have a drink containing alcohol?: b. Monthly or less 2. How many drinks containing alcohol do you have on a typical day when you are drinking?: a. 1 or 2 Tobacco History: Patient Tobacco Use Status: Former Tobacco user Smoke Quit Date: 06/11/21 Second Hand Smoke Exposure: Yes Substance Use History: Use of substances other than those prescribed or required for medical reasons : No Substance Use Type: Marijuana Domestic Abuse History: Have you been hit, kicked, punched, or otherwise hurt by someone within the past year? If so, by whom?: No Advance Directives: Advance Directives Date on File: 06/09/21 Homicidal Assessment: Do you have thoughts of harming others: None Do you have a plan to hurt others: No Plan Do you have the means to hurt others: No Nutrition Assessment: Recently lost weight without trying: No Patient : No Occupation Assessmet: service: No Current occupational status: employed Current occupation: Fulltime Current occupational exposures/hazards: No Oncology Screenings - ECOG Performance Status ECOG Performance Status: 0 Home Medications and Allergies Home Medications Medication Instructions Recorded Confirmed Type lorazepam 0.5 mg tablet (Ativan) 0.5 mg PO TID PRN Anxiety 06/09/21 07/31/21 History Allergies Allergy/AdvReac Type Severity Reaction Status Date / Time iodine Allergy Severe Anaphylaxis Verified 07/31/21 15:51 shellfish derived Allergy Severe Anaphylaxis Verified 07/31/21 15:51 Exam Vital signs: Vital Signs Temp 98.4 F 07/31/21 15:46 Pulse 140 H 07/31/21 15:46 Resp 16 07/31/21 15:46 BP 109/78 07/31/21 15:46 Pulse Ox 98 07/31/21 15:46 O2 Del Method 07/31/21 15:46 Intake & Output 07/30/21 07/31/21 07/31/21 18:59 06:59 18:59 Other: Weight 50.3 kg [place] Weight in Grams [id number] Weight 50.3 kg BMI result Body Mass Index 17.4 - Constitutional Present: no acute distress - Routine HEENT Exam Head: Present: normal inspection Eye: Present: normal appearance ENT: Present: mucous membranes moist - Routine Neck Exam Present: full ROM - Routine Respiratory Exam Present: decreased breath sounds - Routine Cardiovascular Exam Cardiovascular: Present: RRR, S1, S2 - Routine Abdominal Exam Present: soft, nontender - Routine Extremities Exam Present: nontender - Routine Back/Spine/Pelvis Exam Back/Spine: Present: full ROM - Routine Skin Exam Present: intact, normal turgor - Routine Neurological Exam Present: alert, oriented X3 - Detailed Neurological Exam: Coma Scale Eye Opening: Spontaneous (4) - Routine Psychiatric Exam Present: normal affect Data - Labs CBC & Chem 7: 07/24/21 12:21 07/24/21 12:21 Assessment and Plan Patient Active problem list reviewed?: Yes (1) Mass of right lung Status: Inactive Assessment and plan: DATA BASE: 06/08: CBC: WBC 8.3, HGB 12.8, HCT 40.4, MCV 81.6, PLT 381. ESR 70. CMP: GLUCOSE 103, BUN 14, LEGAL BILLING ANALYST 0.72. ROMERO 10.4, ALB 4. LFTS: 0.6/141/23/19. CEA: 7.80. LDH: 369. 5/23: CBC: WBC 5.8, HGB 11.4, HCT 35 minutes 9, PLT 379. CMP: Glucose 86, BUN 11, LEGAL BILLING ANALYST 0.60, Romero 10.3, LFTs: 0.5/123/18/14. This is a pleasant 55-year-old gentleman who initially presented to the ER 06/08, after he was noted to be tachycardic when he presented for a colonoscopy. He had recent weight loss. CT scan of the chest revealed: Large right upper lobe mass invading the mediastinum causing severe narrowing of the SVC. The mass is amenable to image guided percutaneous biopsy. Differential diagnosis include: 1. LUNG CANCER: Small cell is more likely. He does have a history of smoking. 2. LYMPHOMA: Primary mediastinal lymphoma, Diffuse large cell or mantle cell. 3. GERM-CELL TUMOR: Non seminoma versus seminoma verses teratoma. He underwent IR guided core biopsy of the mass, on 06/09: Poorly differentiated adenocarcinoma, favor lung primary. PET scan from 06/22: Very large hypermetabolic right upper lobe lesion consistent with lung carcinoma. Involvement of the mediastinum with airway compression. Hypermetabolic left adrenal mass measuring 2.9 cm with SUV max of 10.7 consistent with metastatic disease. 3 cm hypermetabolic focus involving right adrenal gland, likely representing metastatic disease. Hypermetabolic lytic lesion involving the right clivus measuring 1.5 cm with SUV max of 7.9 consistent with metastatic disease. Hypermetabolic lytic lesion involving the right eye ache bone with SUV max of 6.1 measuring 1.25 cm. PET scan did reveal bony metastases. He was then started on radiation therapy emergently on 06/24. Chemotherapy was started on 06/26. . Patient was referred for urgent radiation therapy consultation. He started radiation therapy on , June 29 at [facility]. He was started on carbo Taxol June 26. He had a reaction to Taxol on 07/11. He recieved Zometa that day as well. He was referred to the emergency room. On 07/17, he received single agent carboplatin. On 07/24, he was started on carbo Alimta. Overall he has noticed improvement in his status. He will continue on the current regimen. PLAN: He will be started on denosumab, in a month once we get prior authorization. This will be continued monthly. He will be re-staged with a CT scan after completion of his treatment in a couple of months time. Will check next gen sequencing, to decide about future treatments. Hopefully he will have a complete response. Thank you, Cc: Dr. Bowie. - Time Spent With Patient Time Spent with Patient (in minutes): 30
--- NOTE | 2021-07-31 16:43 | MHC.HEMONCMA ---
Pt was in for follow up. Clinical summary reviewed and updated, VSS. Pt to return in 2 weeks.
--- NOTE | 2021-08-01 10:11 | MHC.HEMONCSW ---
yesterday, met with patient who was here in follow up. stressed about lack of finances, state disability has yet begun. he does have savings though. physically has been dizzy, staff aware. supportive counseling provided. he is aware of my availability..does not want counseling referral.
--- NOTE | 2021-08-01 12:27 | HO.HEMONCSCH ---
Echo sent to [facility].
[2021-08-07 12:02] LABS: MANUAL DIFF FLAG NO
[2021-08-07 12:10] LABS: Eosinophils Percent Auto 0.8 % (0-4); Hematocrit 30.5 % (42.0-52.0); Hemoglobin 10.1 g/dl (14.0-18.0); Imm Gran Abs Auto 0.01 X10*3/uL (0.00-0.03); Imm Gran Pct Auto 0.4 % (0.0-0.4); Lymphocytes Absolute Auto 0.2 X10*3/uL (1.2-4.9); Lymphocytes Percent Auto 6.6 % (20-40); Mean Corpuscular HGB Conc 33.1 g/dl (31.0-36.0); Mean Corpuscular Hemoglobin 28.1 pg (27.0-33.0); Mean Corpuscular Volume 84.7 fL (80.0-98.0); Mean Platelet Volume 9.1 fL (9.4-12.4); Monocytes Absolute Auto 0.3 X10*3/uL (0.1-1.2); Monocytes Percent Auto 13.2 % (2-11); Platelet Count 163 X10*3/uL (160-400); Red Cell Distribution Width 17.1 % (11.0-16.0); White Blood Count 2.6 X10*3/uL (4.8-10.8)
[2021-08-07 12:29] LABS: Alanine Aminotransferase 27 U/L (0-40); Albumin Level 3.6 g/dL (3.5-5.0); Alkaline Phosphatase 106 U/L (39-117); Anion Gap 11 (12-20); Aspartate Amino Transferase 17 U/L (5-37); Bilirubin Total 0.5 mg/dL (0.0-1.0); Blood Urea Nitrogen 12 mg/dL (9-16); Calcium 8.9 mg/dL (8.4-10.2); Carbon Dioxide 28 mmol/L (22-29); Chloride 101 mmol/L (96-108); Creatinine Clr Calc Pharmacy 96.4; Estimated Glomerular Filt Rate > 60; Glucose Random 96 mg/dL (60-115); Potassium 4.4 mmol/L (3.3-5.1); Sodium 136 mmol/L (135-145); Total Protein 6.5 g/dL (6.5-8.0)
--- NOTE | 2021-08-10 10:34 | MHC.HEMONCSW ---
OM JULY 27 I FAXED RECORDS TO [facility].
[2021-08-15 13:19] LABS: MANUAL DIFF FLAG NO
[2021-08-15 13:22] VITALS: BP 107/72; PULSE 120; RESP 20; TEMP 36.2; O2SAT 98; BMI 17.6
[2021-08-15 13:38] LABS: Basophils Percent Auto 0.1 % (0-2); Eosinophils Percent Auto 0.1 % (0-4); Hemoglobin 10.8 g/dl (14.0-18.0); Imm Gran Abs Auto 0.04 X10*3/uL (0.00-0.03); Imm Gran Pct Auto 0.6 % (0.0-0.4); Lymphocytes Absolute Auto 0.5 X10*3/uL (1.2-4.9); Lymphocytes Percent Auto 6.5 % (20-40); Mean Corpuscular HGB Conc 32.7 g/dl (31.0-36.0); Mean Corpuscular Hemoglobin 28.6 pg (27.0-33.0); Mean Corpuscular Volume 87.3 fL (80.0-98.0); Mean Platelet Volume 9.1 fL (9.4-12.4); Monocytes Absolute Auto 0.9 X10*3/uL (0.1-1.2); Monocytes Percent Auto 12.3 % (2-11); Neutrophils Absolute Auto 5.8 x10*3/uL (2.0-8.3); Neutrophils Percent Auto 80.4 % (45-73); Platelet Count 588 X10*3/uL (160-400); Red Blood Count 3.78 X10*6/uL (4.60-5.80); Red Cell Distribution Width 19.4 % (11.0-16.0); White Blood Count 7.2 X10*3/uL (4.8-10.8)
--- NOTE | 2021-08-15 13:49 | MHC.HEMONCSW ---
PFML EXTENSION LETTER COMPLETED, SCANNED AND FAXED.
[2021-08-15 13:53] LABS: Alanine Aminotransferase 20 U/L (0-40); Alkaline Phosphatase 114 U/L (39-117); Anion Gap 14 (12-20); Aspartate Amino Transferase 16 U/L (5-37); Bilirubin Total 0.4 mg/dL (0.0-1.0); Blood Urea Nitrogen 19 mg/dL (9-16); Calcium 9.3 mg/dL (8.4-10.2); Carbon Dioxide 26 mmol/L (22-29); Chloride 100 mmol/L (96-108); Creatinine Clr Calc Pharmacy 85.5; Estimated Glomerular Filt Rate > 60; Glucose Random 130 mg/dL (60-115); Potassium 3.7 mmol/L (3.3-5.1); Sodium 136 mmol/L (135-145); Total Protein 7.1 g/dL (6.5-8.0)
[2021-08-15] MEDS: Famotidine/PF 20 MG/2 ML VIAL IVPUSH (14:40)
[2021-08-15] MEDS: dexAMETHasone sod phosphate/NS 12 MG/50 ML PIGGYBACK 200 MG IV (15:07)
[2021-08-15] MEDS: diphenhydrAMINE HCL 50 MG/ML VIAL 25 MG IVPUSH (15:29)
--- NOTE | 2021-08-15 17:44 | MHC.HEMONC ---
Pt is here for C2 D1 Pemetrexed/Carbo. Labs drawn. States feeling well since last treatment. IV started right forearm with good blood return noted. Premeds given as ordered. Treatment done and tolerated well. Next treatment scheduled for 3 weeks. Discharge packet given and pt departed unit.
--- NOTE | 2021-08-28 09:58 | HE.ONCSEC ---
PATIENT CALLED TODAY TO CANCEL CHEMO AND INJECTION APPT (WANTS TO MOVE IT TO ANOTHER DAY BECAUSE PATIENT SAYS HIS SON'S BIRTHDAY IS THAT DAY) . I TRANSFERRED THE CALL TO ONE OF THE NURSES .
--- NOTE | 2021-08-28 12:41 | MHC.HEMONC ---
Spoke with pt. He called asking to change his treatment next week to Saturday instead of Saturday. Schedule changed. Pt also states he has been getting headaches since he started with his new treatment. He states he has history of migraines, but not daily. He has been taking tylenol, but it doesn't help much. Spoke with Dr Merino, and ok for pt to try motrin. Pt states he will try alternating tylenol and motrin.
--- NOTE | 2021-09-04 10:12 | MHC.HEMONCMA ---
Chest CT/MRI head/Neck entered in [facility].
[2021-09-04 13:31] LABS: MANUAL DIFF FLAG NO
[2021-09-04 13:36] VITALS: BP 92/63; PULSE 128; RESP 18; TEMP 36.4; O2SAT 99; BMI 17.0
[2021-09-04 13:48] LABS: Hematocrit 31.5 % (42.0-52.0); Hemoglobin 10.6 g/dl (14.0-18.0); Imm Gran Abs Auto 0.03 X10*3/uL (0.00-0.03); Imm Gran Pct Auto 0.6 % (0.0-0.4); Lymphocytes Absolute Auto 0.4 X10*3/uL (1.2-4.9); Lymphocytes Percent Auto 7.5 % (20-40); Mean Corpuscular HGB Conc 33.7 g/dl (31.0-36.0); Mean Corpuscular Hemoglobin 29.3 pg (27.0-33.0); Mean Platelet Volume 9.1 fL (9.4-12.4); Monocytes Absolute Auto 0.8 X10*3/uL (0.1-1.2); Monocytes Percent Auto 14.9 % (2-11); Platelet Count 491 X10*3/uL (160-400); Red Blood Count 3.62 X10*6/uL (4.60-5.80); Red Cell Distribution Width 20.2 % (11.0-16.0); White Blood Count 5.2 X10*3/uL (4.8-10.8)
[2021-09-04 14:04] LABS: Alanine Aminotransferase 15 U/L (0-40); Albumin Level 4.1 g/dL (3.5-5.0); Alkaline Phosphatase 126 U/L (39-117); Anion Gap 13 (12-20); Aspartate Amino Transferase 15 U/L (5-37); Bilirubin Total 0.5 mg/dL (0.0-1.0); Blood Urea Nitrogen 11 mg/dL (9-16); Calcium 9.6 mg/dL (8.4-10.2); Carbon Dioxide 29 mmol/L (22-29); Chloride 96 mmol/L (96-108); Creatinine Clr Calc Pharmacy 80.5; Estimated Glomerular Filt Rate > 60; Glucose Random 99 mg/dL (60-115); Potassium 4.2 mmol/L (3.3-5.1); Sodium 134 mmol/L (135-145); Total Protein 7.2 g/dL (6.5-8.0)
[2021-09-04] MEDS: dexAMETHasone sod phosphate/NS 12 MG/50 ML PIGGYBACK 200 MG IV (14:58)
--- NOTE | 2021-09-04 17:49 | MHC.HEMONC ---
Pt was in for C3D1 Pemetrexed/Carbo, 21D cycle, given w/ concurrent RT at [facility] Rad/Onc. Pt arrived, VSS, weight stable, labs drawn/reviewed, nurse sent copies to [facility] Rad/Onc. Pt reported he has had continuing fatigue, tingling/numbness to fingers of his L hand, but most troubling for him is strong, intermittent HAs and pain radiating through his neck, 7-9/10, which he says interfere w/ his sleep, and that PRN tylenol and motrin have no effect, and he inquired about possible scrip for muscle relaxants. Dr. Merino was notified, sent scrip to pt's pharmacy for PRN oxycodone 5 mg PO, also offered x1 dose now, but pt declined as he has to drive home today. Nurse reviewed side effects of opioids w/ pt and he decided to try the oxycodone at home when it's time to rest. Pt has 22g PIV placed to L FA by Nurse Marshall, pos blood return, received IV pre-meds Zofran and Dexamethasone. Pt received Pemetrexed over 10 min and Carbo over 30 min, both well-tolerated, PIV was removed. Nurse confirmed w/ pt he knows about upcoming MRI sched on 09/06. Nurse also confirmed w/ Dr. Merino and Nurse Jcarlos Elliott that pt is to receive B12 injections w/ every 3rd cycle, so pt had his next booked w/ C4D1 on 09/25/21, and pt to continue w/ [id number] Denosumab injections, also booked fo 09/25/21. Pt received d/c packet and left in good spirits.
[2021-09-12 15:39] VITALS: BP 110/72; PULSE 125; TEMP 36.9; O2SAT 99; BMI 17.4
--- NOTE | 2021-09-12 15:50 | P.PNHO-ONC_ITS ---
Medical Summary - Medical Summary Date of Service: 09/12/21 Chief complaint: Abnormal brain MRI Medical Summary: DIAGNOSIS: 1. SVC SYNDROME. 2. LARGE LUNG MASS. Pathology: Poorly differentiated adenocarcinoma. Compatible with a lung primary. CURRENT THERAPY: Combined modality therapy with radiation plus carbo Taxol weekly. He had a reaction to Taxol when is of the 3rd treatment. He was given 1 dose of carboplatin. Then switched over to carbo and Alimta, he received that last week. Interval History Interval history: Patient seen urgently today because of abnormal MRI scan. He says that he had some minor headache which resolved with chiropractor treatment. He denies change in vision, diplopia, nausea or any new symptoms. He is scheduled for CT chest this week. Review of Systems - Constitutional Reports as per HPI, Reports no additional constitutional complaints - Cardiovascular Reports no additional cardiovascular complaints - Respiratory Reports no additional respiratory complaints - Neurologic Reports no additional neurologic complaints, Reports dizziness, Reports weakness PMFSH Medical History: Medical History (Last Reviewed 09/12/21 @ 15:42 by TIN Shaver) Adenocarcinoma of lung Bone metastases Mass of right lung Functional capacity: independent ambulation Family History: Family History (Last Reviewed 09/12/21 @ 15:42 by TIN Shaver) Mother Diverticulitis Breast cancer Maternal Uncle Diverticulitis Prostate cancer Maternal Grandmother Diverticulitis Social History: Social History (Last Updated 09/12/21 @ 15:44 by TIN Shaver) Living Situation History: Household Members: Children Household Members Other:: - 10 y/o autistic son Housing: House Are you a primary patient care technician instructor to a significant other at home: No Do you presently have visiting nurse or other home services: No Alcohol History Details: 1. How often do you have a drink containing alcohol?: b. Monthly or less 2. How many drinks containing alcohol do you have on a typical day when you are drinking?: a. 1 or 2 Tobacco History: Patient Tobacco Use Status: Former Tobacco user Smoke Quit Date: 06/11/21 Second Hand Smoke Exposure: Yes Substance Use History: Use of substances other than those prescribed or required for medical reasons : Yes Substance Use Type: Marijuana Domestic Abuse History: Have you been hit, kicked, punched, or otherwise hurt by someone within the past year? If so, by whom?: No Do you feel safe in your current relationship?: No Current Relationship Advance Directives: Advance Directives Date on File: 06/09/21 Homicidal Assessment: Do you have thoughts of harming others: None Do you have a plan to hurt others: No Plan Do you have the means to hurt others: No Nutrition Assessment: Recently lost weight without trying: No Patient : No Occupation Assessmet: service: No Current occupational status: employed Current occupation: Fulltime Current occupational exposures/hazards: No Home Medications and Allergies Home Medications Medication Instructions Recorded Confirmed Type lorazepam 0.5 mg tablet (Ativan) 0.5 mg PO TID PRN Anxiety 06/09/21 09/12/21 History Allergies Allergy/AdvReac Type Severity Reaction Status Date / Time iodine Allergy Severe Anaphylaxis Verified 07/31/21 15:51 shellfish derived Allergy Severe Anaphylaxis Verified 07/31/21 15:51 Exam Vital signs: Vital Signs Temp 98.4 F 09/12/21 15:39 Pulse 125 H 09/12/21 15:39 Resp 18 09/04/21 13:36 BP 110/72 09/12/21 15:39 Pulse Ox 99 09/12/21 15:39 O2 Del Method 09/12/21 15:39 Intake & Output 09/11/21 09/12/21 09/12/21 18:59 06:59 18:59 Other: Weight 50.5 kg Weight in Grams [id number] Weight 50.5 kg BMI result Body Mass Index 17.4 - Constitutional Present: no acute distress - Routine HEENT Exam Head: Present: normal inspection - Routine Neck Exam Present: full ROM - Routine Respiratory Exam Present: decreased breath sounds - Routine Cardiovascular Exam Cardiovascular: Present: RRR, S1, S2 - Routine Abdominal Exam Present: soft, nontender - Routine Extremities Exam Present: nontender - Routine Back/Spine/Pelvis Exam Back/Spine: Present: full ROM - Routine Skin Exam Present: intact, normal turgor - Routine Neurological Exam Present: alert, oriented X3 - Detailed Neurological Exam: Coma Scale Eye Opening: Spontaneous (4) - Routine Psychiatric Exam Present: normal affect Data - Labs CBC & Chem 7: 09/04/21 13:30 09/04/21 13:30 Assessment and Plan Patient Active problem list reviewed?: Yes (1) Adenocarcinoma of lung Status: Chronic Assessment and plan: This is a pleasant 55-year-old male with metastatic lung adenocarcinoma diagnosed in May 2021. Biopsy of right pleural mass revealed Pathology-poorly differentiated carcinoma. EGFR, alk, BRAF, ROS1 and PD L1 negative. He received palliative radiation for SVC syndrome. He is on systemic therapy with carboplatin and pemetrexed. He had brain MRI done on 09/06/2021 which revealed enhancing mass filling the right sphenoid sinus measuring 3 cm x 2.6 cm and a small 3 mm enhancing lesion in the right peritrigonal white matter. Probable metastasis for both these lesions. I am ordering a PET-CT. I spoke to Dr. Bowie his radiation oncologist at [facility] for radiotherapy of this lesion. He will see the patient soon. All of the above was explained to patient. He is not having any major symptoms and overall feeling quite well. - Time Spent With Patient Time Spent with Patient (in minutes): 20
--- NOTE | 2021-09-12 16:21 | HE.ONCSEC ---
DID NOT GIVE ME A FOLLOW UP DATE FOR PATIENT , SHE SAID TO WAIT TILL COMES BACK AND SEE WHEN SHE WANTS TO SEE PATIENT AGAIN FOR A FOLLOW UP ( PATIENT IS A PATIENT )
--- NOTE | 2021-09-13 12:27 | HO.HEMONCPA ---
PA IS REQUIRED FOR PET CT , I FAXED OVER CLINICAL INFORMATION TO [facility]. AWAITING DECISION . CASE#[id number]
--- NOTE | 2021-09-18 10:15 | HO.HEMONCPA ---
PA FOR PET CT HAS BEEN APPROVED REFRENCE#[id number] EXPIRATION DATE -12/12/21 ( DOCUMENT DID NOT GIVE A START DATE ONLY GAVE AN END DATE ) . ( SEE DOCUMENT SCANNED IN CHART )
--- NOTE | 2021-09-18 10:38 | HO.HEMONCPA ---
SENT CLINICAL INFORMATION TO [facility] , AWAITING FAX BACK OF APPT DATE & TIME
--- NOTE | 2021-10-05 10:45 | MHC.HEMONCSW ---
FAXED DISABILITY P-WORK PER PT REQUEST TO THE [facility].
--- NOTE | 2021-10-20 08:32 | HO.HEMONCPA ---
PATIENT IS SCHEDULED FOR PET CT ON 10/24/21 AT 08:15AM
--- NOTE | 2021-10-23 11:48 | PM.HEMONCPN ---
Medical Summary - Medical Summary Date of Service: 10/23/21 Chief complaint: Follow-up for: Non-small cell lung carcinoma. Medical Summary: DIAGNOSIS: 1. SVC SYNDROME. 2. LARGE LUNG MASS. Pathology: Poorly differentiated adenocarcinoma. Compatible with a lung primary. CURRENT THERAPY: Combined modality therapy with radiation plus carbo Taxol weekly, started 06/26. He had a reaction to Taxol when he received the 3rd treatment, on 07/17. He was given 1 dose of carboplatin. Then switched over to carbo and Alimta, on 07/24. He received 2nd dose on 08/25 and 3rd dose on 09/04, along with the radiation. He was then started on radiation to the brain: Started 09/28 through 10/13. Interval History Interval history: Orlando Correa is a pleasant 55 year old gentleman, here for a follow-up visit. He was admitted to the hospital on 09/23. Discharge summary: 55-year-old male with past medical history of adenocarcinoma of the lung with Mets to multiple places including the brain, who presents to the hospital with complaints of diplopia and left facial weakness.? Patient reports that his symptoms started in the a.m., he was recently told that he has brain meds and therefore he was concerned and decided to come to the hospital.? Patient reports continues diplopia and weakness in his left face, reports no slurred speech, no difficulty finding words, no weakness numbness or tingling in his upper and lower extremities.? Reports no previous similar episode.? Reports a headache that is all over his head from the [place] way to the occipital region, reports no nausea vomiting, no dizziness, no abdominal pain, no constipation or diarrhea.? no lower extremity edema and no urinary symptoms.? On arrival to the ED patient found to have a heart rate in the 120s other otherwise hemodynamically stable Labs are significant for WBC count of 4.0, hemoglobin of 9.7, hematocrit of 26.3 sodium of 119 chloride of 80, osmolality of 246, magnesium of 1.5, UA negative, urine osmolality of 186, urine sodium 48, urine potassium of 12.5, and random chloride of 54 Hospital Course: Admitted to medical floor and started on IV Decadron. 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 Recommendation was for chemotherapy and XRT. attempts were made to transfer to [facility] where patient received previous XRT. Also noted he was severely hyponatremic on arrival. Seen by Renal; free water repletion begun, with normalization over the next several days. On time of discharge his sodium is acceptable per Nephrology and he has follow-up with [facility] XRT. He will be discharged home on a Decadron taper. He tells me he completed his radiation therapy to the head on 10/13. He did well. His headaches have resolved. He still experiences some double vision in has right facial numbness. He is the Decadron taper. He is down to 2 mg b.i.d. His PET scan is scheduled for tomorrow. His energy level has improved. Sometimes he has to nap over the weekend. Denies fever chills or night sweats. His appetite is good. He does have a good breakfast. He has been gaining weight. He denies headaches, nor dizziness. He has had palpitations. His heart rate is in the 100s. He has noticed no chest pain but chest tightness. His breathing has improved. He has had a cough with production of clear foamy sputum. No hemoptysis. It has improved since he quit smoking. He denies abdominal pain however he gets gas and flatulence. No nausea vomiting nor heartburn. His gag reflex has resolved couple weeks ago. He has had about with constipation but that has resolved now. He has not had a colonoscopy. He denies any dysuria or hematuria. Recently he has had some spasms in his muscles. He has neck problems. He has been slowing down in terms of his pace of walking. He has mild depression. Previous history: After he had a reaction to the Taxol, he received single agent carboplatin on 07/17. His regimen was then changed to carboplatin and Alimta. He received a dose on 07/24. He completed radiation therapy last Saturday, 07/25. He has a skin rashes on his neck related radiation. He is using hydrocortisone cream. INTERIM HISTORY: His lung biopsy from 06/09 revealed poorly differentiated adenocarcinoma, consistent with lung primary. PET scan from 06/22: Very large hypermetabolic right upper lobe lesion consistent with lung carcinoma. Involvement of the mediastinum with airway compression. Hypermetabolic left adrenal mass measuring 2.9 cm with SUV max of 10.7 consistent with metastatic disease. 3 cm hypermetabolic focus involving right adrenal gland, likely representing metastatic disease. Hypermetabolic lytic lesion involving the right clivus measuring 1.5 cm with SUV max of 7.9 consistent with metastatic disease. Hypermetabolic lytic lesion involving the right eye ache bone with SUV max of 6.1 measuring 1.25 cm. He was then started on radiation therapy emergently on 06/24. Chemotherapy was started on 06/26. He tells me, something must be working. He has no more hemoptysis for the last couple days. His cough has improved and is not as forceful when previously he used to be coughing up a lot. PRESENTING HISTORY: He was initially seen as an urgent consult on account of concern for SVC syndrome. Patient was initially seen in the ER on 06/08. He was advised to be admitted however he declined. Notes from the ER doc: Patient is a 55 year old male presenting to the emergency department,, with a rapid heart rate, cough, and intermittent dizziness. Patient states that he was upstairs, being evaluated to have a colonoscopy due to some unintentional weight loss over the last few months, when they noticed he was tachycardic and recommend he come to the ER to be evaluated. He was a long time smoker and just quit a few weeks ago. He has a chronic cough but over the last few weeks has been intermittently dizzy. He denies any abdominal pain, nausea, vomiting, fever, chills, blurry vision, double vision, loss of vision, chest pain, difficulty breathing, shortness of breath, back pain, night sweats, pain with urination, increased urinary frequency, increased urinary urgency, blood in his urine or stool, syncope or a near syncopal episode, recent trauma or falls, bowel incontinence, bladder incontinence, bowel retention, bladder retention, or any other complaints at this time. Patient states that he has a young son who is special needs and that he is a . FAMILY HISTORY: A maternal uncle had prostate cancer at the age of 75. Dad had alcohol-related liver disease and of GI bleeding. SOCIAL HISTORY: He works for [employer]. 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 He is . of complications related to type 1 diabetes 6 years ago. 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 He used to smoke 1-2 packs a day quit 5 weeks ago. He drinks socially. Review of Systems - Constitutional Reports system reviewed and no additional complaints, except as documented, Reports weight gain, Denies weakness - Eyes Reports system reviewed and no additional complaints, except as documented - ENT Reports system reviewed and no additional complaints, except as documented - Cardiovascular Reports system reviewed and no additional complaints, except as documented - Respiratory Reports no additional respiratory complaints - Gastrointestinal Reports system reviewed and no additional complaints, except as documented - Genitourinary Genitourinary: Reports no additional male genitourinary complaints - Musculoskeletal Reports system reviewed and no additional complaints, except as documented - Integumentary/Breasts Skin/Breast: Reports no additional skin complaints - Neurologic Reports system reviewed and no additional complaints, except as documented, Reports dizziness, Reports weakness - Psychiatric Reports system reviewed and no additional complaints, except as documented - Endocrine Reports no additional endocrine complaints - Hematologic/Lymphatic Reports system reviewed and no additional complaints, except as documented - Allergic/Immunologic Reports system reviewed and no additional complaints, except as documented PMFSH Medical History: Medical History (Last Reviewed 10/23/21 @ 12:01 by Nicolette Molina CMA) Adenocarcinoma of lung Bone metastases Mass of right lung Functional capacity: independent ambulation Patient : No Family History: Family History (Last Reviewed 09/24/21 @ 07:00 by Migdalia Horan MD) Mother Diverticulitis Breast cancer Maternal Uncle Diverticulitis Prostate cancer Maternal Grandmother Diverticulitis Surgical History: Surgical History (Last Updated 10/23/21 @ 12:01 by Nicolette Molina CMA) No pertinent past surgical history Social History: Social History (Last Reviewed 10/23/21 @ 12:01 by Nicolette Molina CMA) Living Situation History: Household Members: Children Household Members Other:: - 10 y/o autistic son Housing: House Are you a primary child care center administrator to a significant other at home: No Do you presently have visiting nurse or other home services: No Tobacco History: Patient Tobacco Use Status: Former Tobacco user Smoke Quit Date: 06/11/21 Second Hand Smoke Exposure: Yes Substance Use History: Substance Use Type: Marijuana Advance Directives: Advance Directives Date on File: 06/09/21 Occupation Assessmet: service: No Current occupational status: employed Current occupation: Fulltime Current occupational exposures/hazards: No Oncology Screenings - ECOG Performance Status ECOG Performance Status: 0 Home Medications and Allergies Allergies Allergy/AdvReac Type Severity Reaction Status Date / Time iodine Allergy Severe Anaphylaxis Verified 10/23/21 12:01 shellfish derived Allergy Severe Anaphylaxis Verified 10/23/21 12:01 Exam Vital signs: Vital Signs Temp 98.4 F 09/12/21 15:39 Pulse 125 H 09/12/21 15:39 Resp 18 09/04/21 13:36 BP 110/72 09/12/21 15:39 Pulse Ox 99 09/12/21 15:39 O2 Del Method 09/12/21 15:39 Weight 50.5 kg BMI result Body Mass Index 17.4 - Constitutional Present: no acute distress - Routine HEENT Exam Head: Present: normal inspection Eye: Present: normal appearance ENT: Present: mucous membranes moist - Routine Neck Exam Present: full ROM - Routine Respiratory Exam Present: decreased breath sounds - Routine Cardiovascular Exam Cardiovascular: Present: RRR, S1, S2 - Routine Abdominal Exam Present: soft, nontender - Routine Extremities Exam Present: nontender - Routine Back/Spine/Pelvis Exam Back/Spine: Present: full ROM - Routine Skin Exam Present: intact, normal turgor - Routine Neurological Exam Present: alert, oriented X3 - Detailed Neurological Exam: Coma Scale Eye Opening: Spontaneous (4) - Routine Psychiatric Exam Present: normal affect Data - Labs CBC & Chem 7: 10/23/21 11:58 10/23/21 11:58 Assessment and Plan Patient Active problem list reviewed?: Yes (1) Mass of right lung Status: Inactive Assessment and plan: DATA BASE: 06/08: CBC: WBC 8.3, HGB 12.8, HCT 40.4, MCV 81.6, PLT 381. ESR 70. CMP: GLUCOSE 103, BUN 14, ORTHOPEDIC SHOE MAKER 0.72. ANKIT 10.4, ALB 4. LFTS: 0.6/141/23/19. CEA: 7.80. LDH: 369. /: CBC: WBC 5.8, HGB 11.4, HCT 35 minutes 9, PLT 379. CMP: Glucose 86, BUN 11, ORTHOPEDIC SHOE MAKER 0.60, Ankit 10.3, LFTs: 0.5/123/18/14. This is a pleasant 55-year-old gentleman who initially presented to the ER 06/08, after he was noted to be tachycardic when he presented for a colonoscopy. He had recent weight loss. CT scan of the chest revealed: Large right upper lobe mass invading the mediastinum causing severe narrowing of the SVC. The mass is amenable to image guided percutaneous biopsy. Differential diagnosis include: 1. LUNG CANCER: Small cell is more likely. He does have a history of smoking. 2. LYMPHOMA: Primary mediastinal lymphoma, Diffuse large cell or mantle cell. 3. GERM-CELL TUMOR: Non seminoma versus seminoma verses teratoma. He underwent IR guided core biopsy of the mass, on 06/09: Poorly differentiated adenocarcinoma, favor lung primary. PET scan from 06/22: Very large hypermetabolic right upper lobe lesion consistent with lung carcinoma. Involvement of the mediastinum with airway compression. Hypermetabolic left adrenal mass measuring 2.9 cm with SUV max of 10.7 consistent with metastatic disease. 3 cm hypermetabolic focus involving right adrenal gland, likely representing metastatic disease. Hypermetabolic lytic lesion involving the right clivus measuring 1.5 cm with SUV max of 7.9 consistent with metastatic disease. Hypermetabolic lytic lesion involving the right eye ache bone with SUV max of 6.1 measuring 1.25 cm. PET scan did reveal bony metastases. He was then started on radiation therapy emergently on 06/24. Chemotherapy was started on 06/26. . Patient was referred for urgent radiation therapy consultation. He started radiation therapy on , June 29 at [facility]. He was started on carbo Taxol June 26. He had a reaction to Taxol on 07/11. He recieved Zometa that day as well. He was referred to the emergency room. On 07/17, he received single agent carboplatin. On 07/24, he was started on carbo Alimta. Overall he has noticed improvement in his status. He will continue on the current regimen. CT scan of the chest from 09/14: Significant improvement in right upper lobe anterior pleural-based mass. The right mediastinal component, especially paramediastinum, has improved. The right upper lobe apical pleural nodule has resolved. There is diffuse 3 mm pulmonary nodules in the right upper lobe in the parahilar region which are normal or evident. These could be new or better visualized due to reduction the right paramediastinal component of mediastinal tumor. Lingular nodule is stable. No new nodules seen in the lower lobes. Moderate compression of the SVC and mild compression of right pulmonary artery is unchanged. Left adrenal tumor is stable. There is a small right adrenal metastatic lesion, better visualized on the present exam. CT scan of the head from 09/23: * No large vessel occlusion within the intracranial or extracranial arterial vasculature. * There is mild extrinsic narrowing/compression of the right petroclival/lateral segment of the internal carotid artery related to mass effect by the soft tissue component of the neoplastic process within the basisphenoid of the clivus, as seen on the prior MRI brain. Again seen is a soft tissue component within the sphenoid chamber. * This same neoplastic process may also involve the right trigeminal ganglion and/or traversing right oculomotor nerve, both of which course through this region, and could be resulting in the patient's symptomatology.. * No hemodynamically significant stenosis within the extracranial arterial vasculature. * Stable size of the subcentimeter enhancing lesion within the right subependymal periventricular white matter. No new intracranial metastases are evident. * Decreased size of the large mass in the anterior right upper lobe invading the chest wall. * Similar-appearing bulky confluent mediastinal lymphadenopathy. He completed radiation therapy to the brain on 10/13. He is currently recuperating. He is on a Decadron taper. PLAN: He will be going for the PET scan tomorrow. My plan is to start him on Nivolumab, since he does not have any actionable mutation. PDL1: 0. He was started on Denosumab. This will be continued monthly. He is due for dose today. He will be re-staged with a CT scan in 3 months time, after starting the Nivolumab. Hopefully he will have a complete response. Thank you, Cc: Dr. Bowie. Addendum: Scan from 10/24 revealed: 1. A large right upper lobe mass extends into the mediastinum and adjacent structures as described above, and this is markedly FDG avid consistent with malignancy. 2. Multiple FDG avid predominantly lytic osseous metastasis are present as described above. 3. Bilateral FDG avid adrenal lesions are present, larger on the left, and these also likely represent metastases. 4. An erosive weakly FDG avid skull base lesion is noted corresponding to the lesion at this site visualized on the 09/06/2021 MRI of the head and the 09/23/2021 CT angiogram of the head. This is also likely malignant. This is significantly less FDG avid than the mediastinal mass and other osseous metastasis and may represent different histology. 5. Mildly increased activity in the region of the anterior aspect of the right maxilla is nonspecific. No corresponding CT abnormalities are present. Clinical correlation is recommended. 6. Mildly increased activity in the anterior midline mandible is nonspecific, but may be related to dental disease. 7. Vascular calcifications including coronary. - Time Spent With Patient Time Spent with Patient (in minutes): 30
[2021-10-23 11:50] VITALS: BP 121/77; PULSE 125; RESP 14; TEMP 36.9; O2SAT 99; BMI 19.1
[2021-10-23 12:04] LABS: Hematocrit 34.8 % (42.0-52.0); Hemoglobin 11.3 g/dl (14.0-18.0); Mean Corpuscular HGB Conc 32.5 g/dl (31.0-36.0); Mean Corpuscular Hemoglobin 32.3 pg (27.0-33.0); Mean Corpuscular Volume 99.4 fL (80.0-98.0); Mean Platelet Volume 9.4 fL (9.4-12.4); Platelet Count 286 X10*3/uL (160-400); Red Cell Distribution Width 18.1 % (11.0-16.0); White Blood Count 10.7 X10*3/uL (4.8-10.8)
[2021-10-23 12:22] LABS: Alanine Aminotransferase 32 U/L (0-40); Albumin Level 3.9 g/dL (3.5-5.0); Alkaline Phosphatase 94 U/L (39-117); Anion Gap 16 (12-20); Aspartate Amino Transferase 26 U/L (5-37); Bilirubin Total 0.5 mg/dL (0.0-1.0); Blood Urea Nitrogen 20 mg/dL (9-16); Calcium 9.4 mg/dL (8.4-10.2); Carbon Dioxide 28 mmol/L (22-29); Chloride 97 mmol/L (96-108); Creatinine Clr Calc Pharmacy 104.7; Estimated Glomerular Filt Rate > 60; Glucose Random 85 mg/dL (60-115); Potassium 4.6 mmol/L (3.3-5.1); Sodium 136 mmol/L (135-145); Total Protein 6.7 g/dL (6.5-8.0)
[2021-10-23 12:45] LABS: Band Neutrophils Percent 4 % (3-5); Lymphocytes Absolute Manual 0.5 X10*3/uL (1.2-4.9); Lymphocytes Percent Manual 5 % (20-40); Metamyelocytes Absolute 0.2 X10*3/uL; Metamyelocytes Percent 2 %; Monocytes Absolute Manual 0.9 X10*3/uL (0.1-1.2); Monocytes Percent Manual 8 % (2-11); Neutrophils Absolute Manual 9.1 X10*3/uL (2.0-8.3); Neutrophils Percent Manual 81 % (45-73)
[2021-10-23 12:46] LABS: Platelet Estimate NORMAL (NORMAL); Platelet Morphology Comment NORMAL; RBC Morphology NORMAL
--- NOTE | 2021-10-23 14:40 | MHC.HEMONC ---
Pt here for Denosumab injection. Pt to get Denosumab monthly per Dr Merino. Labs reviewed. Pt was not in room for denosumab injection. This nurse called pt's cell phone. Pt states he is in the [place] having lunch. Pt instructed to return to oncology department after finished eating for injection. Pt returned and was given denosumab Sub q in left upper arm. Pt toll well. Pt given calendar with next chemo treatment on 10/30/21 and next denosumab injection.
--- NOTE | 2021-10-23 14:47 | MHC.HEMONCMA ---
Pt was in for follow up. Clinical summary reviewed and updated, VSS. Labs were drawn. Pt to return in few weeks for chemo teaching.
--- NOTE | 2021-10-23 14:54 | MHC.HEMONC ---
Chemo teach appointment and chemotherapy start date scheduled for 10/30/21. Awaiting PA. Pharmacy notified. Pt notified and agreeable
[2021-10-30 10:45] VITALS: BP 138/81; PULSE 124; RESP 20; TEMP 36.4; O2SAT 99; BMI 19.8
--- NOTE | 2021-10-30 10:59 | HO.HEMONCPA ---
Addendum entered by Roxana Saez 10/30/21 16:51: NO PA REQUIRED for Nivolumab -[id number]. DOCUMENT SCANNED IN THE CHART Original Note: PA for Nivolumab - [id number] requested via fax. awaiting decision
[2021-10-30 11:08] LABS: Hemoglobin 11.3 g/dl (14.0-18.0); Mean Corpuscular HGB Conc 32.3 g/dl (31.0-36.0); Mean Corpuscular Hemoglobin 33.2 pg (27.0-33.0); Mean Corpuscular Volume 102.9 fL (80.0-98.0); Mean Platelet Volume 9.3 fL (9.4-12.4); Platelet Count 264 X10*3/uL (160-400); Red Cell Distribution Width 17.2 % (11.0-16.0); White Blood Count 9.6 X10*3/uL (4.8-10.8)
[2021-10-30 11:26] LABS: Alanine Aminotransferase 31 U/L (0-40); Albumin Level 3.7 g/dL (3.5-5.0); Alkaline Phosphatase 91 U/L (39-117); Anion Gap 15 (12-20); Aspartate Amino Transferase 24 U/L (5-37); Bilirubin Direct 0.2 mg/dL (0.0-0.5); Bilirubin Total 0.6 mg/dL (0.0-1.0); Blood Urea Nitrogen 22 mg/dL (9-16); Carbon Dioxide 26 mmol/L (22-29); Chloride 98 mmol/L (96-108); Creatinine Clr Calc Pharmacy 106.4; Estimated Glomerular Filt Rate > 60; Glucose Random 97 mg/dL (60-115); Potassium 4.3 mmol/L (3.3-5.1); Sodium 135 mmol/L (135-145); Total Protein 6.5 g/dL (6.5-8.0)
[2021-10-30 11:44] LABS: Band Neutrophils Percent 1 % (3-5); Lymphocytes Absolute Manual 0.1 X10*3/uL (1.2-4.9); Lymphocytes Percent Manual 1 % (20-40); Monocytes Absolute Manual 0.2 X10*3/uL (0.1-1.2); Monocytes Percent Manual 2 % (2-11); Neutrophils Absolute Manual 9.3 X10*3/uL (2.0-8.3); Neutrophils Percent Manual 96 % (45-73)
[2021-10-30 11:45] LABS: Macrocytosis 1+ (5-14) /OIF; Platelet Estimate NORMAL (NORMAL); Platelet Morphology Comment NORMAL; Polychromasia 1+ (0-2) /OIF; RBC Morphology NOTED
--- NOTE | 2021-10-30 13:32 | MHC.HEMONC ---
Pt here for chemo teach and treatment. Labs drawn. Pt states has been feeling good, eating good. Continues to wear eye patch over right eye due to diplopia. Discussed new treatment plan. Discussed med, timing of treatment, side effects, when to call. No PA obtained for nivolumab at this time. Treatment plan given to Roxana Saez to obtain PA. Pt will be called with new date and time of treatment once PA obtained.
[2021-10-31 16:38] LABS: Thyroid Stimulating Hormone 0.67 uIU/mL (0.32-4.0)
[2021-11-01 09:19] VITALS: BP 128/88; PULSE 125; RESP 18; TEMP 36.1; O2SAT 99; BMI 19.7
[2021-11-01] MEDS: Ondansetron ODT 8 MG TAB.RAPDIS TRANSLINGU (10:17)
[2021-11-01] MEDS: diphenhydrAMINE HCL 50 MG/ML VIAL 25 MG IVPUSH (10:17)
[2021-11-01] MEDS: Acetaminophen 325 MG TABLET 650 MG PO (10:18)
[2021-11-01 10:31] VITALS: PULSE 113; O2SAT 98
--- NOTE | 2021-11-01 13:27 | MHC.HEMONC ---
C1C1 Nivolumab 14 day cycle, (denosumab q monthly) Labs were drawn Saturday and reviewed. #22 started in right lower arm. Pt offers no new complaints. Pre meds given. Reviewed symptoms of med reaction with patient. Nivolumab infused as ordered. Pt toll well. Pt aware to call for any s/s reaction once at home. Iv removed catheter intact. Discharge packet given to patient with calendar for next treatment and denosumab.
[2021-11-15 09:25] LABS: MANUAL DIFF FLAG NO
[2021-11-15 09:30] LABS: Basophils Percent Auto 0.3 % (0-2); Hematocrit 30.9 % (42.0-52.0); Hemoglobin 10.8 g/dl (14.0-18.0); Imm Gran Abs Auto 0.52 X10*3/uL (0.00-0.03); Imm Gran Pct Auto 4.8 % (0.0-0.4); Lymphocytes Absolute Auto 0.2 X10*3/uL (1.2-4.9); Lymphocytes Percent Auto 1.8 % (20-40); Mean Corpuscular Hemoglobin 31.6 pg (27.0-33.0); Mean Corpuscular Volume 90.4 fL (80.0-98.0); Mean Platelet Volume 8.4 fL (9.4-12.4); Monocytes Percent Auto 9.5 % (2-11); Neutrophils Percent Auto 83.6 % (45-73); Platelet Count 321 X10*3/uL (160-400); Red Blood Count 3.42 X10*6/uL (4.60-5.80); Red Cell Distribution Width 14.9 % (11.0-16.0); White Blood Count 10.8 X10*3/uL (4.8-10.8)
[2021-11-15 10:00] LABS: Alanine Aminotransferase 17 U/L (0-40); Albumin Level 3.7 g/dL (3.5-5.0); Alkaline Phosphatase 115 U/L (39-117); Anion Gap 17 (12-20); Aspartate Amino Transferase 21 U/L (5-37); Bilirubin Direct 0.5 mg/dL (0.0-0.5); Bilirubin Total 1.5 mg/dL (0.0-1.0); Blood Urea Nitrogen 10 mg/dL (9-16); Calcium 8.2 mg/dL (8.4-10.2); Carbon Dioxide 22 mmol/L (22-29); Chloride 84 mmol/L (96-108); Creatinine Clr Calc Pharmacy 115.1; Estimated Glomerular Filt Rate > 60; Glucose Random 89 mg/dL (60-115); Sodium 119 mmol/L (135-145); Total Protein 6.5 g/dL (6.5-8.0)
[2021-11-15] MEDS: 0.9 % Sodium Chloride 500 ML 100 ML IV (10:00)
--- NOTE | 2021-11-15 10:10 | PM.HEMONCPN ---
Medical Summary - Medical Summary Date of Service: 11/15/21 Chief complaint: Extreme fatigue and weakness Medical Summary: DIAGNOSIS: 1. SVC SYNDROME. 2. LARGE LUNG MASS. Pathology: Poorly differentiated adenocarcinoma. Compatible with a lung primary. CURRENT THERAPY: Combined modality therapy with radiation plus carbo Taxol weekly, started 06/26. He had a reaction to Taxol when he received the 3rd treatment, on 07/17. He was given 1 dose of carboplatin. Then switched over to carbo and Alimta, on 07/24. He received 2nd dose on 08/25 and 3rd dose on 09/04, along with the radiation. He was then started on radiation to the brain: Started 09/28 through 10/13. Interval History Interval history: Patient came in today for scheduled treatment. However he reports feeling extremely tired in the last 2 weeks. He had some nausea and emesis over the weekend but that resolved. He reports no diarrhea or abdominal pain. No cough, shortness of breath, fever or chills. He denies headache or dizziness but feels that radiation therapy to his brain lesion has not helped. He continues to have vision problems. Review of Systems - Constitutional Reports as per HPI, Reports poor appetite - Neurologic Reports no additional neurologic complaints, Reports dizziness, Denies weakness PMFSH Medical History: Medical History (Last Reviewed 10/23/21 @ 12:01 by Nicolette Molina COMPRESSOR OPERATOR PORTABLE) Adenocarcinoma of lung Bone metastases Mass of right lung Functional capacity: independent ambulation Family History: Family History (Last Reviewed 09/24/21 @ 07:00 by Migdalia Horan MD) Mother Diverticulitis Breast cancer Maternal Uncle Diverticulitis Prostate cancer Maternal Grandmother Diverticulitis Surgical History: Surgical History (Last Updated 10/23/21 @ 12:01 by Nicolette Moilna CMA) No pertinent past surgical history Social History: Social History (Last Reviewed 10/23/21 @ 12:01 by Nicolette Molina CMA) Living Situation History: Household Members: Children Household Members Other:: - 10 y/o autistic son Housing: House Are you a primary health care attorney to a significant other at home: No Do you presently have visiting nurse or other home services: No Alcohol History Details: 1. How often do you have a drink containing alcohol?: b. Monthly or less 2. How many drinks containing alcohol do you have on a typical day when you are drinking?: a. 1 or 2 Tobacco History: Patient Tobacco Use Status: Former Tobacco user Smoke Quit Date: 06/11/21 Second Hand Smoke Exposure: Yes Substance Use History: Use of substances other than those prescribed or required for medical reasons: Yes Substance Use Type: Marijuana Domestic Abuse History: Have you been hit, kicked, punched, or otherwise hurt by someone within the past year? If so, by whom?: No Do you feel safe in your current relationship?: No Current Relationship Advance Directives: Advance Directives Date on File: 06/09/21 Homicidal Assessment: Do you have thoughts of harming others: None Do you have a plan to hurt others: No Plan Do you have the means to hurt others: No Nutrition Assessment: Recently lost weight without trying: No Patient : No Occupation Assessmet: service: No Current occupational status: employed Current occupation: Fulltime Current occupational exposures/hazards: No Home Medications and Allergies Current Medications: Current Medications Acetaminophen (Acetaminophen 325 Mg Tablet) 650 mg PO ONCE SYDNI Stop: 11/15/21 23:59 Diphenhydramine HCl (Diphenhydramine Hcl 50 Mg/Ml Vial) 25 mg IVPUSH ONCE SYDNI Stop: 11/15/21 23:59 Heparin Sodium (Porcine) (Heparin Sodium,Porcine Flush 500 Unit/5 Ml Syringe) 500 unit IVFLUSH ONCE SYDNI Stop: 11/15/21 23:59 Ondansetron HCl (Ondansetron Odt 8 Mg Tab.Rapdis) 8 mg TRANSLINGU ONCE SYDNI Stop: 11/15/21 23:59 Allergies Allergy/AdvReac Type Severity Reaction Status Date / Time iodine Allergy Severe Anaphylaxis Verified 10/23/21 12:01 shellfish derived Allergy Severe Anaphylaxis Verified 10/23/21 12:01 Exam Vital signs: Vital Signs Temp 97.0 F 11/01/21 09:19 Pulse 113 H 11/01/21 10:31 Resp 18 11/01/21 09:19 BP 128/88 11/01/21 09:19 Pulse Ox 98 11/01/21 10:31 O2 Del Method 11/01/21 10:31 Weight 57.2 kg BMI result Body Mass Index 19.7 - Constitutional Present: no acute distress - Routine HEENT Exam Head: Present: normal inspection - Routine Neck Exam Present: full ROM - Routine Respiratory Exam Present: decreased breath sounds - Routine Cardiovascular Exam Cardiovascular: Present: RRR, S1, S2 - Routine Abdominal Exam Present: soft, nontender - Routine Extremities Exam Present: nontender - Routine Back/Spine/Pelvis Exam Back/Spine: Present: full ROM - Routine Skin Exam Present: intact, normal turgor - Routine Neurological Exam Present: alert, oriented X3 - Detailed Neurological Exam: Coma Scale Eye Opening: Spontaneous (4) - Routine Psychiatric Exam Present: normal affect Data - Labs CBC & Chem 7: 11/15/21 09:12 11/15/21 09:12 Assessment and Plan Patient Active problem list reviewed?: Yes (1) Adenocarcinoma of lung Start date: 09/24/21 Status: Chronic Assessment and plan: 1. This is a pleasant 55-year-old male with metastatic lung adenocarcinoma diagnosed in May 2021. Biopsy of right pleural mass revealed Pathology-poorly differentiated carcinoma. EGFR, alk, BRAF, ROS1 and PD L1 negative. He completed palliative radiation therapy to the brain on 10/13. PET scan performed 10/24/2021 revealed -A large right upper lobe mass extends into the mediastinum and adjacent structures as described above, and this is markedly FDG avid consistent with malignancy. Multiple FDG avid predominantly lytic osseous metastasis are present. Bilateral FDG avid adrenal lesions are present, larger on the left, and these also likely represent metastases. An erosive weakly FDG avid skull base lesion is noted corresponding to the lesion at this site visualized on the 09/06/2021 MRI of the head and the 09/23/2021 CT angiogram of the head. Patient received 1st dose of nivolumab on 11/01/2021. He was scheduled for 2nd dose today but presented with feeling of extreme fatigue and weakness. He is not hypertensive but his sodium is again low at 119. Submit HER2 mutation testing as trastuzumab deruxtecan is now approved for metastatic lung cancer based on bisi-lung O2 study which has shown response rates of 58% in HER2 mutant disease. 2. Recurrent hyponatremia. Unclear if it is related to SIADH related to lung cancer or adrenal insufficiency secondary to immunotherapy/nivolumab. He is being started gentle IV hydration with normal saline. He will be transferred to ER for admission, he will need Nephrology consultation. Submit TSH and serum cortisol level. - Time Spent With Patient Time Spent with Patient (in minutes): 20
[2021-11-15 10:39] VITALS: BP 123/77; PULSE 123; RESP 20; TEMP 36.7; O2SAT 97; BMI 19.0
--- NOTE | 2021-11-15 10:47 | MHC.HEMONC ---
pt arrived to unit wearing an eye patch to help with blurred vision and a crutch. pt report not feeling well since last treatment c/o extreme fatigue, bilat leg pain, lack of sleep and no appetite he siad he didnt feel up to getting treatment today. labs resulted na 119. dr crow spoke to pt. plan to bring pt to ER for admission, no bed available at this time in ER pt will wait here with NS running until ready for him
[2021-11-15 11:08] LABS: Thyroid Stimulating Hormone 1.21 uIU/mL (0.32-4.0)
[2021-11-15 11:22] LABS: Cortisol Random 20.5 ug/dL
--- NOTE | 2021-11-24 10:42 | HO.HEMONCSCH ---
APPT FOR CT BIOPSY OF RT LUNG IN PENDING STATUS IN RADIOLOGY. RADIOLOGY WILL CALL DEPT. APPT DATE & TIME.
[2021-11-30 09:22] VITALS: BP 156/79; PULSE 135; RESP 20; TEMP 36.4; O2SAT 100; BMI 19.1
[2021-11-30] MEDS: 0.9 % Sodium Chloride 1,000 ML 500 ML IV (09:30)
[2021-11-30 10:25] VITALS: BP 142/93; PULSE 120; O2SAT 100
[2021-11-30 10:29] LABS: MANUAL DIFF FLAG NO
[2021-11-30 10:45] LABS: Basophils Percent Auto 0.3 % (0-2); Eosinophils Percent Auto 0.1 % (0-4); Hematocrit 28.5 % (42.0-52.0); Hemoglobin 9.2 g/dl (14.0-18.0); Imm Gran Abs Auto 0.41 X10*3/uL (0.00-0.03); Imm Gran Pct Auto 3.9 % (0.0-0.4); Lymphocytes Absolute Auto 0.3 X10*3/uL (1.2-4.9); Mean Corpuscular HGB Conc 32.3 g/dl (31.0-36.0); Mean Corpuscular Hemoglobin 30.1 pg (27.0-33.0); Mean Corpuscular Volume 93.1 fL (80.0-98.0); Mean Platelet Volume 8.9 fL (9.4-12.4); Monocytes Absolute Auto 0.8 X10*3/uL (0.1-1.2); Monocytes Percent Auto 7.9 % (2-11); Neutrophils Absolute Auto 8.8 x10*3/uL (2.0-8.3); Neutrophils Percent Auto 84.8 % (45-73); Platelet Count 366 X10*3/uL (160-400); Red Blood Count 3.06 X10*6/uL (4.60-5.80); Red Cell Distribution Width 15.3 % (11.0-16.0); White Blood Count 10.4 X10*3/uL (4.8-10.8)
[2021-11-30 10:54] LABS: Alanine Aminotransferase 12 U/L (0-40); Albumin Level 3.3 g/dL (3.5-5.0); Alkaline Phosphatase 141 U/L (39-117); Anion Gap 14 (12-20); Aspartate Amino Transferase 20 U/L (5-37); Bilirubin Direct 0.2 mg/dL (0.0-0.5); Bilirubin Total 0.3 mg/dL (0.0-1.0); Blood Urea Nitrogen 10 mg/dL (9-16); Calcium 8.3 mg/dL (8.4-10.2); Carbon Dioxide 26 mmol/L (22-29); Chloride 94 mmol/L (96-108); Creatinine Clr Calc Pharmacy 119.7; Estimated Glomerular Filt Rate > 60; Glucose Random 112 mg/dL (60-115); Potassium 3.8 mmol/L (3.3-5.1); Sodium 130 mmol/L (135-145); Total Protein 5.9 g/dL (6.5-8.0)
[2021-11-30] MEDS: Acetaminophen 325 MG TABLET 650 MG PO (11:10)
[2021-11-30] MEDS: diphenhydrAMINE HCL 50 MG/ML VIAL 25 MG IVPUSH (11:10)
[2021-11-30] MEDS: Ondansetron ODT 8 MG TAB.RAPDIS TRANSLINGU (11:14)
--- NOTE | 2021-11-30 15:07 | MHC.HEMONC ---
Here for C2 D1 Nivolumab. States is not feeling good today because he is not sleeping too well. Otherwise feeling ok. He missed his last treatment due to his labs, and spent 2 days in the hospital. Lab draw done and results reviewed. Sodium is much better at 130. Dr Merino is aware of lab results. IV started left forearm with good blood return noted. Pre-meds given as ordered. Treatment done and tolerated well. Denosumab 120mg sc given and tolerated well. Calcium level 8.3, and Dr Merino aware. Pt to start calcium supplements 600mg bid. Pt aware. Next chemo scheduled for 2 weeks. Has biopsy scheduled for next Saturday. Departure packet given and pt departed unit.
--- NOTE | 2021-12-14 09:55 | MHC.HEMONC ---
pt called to request to move chemo tx to saturday because he is not feeling well. dr escalante and pharm aware. treatment moved
[2021-12-18 11:11] LABS: MANUAL DIFF FLAG NO
--- NOTE | 2021-12-18 11:13 | P.PNHO-ONC_ITS ---
Medical Summary - Medical Summary Date of Service: 12/18/21 Chief complaint: Follow-up for: Non-small cell lung carcinoma. Medical Summary: DIAGNOSIS: 1. SVC SYNDROME. 2. LARGE LUNG MASS. Pathology: Poorly differentiated adenocarcinoma. Compatible with a lung primary. CURRENT THERAPY: Combined modality therapy with radiation plus carbo Taxol weekly, started 06/26. He had a reaction to Taxol when he received the 3rd treatment, on 07/17. He was given 1 dose of carboplatin. Then switched over to carbo and Alimta, on 07/24. He received 2nd dose on 08/25 and 3rd dose on 09/04, along with the radiation. He was then started on radiation to the brain: Started 09/28 through 10/13. Currently on Nivolumab,started 11/01, q 2 weeks. Here for 3rd dose. Interval History Interval history: Orlando Correa is a pleasant 55 year old gentleman, here for a follow-up visit. He tells me he does not feel well enough. He has noticed some difficulty urinating properly over the past week. His bowels have been constipated. He complains of generalized weakness. He does not have an appetite. He has had a cough, productive of clear foamy sputum. No hemoptysis. He is not able to sleep due to that. He doubled up on his Ativan. He had RT to the brain in September. Denies fever chills or night sweats. He denies headaches, nor dizziness. He has had palpitations. His heart rate is in the 100s. He has noticed no chest pain but chest tightness. His breathing is okay. He denies abdominal pain however he gets gas and flatulence. No nausea vomiting nor heartburn. His gag reflex has resolved couple weeks ago. He has not had a colonoscopy. He denies any dysuria or hematuria. Recently he has had some spasms in his muscles. He has neck problems. He has been slowing down in terms of his pace of walking. He has mild depression. Interim history: He was admitted to the hospital on 09/23. Discharge summary: 55-year-old male with past medical history of adenocarcinoma of the lung with Mets to multiple places including the brain, who presents to the hospital with complaints of diplopia and left facial weakness.? Patient reports that his symptoms started in the a.m., he was recently told that he has brain meds and therefore he was concerned and decided to come to the hospital.? Patient reports continues diplopia and weakness in his left face, reports no slurred speech, no difficulty finding words, no weakness numbness or tingling in his upper and lower extremities.? Reports no previous similar episode.? Reports a headache that is all over his head from the Solo way to the occipital region, reports no nausea vomiting, no dizziness, no abdominal pain, no constipation or diarrhea.? no lower extremity edema and no urinary symptoms.? On arrival to the ED patient found to have a heart rate in the 120s other otherwise hemodynamically stable Labs are significant for WBC count of 4.0, hemoglobin of 9.7, hematocrit of 26.3 sodium of 119 chloride of 80, osmolality of 246, magnesium of 1.5, UA negative, urine osmolality of 186, urine sodium 48, urine potassium of 12.5, and random chloride of 54 Hospital Course: Admitted to medical floor and started on IV Decadron. 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 Recommendation was for chemotherapy and XRT. attempts were made to transfer to [facility] where patient received previous XRT. Also noted he was severely hyponatremic on arrival. Seen by Dmitriy govea; free water repletion begun, with normalization over the next several days. On time of discharge his sodium is acceptable per Nephrology and he has follow- up with [facility] XRT. He will be discharged home on a Decadron taper. He tells me he completed his radiation therapy to the head on 10/13. He did well. His headaches have resolved. He still experiences some double vision in has right facial numbness. He is the Decadron taper. He is down to 2 mg b.i.d. His PET scan is scheduled for tomorrow. His energy level has improved. Sometimes he has to nap over the weekend. Previous history: After he had a reaction to the Taxol, he received single agent carboplatin on 07/17. His regimen was then changed to carboplatin and Alimta. He received a dose on 07/24. He completed radiation therapy last Saturday, 07/25. He has a skin rashes on his neck related radiation. He is using hydrocortisone cream. INTERIM HISTORY: His lung biopsy from 06/09 revealed poorly differentiated adenocarcinoma, consistent with lung primary. PET scan from 06/22: Very large hypermetabolic right upper lobe lesion consistent with lung carcinoma. Involvement of the mediastinum with airway compression. Hypermetabolic left adrenal mass measuring 2.9 cm with SUV max of 10.7 consistent with metastatic disease. 3 cm hypermetabolic focus involving right adrenal gland, likely representing metastatic disease. Hypermetabolic lytic lesion involving the right clivus measuring 1.5 cm with SUV max of 7.9 consistent with metastatic disease. Hypermetabolic lytic lesion involving the right eye ache bone with SUV max of 6.1 measuring 1.25 cm. He was then started on radiation therapy emergently on 06/24. Chemotherapy was started on 06/26. He tells me, something must be working. He has no more hemoptysis for the last couple days. His cough has improved and is not as forceful when previously he used to be coughing up a lot. PRESENTING HISTORY: He was initially seen as an urgent consult on account of concern for SVC syndrome. Patient was initially seen in the ER on 06/08. He was advised to be admitted however he declined. Notes from the ER doc: Patient is a 55 year old male presenting to the emergency department,, with a rapid heart rate, cough, and intermittent dizziness. Patient states that he was upstairs, being evaluated to have a colonoscopy due to some unintentional weight loss over the last few months, when they noticed he was tachycardic and gale mmend he come to the ER to be evaluated. He was a long time smoker and just quit a few weeks ago. He has a chronic cough but over the last few weeks has been intermittently dizzy. He denies any abdominal pain, nausea, vomiting, fever, chills, blurry vision, double vision, loss of vision, chest pain, difficulty breathing, shortness of breath, back pain, night sweats, pain with urination, increased urinary frequency, increased urinary urgency, blood in his urine or stool, syncope or a near syncopal episode, recent trauma or falls, bowel incontinence, bladder incontinence, bowel retention, bladder retention, or any other complaints at this time. Patient states that he has a young son who is special needs and that he is a . FAMILY HISTORY: A maternal uncle had prostate cancer at the age of 75. Dad had alcohol-related liver disease and of GI bleeding. SOCIAL HISTORY: He works for [employer]. 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 He is . of complications related to type 1 diabetes 6 years ago. 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 He used to smoke 1-2 packs a day quit 5 weeks ago. He drinks socially. Review of Systems - Constitutional Reports no additional constitutional complaints - Eyes Reports no additional eye complaints - ENT Reports no additional ear, nose, mouth, and throat complaints - Cardiovascular Reports no additional cardiovascular complaints - Respiratory Reports no additional respiratory complaints - Gastrointestinal Reports no additional gastrointestinal complaints - Genitourinary Genitourinary: Reports no additional male genitourinary complaints - Musculoskeletal Reports no additional musculoskeletal complaints - Integumentary/Breasts Skin/Breast: Reports no additional skin complaints - Neurologic Reports no additional neurologic complaints, Reports dizziness, Denies weakness - Psychiatric Reports no additional psychiatric complaints - Endocrine Reports no additional endocrine complaints - Hematologic/Lymphatic Reports no additional hematologic/lymphatic complaints - Allergic/Immunologic Reports no additional allergic/immunologic complaints [facility] Medical History: Medical History (Last Reviewed 12/18/21 @ 18:40 by Donna Domingo MD) Adenocarcinoma of lung Bone metastases Cellulitis Hyponatremia Mass of right lung Functional capacity: independent ambulation Patient : No Family History: Family History (Last Reviewed 12/18/21 @ 18:40 by Donna Domingo MD) Mother Diverticulitis Breast cancer Maternal Uncle Diverticulitis Prostate cancer Maternal Grandmother Diverticulitis Surgical History: Surgical History (Last Reviewed 12/18/21 @ 18:40 by Donna Domingo MD) No pertinent past surgical history Social History: Social History (Last Reviewed 12/18/21 @ 18:40 by Donna Domingo MD) Living Situation History: Household Members: Children Household Members Other:: - 10 y/o autistic son Housing: House Are you a primary animal caretaker supervisor to a significant other at home: No Do you presently have visiting nurse or other home services: No Tobacco History: Patient Tobacco Use Status: Former Tobacco user Smoke Quit Date: 06/11/21 Second Hand Smoke Exposure: Yes Substance Use History: Substance Use Type: Marijuana Advance Directives: Advance Directives Date on File: 06/09/21 Occupation Assessmet: service: No Current occupational status: other Current occupation: Fulltime Current occupational exposures/hazards: No Oncology Screenings - ECOG Performance Status ECOG Performance Status: 1 Home Medications and Allergies Current Medications: Current Medications Acetaminophen (Acetaminophen 325 Mg Tablet) 650 mg PO ONCE SYDNI Stop: 12/18/21 23:59 Diphenhydramine HCl (Diphenhydramine Hcl 50 Mg/Ml Vial) 25 mg IVPUSH ONCE SYDNI Stop: 12/18/21 23:59 Heparin Sodium (Porcine) (Heparin Sodium,Porcine Flush 500 Unit/5 Ml Syringe) 500 unit IVFLUSH ONCE SYDNI Stop: 12/18/21 23:59 Ondansetron HCl (Ondansetron Odt 8 Mg Tab.Rapdis) 8 mg TRANSLINGU ONCE SYDNI Stop: 12/18/21 23:59 Home Medications Medication Instructions Recorded Confirmed Type ondansetron 8 mg disintegrating 8 mg PO Q8H PRN NAUSEA 11/15/21 12/18/21 History tablet Allergies Allergy/AdvReac Type Severity Reaction Status Date / Time iodine Allergy Severe Anaphylaxis Verified 10/23/21 12:01 shellfish derived Allergy Severe Anaphylaxis Verified 10/23/21 12:01 Exam Vital signs: Vital Signs Temp 97.6 F 11/30/21 09:22 Pulse 120 H 11/30/21 10:25 Resp 20 11/30/21 09:22 BP 142/93 H 11/30/21 10:25 Pulse Ox 100 11/30/21 10:25 O2 Del Method 11/30/21 10:25 Weight 55.5 kg BMI result Body Mass Index 19.1 - Constitutional Present: no acute distress - Routine HEENT Exam Head: Present: normal inspection Eye: Present: normal appearance ENT: Present: mucous membranes moist - Routine Neck Exam Present: full ROM - Routine Respiratory Exam Present: decreased breath sounds - Routine Cardiovascular Exam Cardiovascular: Present: RRR, S1, S2 - Routine Abdominal Exam Present: soft, nontender - Routine Extremities Exam Present: nontender - Routine Back/Spine/Pelvis Exam Back/Spine: Present: full ROM - Routine Skin Exam Present: intact, normal turgor - Routine Neurological Exam Present: alert, oriented X3 - Detailed Neurological Exam: Coma Scale Eye Opening: Spontaneous (4) - Routine Psychiatric Exam Present: normal affect Data - Labs CBC & Chem 7: 12/18/21 11:06 12/18/21 11:06 Assessment and Plan Patient Active problem list reviewed?: Yes (1) Mass of right lung Status: Inactive Assessment and plan: DATA BASE: 06/08: CBC: WBC 8.3, HGB 12.8, HCT 40.4, MCV 81.6, PLT 381. ESR 70. CMP: GLUCOSE 103, BUN 14, DEVULCANIZER TENDER 0.72. ANKIT 10.4, ALB 4. LFTS: 0.6/141/23/19. CEA: 7.80. LDH: 369. 5/23: CBC: WBC 5.8, HGB 11.4, HCT 35 minutes 9, PLT 379. CMP: Glucose 86, BUN 11, DEVULCANIZER TENDER 0.60, Ankit 10.3, LFTs: 0.5/123/18/14. This is a pleasant 55-year-old gentleman who initially presented to the ER 06/08, after he was noted to be tachycardic when he presented for a colonoscopy. He had recent weight loss. CT scan of the chest revealed: Large right upper lobe mass invading the mediastinum causing severe narrowing of the SVC. The mass is amenable to image guided percutaneous biopsy. Differential diagnosis include: 1. LUNG CANCER: Small cell is more likely. He does have a history of smoking. 2. LYMPHOMA: Primary mediastinal lymphoma, Diffuse large cell or mantle cell. 3. GERM-CELL TUMOR: Non seminoma versus seminoma verses teratoma. He underwent IR guided core biopsy of the mass, on 06/09: Poorly differentiated adenocarcinoma, favor lung primary. PET scan from 06/22: Very large hypermetabolic right upper lobe lesion consistent with lung carcinoma. Involvement of the mediastinum with airway compression. Hypermetabolic left adrenal mass measuring 2.9 cm with SUV max of 10.7 c onsistent with metastatic disease. 3 cm hypermetabolic focus involving right adrenal gland, likely representing metastatic disease. Hypermetabolic lytic lesion involving the right clivus measuring 1.5 cm with SUV max of 7.9 consistent with metastatic disease. Hypermetabolic lytic lesion involving the right eye ache bone with SUV max of 6.1 measuring 1.25 cm. PET scan did reveal bony metastases. He was then started on radiation therapy emergently on 06/24. Chemotherapy was started on 06/26. . Patient was referred for urgent radiation therapy consultation. He started radiation therapy on , June 29 at [facility]. He was started on carbo Taxol June 26. He had a reaction to Taxol on 07/11. He recieved Zometa that day as well. He was referred to the emergency room. On 07/17, he received single agent carboplatin. On 07/24, he was started on carbo Alimta. Overall he has noticed improvement in his status. He will continue on the current regimen. CT scan of the chest from 09/14: Significant improvement in right upper lobe anterior pleural-based mass. The ri ght mediastinal component, especially paramediastinum, has improved. The right upper lobe apical pleural nodule has resolved. There is diffuse 3 mm pulmonary nodules in the right upper lobe in the parahilar region which are normal or evident. These could be new or better visualized due to reduction the right paramediastinal component of mediastinal tumor. Lingular nodule is stable. No new nodules seen in the lower lobes. Moderate compression of the SVC and mild compression of right pulmonary artery is unchanged. Left adrenal tumor is stable. There is a small right adrenal metastatic lesion, better visualized on the present exam. CT scan of the head from 09/23: * No large vessel occlusion within the intracranial or extracranial arterial vasculature. * There is mild extrinsic narrowing/compression of the right petroclival/lateral segment of the internal carotid artery related to mass ef fect by the soft tissue component of the neoplastic process within the basisphenoid of the clivus, as seen on the prior MRI brain. Again seen is a soft tissue component within the sphenoid chamber. * This same neoplastic process may also involve the right trigeminal ganglion and/or traversing right oculomotor nerve, both of which course through this region, and could be resulting in the patient's symptomatology.. * No hemodynamically significant stenosis within the extracranial arterial vasculature. * Stable size of the subcentimeter enhancing lesion within the right subependymal periventricular white matter. No new intracranial metastases are evident. * Decreased size of the large mass in the anterior right upper lobe invading the chest wall. * Similar-appearing bulky confluent mediastinal lymphadenopathy. He completed radiation therapy to the brain on 10/13. He is currently recuperating. He is on a Decadron taper. His PET Scan from 10/24 revealed: 1. A large right upper lobe mass extends into the mediastinum and adjacent structures as described above, and this is markedly FDG avid consistent with malignancy. 2. Multiple FDG avid predominantly lytic osseous metastasis are present as described above. 3. Bilateral FDG avid adrenal lesions are present, larger on the left, and these also likely represent metastases. 4. An erosive weakly FDG avid skull base lesion is noted corresponding to the lesion at this site visualized on the 09/06/2021 MRI of the head and the 09/23/2021 CT angiogram of the head. This is also likely malignant. This is sign ificantly less FDG avid than the mediastinal mass and other osseous metastasis and may represent different histology. 5. Mildly increased activity in the region of the anterior aspect of the right maxilla is nonspecific. No corresponding CT abnormalities are present. Clinical correlation is recommended. 6. Mildly increased activity in the anterior midline mandible is nonspecific, but may be related to dental disease. 7. Vascular calcifications including coronary. He was started on Nivolumab, on 11/01, since he does not have any actionable mutation. PDL1: 0. Here for 3 rd dose. He does not feel well at all. He has noticed some difficulty urinating properly over the past week. He has been voiding small amounts. His bowels have been constipated. He complains of generalized weakness. He does not have an appetite. He has had a cough, productive of clear foamy sputum. No hemoptysis. He is not able to sleep due to that. He doubled up on his Ativan. He was noted to have a rapid heartbeat. He also reported double vision associated with right facial weakness associated with difficulty eating food. PLAN: The plan is to admit him to the hospital for further management. He was referred to the ER. Where his CT head showed findings likely representing progression of disease specifically known metastatic cysts within the right periatrial region has increased in size now measuring 1.4 cm there also appears to be worsening permeative or she has changes associated with the known central skull base matter status is no intracranial mass effect or hydrocephalus noted no evidence of acute territorial infarction or hemorrhage. Patient was seen by Dr. Byrd in the emergency room. He recommended MRI study with and without contrast. IV Decadron 4 mg q.6 hours, He had RT to brain in September. Will check with Dr. Bowie at [facility] to see if there is room for more palliative RT. He has been on Denosumab. Fourth dose on 11/30. This will be continued monthly. He will be re-staged with a CT scan in 3 months time, after starting the Nivolumab. Thank you, Cc: Dr. Bowie. - Time Spent With Patient Time Spent with Patient (in minutes): 30
[2021-12-18 11:14] VITALS: BMI 17.6
[2021-12-18 11:16] LABS: Basophils Percent Auto 0.2 % (0-2); Eosinophils Percent Auto 0.1 % (0-4); Hematocrit 34.1 % (42.0-52.0); Hemoglobin 10.9 g/dl (14.0-18.0); Imm Gran Abs Auto 0.32 X10*3/uL (0.00-0.03); Imm Gran Pct Auto 2.6 % (0.0-0.4); Lymphocytes Absolute Auto 0.5 X10*3/uL (1.2-4.9); Lymphocytes Percent Auto 3.6 % (20-40); Mean Corpuscular Hemoglobin 29.1 pg (27.0-33.0); Mean Corpuscular Volume 91.2 fL (80.0-98.0); Monocytes Absolute Auto 0.9 X10*3/uL (0.1-1.2); Monocytes Percent Auto 7.5 % (2-11); Neutrophils Absolute Auto 10.7 x10*3/uL (2.0-8.3); Platelet Count 440 X10*3/uL (160-400); Red Blood Count 3.74 X10*6/uL (4.60-5.80); Red Cell Distribution Width 16.2 % (11.0-16.0); White Blood Count 12.5 X10*3/uL (4.8-10.8)
[2021-12-18 11:21] VITALS: BP 128/83; PULSE 132; RESP 18; TEMP 36.6; O2SAT 99
[2021-12-18 11:42] LABS: Alanine Aminotransferase 25 U/L (0-40); Albumin Level 3.8 g/dL (3.5-5.0); Alkaline Phosphatase 544 U/L (39-117); Anion Gap 19 (12-20); Aspartate Amino Transferase 50 U/L (5-37); Bilirubin Direct 0.4 mg/dL (0.0-0.5); Bilirubin Total 0.7 mg/dL (0.0-1.0); Blood Urea Nitrogen 12 mg/dL (9-16); Calcium 9.1 mg/dL (8.4-10.2); Carbon Dioxide 25 mmol/L (22-29); Chloride 94 mmol/L (96-108); Creatinine Clr Calc Pharmacy 92.6; Estimated Glomerular Filt Rate > 60; Glucose Random 88 mg/dL (60-115); Sodium 134 mmol/L (135-145); Total Protein 6.7 g/dL (6.5-8.0)
[2021-12-18] MEDS: Acetaminophen 325 MG TABLET 650 MG PO (12:54)
[2021-12-18] MEDS: Ondansetron ODT 8 MG TAB.RAPDIS TRANSLINGU (12:54)
[2021-12-18] MEDS: oxyCODONE HCl Immed Release 5 MG TABLET PO (12:55)
[2021-12-18] MEDS: diphenhydrAMINE HCL 50 MG/ML VIAL 25 MG IVPUSH (12:55)
[2021-12-18 13:27] LABS: Appearance Urine Clear; Color Urine Dark Yellow; Glucose Urine UA Negative (Negative); Leukocyte Esterase Urine Trace (Negative); Nitrite Urine Negative (Negative); PH 6.5 (5.0-9.0); Specific Gravity - Urine 1.025 (1.005-1.025); UMIC TRIGGER UACC YES; Urine Blood Negative (Negative); Urine Ketones Trace mg/dL (Negative); Urine Protein 30 (1+) mg/dL (Neg-Trace)
[2021-12-18 13:29] LABS: Bacteria Urine None Seen (None Seen); Hyaline Casts Urine 0-2 /LPF (0-2); RBC Urine 0-2 /HPF (0-2); Squamous Epithelial Cell Urine 0-2 /HPF (0-2); WBC Urine 0-5 /HPF (0-5)
--- NOTE | 2021-12-18 16:13 | P.CNNE_ITS ---
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 He said that his main reason to come to emergency room was not able to urinate and constipation. He also reported that for last few months he was having double vision and numbness on right side of face. He was wearing an eye patch when I saw him. He said that he saw a single when 1 eye was closed but double when both eyes were open. He denied any significant headache or any difficulty speaking. Review of Systems Review of Systems: Double vision, difficulty urinating and constipation were reported by patient PMFSH Past Medical History Medical History (Updated 12/18/21 @ 11:14 by Maikol Merino MD) Adenocarcinoma of lung Bone metastases Cellulitis Hyponatremia Mass of right lung Functional capacity: independent ambulation Family History Family History Mother Diverticulitis Breast cancer Maternal Uncle Diverticulitis Prostate cancer Maternal Grandmother Diverticulitis Surgical History Surgical History (Updated 10/23/21 @ 15:26 by Maikol Merino MD) No pertinent past surgical history Social History Social History Household Members: Children Household Members Other:: - 10 y/o autistic son Housing: House Are you a primary health care / medical job titles to a significant other at home: No Do you presently have visiting nurse or other home services: No Alcohol intake: never Patient Tobacco Use Status: Former Tobacco user Quit Date: 06/11/21 Second Hand Smoke Exposure: Yes Substance Use Type: Marijuana Advance Directives Date on File: 06/09/21 service: No Current occupational status: employed Current occupation: Fulltime Current occupational exposures/hazards: No Meds Allergies Allergy/AdvReac Type Severity Reaction Status Date / Time iodine Allergy Severe Anaphylaxis Verified 10/23/21 12:01 shellfish derived Allergy Severe Anaphylaxis Verified 10/23/21 12:01 Active Medications: Current Medications Acetaminophen (Acetaminophen 325 Mg Tablet) 650 mg PO ONCE SYDNI Stop: 12/18/21 23:59 Last Admin: 12/18/21 12:54 Dose: 650 mg Diphenhydramine HCl (Diphenhydramine Hcl 50 Mg/Ml Vial) 25 mg IVPUSH ONCE SYDNI Stop: 12/18/21 23:59 Last Admin: 12/18/21 12:55 Dose: 25 mg Heparin Sodium (Porcine) (Heparin Sodium,Porcine Flush 500 Unit/5 Ml Syringe) 500 unit IVFLUSH ONCE SYDNI Stop: 12/18/21 23:59 Nivolumab 240 mg/ Sodium (Chloride) 124 mls @ 248 mls/hr IV ONCE SYDNI Stop: 12/18/21 23:59 Last Infusion: 12/18/21 13:55 Dose: Infused Ondansetron HCl (Ondansetron Odt 8 Mg Tab.Rapdis) 8 mg TRANSLINGU ONCE SYDNI Stop: 12/18/21 23:59 Last Admin: 12/18/21 12:54 Dose: 8 mg Home Medications Medication Instructions Recorded Confirmed Last Taken Type ondansetron 8 mg disintegrating 8 mg PO Q8H PRN NAUSEA 11/15/21 11/15/21 Unknown History tablet Physical Exam Vital Signs: Vital Signs: Last Vital Signs Temp 97.8 F 12/18/21 11:21 Pulse 132 H 12/18/21 11:21 Resp 18 12/18/21 11:21 BP 128/83 12/18/21 11:21 Pulse Ox 99 12/18/21 11:21 O2 Del Method 12/18/21 11:21 BMI result Body Mass Index 17.6 Neuro: Other: he was alert and awake with normal spontaneity of speech fluency comprehension and affect. His right eye was not crossing midline when I asked him to move with 2 words right. Pupils were midline and reactive. there was mild right- sided ptosis. There was moderate right-sided facial weakness. There was no obvious focal arm or leg weakness. Deep tendon reflexes were trace to absent with flexor plantars. Results Labs CBC & Chem 7: 12/18/21 11:06 12/18/21 11:06 Labs: Short CBC 12/18/21 Range/Units 11: WBC 12.5 H (4.8-10.8) X10*3/uL Hgb 10.9 L (14.0-18.0) g/dl Hct 34.1 L (42.0-52.0) % Plt Count 440 H (160-400) X10*3/uL BMP 12/18/21 11:06 Sodium 134 L Potassium 4.0 Chloride 94 L Carbon Dioxide 25 BUN 12 Creatinine 0.66 Calcium 9.1 D Liver Function 12/18/21 Range/Units 11:06 Total Bilirubin 0.7 (0.0-1.0) mg/dL Direct Bilirubin 0.4 (0.0-0.5) mg/dL AST 50 H D (5-37) U/L ALT 25 (0-40) U/L Alkaline Phosphatase 544 H D (39-117) U/L Albumin 3.8 (3.5-5.0) g/dL Urine 12/18/21 Range/Units 12:15 Urine Color Dark Yellow Urine Appearance Clear Urine pH 6.5 (5.0-9.0) Ur Specific [place] 1.025 (1.005-1.025) Urine Protein 30 (1+) H (Neg-Trace) mg/dL Urine Glucose (UA) Negative (Negative) mg/dL Assessment and Plan (1) Brain metastasis: Status: Acute 56 years old man with diagnosis of lung adenocarcinoma has complained of double vision. 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 This would suggest a lesion in cavernous sinus area. An MRI of brain with and without contrast is recommended for better def inition. At this time my recommendation would be to treat him with steroids of Decadron 4 mg q.6 hours to see if that would help. Procedures Date of Service Date of Service: 12/18/21
--- NOTE | 2021-12-18 17:46 | MHC.HEMONC ---
Pt called initially early in the day, wanted to cancel today's tx, said he feels constipated, has reduced appetite, and it is very difficult for him to urinate. Dr. Merino and nursing encouraged pt to come in, pt did, pt was tachy w/ HR in 130s, VS otherwise stable, pt had weight loss of approx 4 kg. Pt was in for C4D1 Nivolumab, as well as Onc f/u appt, nurse confirmed pt requires no PA for Nivolumab. Pt had labs drawn/reviewed. Dr. Merino met w/ pt, asked pt to provide clean catch UA w/ reflex culture, but pt could not void. Nurse was ordered to perform bladder scan, found >999 ml urine in bladder. Dr. Merino ordered straight cath, nurse cath'd pt for 900 ml dark-yellow urine, sent UA specimen to lab. Pt also commented he feels very constipated, asked for PRN lactulose, Dr. Merino suggested he defer taking strong laxative until aftetr today's tx. Pt c/o 8/10 low-back pain, nurse admin one-time order of oxycodone 5 mg PO, w/ mod effect. Dr. Merino ordered to tx pt today, after which she would arrange ED transfer to address urinary retention as possible symptom of brain mets. Nurse place 22g PIV to pt's Left FA, w/ pos blood return. Pt was admin pre-meds: PO Tylenol, PO zofran, IV Benadryl. Pt was admin 500 ml NS in the course of tx, was admin IV Nivolumab over the course of [address] Merino also noted pt's bx results were still pending. Dr. Merino gave doc to doc report to WINNIE Garvin at ED, this nurse gave verbal report to supervisor mail carriers Yelena, then escorted pt to ED, after providing him w/ d/c packet, also left PIV in place.
--- NOTE | 2021-12-19 11:52 | MHC.HEMONCMA ---
MRI report fax to Dr. Bowie.
--- NOTE | 2021-12-25 11:06 | MHC.HEMONC ---
Pt left message that he requires a new scrip for Oxycodone 5mg PO Q6H PRN sent to [facility] on [facility] Dr. Merino was notified, sent digital scrip.
--- NOTE | 2021-12-26 11:13 | MHC.HEMONC ---
Pt at [facility] this morning per Dr Greco. Dr Merino notified.
== END 2021-12-26 | disposition home or self-care (01) ==
LOC: HO.ONC 09:00
PROVIDERS: Internal Medicine; PCP Registered Nurse; Visit Provider Internal Medicine Medical Oncology
DX: Z51.11 Encounter for antineoplastic chemotherapy (principal); C34.11 Malignant neoplasm of upper lobe, right bronchus or lung; C79.51 Secondary malignant neoplasm of bone; C79.31 Secondary malignant neoplasm of brain; E87.1 Hypo-osmolality and hyponatremia; K59.00 Constipation, unspecified; Z87.891 Personal history of nicotine dependence; Z92.3 Personal history of irradiation
CPT/HCPCS: 36415; 80053; 81001; 82248; 82378; 82533; 82947; 83615; 84443; 85007; 85025; 85027; 85610; 86704; 86706; 87340; 96360; 96361; 96372; 96375; 96409; 96411; 96413; 96415; 96417; 99204; 99211; 99214; 99215; J0897; J1100; J1200; J2405; J3489; J9045; J9267; J9299; J9305

== ENCOUNTER 2021-12-18 15:28 | Inpatient (IN) | payer OTHER, SELFPAY ==
--- NOTE | 2021-12-18 | ECG_ITS ---
Test Reason : TACHYCARDIA Blood Pressure : / mmHG Vent. Rate : 122 BPM Atrial Rate : 122 BPM P-R Int : 138 ms QRS Dur : 072 ms QT Int : 312 ms P-R-T Axes : 073 078 070 degrees QTc Int : 444 ms Sinus tachycardia Otherwise normal ECG When compared with ECG of 15-NOV-2021 13:24, No significant change was found Referred By: Jannet Pierre Electronically Signed By:LAITH QUIROZ MD
--- NOTE | ~2021-12-18 | MR_ITS ---
EXAMINATION: MR BRAIN WITHOUT AND WITH CONTRAST CLINICAL INFORMATION: Right facial droop. History of brain metastases. COMPARISON: CT scan of the head 12/18/2021. Brain MRI 09/06/2021. TECHNIQUE: Multiplanar MR imaging of the brain was performed without and with contrast. A total of 5.5 mL Gadavist was utilized for this examination. FINDINGS: As seen on recent CT imaging there is a 1.4 cm mass involving the right centrum semiovale adjacent to the right atrium best depicted on axial image 86 of 144 series 11. This represents a substantial increase in size from 0.3 cm measured on the previous brain MRI from 09/06/2021. There is at least one new enhancing intraparenchymal metastasis within the subcortical white matter of the right superior frontal gyrus on axial image 18 of 26 series 9. The large infiltrative central skull base metastasis involving the sphenoid body has substantially increased in size and there is progressive infiltration of tumor now filling the right cavernous sinus and encasing the cavernous segment of the right internal carotid artery. Worsening infiltrative disease within the basiocciput. There is a new dome-shaped dural based mass located just below and anterior to the right internal auditory canal on axial image 7 of 26 series 9 measuring 1 cm in diameter. There is no substantial intracranial mass effect. No midline shift or hydrocephalus. No acute territorial infarct. No pathological magnetic susceptibility artifact. Intracranial vascular flow voids are maintained. Fluid completely fills the right mastoid air cells and middle ear cavity. MR/MR head/brain wo/w con IMPRESSION: Findings are consistent with progression of intracranial metastatic disease. Specifically the right periatrial white matter lesion has substantially increased in size, now measuring 1.4 cm in diameter which represents an increase from 0.3 cm measured on MR imaging of the brain from 09/06/2021. The large infiltrative central skull base lesion has also increased in size with further involvement of the right cavernous sinus and complete encasement of the right internal carotid artery. An adjoining dural based component of this tumor located below the right internal auditory canal is also new from prior imaging.
--- NOTE | ~2021-12-18 | CT_ITS ---
EXAMINATION: CT HEAD WITHOUT CONTRAST CLINICAL INFORMATION: Known lung metastases with facial droop. COMPARISON: CT angiogram of the head and neck 09/24/2019. Brain MRI 09/06/2021. TECHNIQUE: Contiguous axial imaging was performed from the skull base to vertex without intravenous administration of contrast. This CT examination was performed using dose optimization techniques as appropriate, variously including the following: *Automated exposure control *Adjustment of mA and/or kV according to patient size (this includes techniques or standardized protocols for targeted exams where dose is matched to indication/reason for exam; i.e. extremities or head) *Use of iterative reconstruction technique DLP: 675 mGy-cm FINDINGS: There is an ovoid mass adjacent to or within the right atrium best depicted on axial image 32 of 56 series 2 measuring 1.4 cm in diameter. This finding represents progression of the known metastases better depicted on the brain MRI from 09/06/2021. There also appears to be progressive permeative changes associated with the known central skull base metastasis and there is apparent progression of tumor infiltrating the right cavernous sinus. Grossly no evidence of acute territorial infarct or hemorrhage. No intracranial mass effect or hydrocephalus. CT/CT head/brain wo IV con IMPRESSION: Findings most likely represent a manifestation of disease progression. Specifically the known metastasis within the right periatrial region has increased in size now measuring 1.4 cm. There also appears to be worsening permeative osseous changes associated with the known central skull base metastasis. No intracranial mass effect or hydrocephalus. No evidence of acute territorial infarct or hemorrhage.
[2021-12-18 15:57] VITALS: BP 153/98; PULSE 127; RESP 16; TEMP 36.9; O2SAT 98; BMI 17.4
--- NOTE | 2021-12-18 16:44 | ED.GENADULT ---
HPI - General Adult General Chief complaint: Urogenital-Male Stated complaint: Urinary Retention Time Seen by Provider: 12/18/21 15:47 Source: patient Mode of arrival: ambulatory Limitations: no limitations History of Present Illness HPI narrative: 56-year-old male history of adenocarcinoma of the lung with metastases, patient under chemo/radiation therapy patient was brought in from oncology office for further evaluation of right facial droop for 2 weeks with double vision and right facial numbness, and the progressive worsening of urinary retention with constipation. Patient required strain catheter for urinary drainage at the Oncology office. All the above symptoms as per patient been going for 2 weeks slowly and progressively worsening. Related Data Home Medications Medication Instructions Recorded Confirmed ondansetron 8 mg disintegrating 8 mg PO Q8H PRN NAUSEA 11/15/21 12/18/21 tablet Previous Rx's Medication Instructions Recorded folic acid 1 mg tablet 1 mg PO DAILY #90 tabs 07/18/21 dexamethasone 0.75 mg tablet 0.75 mg PO BID #100 tabs 10/23/21 (Decadron) oxycodone 5 mg tablet 5 mg PO Q6H PRN Breakthrough Pain, 11/28/21 Moderate #50 tabs lorazepam 0.5 mg tablet (Ativan) 0.5 mg PO TID PRN Anxiety #60 tabs 12/01/21 Allergies Allergy/AdvReac Type Severity Reaction Status Date / Time iodine Allergy Severe Anaphylaxis Verified 10/23/21 12:01 shellfish derived Allergy Severe Anaphylaxis Verified 10/23/21 12:01 Review of Systems Review of Systems: All other systems are reviewed and are negative Constitutional: Reports as per HPI and Reports no additional constitutional complaints Eyes: Reports as per HPI and Reports no additional eye complaints Reports system reviewed and no additional complaints, except as documented Cardiovascular: Reports as per HPI and Reports no additional cardiovascular complaints Respiratory: Reports as per HPI and Reports no additional respiratory complaints Gastrointestinal: Reports as per HPI and Reports no additional gastrointestinal complaints Genitourinary: Reports no additional female genitourinary complaints Musculoskeletal: Reports no additional musculoskeletal complaints Skin/Breast: Reports system reviewed and no additional complaints, except as docu Psychiatric: Reports no additional psychiatric complaints Endocrine: Reports no additional endocrine complaints Hematologic/Lymphatic: Reports no additional hematologic/lymphatic complaints Allergic/Immunologic: Reports no additional allergic/immunologic complaints Reports system reviewed and no additional complaints, except as documented and Reports Abnormal speech present [facility] Past Medical History Medical History Adenocarcinoma of lung Bone metastases Cellulitis Hyponatremia Mass of right lung Surgical History No pertinent past surgical history Family History Family History Mother Diverticulitis Breast cancer Maternal Uncle Diverticulitis Prostate cancer Maternal Grandmother Diverticulitis Social History Social History Household Members: Children Household Members Other:: - 10 y/o autistic son Housing: House Are you a primary manager intensive care to a significant other at home: No Do you presently have visiting nurse or other home services: No Alcohol intake: never Patient Tobacco Use Status: Former Tobacco user Quit Date: 06/11/21 Second Hand Smoke Exposure: Yes Substance Use Type: Marijuana Advance Directives: Yes Advance Directives Information Provided: No Advance Directives on File: No Advance Directives Date on File: 06/09/21 service: No Current occupational status: employed Current occupation: Fulltime Current occupational exposures/hazards: No Physical Exam ED Vital Signs: Vital Signs - 24 hr 12/18/21 15:57 Temperature 98.5 F Pulse Rate 127 H Respiratory Rate 16 Blood Pressure 153/98 H Pulse Oximetry 98 Oxygen Delivery Method Room Air BMI result Body Mass Index 17.4 Vital signs have been reviewed as appeared to be correct. Blood pressure normal. Heart rate elevated. Respiration rate normal. Temperature normal. Oxygen saturation normal. Appearance: Alert. Oriented X3. No acute distress. Head: Normal external exam. Normocephalic. Atraumatic. No Lopez signs noted. No raccoon eyes noted Eyes: PERRLA. EOMI. Conjunctiva and sclera normal. Eyelids normal. ENT: TM's Normal. Pharynx normal. Uvula midline. Moist mucous membranes. No trismus noted. No drooling noted. No muffled voice noted. Neck: Normal inspection. Neck supple. FROM. No adenopathy. Thyroid Normal. No meningeal signs. No neck mass noted. CVS: Normal heart rate and rhythm. Heart sound normal. No murmurs noted. Pulses normal throughout. Respiratory: No respiratory distress. Painless inspiration. Breath sounds normal. No wheezes/rales/rhonchi noted. Chest nontender. No accessory muscle usage noted or decreased air movement noted. Abdomen: Soft and nontender. Bowel sounds normal in all 4 quadrants. No distention noted. No organomegaly noted. No visible injury noted. Back: No CVA tenderness. Full range of motion noted. Skin: Skin warm and dry. Normal skin color. Normal skin turgor. No rashes/lesions/lacerations noted. Extremities: No lower extremity edema. Extremities exhibit normal range of motion. Extremities nontender. Neuro: Oriented X 3. Cranial nerve exam: II-XII are grossly intact No motor deficit. No sensory deficit. Reflexes normal. Course Course Course Narrative: 56-year-old male with metastatic lung disease presented with progression of double vision and a right facial weakness likely right 3rd/6th nerve palsy. Neurology input is appreciated recommended Decadron 4 mg q.6 hours and MRI of the brain with and without contrast. Admit the patient for further neurological management. And urine retention monitoring. Medications Administered Discontinued Medications Generic Name Dose Route Start Last Admin Trade Name Freq PRN Reason Stop Dose Admin Gadobutrol 7.5 ml 12/18/21 18:42 12/18/21 18:42 Gadobutrol 7.5 Ml Vial IVPUSH 12/18/21 18:43 5 ml ONCE ONE Administration Medical Decision Making Imaging Data CT scan - head: Attestation: I personally reviewed and interpreted this imaging study as follows: Radiologist's impression: Findings most likely represent a manifestation of disease progression. Specifically the known metastasis within the right periatrial region has increased in size now measuring 1.4 cm. There also appears to be worsening permeative osseous changes associated with the known central skull base metastasis. No intracranial mass effect or hydrocephalus. No evidence of acute territorial infarct or hemorrhage. Discharge Plan Discharge Clinical Impression: Facial droop, Acute on chronic urinary retention, Metastatic adenocarcinoma Patient Disposition: Admitted As Inpatient
--- OUTSIDE RECORDS SUMMARY | 2021-12-18 16:54 | XMS_ITS ---
:1965 Author Care Team Providers Name Role Phone Brit Gutierres Primary Care Provider Unavailable Allergies Code Code System Name Reaction Severity Status Onset 5938 RxNorm Iodine ? ? Active ? Medications No Medications Reported Problems None recorded. Procedures None recorded. Results Lab Results Date Name Specimen Result Interpretation Description Value Range Status Address ? 01/28/2020 SARS CoV 2 RNA, ? Covid-19, ? (notde) Final [facility] QL Probe, (RT)-PCR Refer ence Unspecified Labor atories: 361 Specimen Celeste Thayer Past Encounters None recorded. Social History Tobacco Smoking Status Heavy Tobacco Smoker (1 pack per day) Vaccine List None recorded. Plan of Care Reminders Provider Appointments None recorded. ? ? Lab None recorded. ? ? Referral None recorded. ? ? Procedures None recorded. ? ? Surgeries None recorded. ? ? Imaging None recorded. ? ? Vitals None recorded.
--- NOTE | 2021-12-18 18:33 | PM.IMHP ---
History of Present Illness Date of Service: 12/18/21 Attending physician on admission: Donna Domingo Chief Complaint: Right facial droop/urinary retention 56-year-old gentleman with past medical history significant for adeno carcinoma of right lung with Mets to bones and brain with history of right facial numbness and diplopia of couple month duration presented to his primary oncologist due to double vision associated with right facial weakness associated with difficulty eating food, with urinary retention of 1 week duration has been voiding small amount, at present patient denies any headache, no dizziness, denies speech impairment, no weakness of upper or lower extremities, CT head showed findings likely representing progression of disease specifically known metastatic cysts within the right periatrial region has increased in size now measuring 1.4 cm there also appears to be worsening permeative or she has changes associated with the known central skull base matter status is no intracranial mass effect or hydrocephalus noted no evidence of acute territorial infarction or hemorrhage, patient seen by Dr. Byrd in the emergency room he recommended MRI study with and without contrast and recommended IV Decadron 4 mg q.6 hours, patient denies urinary symptoms of urgency frequency denies fever chills, he has chronic constipation had a small bowel movement this morning. Review of Systems Review of Systems: General no headache, no dizziness no fever chills. CVS no chest pain, has chronic tachycardia. Respiratory no cough no sob. Gastrointestinal no nausea no vomiting, no abdominal pain, complain of constipation urinary retention Skin no rash Yes all other systems are reviewed and are negative [facility] Medical History Adenocarcinoma of lung Bone metastases Cellulitis Hyponatremia Mass of right lung Family History Mother Diverticulitis Breast cancer Maternal Uncle Diverticulitis Prostate cancer Maternal Grandmother Diverticulitis Surgical History No pertinent past surgical history Social History Household Members: Children Household Members Other:: - 10 y/o autistic son Housing: House Are you a primary skin care specialist to a significant other at home: No Do you presently have visiting nurse or other home services: No Alcohol intake: never Patient Tobacco Use Status: Former Tobacco user Quit Date: 06/11/21 Smoked in Last 30 Days: No Second Hand Smoke Exposure: Yes Use of substances other than those prescribed or required for medical reasons: No Substance Use Type: Marijuana Advance Directives: Yes Advance Directives Information Provided: No Advance Directives on File: No Advance Directives Date on File: 06/09/21 service: No Current occupational status: employed Current occupation: Fulltime Current occupational exposures/hazards: No Meds Allergies Allergy/AdvReac Type Severity Reaction Status Date / Time iodine Allergy Severe Anaphylaxis Verified 10/23/21 12:01 shellfish derived Allergy Severe Anaphylaxis Verified 10/23/21 12:01 Active Medications: Current Medications Acetaminophen (Acetaminophen 325 Mg Tablet) 650 mg PO Q6H PRN PRN Reason: Pain, Mild (Pain Scale 1-3) Dexamethasone Sodium Phosphate (Dexamethasone Sod Phosphate 4 Mg/Ml Vial) 4 mg IVPUSH Q6H SYDNI Enoxaparin Sodium (Enoxaparin Sodium 40 Mg/0.4 Ml Syringe) 40 mg SUBCUT Q24H SYDNI Folic Acid (Folic Acid 1 Mg Tablet) 1 mg PO DAILY [facility] Lorazepam (Lorazepam 0.5 Mg Tablet) 0.5 mg PO TID PRN PRN Reason: Anxiety Melatonin (Melatonin 3 Mg Tablet) 3 mg PO BEDTIME PRN PRN Reason: Insomnia Ondansetron HCl (Ondansetron Hcl 4 Mg/2 Ml Vial) 4 mg IVPUSH Q8H PRN PRN Reason: Nausea and Vomiting Oxycodone HCl (Oxycodone Hcl Immed Release 5 Mg Tablet) 5 mg PO Q6H PRN PRN Reason: Pain, Severe (Pain Scale 7-10) Pharmacy Consult (Consult Rx Perform Med Rec) 1 each MISCELLANE ONCE PRN PRN Reason: Consult order Sodium Chloride (0.9 % Sodium Chloride Flush 3 Ml Syringe) 3 ml IVFLUSH QSHIFT [facility] Home Medications Medication Instructions Recorded Confirmed Last Taken Type ondansetron 8 mg disintegrating 8 mg PO Q8H PRN NAUSEA 11/15/21 12/18/21 Unknown History tablet Physical Exam Vital Signs and Narrative: Vital Signs: Last Vital Signs Temp 98.5 F 12/18/21 15:57 Pulse 127 H 12/18/21 15:57 Resp 16 12/18/21 15:57 BP 153/98 H 12/18/21 15:57 Pulse Ox 98 12/18/21 15:57 O2 Del Method 12/18/21 15:57 BMI result Body Mass Index 17.4 Const: Other: General awake alert x3, resting comfortably in no acute distress. Right eye patched, left eye anicteric sclera,PERRLA Neck supple no JVD. CVS regular rate rhythm, tachy Respiratory lungs clear to auscultation, no respiratory distress, no wheeze, no rhonchi. Gastrointestinal abdomen soft, nontender, bowel sounds audible, no guarding , no rigidity. Extremities no edema. Neuro loss of right nasolabial fold, unable to close right eye, facial asymmetry, speech clear, normal strength tone bilateral upper and lower extremities. Skin no rash Psych appropriate affect Results Labs CBC and Chem 7: 12/19/21 02:14 12/19/21 02:14 Imaging Radiologist's Impressions: Impressions Head CT 12/18/21 16:58 IMPRESSION: Findings most likely represent a manifestation of disease progression. Specifically the known metastasis within the right periatrial region has increased in size now measuring 1.4 cm. There also appears to be worsening permeative osseous changes associated with the known central skull base metastasis. No intracranial mass effect or hydrocephalus. No evidence of acute territorial infarct or hemorrhage. Assessment and Plan (1) Facial droop: Status: Acute (2) Acute on chronic urinary retention: Status: Acute (3) Metastatic adenocarcinoma: Status: Acute (4) Bone metastases: Status: Acute (5) Brain metastasis: Status: Acute (6) Diplopia: Status: Acute Plan 56 years old man with diagnosis of lung adenocarcinoma has complained of double vision.? 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 This would suggest a lesion in cavernous sinus area.? An MRI of brain with and without contrast is recommended for better definition.? At this time my recommendation would be to treat him with steroids of Decadron 4 mg q.6 hours to see if that would help. 56-year-old gentleman with past medical history of adeno carcinoma of right lung with Mets to bone and brain presented to [facility] due to right facial weakness and diplopia as well as urinary retention of 1 week duration patient is being admitted to [facility] for further treatment and evaluation Right facial weakness/diplopia Patient has known diplopia of couple months duration diagnosed to have 6 nerve Palsy now presented with right facial weakness, seen by Neurology Dr. Byrd recommend MRI brain with and without contrast to rule out lesion in the cavernous sinus Will treat patient with IV Decadron, follow MRI result Urinary retention Will check bladder scan Q shift, straight cath as needed, if continue to required straight catheterization Q shift will place Sanchez catheter recent PET scan showed large right upper lobe mass extends into the mediastinum , Multiple lytic osseous metastasis , Bilateral avid adrenal lesions left > rt erosive skull base lesion ,Mildly increased activity in the region of the anterior aspect of right maxilla is nonspecific, Mildly increased activity in the anterior midline mandible is nonspecific, but may be related to dental disease. No bladder/prostate lesion was noted, likely due to narcotics/brain Mets. Constipation likely due to narcotics will place on stool softeners Sinus tachycardia seems chronic, an echocardiogram from October 02 showed grade 1 diastolic dysfunction, EF 45-50%, and normal cardiac valves Adenocarcinoma of right lung with metastatic disease to bone and brain being followed by oncologist Dr. Merino DVT prophylaxis with Lovenox Full code Patient will require 2 night inpatient stay due to right facial weakness, as well as urinary retention requiring further investigation and treatment Quality Stroke Does the patient have a stroke diagnosis?: No VTE Prior VTE?: No VTE Risk Level:: Medical - moderate - high VTE Device Contraindication: Treatment Not Indicated VTE Drug Contraindication: N/A - Med Ordered
[2021-12-18] MEDS: Enoxaparin Sodium 40 MG/0.4 ML SYRINGE SUBCUT (19:49)
[2021-12-18] MEDS: dexAMETHasone sod phosphate 4 MG/ML VIAL IVPUSH (19:50)
[2021-12-18 20:00] VITALS: BP 155/96; PULSE 121; TEMP 36.7; O2SAT 98
--- NOTE | 2021-12-18 20:54 | PHA.MEDREC ---
Pharmacy Consult ? Medication Reconciliation Pharmacy has completed the medication reconciliation.
[2021-12-18] MEDS: oxyCODONE HCl Immed Release 5 MG TABLET PO (21:11)
[2021-12-18 21:56] VITALS: BP 144/95; PULSE 120; RESP 16; TEMP 36.9; O2SAT 98
[2021-12-18 23:13] VITALS: BP 154/107; PULSE 118; RESP 20; O2SAT 97
[2021-12-18 23:27] LABS: COVID-19 Test Negative (Negative)
[2021-12-19] VITALS (8 sets, daily range): BP systolic 127–152; BP diastolic 75–100; PULSE 119–132; RESP 18–24; TEMP 36.1–36.9; O2SAT 96–99; BMI 17.2
--- NOTE | 2021-12-19 | ECG_ITS ---
Test Reason : TACHYCARDIA Blood Pressure : / mmHG Vent. Rate : 122 BPM Atrial Rate : 122 BPM P-R Int : 136 ms QRS Dur : 074 ms QT Int : 318 ms P-R-T Axes : 079 084 077 degrees QTc Int : 453 ms Sinus tachycardia Otherwise normal ECG When compared with ECG of 18-DEC-2021 21:28, No significant change was found Referred By: Jannet Pierre Electronically Signed By:LAITH QUIROZ MD
[2021-12-19] MEDS: dexAMETHasone sod phosphate 4 MG/ML VIAL IVPUSH ×4 (02:19→19:59)
[2021-12-19 02:23] LABS: Basophils Percent Auto 0.2 % (0-2); Eosinophils Percent Auto 0.3 % (0-4); Hematocrit 34.1 % (42.0-52.0); Hemoglobin 10.9 g/dl (14.0-18.0); Imm Gran Abs Auto 0.39 X10*3/uL (0.00-0.03); Imm Gran Pct Auto 3.5 % (0.0-0.4); Lymphocytes Absolute Auto 0.2 X10*3/uL (1.2-4.9); Lymphocytes Percent Auto 1.7 % (20-40); MANUAL DIFF FLAG SCAN; Mean Corpuscular Hemoglobin 28.9 pg (27.0-33.0); Mean Corpuscular Volume 90.5 fL (80.0-98.0); Mean Platelet Volume 9.1 fL (9.4-12.4); Monocytes Absolute Auto 0.3 X10*3/uL (0.1-1.2); Monocytes Percent Auto 2.7 % (2-11); Neutrophils Absolute Auto 10.2 x10*3/uL (2.0-8.3); Neutrophils Percent Auto 91.6 % (45-73); Platelet Count 348 X10*3/uL (160-400); Red Blood Count 3.77 X10*6/uL (4.60-5.80); Red Cell Distribution Width 16.1 % (11.0-16.0); SCAN SMEAR FLAG 1; White Blood Count 11.2 X10*3/uL (4.8-10.8)
[2021-12-19 02:40] LABS: SLIDE REVIEW VERIFIED
[2021-12-19 02:43] LABS: Alanine Aminotransferase 27 U/L (0-40); Albumin Level 3.5 g/dL (3.5-5.0); Alkaline Phosphatase 571 U/L (39-117); Anion Gap 20 (12-20); Aspartate Amino Transferase 55 U/L (5-37); Bilirubin Total 0.7 mg/dL (0.0-1.0); Blood Urea Nitrogen 7 mg/dL (9-16); Calcium 8.4 mg/dL (8.4-10.2); Carbon Dioxide 24 mmol/L (22-29); Chloride 91 mmol/L (96-108); Creatinine Clr Calc Pharmacy 102.2; Estimated Glomerular Filt Rate > 60; Glucose Random 101 mg/dL (60-115); Sodium 131 mmol/L (135-145); Total Protein 6.3 g/dL (6.5-8.0)
[2021-12-19] MEDS: LORazepam 0.5 MG TABLET PO ×2 (04:54→21:05)
[2021-12-19] MEDS: oxyCODONE HCl Immed Release 5 MG TABLET PO ×3 (07:57→21:05)
[2021-12-19] MEDS: Acetaminophen 325 MG TABLET 650 MG PO ×3 (07:58→21:48)
[2021-12-19] MEDS: 0.9 % Sodium Chloride Flush 3 ML SYRINGE IVFLUSH ×3 (07:58→21:50)
[2021-12-19] MEDS: Folic Acid 1 MG TABLET PO (07:59)
--- NOTE | 2021-12-19 08:06 | PC.NURSE ---
pt a/o x 4 no sob/[place] noted lungs - cta. speaks in full sentences. pt has a r facial droop about 3 wks and his has had a negative ct scan and negative mri yesterday to r/o cva. heart sounds - regular (tachy, hr 136) pt states that he has a tumor on his r pulmonary artery and his hr lives at 120 due to the tumor. abd soft and n/t, bs + x 4 quads. no edema noted. pt c/o en lower leg pain and lower back pain. pt wear an r eye patch of double vision within his r eye. pt states that if he does not wear the r eye patch is gait becomes unsteady and he ambulates into [place] and furniture. pt aware of plan of care.
[2021-12-19] MEDS: Tamsulosin HCL 0.4 MG CAPSULE PO (11:33)
--- NOTE | 2021-12-19 14:10 | PC.NURSE ---
pt transferred to ed overflow. report given to silvestre. pt aware of plan of care.
--- NOTE | 2021-12-19 14:20 | HO.PM.IMPN ---
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 Right eye patched, left eye anicteric sclera,PERRLA Neck? supple no JVD. CVS? regular rate rhythm, tachy Respiratory lungs clear to auscultation, no respiratory distress, no wheeze, no rhonchi. Gastrointestinal abdomen soft, nontender, bowel sounds audible, no guarding , no rigidity. Extremities no edema. Neuro loss of right nasolabial fold, unable to close right eye, facial asymmetry, speech clear, normal strength tone bilateral upper and lower extremities. Skin no rash Psych appropriate affect Objective Data Active Medications Acetaminophen (Acetaminophen 325 Mg Tablet) 650 mg PO Q6H PRN PRN Reason: Pain, Mild (Pain Scale 1-3) Last Admin: 12/19/21 07:58 Dose: 650 mg Documented By: SCOC Dexamethasone Sodium Phosphate (Dexamethasone Sod Phosphate 4 Mg/Ml Vial) 4 mg IVPUSH Q6H [facility] Last Admin: 12/19/21 07:57 Dose: 4 mg Documented By: SCOC Enoxaparin Sodium (Enoxaparin Sodium 40 Mg/0.4 Ml Syringe) 40 mg SUBCUT Q24H [facility] Last Admin: 12/18/21 19:49 Dose: 40 mg Documented By: N-LITTA Folic Acid (Folic Acid 1 Mg Tablet) 1 mg PO DAILY [facility] Last Admin: 12/19/21 07:59 Dose: 1 mg Documented By: SCOC Lorazepam (Lorazepam 0.5 Mg Tablet) 0.5 mg PO TID PRN PRN Reason: Anxiety Last Admin: 12/19/21 04:54 Dose: 0.5 mg Documented By: MENDEZ-LITTA Melatonin (Melatonin 3 Mg Tablet) 3 mg PO BEDTIME PRN PRN Reason: Insomnia Ondansetron HCl (Ondansetron Hcl 4 Mg/2 Ml Vial) 4 mg IVPUSH Q8H PRN PRN Reason: Nausea and Vomiting Oxycodone HCl (Oxycodone Hcl Immed Release 5 Mg Tablet) 5 mg PO Q6H PRN PRN Reason: Pain, Severe (Pain Scale 7-10) Last Admin: 12/19/21 07:57 Dose: 5 mg Documented By: DARLENE Pharmacy Consult (Consult Rx Perform Med Rec) 1 each MISCELLANE ONCE PRN PRN Reason: Consult order Sodium Chloride (0.9 % Sodium Chloride Flush 3 Ml Syringe) [facility] Last Admin: 12/19/21 07:58 Dose: 3 ml Documented By: DARLENE Tamsulosin HCl (Tamsulosin Hcl 0.4 Mg Capsule) 0.4 mg PO DAILY [facility] Last Admin: 12/19/21 11:33 Dose: 0.4 mg Documented By: DARLENE Labs CBC & Chem 7: 12/19/21 02:14 12/19/21 02:14 Labs: Laboratory Results - last 24 hr 12/18/21 12/19/21 12/19/21 23:06 02:14 02:14 MCV 90.5 MCH 28.9 MCHC 32.0 RDW 16.1 H Plt Count 348 MPV 9.1 L Immature Gran % (Auto) 3.5 H Neut % (Auto) 91.6 H Lymph % (Auto) 1.7 L [place] % (Auto) 2.7 Eos % (Auto) 0.3 Baso % (Auto) 0.2 Lymph # (Auto) 0.2 L [place] # (Auto) 0.3 Eos # (Auto) 0.0 Baso # (Auto) 0.0 Abs Immat Gran (auto) 0.39 H Absolute Neuts (auto) 10.2 H Absolute Nucleated RBC 0.000 Nucleated RBC % (auto) 0.0 Smear Tech's Comments VERIFIED Anion Gap 20 Estim Creat Clear Calc 102.2 Estimated GFR > 60 Random Glucose 101 Calcium 8.4 D Total Bilirubin 0.7 AST 55 H ALT 27 Alkaline Phosphatase 571 H Total Protein 6.3 L Albumin 3.5 COVID-19 (AMIRAH) Negative COVID-19 Clin Com See Note Assessment and Plan (1) Facial droop: Status: Acute (2) Metastatic adenocarcinoma: Status: Acute Plan 56-year-old gentleman with past medical history of 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 Merino she is working with [facility] radiation department to arrange for radiation therapy Will continue IV Decadron. Urinary retention Placed on Sanchez catheter due to frequent requirement of straight cath, started Flomax recent PET scan showed?large right upper lobe mass extends into the mediastinum , Multiple lytic osseous metastasis , Bilateral avid adrenal lesions left > rt erosive skull base lesion ,Mildly increased activity in the region of the anterior aspect of right maxilla is nonspecific, Mildly increased activity in the anterior midline mandible is nonspecific, but may be related to dental disease. No bladder/prostate lesion was noted, likely due to narcotics/brain Mets. 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 Merino making arrangements for radiation treatment to brain Moderate malnutrition recommend supplements DVT prophylaxis with Lovenox Full code Patient will require inpatient stay due to right facial weakness, as well as urinary retention requiring further investigation and treatment. Quality Stroke Does the patient have a stroke diagnosis?: No VTE Prior VTE?: No VTE Risk Level:: Medical - moderate - high VTE Device Contraindication: Treatment Not Indicated VTE Drug Contraindication: N/A - Med Ordered
[2021-12-19] MEDS: Enoxaparin Sodium 40 MG/0.4 ML SYRINGE SUBCUT (19:59)
--- NOTE | 2021-12-19 21:42 | MHC.CM.PN ---
Met with admitted patient in ED overflow with bed assignment pending. A&O x4. Pt with lung cancer with mets to bone and brain. Has chemo every 2 weeks at [facility]. Last dose yesterday. Brain cancer is increasing. Diagnosed in June. Pt very aware of his condition and prognosis. Is a . at 44. Has 12 year old highly functioning autistic son, Rupert. Sister in law caring for son. Has no DME or Services. Has taken medical leave from work. Received Covid vaccines x3 and booster. HCP on file. HCP/brother Jourdan Correa ([phone]). D/C plan is home. Possible VNA, however patient is not homebound. Pt is unsure at this time. Pt still drives and drove himself to [facility]. Pt states he will drive himself home. CM to follow for d/c planning.
[2021-12-20] VITALS (7 sets, daily range): BP systolic 132–155; BP diastolic 83–100; PULSE 118–125; RESP 16–20; TEMP 36.1–37; O2SAT 97–100; BMI 17.2
[2021-12-20] MEDS: dexAMETHasone sod phosphate 4 MG/ML VIAL IVPUSH ×2 (01:43→09:07)
[2021-12-20] MEDS: LORazepam 0.5 MG TABLET PO (03:58)
[2021-12-20] MEDS: Acetaminophen 325 MG TABLET 650 MG PO ×2 (03:58→20:24)
[2021-12-20] MEDS: oxyCODONE HCl Immed Release 5 MG TABLET PO ×3 (03:58→20:23)
[2021-12-20] MEDS: oxyCODONE HCl Immed Release 5 MG TABLET 10 MG PO (04:28)
[2021-12-20] MEDS: Morphine Sulfate 2 MG/ML CARTRIDGE IVPUSH (06:12)
[2021-12-20] MEDS: 0.9 % Sodium Chloride Flush 3 ML SYRINGE IVFLUSH ×3 (09:01→20:26)
[2021-12-20] MEDS: Tamsulosin HCL 0.4 MG CAPSULE PO (09:07)
[2021-12-20] MEDS: Folic Acid 1 MG TABLET PO (09:07)
[2021-12-20] MEDS: Docusate Sodium 100 MG CAPSULE 200 MG PO (10:39)
[2021-12-20] MEDS: Lactulose 20 GM/30 ML SOLUTION 10 GM PO (10:39)
--- NOTE | 2021-12-20 11:28 | MHC.CLN ---
PT IS MODERATELY MALNOURISHED PT WITH MILDLY DEPLETED SUBCUTANEOUS FAT AND MUSCLE MASS AND BMI 17, AND CHRONIC POOR PO INTAKE DIET RX: GRD M/S-APPROPRIATE PT REPORTS HE DRINKS ENSURE AT HOME-WILLING TO DRINK HERE BUT STATES HE IS GOING HOME TODAY RECOMMEND ENSURE BID TO INCREASE KCALS SUPP TO PROVIDE 700KCALS, 40G PROTEIN MONITOR PO INTAKE CLOSELY SEE ALSO FULL CLINICAL NUTRITION ASSESSMENT
--- NOTE | 2021-12-20 12:38 | MHC.CM.PN ---
pt to be dcd home no skilled services ordered by
[2021-12-20] MEDS: Milk of Magnesia 30 ML ORAL.SUSP PO (13:13)
--- NOTE | 2021-12-20 13:56 | P.PNIM_ITS ---
Subjective Subjective Date of Service: 12/21/21 Interval History: Complaining of constipation , also very much concerned about urinary retention does not want to do straight caths due to pain Review of Systems RN RESEARCH no headache no dizziness CVS no chest pain, no palpitation GI no nausea, no vomiting, no abdominal pains Review of Systems: Yes all other systems are reviewed and are negative Physical Exam Vital Signs: Vital Signs: Last Vital Signs Temp 97.5 F 12/20/21 11:49 Pulse 118 H 12/20/21 11:49 Resp 20 12/20/21 11:49 BP 146/93 H 12/20/21 11:49 Pulse Ox 98 12/20/21 11:49 O2 Del Method 12/20/21 11:49 BMI result Body Mass Index 17.2 Const: Other: General awake alert x3, resting comfortably in no acute distress.? Right eye patched, left eye anicteric sclera,PERRLA Neck? supple no JVD. CVS? regular rate rhythm, tachy Respiratory lungs clear to auscultation, no respiratory distress, no wheeze, no rhonchi. Gastrointestinal abdomen soft, nontender, bowel sounds audible, no guarding , no rigidity. Extremities no edema. Neuro loss of right nasolabial fold, unable to close right eye, facial asymmetry, speech clear, normal strength tone bilateral upper and lower e xtremities. Skin no rash Psych appropriate affect Objective Data Active Medications Acetaminophen (Acetaminophen 325 Mg Tablet) 650 mg PO Q6H PRN PRN Reason: Pain, Mild (Pain Scale 1-3) Last Admin: 12/20/21 03:58 Dose: 650 mg Documented By: LINN Dexamethasone Sodium Phosphate (Dexamethasone Sod Phosphate 4 Mg/Ml Vial) 4 mg PO TID [facility] Docusate Sodium (Docusate Sodium 100 Mg Capsule) 200 mg PO DAILY [facility] Last Admin: 12/20/21 10:39 Dose: 200 mg Documented By: RADHA Enoxaparin Sodium (Enoxaparin Sodium 40 Mg/0.4 Ml Syringe) 40 mg SUBCUT Q24H [facility] Last Admin: 12/19/21 19:59 Dose: 40 mg Documented By: KUSHAL Folic Acid (Folic Acid 1 Mg Tablet) 1 mg PO DAILY [facility] Last Admin: 12/20/21 09:07 Dose: 1 mg Documented By: RADHA Lorazepam (Lorazepam 0.5 Mg Tablet) 0.5 mg PO TID PRN PRN Reason: Anxiety Last Admin: 12/20/21 03:58 Dose: 0.5 mg Documented By: LINN Magnesium Hydroxide (Milk Of Magnesia 30 Ml Oral.Susp) 30 ml PO DAILY PRN PRN Reason: Constipation Last Admin: 12/20/21 13:13 Dose: 30 ml Documented By: RADHA Melatonin (Melatonin 3 Mg Tablet) 3 mg PO BEDTIME PRN PRN Reason: Insomnia Morphine Sulfate (Morphine Sulfate 2 Mg/Ml Cartridge) 2 mg IVPUSH ONCE PRN; Protocol PRN Reason: Pain, Severe (Pain Scale 7-10) Last Admin: 12/20/21 06:12 Dose: 2 mg Documented By: LINN Ondansetron HCl (Ondansetron Hcl 4 Mg/2 Ml Vial) 4 mg IVPUSH Q8H PRN PRN Reason: Nausea and Vomiting Oxycodone HCl (Oxycodone Hcl Immed Release 5 Mg Tablet) 5 mg PO Q6H PRN PRN Reason: Pain, Severe (Pain Scale 7-10) Last Admin: 12/20/21 09:29 Dose: 5 mg Documented By: RADHA Pharmacy Consult (Consult Rx Perform Med Rec) 1 each MISCELLANE ONCE PRN PRN Reason: Consult order Senna/Docusate Sodium (Sennosides/Docusate Sodium Tablet) 1 tab PO BEDTIME [facility] Sodium Chloride (0.9 % Sodium Chloride Flush 3 Ml Syringe) [facility] Last Admin: 12/20/21 09:01 Dose: 3 ml Documented By: RADHA Tamsulosin HCl (Tamsulosin Hcl 0.4 Mg Capsule) 0.4 mg PO DAILY [facility] Last Admin: 12/20/21 09:07 Dose: 0.4 mg Documented By: RADHA Labs CBC & Chem 7: 12/19/21 02:14 12/19/21 02:14 Assessment and Plan (1) Facial droop: Status: Acute (2) Metastatic adenocarcinoma: Status: Acute Plan 56-year-old gentleman with past medical history of 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 Merino she recommend outpatient follow-up with radiation oncologist at [facility] on IV Decadron 4 mg q.6 hours will transition to Decadron 4 mg t.i.d.. Will obtain PT eval On narcotics for leg pain likely due to multiple nauseous lesions involving right iliac bone, 7 and 10 rib on the left side, L2 vertebral body, left femoral head and right acetabulum. Urinary retention Placed on Sanchez catheter due to frequent requirement of straight cath, started Flomax recent PET scan showed?large right upper lobe mass extends into the mediastinum , Multiple lytic osseous metastasis , Bilateral avid adrenal lesions left > rt erosive skull base lesion ,Mildly increased activity in the region of the anterior aspect of right maxilla is nonspecific, Mildly increased activity in the anterior midline mandible is nonspecific, but may be related to dental disease. 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 Quality Stroke Does the patient have a stroke diagnosis?: No VTE Prior VTE?: No VTE Risk Level:: Medical - moderate - high VTE Device Contraindication: Treatment Not Indicated VTE Drug Contraindication: N/A - Med Ordered
[2021-12-20] MEDS: dexAMETHasone 4 MG TABLET PO (20:24)
[2021-12-20] MEDS: Sennosides/Docusate Sodium TABLET 1 TAB PO (20:24)
[2021-12-20] MEDS: Enoxaparin Sodium 40 MG/0.4 ML SYRINGE SUBCUT (20:24)
[2021-12-21] MEDS: LORazepam 0.5 MG TABLET PO (02:53)
[2021-12-21] MEDS: oxyCODONE HCl Immed Release 5 MG TABLET PO ×2 (02:58→10:21)
[2021-12-21 04:00] VITALS: BP 145/94; PULSE 120; RESP 20; TEMP 36.1; O2SAT 99
[2021-12-21 07:44] VITALS: BP 155/86; PULSE 123; RESP 18; TEMP 36; O2SAT 99
[2021-12-21] MEDS: Docusate Sodium 100 MG CAPSULE 200 MG PO (10:17)
[2021-12-21] MEDS: Lactulose 20 GM/30 ML SOLUTION PO (10:17)
[2021-12-21] MEDS: Tamsulosin HCL 0.4 MG CAPSULE PO (10:18)
[2021-12-21] MEDS: dexAMETHasone 4 MG TABLET PO ×2 (10:18→15:32)
[2021-12-21] MEDS: Folic Acid 1 MG TABLET PO (10:18)
[2021-12-21] MEDS: Acetaminophen 325 MG TABLET 650 MG PO (10:21)
[2021-12-21] MEDS: Milk of Magnesia 30 ML ORAL.SUSP PO (10:21)
--- NOTE | 2021-12-21 11:58 | MHC.CM.PN ---
Addendum entered by Josie Fisher 12/21/21 16:08: PER MD DISCHARGE PENDING BM TODAY. Original Note: Per MD rounds discharge is planned for today. Patient will self transport home. Patient will follow up for radiation @ .
[2021-12-21 12:00] VITALS: BP 125/82; PULSE 133; RESP 20; TEMP 36.4; O2SAT 98
--- NOTE | 2021-12-21 15:23 | P.PNIM_ITS ---
Subjective Subjective Date of Service: 12/21/21 Interval History: Concern about on and off right leg pain at times with difficulty ambulation sometimes walk fine, no bowel movement in last 48 hours patient does not want to leave hospital without a bowel movement, requesting for CT abdomen to rule out ischemic colitis since his mother suffered from it, requesting to remove metastatic brain lesions surgically . No headache, no dizziness no other acute issues, denies chest pain, no palpitations, no fevers, no chills. Has been intermittently asking for morphine and high-dose oxycodone. Review of Systems Review of Systems: Yes all other systems are reviewed and are negative Physical Exam Vital Signs: Vital Signs: Last Vital Signs Temp 97.5 F 12/21/21 12:00 Pulse 133 H 12/21/21 12:00 Resp 20 12/21/21 12:00 BP 125/82 12/21/21 12:00 Pulse Ox 98 12/21/21 12:00 O2 Del Method 12/21/21 12:00 BMI result Body Mass Index 17.2 Const: Other: General awake alert x3, resting comfortably in no acute distress.? Right eye patched, left eye anicteric sclera,PERRLA Neck? supple no JVD. CVS? regular rate rhythm, tachy Respiratory lungs clear to auscultation, no respiratory distress, no wheeze, no rhonchi. Gastrointestinal abdomen soft, nontender, bowel sounds audible, no guarding , no rigidity. Extremities no edema. Neuro loss of right nasolabial fold, unable to close right eye, facial asymmetry, speech clear, normal strength tone bilateral upper and lower extremities. Skin no rash Psych appropriate affect Objective Data Active Medications Acetaminophen (Acetaminophen 325 Mg Tablet) 650 mg PO Q6H PRN PRN Reason: Pain, Mild (Pain Scale 1-3) Last Admin: 12/21/21 10:21 Dose: 650 mg Documented By: MENDEZ-VIPUL Dexamethasone (Dexamethasone 4 Mg Tablet) 4 mg PO TID [facility] Last Admin: 12/21/21 10:18 Dose: 4 mg Documented By: MENDEZ-VIPUL Docusate Sodium (Docusate Sodium 100 Mg Capsule) 200 mg PO DAILY [facility] Last Admin: 12/21/21 10:17 Dose: 200 mg Documented By: MENDEZ-VIPUL Enoxaparin Sodium (Enoxaparin Sodium 40 Mg/0.4 Ml Syringe) 40 mg SUBCUT Q24H S Last Admin: 12/20/21 20:24 Dose: 40 mg Documented By: FRANKIE Folic Acid (Folic Acid 1 Mg Tablet) 1 mg PO DAILY [facility] Last Admin: 12/21/21 10:18 Dose: 1 mg Documented By: MARVIN Lactulose (Lactulose 20 Gm/30 Ml Solution) 20 gm PO ONCE ONE Stop: 12/21/21 15:17 Lorazepam (Lorazepam 0.5 Mg Tablet) 0.5 mg PO TID PRN PRN Reason: Anxiety Last Admin: 12/21/21 02:53 Dose: 0.5 mg Documented By: FRANKIE Magnesium Hydroxide (Milk Of Magnesia 30 Ml Oral.Susp) 30 ml PO DAILY PRN PRN Reason: Constipation Last Admin: 12/21/21 10:21 Dose: 30 ml Documented By: MARVIN Melatonin (Melatonin 3 Mg Tablet) 3 mg PO BEDTIME PRN PRN Reason: Insomnia Ondansetron HCl (Ondansetron Hcl 4 Mg/2 Ml Vial) 4 mg IVPUSH Q8H PRN PRN Reason: Nausea and Vomiting Oxycodone HCl (Oxycodone Hcl Immed Release 5 Mg Tablet) 5 mg PO Q6H PRN PRN Reason: Pain, Severe (Pain Scale 7-10) Last Admin: 12/21/21 10:21 Dose: 5 mg Documented By: MARVIN Pharmacy Consult (Consult Rx Perform Med Rec) 1 each MISCELLANE ONCE PRN PRN Reason: Consult order Polyethylene Glycol (Polyethylene Glycol 3350 17 Gm Powd.Pack) 17 gm PO DAILY [facility] Senna/Docusate Sodium (Sennosides/Docusate Sodium Tablet) 2 tab PO BEDTIME [facility] Sodium Chloride (0.9 % Sodium Chloride Flush 3 Ml Syringe) 3 ml IVFLUSH QSHIFT [facility] Last Admin: 12/21/21 07:44 Dose: Not Given Documented By: MARVIN Non-Admin Reason: See Note Tamsulosin HCl (Tamsulosin Hcl 0.4 Mg Capsule) 0.4 mg PO DAILY [facility] Last Admin: 12/21/21 10:18 Dose: 0.4 mg Documented By: MARVIN Labs CBC & Chem 7: 12/19/21 02:14 11/08/22 02:14 Assessment and Plan (1) Facial droop: Status: Acute (2) Metastatic adenocarcinoma: Status: Acute Plan 56-year-old gentleman with past medical history of 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 due to right facial weakness and diplopia as well as urinary retention of 1 week duration patient is being admitted to [facility] for further treatment and evaluation Right facial weakness/diplopia No change in neurological symptoms MRI brain showed progression of intracranial metastatic disease with involvement of the right cavernous sinus and complete encasement of the right internal carotid artery Likely cause of patient symptoms Case discussed with Dr. Merino she recommend outpatient follow-up with radiation oncologist at [facility] s/pIV Decadron 4 mg q.6 hours,now on Decadron 4 mg t.i.d.. Seen by PT they recommend home with no services On narcotics for leg pain likely due to multiple metastatic lesions involving right iliac bone, 7 and 10 rib on the left side, L2 vertebral body, left femoral head and right acetabulum. Urinary retention Placed on Sanchez catheter due to frequent requirement of straight cath, started Flomax recent PET scan showed?large right upper lobe mass extends into the mediastinum , Multiple lytic osseous metastasis , Bilateral avid adrenal lesions left > rt erosive skull base lesion ,Mildly increased activity in the region of the anterior aspect of right maxilla is nonspecific, Mildly increased activity in the anterior midline mandible is nonspecific, but may be related to dental disease. 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
[2021-12-21 15:32] VITALS: BP 109/83; PULSE 122; RESP 19; TEMP 36.3; O2SAT 96
[2021-12-21] MEDS: polyethylene glycoL 3350 17 GM POWD.PACK PO (15:32)
--- NOTE | 2021-12-21 16:20 | P.DS_ITS ---
DS: Providers Provider Date of Service: 12/21/21 Date of admission: 12/18/21 18:18 Primary care physician: Ann James DNP DS: Diagnosis Discharge Diagnosis (1) Facial droop: Status: Acute (2) Metastatic adenocarcinoma: Status: Acute DS: Summary Hospital Course Hospital Course: History of presenting illness Attending physician on admission: Donna Domingo Chief Complaint: Right facial droop/urinary retention 56-year-old gentleman with past medical history significant for adeno carcinoma of right lung with Mets to bones and brain with history of right facial numbness and diplopia of couple month duration presented to his primary oncologist due to double vision associated with right facial weakness associated with difficulty eating food, with urinary retention of 1 week duration has been voiding small amount, at present patient denies any headache, no dizziness, denies speech impairment, no weakness of upper or lower extremities, CT head showed findings likely representing progression of disease specifically known metastatic cysts within the right periatrial region has increased in size now measuring 1.4 cm there also appears to be worsening permeative or she has changes associated with the known central skull base matter status is no intracranial mass effect or hydrocephalus noted no evidence of acute territorial infarction or hemorrhage, patient seen by Dr. Byrd in the emergency room he recommended MRI study with and without contrast and recommended IV Decadron 4 mg q.6 hours, patient denies urinary symptoms of urgency frequency denies fever chills, he has chronic constipation had a small bowel movement this morning. 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 Merino she recommend outpatient follow-up with radiation oncologist at [facility] s/pIV Decadron 4 mg q.6 hours,now on Decadron 4 mg t.i.d.. Seen by PT they recommend home with no services On narcotics for leg pain likely due to multiple metastatic lesions involving right iliac bone, 7 and 10 rib on the left side, L2 vertebral body, left femoral head and right acetabulum. Urinary retention Placed on Sanchez catheter due to frequent requirement of straight cath, started Flomax recent PET scan showed?large right upper lobe mass extends into the mediastinum , Multiple lytic osseous metastasis , Bilateral avid adrenal lesions left > rt erosive skull base lesion ,Mildly increased activity in the region of the anterior aspect of right maxilla is nonspecific, Mildly increased activity in the anterior midline mandible is nonspecific, but may be related to dental disease. No bladder/prostate lesion was noted, likely due to narcotics , recommend outpatient Urology follow-up in 2-3 weeks upon discharge Constipation likely due to narcotics , resolved with stool softeners and laxatives will discharge home on Colace and senna recommended to stool softeners with diarrhea any Sinus tachycardia seems chronic, an echocardiogram from October 02 showed grade 1 diastolic dysfunction, EF 45-50%, and normal cardiac valves Adenocarcinoma of right lung with metastatic disease to bone and brain recommend to call Radiation Oncology at [facility] soon after discharge Moderate malnutrition recommend supplements Time Spent with Patient Time attestation: Total time spent providing and/or coordinating discharge services: Discharge coordination time: Greater than 30 minutes Quality: Safe Use of Opioids Does Pt have an Active Cancer Diagnosis on the Problem List?: No Quality: Stroke Does the patient have a stroke diagnosis?: No Physical Exam Vital Signs: Vital Signs: Last Vital Signs Temp 97.3 F 12/21/21 15:32 Pulse 122 H 12/21/21 15:32 Resp 19 12/21/21 15:32 BP 109/83 12/21/21 15:32 Pulse Ox 96 12/21/21 15:32 O2 Del Method 12/21/21 15:32 BMI result Body Mass Index 17.2 Const: Other: General awake alert x3, resting comfortably in no acute distress.? Right eye patched, left eye anicteric sclera,PERRLA Neck? supple no JVD. CVS? regular rate rhythm, tachy Respiratory lungs clear to auscultation, no respiratory distress, no wheeze, no rhonchi. Gastrointestinal abdomen soft, nontender, bowel sounds audible, no guarding , no rigidity. Extremities no edema. Neuro loss of right nasolabial fold, unable to close right eye, facial asymmetry, speech clear, normal strength tone bilateral upper and lower extremities. Skin no rash Psych appropriate affect Discharge Plan Discharge Anticipated Discharge Date/Time: 12/21/21 15:56 Patient Disposition: Home, Self-Care Discharge Diagnosis: Right facial droop Progressing adeno carcinoma of lung with brain and bone mets Urinary retention Constipation Referrals: Ann James, RANDA, [employer], [employer] [Primary Care Provider] - 1 Week Discharge Medications: New sennosides-docusate sodium [Senna Plus] 8.6-50 mg Tablet 1 tab PO BEDTIME Qty: 30 0RF docusate sodium 100 mg Capsule 200 mg PO DAILY Qty: 30 0RF tamsulosin 0.4 mg Capsule 0.4 mg PO DAILY Qty: 30 0RF dexamethasone 4 mg tablet 4 mg PO TID Qty: 30 0RF Continued folic acid 1 mg Tablet 1 mg PO DAILY Qty: 90 3RF oxycodone 5 mg Tablet 5 mg PO Q6H PRN (Reason: Breakthrough Pain, Moderate) Qty: 50 0RF Rx Instructions: Partial Fill upon patient request. lorazepam [Ativan] 0.5 mg Tablet 0.5 mg PO TID PRN (Reason: Anxiety) Qty: 60 2RF ondansetron 8 mg tablet,disintegrating 8 mg PO Q8H PRN (Reason: NAUSEA) Discharge Orders: Discharge Order (Routine); Ordered 12/20/21 Ordered By: Donna Domingo Diet: Advance to usual diet Activity on Discharge: As tolerated Stand Alone Forms: Patient Portal Discharge page Care Plan Goals: Take stool softeners as prescribed, hold Colace and senna for diarrhea in regard to urinary retention continue Sanchez catheter and Flomax outpatient follow-up with Urology Dr. Valeriy Espana in next 1-2 weeks call for appointment Follow-up with Dr. Merino call for appointment Call Dr. Bowie from [facility] for radiation treatment Take Decadron 4 mg tablet 3 times a day and gradually taper the dose as per Dr. Merino Health Concerns: Progressing adeno carcinoma of lung take pain medications stool softeners as prescribed Plan of Treatment: Outpatient follow-up with radiation oncologist at [facility] call to make an appointment Follow-up with Dr. Merino in 1 week Assessment: As above
--- NOTE | 2021-12-21 17:25 | PC.NURSE ---
Pt c/o constipation and pain this AM. PRN pain meds and laxatives administered this AM. Per MD, pt is to be discharged post bowel movement and have chemo done at [facility]. Pt informed. Laxatives had no effect throughout the afternoon, md informed. Enema was ordered and administered. MD informed pt has ? hernias and was slightly bleeding from rectum post enema. Pt was able to have multiple BMs afterwards, per md ok to d/c pt. Pt was educated on foely use, cleaning and bag changing, also how to use leg bag. Supplies given to pt. Pt stated he feels safe to leave
== END 2021-12-21 17:00 | disposition home or self-care (01) | DRG 48 ==
LOC: HO.ED 17:29 → HO.EDOVER 18:28 → HO.IMC 12-19 19:31
PROVIDERS: Student in an Organized Health Care Education/Training Program; Admitting Provider Hospitalist; Emergency Provider Emergency Medicine; PCP Registered Nurse; Visit Provider Hospitalist
DX: H49.02 Third [oculomotor] nerve palsy, left eye (principal); H49.22 Sixth [abducent] nerve palsy, left eye; E44.0 Moderate protein-calorie malnutrition; C34.91 Malignant neoplasm of unspecified part of right bronchus or lung; C79.51 Secondary malignant neoplasm of bone; R33.9 Retention of urine, unspecified; K59.03 Drug induced constipation; R00.0 Tachycardia, unspecified; Z68.1 Body mass index [BMI] 19.9 or less, adult; T40.605A Adverse effect of unspecified narcotics, initial encounter; C79.31 Secondary malignant neoplasm of brain; Z20.822 Contact with and (suspected) exposure to COVID-19; Z87.891 Personal history of nicotine dependence; Z91.013 Allergy to seafood; Z79.899 Other long term (current) drug therapy
CPT/HCPCS: 36415; 70450; 70553; 80053; 85025; 87635; 93005; 97161; 99285; A9585; C1758; J1100; J1650; J2270; J8540